=== PATIENT | male | born 1940 | race Caucasian/White ===

== ENCOUNTER 2016-06-13 07:28 | Day surgery (SDC) | payer MEDICARE, OTHER ==
[2016-06-13] VITALS (35 sets, daily range): BP systolic 121–173; BP diastolic 63–107
[~2016-06-13] VITALS: Ht 175.3 cm; Wt 94.0 kg
[~2016-06-13 07:28] MED LIST: ACET650T11 PO; ACLI400A IH; ALBU8.5H2 IH; APIX5TAB2 PO; ASP81TEC PO; ASPI-892 PO; ATOR20TA66 PO; Aspirin PO; BISO1TAB39 PO; BREO ELLIPTA INH; CEFU500T5 PO; CETI10TA17 PO; CLOP75TA PO; CLOP75TA28 PO; CLPD75T PO; ENAL10TA PO; ENLP10T PO; FAMO10VI PO; FAMO20TA13 PO; FERR142T5 PO; FLT05NA16; FLT05NA16 NS; GBPN100C PO; GLIP10TA13 PO; GLIP10TA23 PO; GLIP5TAB26 PO; HYDR28CR10 TP; IPRA3AMP11 INH; ISM30TCR PO; ISOS30TA3 PO; LEVO750T6 PO; METF500T4 PO; METO-272 PO; METO100T5 PO; MTF500T PO; MTP25TSR PO; MULT-298 PO; MULT-974 PO; NAPR220C11 PO; PANT40TA PO; PNT40TEC PO; ROSU10TA12 PO; TRIA1TAB3 PO; VITA-198 PO; VITA400T7 PO; WARF5TAB PO; WARF5TAB6 PO
[2016-06-13] MEDS ORDERED: NS IV 1000 ML 1,000 ML ONE (07:29)
[2016-06-13] MEDS ORDERED: HEParin (CATH LAB) 2,000 ML IV ONE (07:29)
[2016-06-13] MEDS ORDERED: LIDOCAINE 1% INJ 20 ML (XYLOCAINE) VIAL ONE (07:29)
--- OUTSIDE RECORDS SUMMARY | 2016-06-13 07:31 | XMS REPORT | Continuity of Care Document ---
Author Author [facility] Organization [facility] Address Unknown Phone Unavailable Care Team Providers Care Merchandising Professor Name Role Phone Hesham Esparza PCP [phone] Source Comments Some departments are not documenting in the electronic medical record. If you do not see the information that you expected, contact Release of Information in the Health Information Management department at [phone] for further assistance in locating additional records.[facility] Active Allergies and Adverse Reactions No Known Allergies Current Medications Prescription Sig. Disp. Refills Start End Date Status Date aspirin EC 81 mg tablet Take 81 mg by mouth Active daily. glipiZIDE CR (GLUCOTROL Take 10 mg by mouth Active XL) 10 mg tablet daily. clopidogrel (PLAVIX) 75 Take 75 mg by mouth Active mg daily. triamterene/hydrochloroth Take 1 Tab by mouth Active iazide (MAXZIDE) 37.5/25 daily. mg tablet famotidine (PEPCID) 20 mg Take 20 mg by mouth twice Active tablet daily. metFORMIN (GLUCOPHAGE) Take 500 mg by mouth Active 500 mg tablet twice daily with meals. ASPIRIN/MAG HYDROX/AL Take 2 Tabs by mouth Active HYDROX (ARTHRITIS PAIN twice daily. FORMULA PO) vitamin E 400 unit Take 400 Units by mouth Active capsule daily. MULTIVITAMIN PO Take 1 Tab by mouth Active daily. metoprolol XL (TOPROL XL) Take 100 mg by mouth Active 100 mg tablet daily. rosuvastatin (CRESTOR) 10 Take 10 mg by mouth Active mg tablet daily. Hydrocortisone 0.25 % Apply 0.2 mg to affected Active Crea area as Needed. HYDROcodone/acetaminophen Take 1 Tab by mouth every 30 Tab 0 16/20 Active (VICODIN) 5/500 mg tablet 4 hours as needed. 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 Liang. CAD (coronary artery disease) 11/16/2011 Overview: 2008 CABGx4 cath & PCI br Dr Latham: PTCA & stent to RCA, (Cipher 2.5). & 2x28 Cipher drug eluting to pLAD. Patent BACH & patent mLAD 2x28 MiniVision. S/t Cx not amendable to intervention. Mod disease in RCAw/ heavily calcified PDA, atheroscerolosis of aorta. 05/31/12 EF 60%. La 3.8.Mild LVH. Myxomatus degeneration of mitral valve leaflets, suggestive of diastolic dysfxn. AoV w. calcification. Mild TR & MR. Est PAP=35-40mmHg 06/06/11 Lexiscan Myoview Stress test: Diaghragmatic attenuation with fixed defect involving the inferior wall, EF 70%. HTN (hypertension) 11/16/2011 Hyperlipemia 11/16/2011 Overview: Statin therapy, Crestor. 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 REVO RDRO1 . RA & RV lead 5086. ).3V & 0.6 V capture thresholds at implant. RV threshold increase to 4.0V/1/5ms few mo later, consult EP at [facility] for RV lead revison. Due to microdislodgement. Possible upgrade to ICD?NSVT noted at cath. Ventricular tachycardia, nonsustained ([facility]) 11/16/2011 Overview: Noted on holter and cath. Social History Tobacco Use Types Packs/Day Years Used Date Former Smoker Comments: Quit in 1983 Last Filed Vital Signs Vital Sign Reading Time Taken Blood Pressure 168/82 11/24/2011 7:00 AM CDT Pulse 60 11/24/2011 7:00 AM CDT Temperature 36.8 C (98.2 F) 11/24/2011 7:00 AM CDT Respiratory Rate - - Height 1.753 m (5' 9") 11/23/2011 11:02 AM CDT Weight 107.5 kg (236 lb 15.9 oz) 11/23/2011 11:02 AM CDT Body Mass Index 34.98 11/23/2011 11:02 AM CDT Oxygen Saturation 95% 11/24/2011 7:00 AM CDT Plan of Care Health Maintenance Due Date Last Done Comments Physical (Comprehensive) 1945 Exam Pertussis Vaccine 1949 Tetanus Vaccine 08/25/1955 Dilated Eye Exam 1956 Foot Exam 1956 Hba1c 1956 Microalbumin 1956 Shingles Vaccine 1998 Prevnar/Pneumovax (#1) 08/25/2003 Influenza Vaccine 02/09/2016 Results from Last 3 Months Not on file
--- OUTSIDE RECORDS SUMMARY | 2016-06-13 07:32 | XMS REPORT | Continuity of Care Document ---
Author Author [facility] Organization [facility] Address Unknown Phone Unavailable Care Team Providers Care Furniture Assembler And Installer Name Role Phone Hesham Esparza PCP [phone] Source Comments Some departments are not documenting in the electronic medical record. If you do not see the information that you expected, contact Release of Information in the Health Information Management department at [phone] for further assistance in locating additional records.[facility] Active Allergies and Adverse Reactions No Known [...] Statin therapy, Crestor. PVD (peripheral vascular disease) ([facility]) 11/16/2011 Diabetes mellitus ([facility]) 11/16/2011 Diabetic neuropathy ([facility]) 11/16/2011 DJD (degenerative joint disease) 11/16/2011 Cardiac [...] ICD?NSVT noted at cath. Ventricular tachycardia, nonsustained ([facility]) 11/16/2011 Overview: Noted on holter and cath. [...]
[2016-06-13] MEDS ORDERED: NS IV 1000 ML 1,000 ML IV SCH (08:00)
[2016-06-13 08:06] LABS: BILIRUBIN,URINE NEGATIVE (NEGATIVE); KETONES,URINE NEGATIVE (NEGATIVE); LEUKOCYTE ESTERASE ,URINE NEGATIVE (NEGATIVE); NITRITE,URINE NEGATIVE (NEGATIVE); PH,URINE 5 (5-9); PROTEIN,URINE NEGATIVE (NEGATIVE); UROBILINOGEN,URINE NORMAL (NORMAL)
[2016-06-13 08:07] LABS: MEAN PLATELET VOLUME 11.8 FL (7.4-10.4); RED BLOOD COUNT 4.67 10^6/uL (4.35-5.85); RED CELL DISTRIBUTION WIDTH 15.1 % (10.0-14.5); WHITE BLOOD COUNT 6.5 10^3/uL (4.3-11.0)
[2016-06-13 08:13] LABS: SQUAMOUS EPITHELIAL CELL,UR 0-2 /HPF; WBC,URINE 0-2 /HPF
[2016-06-13 08:20] LABS: PROTHROMBIN TIME PATIENT 12.8 SEC (12.2-14.7)
[2016-06-13 08:31] LABS: ALBUMIN 4.2 G/DL (3.2-4.5); BILIRUBIN,TOTAL 0.6 MG/DL (0.1-1.0); CALCIUM 9.5 MG/DL (8.5-10.1); CREATININE SERUM 1.34 MG/DL (0.60-1.30); POTASSIUM 4.3 MMOL/L (3.6-5.0); TOTAL PROTEIN 8.2 G/DL (6.4-8.2)
--- NOTE | 2016-06-13 08:31 | Diagnostic Imaging Report ---
Portable upright radiograph of the chest. INDICATION: Dyspnea. Chest pain. FINDINGS: The heart size is at the upper limits of normal. There are minimal opacities in the lung bases favored to be related to atelectasis. No definite effusion. No pneumothorax. The mediastinum and [place] appear unchanged. There are poststernotomy changes and cardiac pacer with 2 leads seen. IMPRESSION: Subsegmental bibasilar opacities favored to be atelectasis or infiltrates. Correlate clinically. Dictated by: Dictated on workstation # [id number]
[2016-06-13] MEDS ORDERED: fentaNYL INJECTION 100 MCG/2 ML AMP ONE ×2 (08:46→15:48)
[2016-06-13] MEDS ORDERED: MIDAZOLAM 5 MG/5 ML (VERSED) VIAL ONE (08:47)
[2016-06-13] MEDS ORDERED: TAMS0.4C2 PO (08:59)
[2016-06-13] MEDS ORDERED: APIX5TAB PO (08:59)
[2016-06-13] MEDS ORDERED: ENAL5TAB PO (08:59)
[2016-06-13] MEDS ORDERED: TRIA1TAB3 PO (08:59)
[2016-06-13] MEDS ORDERED: FERR-74 PO (08:59)
[2016-06-13] MEDS ORDERED: FINA5TAB6 PO (08:59)
[2016-06-13] MEDS ORDERED: FLUT1AER IH (09:27)
--- NOTE | 2016-06-13 09:46 | Cardiac Procedure Note-CS/ASA ---
Pre-Procedure Note Pre-Op Procedure Note H&P Reviewed The H&P was reviewed, patient examined and no changes noted. Date H&P Reviewed: Jun 13, 2016 Time H&P Reviewed: 09:46 Conscious Sedation Pre-Proced Time Reviewed: 09:46 ASA Class: 3 Airway Mallampati Classification: (ambler appropriate class) I. II. III, IV Lungs Heart ASA score ASA 1: a normal healthy patient ASA 2: a patient with a mild systemic disease (mid diabetes, controlled hypertension, obesity x ASA 3: a patient with a severe systemic disease that limits activity (angina , COPD, prior Myocardial infarction) ASA 4: a patient with an incapacitating disease that is a constant threat to life (CHF, renal failure) ASA 5: a moribund patient not expected to survive 24 hrs. (ruptured aneurysm) ASA 6: a declared brain patient whose organs are being harvested. For emergent operations, add the letter E after the classification Grade 3 Sedation Plan: Analgesia, Amnesia, Plan communicated to team members, Discussed options with patient/fam, Discussed risks with patient/fam Note The patient is an appropriate candidate to undergo the planned procedure, sedation, and anesthesia. The patient immediately re-assessed prior to indication. ZARI PARIS MD Jun 13, 2016 09:46
[2016-06-13] MEDS ORDERED: HEParin 1000 UNIT/ML (10ML VIAL) FOR BOLUS ONE (09:57)
[2016-06-13] MEDS ORDERED: HEParin (CATH LAB) 1,000 ML IV ONE (10:53)
[2016-06-13] MEDS ORDERED: PATIENT MAY USE OWN MEDS, ALL PO SCH (11:30)
[2016-06-13] MEDS: NS IV 1000 ML 1,000 ML IV SCH ×2 (12:13→13:50)
--- NOTE | 2016-06-13 14:38 | DISCHARGE SUMMARY ---
PROCEDURE PHYSICIAN: ZARI PARIS DATE OF PROCEDURE: 06/13/2016 REFERRING PHYSICIAN: Dr. Esparza. BRIEF HISTORY: Mr. Henry is a 75-year-old gentleman with extensive cardiac history. History of CABG, history of multiple stents to the LAD. He has been having increasing chest pain and shortness of breath. The patient was scheduled for left heart catheterization, possible PTCA. PROCEDURE NOTE: After explaining the procedure to the patient, all pros and cons were explained. All questions were answered. The patient signed a consent, then he was placed on the cardiac catheterization laboratory. The right groin was prepped in a sterile fashion. Local anesthesia applied to the right groin. 6-[place] sheath was placed in the right femoral artery. I had difficulties advancing the catheters through the femoral and iliac artery, which was heavily calcified and tortuous. I used a long J-wire. Then I used a Maura right catheter to evaluate the vein graft, unable to advance the Maura right through the subclavian artery. I removed it and decided to proceed with percutaneous intervention to the LAD. The patient had totally occluded LAD that was intervened on in July 2014. I tried multiple guides without success in intubating the left main. Then I removed the guide and exchanged the sheath into a 6-[place] longer sheath, had difficulty advancing the sheath through the iliac artery. I readvanced the Maura right catheter and advanced the sheath over the Maura right catheter to the external iliac artery. I was unable to advance to the common iliac. Then I tried Voda catheter, JL catheter Q catheter and EBU without success. Final success was with EBU guide to 4.0. I was unable to advance a BMW wire through the occlusion at the mid LAD. I tried Whisper extra support and ChoICE PT, without success. I placed a 2.5 x 15 mm balloon at the proximal LAD. I tried to anchor the wire without success. Balloon inflated to its nominal position at the proximal portion within the stent. Some improvement in flow in the proximal portion unable to opening the mid LAD. At that point the catheter was removed. Then I introduced and an IM catheter, advanced it to the subclavian artery also with difficulty. Unable to intubate for selective injection of the internal mammary artery. Multiple injection of the subclavian artery was done. It showed some staining of the BACH. Pigtail catheter was advanced to the left ventricular cavity. Pressure was measured pullback LV to aorta was done. Left ventriculogram was done. At the end of the procedure, sheath was sutured in place. FINDINGS: HEMODYNAMICS: LV pressure 112/8, end-diastolic pressure of 8, aortic pressure 124/67, mean of 89. No significant gradient across the aortic valve. ANATOMY: 1. Left main coronary artery is calcified with no obstructive disease. 2. Left anterior descending artery is heavily calcified, Totally occluded distally within the old stent. Had severe disease at proximal and mid to portion. BACH to the LAD was occluded. I performed complex intervention to the proximal LAD with a balloon. Unable to cross the distal portion that appeared to be totally occluded again. Diagonal artery is occluded with patent vein graft to the diagonal artery. 3. Left circumflex artery: The circumflex artery has subtotal occlusion proximally. The vein graft to the obtuse marginal branch is patent. 4. Right coronary artery is a large dominant artery. Severe disease distally. Vein graft to the right coronary artery is patent. 5. Vein graft angiogram: The vein graft to the right coronary artery is patent with good flow distally. 6. Vein graft to the first obtuse marginal branch is patent with good flow distally. 7. Vein graft to the diagonal artery is patent with good flow distally. 8. BACH evaluation was done with nonselective angiogram, appeared to be occluded. CONCLUSION: 1. Severe stenosis at the proximal and mid LAD. Occlusion at the mid to distal LAD. Unable to cross the lesion in the distal LAD. A balloon angioplasty to the proximal lesion was done with good results. Heavily calcified artery. 2. Occluded BACH to the LAD. 3. Severe disease at the proximal circumflex artery with patent vein graft to the obtuse marginal branch. 4. Patent vein graft to the diagonal artery. 5. Ectasia in the proximal right coronary artery with severe disease distally. Patent vein graft to the right coronary artery. 6. Left ventriculogram was done in the right anterior oblique position showing the anterior wall is karely normally. Normal left ventricular size and systolic function. Estimated ejection fraction 50%. DISCUSSION AND RECOMMENDATION: Mr. Henry appears to have reocclusion of the distal LAD lesion. Heavily calcified artery, very small artery distally. It might not be fruitful to intervene on that area again. It appeared to be resistant with his complex anatomy. I attempted with multiple catheters and multiple wires without success. The anterior wall appeared to be functioning normally. I will consider evaluating viability study versus maximizing medical therapy at this point. FINAL DIAGNOSIS: 1. Coronary artery disease. 2. Chest pain, nonspecific etiology. 3. Hypertension. 4. Hyperlipidemia. 5. 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
[2016-06-13] MEDS ORDERED: ATROPINE INJECTION 1 MG/10 ML SYR (ABBOTT) ONE (15:48)
[2016-06-13] MEDS: PANTOPRAZOLE 40 MG (PROTONIX) TAB PO SCH (20:10)
[2016-06-13] MEDS ORDERED: TAMSULOSIN 0.4 MG (FLOMAX) CAP PO SCH (21:00)
[2016-06-13] MEDS ORDERED: ATORVASTATIN 20 MG (LIPITOR) TABLET PO SCH (21:00)
[2016-06-13] MEDS ORDERED: FERROUS SULF 325 MG (IRON) TAB PO SCH (21:00)
[2016-06-13] MEDS ORDERED: MULTIVIT W/MINERALS TAB (THERAGRAN M) PO SCH (21:00)
[2016-06-13] MEDS ORDERED: ACETAMINOPHEN 325 MG TABLET/CAPLET (TYLENOL) PO PRN (21:30)
[2016-06-14 00:05] VITALS: BP 157/82
[2016-06-14 04:00] VITALS: BP 165/89
[2016-06-14 06:08] LABS: MEAN PLATELET VOLUME 11.8 FL (7.4-10.4); RED BLOOD COUNT 4.16 10^6/uL (4.35-5.85); RED CELL DISTRIBUTION WIDTH 14.9 % (10.0-14.5); WHITE BLOOD COUNT 5.9 10^3/uL (4.3-11.0)
[2016-06-14 06:51] LABS: ANION GAP 8 MMOL/L (5-14); BLOOD UREA NITROGEN 27 MG/DL (7-18); BUN/CREATININE RATIO 26; CALCIUM 8.8 MG/DL (8.5-10.1); CARBON DIOXIDE 20 MMOL/L (21-32); CHLORIDE 113 MMOL/L (98-107); CREATININE SERUM 1.04 MG/DL (0.60-1.30); GFR ESTIMATED > 60; GLUCOSE 80 MG/DL (70-105); POTASSIUM 4.1 MMOL/L (3.6-5.0); SODIUM 141 MMOL/L (135-145)
[2016-06-14 07:58] VITALS: BP 127/74
[2016-06-14] MEDS ORDERED: RT-ADVAIR HFA 115/21 MCG PER PUFF IH SCH (08:00)
[2016-06-14] MEDS ORDERED: glipiZIDE XL 10 MG (GLUCOTROL XL) TAB PO SCH (09:00)
[2016-06-14] MEDS ORDERED: FINASTERIDE (PROSCAR) 5 MG TAB PO SCH (09:00)
[2016-06-14] MEDS ORDERED: ASPIRIN E.C. 81 MG (ECOTRIN) TAB PO SCH ×2 (09:00)
[2016-06-14] MEDS ORDERED: TRIAMTERENE PO SCH (09:00)
[2016-06-14] MEDS ORDERED: ISOSORBIDE MONONITRATE 30 MG (IMDUR) TAB PO SCH (09:00)
[2016-06-14] MEDS ORDERED: meTOprolol SUCCINATE 100 MG (TOPROL XL) TAB PO SCH (09:00)
[2016-06-14] MEDS ORDERED: HCTZ PO SCH (09:00)
[2016-06-14] MEDS ORDERED: ENALAPRIL 5 MG (VASOTEC) TAB PO SCH (09:00)
[2016-06-14] MEDS: PANTOPRAZOLE 40 MG (PROTONIX) TAB PO SCH (09:06)
[2016-06-14 11:55] VITALS: BP 116/74
--- NOTE | 2016-06-14 14:12 | Cardiology Progress Note ---
Subjective Subjective/Events-last exam Patient is sitting in a chair, feeling better, still having dyspnea on exertion , groin has healed well. No hematoma Review of Systems General: No Chills, No Night Sweats, No Fatigue, No Malaise, No Appetite, No Other HEENT: No Head Aches, No Visual Changes, No Eye Pain, No Ear Pain, No Dysphasia , No Sinus Congestion, No Post Nasal Drip, No Sore Throat, No Other Pulmonary: DyspneaNo Cough, No Pleuritic Chest Pain, No Other Cardiovascular: No: Chest Pain, Edema, Lt Headedness, Orthopnea, Other, Palpitations, Paroxysmal Noc. Dyspnea Objective-Cardiology Exam Last Set of Vital Signs Vital Signs 06/14/16 11:55 Temp 98.5 Pulse 60 Resp 20 B/P 116/74 Pulse Ox 96 O2 Delivery Room Air Capillary Refill : Less Than 3 Seconds I&O Intake and Output 06/14/16 00:00 Intake Total 2400 ml Output Total 300 ml Balance 2100 ml Intake Oral 400 ml IV Total 2000 ml Output Urine Total 300 ml General: Alert, Oriented X3, Cooperative HEENT: Atraumatic, PERRLA Neck: Supple, No JVD, No Thyromegaly Lungs: Clear to Auscultation, Normal Air Movement Heart: Regular Rate, Normal S1, Normal S2, No Murmurs Abdomen: Normal Bowel Sounds, Soft, No Tenderness, No Hepatosplenomegaly, No Masses Extremities: No Clubbing, No Cyanosis, No Edema, Normal Pulses, No Tenderness/ Swelling Skin: No Rashes, No Breakdown, No Significant Lesion Neuro: Normal Gait, Normal Speech, Strength at 5/5 X4 Ext, Normal Tone, Sensation Intact Psych/Mental Status: Mental Status NL, Mood NL Results Lab Laboratory Tests 06/14/16 05:07 A/P-Cardiology Admission Diagnosis Coronary artery disease Hypertension Hyperlipidemia Shortness of breath Assessment/Plan Coronary artery disease, multiple intervention in the past, total occlusion of the mid to distal LAD, balloon angioplasty to the proximal LAD. Had a long discussion with the patient, he is fairly symptomatic, attempting 4 high risk intervention to the mid and distal LAD might carry a risk of complication, preferably to be done at a tertiary care center, patient preferred to have it done or at least attempted prior to starting cardiac rehabilitation program. I discussed it with him and I will arrange for him to have the procedure done. Hypertension, controlled on current medication, continue to monitor blood pressure Hyperlipidemia. Continue current medication monitor Shortness of breath, COPD. Obesity, BMI 30, discussed weight loss. I discussed with the patient and his the management plan, all treatment options, spent 30-45 minutes with the patient and his family discussing the treatment option and his anatomy. Planning to discharge home today. ZARI PARIS MD Jun 14, 2016 14:12
--- NOTE | 2016-06-14 14:15 | Discharge Inst-Post CATH ---
Discharge Inst-CATH Post Cardiac Cath D/C Inst Follow Up/Plan Appointment with Dr Macdonald's office in 2-4 weeks Hold Metformin for 48 hours CARDIAC CATH DISCHARGE INSTRUCTIONS *Hold Metformin for 48 hours post heart cath. ACTIVITY * Go Home directly and rest. * Limit activity of the leg (or wrist if it was used) for 7 days including aerobics, swimming, jogging, bicycling, etc. * Restrict stair-climbing for 7 days if possible, if not, climb up with your non -cath leg, then bring together on the same step. * Avoid lifting, pushing, pulling or excessive movement of the affected extremity for 7 days. * Customary sexual activity may be resumed after 2 days-use caution not to use a position that strains or causes pain to the affected extremity. * No driving for 24 hours. * NO SMOKING. * Avoid straining for bowel movements for 7 days. * Gentle walking on level ground is allowed. * Returning to work will depend on the type of procedure and the results. Your doctor will discuss this with you. CALL YOUR DOCTOR FOR ANY OF THE FOLLOWING: *If bleeding from the puncture site occurs- Apply gentle pressure to site with clean cloth and call your doctor or EMS. * If a knot or lump forms under the skin, increases in size, or causes pain. * If bruising appears to be worsening or moving further down your leg instead of disappearing. * Temperature above 101 F. CARE OF YOUR GROIN INCISION; * Bruising or purple discoloration of the skin near the puncture site is common. * You may shower only, no bathtub bathing for 5 days. Be careful to avoid slipping as your leg may feel stiff. * If a closure device was used on your femoral artery, please see the attached guide regarding care of the device and your leg. * REMOVE the dressing from your groin the next day after your procedure in the shower. CARE OF YOUR WRIST INCISION; * Bruising or purple discoloration of the skin near the puncture site is common. * You may shower. * DO NOT submerge wrist. * Remove dressing in 24 hours. ZARI MACDONALD MD Jun 14, 2016 14:15
[2016-06-14 15:30] VITALS: BP 116/74
== END 2016-06-14 15:30 | disposition home or self-care (01) ==
LOC: CATH 07:28 → ICU 11:45 → CSD 20:37 → CATH 06-14 15:30
PROVIDERS: ATTEND Internal Medicine Cardiovascular Disease
DX: T82.857D Stenosis of other cardiac prosthetic devices, implants and grafts, subsequent encounter (principal); I25.10 Atherosclerotic heart disease of native coronary artery without angina pectoris; I25.84 Coronary atherosclerosis due to calcified coronary lesion; I25.82 Chronic total occlusion of coronary artery; R07.89 Other chest pain; R06.02 Shortness of breath; I48.2 Chronic atrial fibrillation; I49.5 Sick sinus syndrome; J44.9 Chronic obstructive pulmonary disease, unspecified; E11.9 Type 2 diabetes mellitus without complications; E66.9 Obesity, unspecified; Z68.30 Body mass index [BMI] 30.0-30.9, adult; Z95.1 Presence of aortocoronary bypass graft; Z95.0 Presence of cardiac pacemaker; Z79.01 Long term (current) use of anticoagulants; Z79.899 Other long term (current) drug therapy
CPT/HCPCS: 36415; 71010; 80048; 80053; 80061; 81000; 82962; 83605; 85027; 85347; 85610; 85730; 87040; 87081; 92920; 93005; 93459

== ENCOUNTER → 2016-10-18 | Outpatient (CLI) | payer MEDICARE, OTHER ==
[~2016-10-18] MED LIST changes: +APIX5TAB PO; +CATHETER FLUSH 10 ML SYR IV PRN; +ENAL5TAB PO; +FERR-74 PO; +FINA5TAB6 PO; +FLUT1AER IH; +IOHEXOL 350 MG/ML 100 ML (OMNIPAQUE 350) VIAL IV ONE; +NS 100 ML (IVPB) BAG IV ONE; +TAMS0.4C2 PO
[2016-10-18 09:58] LABS: ALBUMIN 3.9 G/DL (3.2-4.5); BILIRUBIN,TOTAL 0.7 MG/DL (0.1-1.0); CALCIUM 9.6 MG/DL (8.5-10.1); CREATININE SERUM 1.47 MG/DL (0.60-1.30); POTASSIUM 4.5 MMOL/L (3.6-5.0); TOTAL PROTEIN 7.8 G/DL (6.4-8.2)
--- NOTE | 2016-10-18 12:06 | Diagnostic Imaging Report ---
CT angiogram of the neck performed with intravenous contrast with MIP coronal and sagittal technique reconstructions performed. INDICATION: Carotid artery stenosis. 85 mL of Omnipaque 350 is administered intravenously. FINDINGS: The aortic arch is patent. The brachycephalic artery demonstrates tortuosity and atherosclerotic calcified plaque with no significant stenosis. The right subclavian artery is patent. The right common carotid artery demonstrate scattered plaque. There is also scattered atherosclerotic calcified plaque in the internal carotid artery. There is no high-grade stenosis. The right external carotid artery is patent. There is calcified plaque seen in the proximal segment of the vertebral artery at its takeoff from the right subclavian artery with artifacts from the calcification preventing accurate assessment of the degree of stenosis. The mid and distal segments of the right vertebral artery demonstrate mild disease with no obvious high-grade stenosis. The intracranial portion of the right vertebral artery demonstrate supply of the basilar artery only from the right vertebral artery. The left vertebral artery is small and terminates at a left PICA with possible hypoplastic tiny distal segment communicating with the basilar artery. The origin of the left vertebral artery is not well seen. The left common carotid artery is slightly tortuous but patent with atherosclerotic calcifications at its bifurcation level. There is ectasia at the bulb of the internal carotid artery with diameter of the vessel up to 1.1 cm. No high-grade stenosis is seen. The external carotid artery is patent. The visualized portions of the internal carotid arteries intracranially demonstrate heavy calcifications which prevent accurate assessment of the lumen. The MRA would be a better modality to assess patency in these vessels if needed and is generally not affected by calcifications. The soft tissues in the neck demonstrate symmetric parotid and submandibular glands. The thyroid gland appear unremarkable. No significantly enlarged lymph nodes are seen in the neck. There is mild mucosal thickening in the posterior ethmoidal air cells. Advanced degenerative changes of the cervical spine seen. Emphysema changes in the lung apices are noted. IMPRESSION: 1. There is ectasia of the left carotid bulb reaching up to 1.1 cm in diameter. Background atherosclerotic plaque is seen around the carotid bifurcation on both sides with no high-grade stenosis seen on either side. 2. Dominant right vertebral artery. Dictated by: Dictated on workstation # [id number]
== END ==
LOC: RAD 09:08
PROVIDERS: ATTEND Internal Medicine Cardiovascular Disease
DX: I65.23 Occlusion and stenosis of bilateral carotid arteries (principal); I10 Essential (primary) hypertension; I25.10 Atherosclerotic heart disease of native coronary artery without angina pectoris; E78.2 Mixed hyperlipidemia
CPT/HCPCS: 36415; 70498; 80053; 80061; 82565; 84520

== ENCOUNTER 2018-03-10 11:09 | Inpatient (IN) | payer MEDICARE, OTHER ==
[~2018-03-10] VITALS: Ht 175.3 cm; Wt 94.8 kg
[~2018-03-10 11:09] MED LIST changes: -CATHETER FLUSH 10 ML SYR IV PRN; -FERR-74 PO; +FERR325T18 PO; -IOHEXOL 350 MG/ML 100 ML (OMNIPAQUE 350) VIAL IV ONE; -NS 100 ML (IVPB) BAG IV ONE
[2018-03-10] MEDS ORDERED: ACETAMINOPHEN 325 MG TABLET PO PRN (11:45)
[2018-03-10 11:50] LABS: BASOPHILS % (AUTO) 0 % (0-10); EOSINOPHILS % (AUTO) 0 % (0-10); HEMATOCRIT 34 % (40-54); HEMOGLOBIN 11.2 G/DL (13.3-17.7); LYMPHOCYTES # (AUTO) 0.5 X 10^3 (1.0-4.0); LYMPHOCYTES % (AUTO) 6 % (12-44); MEAN CORPUSCULAR HEMOGLOBIN 31 PG (25-34); MEAN CORPUSCULAR HGB CONC 33 G/DL (32-36); MEAN CORPUSCULAR VOLUME 93 FL (80-99); MEAN PLATELET VOLUME 11.2 FL (7.4-10.4); MONOCYTES # (AUTO) 0.7 X 10^3 (0.0-1.0); MONOCYTES % (AUTO) 8 % (0-12); NEUTROPHILS # (AUTO) 8.1 X 10^3 (1.8-7.8); NEUTROPHILS % (AUTO) 87 % (42-75); PLATELET COUNT 148 10^3/uL (130-400); RED BLOOD COUNT 3.67 10^6/uL (4.35-5.85); RED CELL DISTRIBUTION WIDTH 17.4 % (10.0-14.5); WHITE BLOOD COUNT 9.3 10^3/uL (4.3-11.0)
[2018-03-10 12:00] VITALS: BP 148/88
[2018-03-10 12:10] LABS: ALBUMIN 3.5 GM/DL (3.2-4.5); BILIRUBIN,TOTAL 0.9 MG/DL (0.1-1.0); CALCIUM 9.5 MG/DL (8.5-10.1); CREATININE SERUM 1.68 MG/DL (0.60-1.30); POTASSIUM 4.2 MMOL/L (3.6-5.0); TOTAL PROTEIN 9.3 GM/DL (6.4-8.2)
[2018-03-10] MEDS ORDERED: FLU QUADRIvalent (5+ YOA) 2018-2019 (AFLURIA) 0.5 ML IM ONE (12:15)
[2018-03-10 12:16] LABS: LYMPHOCYTES % (MANUAL) 5 %; MONOCYTES % (MANUAL) 5 %; NEUTROPHILS % (MANUAL) 90 %; RBC MORPH NORMAL
--- OUTSIDE RECORDS SUMMARY | 2018-03-10 12:33 | XMS REPORT | Clinical Summary ---
Author Author [facility] Organization [facility] Address Unknown Phone Unavailable Care Team Providers Care Manager Technical Services Name Role Phone Hesham Esparza MD PCP Maryjane Abrams MD 100 Source Comments Some departments are not documenting in the electronic medical record. If you do not see the information that you expected, contact Release of Information in the Health Information Management department at [phone] for further assistance in locating additional records.[facility] Allergies No Known Allergies Current Medications Prescription Sig. [...] Tab by mouth every 30 Tab 0 11/24/19 Active (VICODIN) 5/500 mg 4 hours as needed. 12 tabletIndications: Pacemaker lead failure Active Problems Problem Noted Date Pacemaker lead [...] Statin therapy, Crestor. 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 REVO RDRO1 . RA & RV lead 5086. ).3V & 0.6 V capture thresholds at implant. RV threshold increase to 4.0V/1/5ms few mo later, consult EP at [facility] for RV lead revison. Due to microdislodgement. Possible upgrade to ICD?NSVT noted at cath. Ventricular tachycardia, nonsustained ([facility]) 11/16/2011 Overview: Noted on holter and cath. Family History Relation Name Status Comments Father Mother Social History Tobacco Use Types Packs/Day Years Used Date Former Smoker Comments: Quit in 1983 Sex Assigned at Date Recorded Not on file Last Filed Vital Signs Vital Sign Reading Time Taken Blood Pressure 168/82 11/24/2011 7:00 AM CDT Pulse 60 11/24/2011 7:00 AM CDT Temperature 36.8 C (98.2 F) 11/24/2011 7:00 AM CDT Respiratory Rate - - Oxygen Saturation 95% 11/24/2011 7:00 AM CDT Inhaled Oxygen - - Concentration Weight 107.5 kg (236 lb 15.9 oz) 11/23/2011 11:02 AM CDT Height 175.3 cm (5' 9") 11/23/2011 11:02 AM CDT Body Mass Index 35 11/23/2011 11:02 AM CDT Plan of Treatment Health Maintenance Due Date Last Done Comments PHYSICAL (COMPREHENSIVE) 1947 EXAM PERTUSSIS VACCINE 1949 TETANUS VACCINE 08/25/1955 DILATED EYE EXAM 1956 FOOT EXAM 1956 HBA1C 1956 MICROALBUMIN 1956 SHINGLES RECOMBINANT 1988 VACCINE (1 of 2) PNEUMONIA (PCV13/PPSV23) 08/25/2003 VACCINES (1 of 2 - PCV13) INFLUENZA VACCINE 01/08/2018 Results Not on filefrom Last 3 Months
--- OUTSIDE RECORDS SUMMARY | 2018-03-10 12:36 | XMS REPORT | Continuity of Care Document ---
Author Author [facility] Organization [facility] Address Unknown Phone Unavailable Allergies Active Description Code Type Severity Reaction Onset Reported/Identified Relationship to Patient Clinical Status Yes No Known Drug Allergies [id number] Drug Allergy Unknown N/A 06/06/2011 Medications There is no data. Problems Date Dx Coded Attending Type Code Diagnosis Diagnosed By 07/21/2009 Ot 327.23 10/10/2009 Ot V45.81 10/10/2009 Ot V57.89 07/06/2010 Ot 250.00 07/06/2010 Ot 327.23 07/06/2010 Ot 401.9 06/11/2011 Ot 250.00 DIAB JAKY WO COMPL, TYPE II OR UNSPEC TY 06/11/2011 Ot 272.4 HYPERLIPIDEMIA NEC/NOS 06/11/2011 Ot 401.9 HYPERTENSION NOS 06/11/2011 Ot 414.01 CORONARY ATHEROSCLEROSIS OF [place] CORON 06/11/2011 Ot 426.0 ATRIOVENT BLOCK COMPLETE 06/11/2011 Ot 440.0 AORTIC ATHEROSCLEROSIS 06/11/2011 Ot V45.81 AORTOCORONARY BYPASS 09/04/2011 Ot 414.00 CORON ATHEROSCLER NOS TYPE VESSEL, NATIV 09/04/2011 Ot 786.09 RESPIRATORY ABNORM NEC 10/31/2011 Ot 413.9 ANGINA PECTORIS NEC/NOS 10/31/2011 Ot V45.01 CARDIAC PACEMAKER IN SITU 10/31/2011 Ot V57.89 REHABILITATION PROC NEC 02/07/2012 Ot V43.65 KNEE JOINT REPLACEMENT STATUS 02/07/2012 Ot V54.81 AFTERCARE FOLLOWING JOINT REPLACEMENT 02/07/2012 Ot V57.1 PHYSICAL THERAPY NEC 05/27/2012 Ot 250.00 DIAB JAKY WO COMPL, TYPE II OR UNSPEC TY 05/27/2012 Ot 272.4 HYPERLIPIDEMIA NEC/NOS 05/27/2012 Ot 401.9 HYPERTENSION NOS 05/27/2012 Ot 414.01 CORONARY ATHEROSCLEROSIS OF [place] CORON 05/27/2012 Ot 414.02 CORON ATHEROSCLEROSIS AUTOLOG VEIN BYPAS 05/27/2012 Ot 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 05/27/2012 Ot 427.81 SINOATRIAL NODE DYSFUNCT 05/27/2012 Ot 443.9 PERIPH VASCULAR DIS NOS 05/27/2012 Ot 786.09 RESPIRATORY ABNORM NEC 05/27/2012 Ot V45.01 CARDIAC PACEMAKER IN SITU 05/27/2012 Ot V45.81 AORTOCORONARY BYPASS 05/27/2012 Ot V58.63 LONG-TERM( CURRENT)USE OF ANTIPLATELET/AN 05/27/2012 Ot V58.66 LONG-TERM ( CURRENT) USE OF ASPIRIN 05/27/2012 Ot V58.69 OTH MED,LT, CURRENT USE 10/09/2013 CORY BERGER DO Ot 250.00 DIAB JAKY WO COMPL, TYPE II OR UNSPEC TY 10/09/2013 CORY BERGER DO Ot 272.4 HYPERLIPIDEMIA NEC/NOS 10/09/2013 CORY BERGER DO Ot 278.00 OBESITY, NOS 10/09/2013 CORY BERGER DO Ot 285.9 ANEMIA NOS 10/09/2013 CORY BERGER DO Ot 327.23 OBSTRUCTIVE SLEEP APNEA (ADULT) (PEDIATR 10/09/2013 CORY BERGER DO Ot 401.9 HYPERTENSION NOS 10/09/2013 CORY BERGER DO Ot 414.00 CORON ATHEROSCLER NOS TYPE VESSEL, NATIV 10/09/2013 CORY BERGER DO Ot 427.31 ATRIAL FIBRILLATION 10/09/2013 CORY BERGER DO Ot 486 PNEUMONIA, ORGANISM NOS 10/09/2013 CORY BERGER DO Ot 496 CHR AIRWAY OBSTRUCT NEC 10/09/2013 CORY BERGER DO Ot 584.9 ACUTE RENAL FAILURE, UNSPECIFIED 10/09/2013 CORY BERGER DO Ot 786.02 ORTHOPNEA 10/09/2013 CORY BERGER DO Ot 786.30 HEMOPTYSIS, UNSPECIFIED 10/09/2013 CORY BERGER DO Ot V45.81 AORTOCORONARY BYPASS 10/09/2013 CORY BERGER DO Ot V46.2 SUPPLEMENTAL OXYGEN 10/09/2013 CORY BERGER DO Ot V85.34 BODY MASS INDEX 34.0-34.9, ADULT 01/07/2014 CORY BERGER DO Ot 327.23 OBSTRUCTIVE SLEEP APNEA (ADULT) (PEDIATR 01/07/2014 CORY BERGER DO Ot 799.02 HYPOXEMIA 05/05/2014 CORY BERGER DO Ot 327.23 05/05/2014 CORY BERGER DO Ot 492.8 05/05/2014 CORY BERGER DO Ot 786.09 05/05/2014 CORY BERGER DO Ot 327.23 05/05/2014 CORY BERGER DO Ot 492.8 05/05/2014 CORY BERGER DO Ot 786.09 05/05/2014 CORY BERGER DO Ot 793.19 05/21/2014 CORY BERGER DO Ot 327.23 05/21/2014 CORY BERGER DO Ot 492.8 05/21/2014 CORY BERGER DO Ot 786.09 05/21/2014 CORY BERGER DO Ot 327.23 05/21/2014 CORY BERGER DO Ot 492.8 05/21/2014 CORY BERGER DO Ot 786.09 05/21/2014 CORY BERGER DO Ot 793.19 06/21/2014 Ot 397.0 06/21/2014 Ot 414.00 06/21/2014 Ot 424.0 06/21/2014 Ot 429.3 06/21/2014 Ot 786.09 06/21/2014 Ot 414.00 06/21/2014 Ot 786.09 06/21/2014 Ot 996.72 06/21/2014 Ot 285.9 06/21/2014 RAINA MORILLO, ZARI Chairez Ot 397.0 06/21/2014 RAINA MORILLO, ZARI Chairez Ot 414.00 06/21/2014 RAINA MORILLO, ZARI Chairez Ot 424.0 06/21/2014 RAINA MORILLO, ZARI Chairez Ot 427.31 06/21/2014 NORMAN ESPINOZA Ot 786.05 06/21/2014 NORMAN ESPINOZA Ot 786.2 06/21/2014 SANDRA MORILLO, LAI Lopez Ot 473.9 06/21/2014 MELANIE MORILLO, BRUCE Zarate Ot 429.3 06/21/2014 MELANIE MORILLO, BRUCE R Ot 786.09 06/21/2014 MELANIE MORILLO, BRUCE R Ot 786.2 06/21/2014 MELANIE MORILLO, BRUCE R Ot V45.01 06/21/2014 AB DO, CORY M Ot 250.00 06/21/2014 AB DO, CORY M Ot 278.00 06/21/2014 AB DO, CORY M Ot 427.31 06/21/2014 AB DO, CORY M Ot 492.8 06/21/2014 AB DO, CORY M Ot 786.09 06/21/2014 BA DO, CORY M Ot 250.00 06/21/2014 AB DO, CORY M Ot 278.00 06/21/2014 AB DO, CORY M Ot 427.31 06/21/2014 AB DO, CORY M Ot 786.09 06/21/2014 AB DO, CORY M Ot 327.23 06/21/2014 AB DO, CORY M Ot 492.8 06/21/2014 AB DO, CORY M Ot 786.09 06/21/2014 AB DO, CORY M Ot 327.23 06/21/2014 AB DO, CORY M Ot 492.8 06/21/2014 AB DO, CORY M Ot 786.09 06/21/2014 AB DO, CORY M Ot 793.19 06/25/2014 AB DO, CORY M Ot 492.8 06/25/2014 AB DO, CORY M Ot 793.11 06/25/2014 AB DO, CORY M Ot 492.8 06/25/2014 AB DO CORY M Ot 793.11 07/15/2014 ZARI PARIS MD Ot 272.4 07/15/2014 ZARI PARIS MD Ot 401.9 07/15/2014 ZARI PARIS MD Ot 414.00 07/15/2014 ZARI PARIS MD Ot 427.31 07/19/2014 AGUSTIN BERGER DOSON M Ot 492.8 07/19/2014 AB SINGH CORY M Ot 793.11 07/23/2014 ZARI PARIS MD Ot 250.60 DIAB W NEURO MANIFEST, TYPE II OR UNSPEC 07/23/2014 ZARI PARIS MD Ot 272.4 HYPERLIPIDEMIA NEC/NOS 07/23/2014 ZARI APRIS MD Ot 278.01 MORBID OBESITY 07/23/2014 ZARI PARIS MD Ot 285.9 ANEMIA NOS 07/23/2014 ZARI PARIS MD Ot 357.2 NEUROPATHY IN DIABETES 07/23/2014 ZARI PARIS MD Ot 389.9 HEARING LOSS NOS 07/23/2014 ZARI PARIS MD Ot 403.90 HYPTNSV CHR KID DIS, UNSPEC, W CHR KD ST 07/23/2014 ZARI PARIS MD Ot 414.01 CORONARY ATHEROSCLEROSIS OF [place] CORON 07/23/2014 ZARI PARIS MD Ot 427.31 ATRIAL FIBRILLATION 07/23/2014 ZARI PARIS MD Ot 433.30 MULT BILTRAL ARTERY OCCLUSION WO CEREBRA 07/23/2014 ZARI PARIS MD Ot 440.0 AORTIC ATHEROSCLEROSIS 07/23/2014 ZARI PARIS MD Ot 440.20 ATHEROSCLEROSIS [place] ARTERIES EXTREMIT 07/23/2014 ZARI PARIS MD Ot 492.8 EMPHYSEMA NEC 07/23/2014 ZARI PARIS MD Ot 553.3 DIAPHRAGMATIC HERNIA 07/23/2014 ZARI PARIS MD Ot 585.9 CHRONIC KIDNEY DISEASE, UNSPECIFIED 07/23/2014 ZARI PARIS MD Ot 716.90 ARTHROPATHY NOS-UNSPEC 07/23/2014 ZARI PARIS MD Ot 792.1 ABN FIND-STOOL CONTENTS 07/23/2014 ZARI PARIS MD Ot 996.72 OTH COMPLICATIONS DUE TO OTH CARD DEVICE 07/23/2014 ZARI PARIS MD Ot V12.29 PERSONAL HX OF OTH ENDOCRINE, METABOLIC 07/23/2014 ZARI PARIS MD Ot V15.82 HISTORY OF TOBACCO USE 07/23/2014 ZARI PARIS MD Ot V43.65 KNEE JOINT REPLACEMENT STATUS 07/23/2014 ZARI PARIS MD Ot V45.01 CARDIAC PACEMAKER IN SITU 07/23/2014 ZARI PARIS MD Ot V45.81 AORTOCORONARY BYPASS 07/23/2014 ZARI PARIS MD Ot V45.82 PERCUTANEOUS TRANSLUM CORON ANGIOPLASTY 07/23/2014 ZARI PARIS MD Ot V58.63 LONG-TERM(CURRENT)USE OF ANTIPLATELET/AN 07/23/2014 ZARI PARIS MD Ot V58.66 LONG-TERM (CURRENT) USE OF ASPIRIN 07/23/2014 ZARI PARIS MD Ot V85.34 BODY MASS INDEX 34.0-34.9, ADULT 07/29/2014 CORY BERGER DO Ot 492.8 07/29/2014 CORY BERGER DO Ot 793.11 08/04/2014 ZARI PARIS MD Ot 272.4 08/04/2014 ZARI PARIS MD Ot 401.9 08/04/2014 ZARI PARIS MD Ot 414.00 08/04/2014 ZARI PARIS MD Ot 427.31 08/06/2014 ZARI PARIS MD Ot 272.4 08/06/2014 ZARI PARIS MD Ot 401.9 08/06/2014 ZARI PARIS MD Ot 414.00 08/06/2014 ZARI PARIS MD Ot 427.31 09/14/2014 ZARI PARIS MD Ot V45.82 09/14/2014 ZARI PARIS MD Ot V57.89 10/15/2014 KYLE MCDUFFIE MD Ot 211.3 BENIGN NEOPLASM LG BOWEL 10/15/2014 KYLE MCDUFFIE MD Ot 285.9 ANEMIA NOS 10/15/2014 KYLE MCDUFFIE MD Ot 455.0 INT HEMORRHOID W/O COMPL 10/15/2014 KYLE MCDUFFIE MD Ot 455.3 EXT HEMORRHOID W/O COMPL 10/15/2014 KYLE MCDUFFIE MD Ot 530.11 REFLUX ESOPHAGITIS 10/15/2014 KYLE MCDUFFIE MD Ot 535.50 UNSP GASTRITIS GASTRODUODENITIS W/O ME 10/15/2014 KYLE MCDUFFIE MD Ot 553.3 DIAPHRAGMATIC HERNIA 10/15/2014 KYLE MCDUFFIE MD Ot 562.10 DIVERTICULOSIS COLON (W/O MENT OF HEMORR 10/25/2014 KYLE MCDUFFIE MD Ot 250.60 DIAB W NEURO MANIFEST, TYPE II OR UNSPEC 10/25/2014 KYLE MCDUFFIE MD Ot 272.0 PURE HYPERCHOLESTEROLEM 10/25/2014 KYLE MCDUFFIE MD Ot 285.1 AC POSTHEMORRHAG ANEMIA 10/25/2014 KYLE MCDUFFIE MD Ot 285.9 10/25/2014 KYLE MCDUFFIE MD Ot 357.2 NEUROPATHY IN DIABETES 10/25/2014 KYLE MCDUFFIE MD Ot 401.9 10/25/2014 KYLE MCDUFFIE MD Ot 403.90 HYPTNSV CHR KID DIS, UNSPEC, W CHR KD ST 10/25/2014 KYLE MCDUFFIE MD Ot 414.00 CORON ATHEROSCLER NOS TYPE VESSEL, NATIV 10/25/2014 KYLE MCDUFFIE MD Ot 427.31 ATRIAL FIBRILLATION 10/25/2014 KYLE MCDUFFIE MD Ot 455.0 INT HEMORRHOID W/O COMPL 10/25/2014 KYLE MCDUFFIE MD Ot 455.3 EXT HEMORRHOID W/O COMPL 10/25/2014 KYLE MCDUFFIE MD Ot 496 CHR AIRWAY OBSTRUCT NEC 10/25/2014 KYLE MCDUFFIE MD Ot 530.11 REFLUX ESOPHAGITIS 10/25/2014 KYLE MCDUFFIE MD Ot 530.81 ESOPHAGEAL REFLUX 10/25/2014 KYLE MCDUFFIE MD Ot 535.50 UNSP GASTRITIS GASTRODUODENITIS W/O ME 10/25/2014 KYLE MCDUFFIE MD Ot 553.3 DIAPHRAGMATIC HERNIA 10/25/2014 KYLE MCDUFFIE MD Ot 562.10 DIVERTICULOSIS COLON (W/O MENT OF HEMORR 10/25/2014 KYLE MCDUFFIE MD Ot 564.00 UNSPEC CONSTIPATION 10/25/2014 KYLE MCDUFFIE MD Ot 569.3 10/25/2014 KYLE MCDUFFIE MD Ot 578.9 GASTROINTEST HEMORR NOS 10/25/2014 KYLE MCDUFFIE MD Ot 585.9 CHRONIC KIDNEY DISEASE, UNSPECIFIED 10/25/2014 KYLE MCDUFFIE MD Ot 716.90 ARTHROPATHY NOS-UNSPEC 10/25/2014 KYLE MCDUFFIE MD Ot 998.11 HEMOR COMPLIC A PROCEDURE 10/25/2014 KYLE MCDUFFIE MD Ot V12.29 PERSONAL HX OF OTH ENDOCRINE, METABOLIC 10/25/2014 KYLE MCDUFFIE MD Ot V12.72 PERSONAL HISTORY OF COLONIC POLYPS 10/25/2014 KYLE MCDUFFIE MD Ot V15.82 HISTORY OF TOBACCO USE 10/25/2014 KYLE MCDUFFIE MD Ot V45.01 CARDIAC PACEMAKER IN SITU 10/25/2014 KYLE MCDUFFIE MD Ot V45.81 AORTOCORONARY BYPASS 10/25/2014 KYLE MCDUFFIE MD Ot V45.82 PERCUTANEOUS TRANSLUM CORON ANGIOPLASTY 10/25/2014 KYLE MCDUFFIE MD Ot V45.89 POSTSURGICAL STATES NEC 10/25/2014 KYLE MCDUFFIE MD Ot V58.61 ANTICOAGULANTS,LT,CURRENT USE 10/25/2014 KYLE MCDUFFIE MD Ot V58.63 LONG-TERM(CURRENT)USE OF ANTIPLATELET/AN 10/25/2014 KYLE MCDUFFIE MD, Ot V58.66 LONG-TERM (CURRENT) USE OF ASPIRIN 11/04/2014 MELANIE MORILLO, BRUCE Zarate Ot 285.9 ANEMIA NOS 11/08/2014 RAINA MORILLO, ZARI Chairez Ot V45.82 11/08/2014 ZARI PARIS MD Ot V57.89 12/12/2014 ZARI PARIS MD Ot V45.82 PERCUTANEOUS TRANSLUM CORON ANGIOPLASTY 12/12/2014 ZARI PARIS MD Ot V57.89 REHABILITATION PROC NEC 12/22/2014 Ot 397.0 12/22/2014 Ot 414.00 12/22/2014 Ot 424.0 12/22/2014 Ot 429.3 12/22/2014 Ot 786.09 12/22/2014 Ot 414.00 12/22/2014 Ot 786.09 12/22/2014 Ot 996.72 12/22/2014 Ot 285.9 12/22/2014 RAINA MORILLO, ZARI Chairez Ot 397.0 12/22/2014 RAINA MORILLO, ZARI Chairez Ot 414.00 12/22/2014 ZARI PARIS MD Ot 424.0 12/22/2014 ZARI PARIS MD Ot 427.31 12/22/2014 NORMAN ESPINOZA Ot 786.05 12/22/2014 NORMAN ESPINOZA Ot 786.2 12/22/2014 SANDRA MORILLO, LAI P Ot 473.9 12/22/2014 MELANIE MORILLO, BRUCE Zarate Ot 429.3 12/22/2014 MELANIE MORILLO, BRUCE R Ot 786.09 12/22/2014 MELANIE MORILLO, BRUCE R Ot 786.2 12/22/2014 MELANIE MORILLO, BRUCE R Ot V45.01 12/22/2014 CORY BERGER DO Ot 250.00 12/22/2014 AB DO, CORY M Ot 278.00 12/22/2014 AB DO, CORY M Ot 427.31 12/22/2014 AB DO, CORY M Ot 492.8 12/22/2014 AB DO, CORY M Ot 786.09 12/22/2014 AB DO, CORY M Ot 250.00 12/22/2014 AB DO, CORY M Ot 278.00 12/22/2014 AB DO, CORY M Ot 427.31 12/22/2014 AB DO, CORY M Ot 786.09 12/22/2014 AB DO, CORY M Ot 327.23 12/22/2014 AB DO, CORY M Ot 492.8 12/22/2014 AB DO, CORY M Ot 786.09 12/22/2014 AB DO, CORY M Ot 327.23 12/22/2014 AB DO, CORY M Ot 492.8 12/22/2014 AB DO, CORY M Ot 786.09 12/22/2014 AB DO, CORY M Ot 793.19 12/22/2014 AB DO, CORY M Ot 492.8 12/22/2014 AB DO, CORY M Ot 793.11 12/22/2014 RAINA MORILLO, ZARI Chairez Ot 272.4 12/22/2014 RAINA MORILLO, ZARI Chairez Ot 401.9 12/22/2014 RAINA MORILLO, ZARI Chairez Ot 414.00 12/22/2014 RAINA MORILLO, ZARI Chairez Ot 427.31 12/22/2014 ROSA MORILLO, SAVANNAH Knox Ot 250.00 12/22/2014 ROSA MORILLO, SAVANNAH Knox Ot 272.4 12/22/2014 ROSA MORILLO, SAVANNAH Knox Ot 280.0 12/22/2014 ROSA MORILLO, SAVANNAH Knox Ot 401.9 12/22/2014 ROSA MORILLO, SAVANNAH Knox Ot 414.00 12/22/2014 ROSA MORILLO, SAVANNAH Lisette Ot 427.31 12/22/2014 ROSA MORILLO, SAVANNAH Knox Ot 496 12/22/2014 ROSA MORILLO, SAVANNAH Knox Ot 600.91 12/22/2014 ROSA MORILLO, SAVANNAH Knox Ot 788.64 12/22/2014 ROSA MORILLO, SAVANNAH Knox Ot V12.79 12/22/2014 FROY MORILLO, KYLE Ot V72.84 12/22/2014 RAINA MORILLO, ZARI Chairez Ot V45.82 12/22/2014 RAINA MORILLO, ZARI Contreras Ot V57.89 12/22/2014 CORY BERGER DO Ot 492.8 12/22/2014 CORY BERGER DO Ot 793.11 12/22/2014 RAINA MORILLO, ZARI J Ot 272.4 12/22/2014 RAINA MORILLO, SHANNANCORINE J Ot 401.9 12/22/2014 RAINA MORILLO, ZARI J Ot 414.00 12/22/2014 RAINA MORILLO, ZARI J Ot 427.31 12/22/2014 ROSA MORILLO, SAVANNAH K Ot 250.00 12/22/2014 ROSA MORILLO, SAVANNAH K Ot 272.4 12/22/2014 ROSA MORILLO, SAVANNAH K Ot 280.0 12/22/2014 ROSA MORILLO, SAVANNAH K Ot 401.9 12/22/2014 ROSA MORILLO, SAVANNAH K Ot 414.00 12/22/2014 ROSA MORILLO, SAVANNAH K Ot 427.31 12/22/2014 ROSA MORILLO, SAVANNAH Lisette Ot 496 12/22/2014 ROSA MORILLO, SAVANNAH Lisette Ot 600.91 12/22/2014 ROSA MORILLO, SAVANNAH K Ot 788.64 12/22/2014 ROSA MORILLO, SAVANNAH K Ot V12.79 12/22/2014 FROY MORILLO, KYLE Ot V72.84 12/22/2014 RAINA MORILLO, SHANNANCORINE Chairez Ot V45.82 12/22/2014 RAINA MORILLO, SHANNANCORINE Chairez Ot V57.89 12/30/2014 ROSA MORILLO, SAVANNAH K Ot 250.00 12/30/2014 ROSA MORILLO, SAVANNAH K Ot 272.4 12/30/2014 ROSA MORILLO, SAVANNAH K Ot 280.0 12/30/2014 ROSA MORILLO, SAVANNAH K Ot 401.9 12/30/2014 ROSA MORILLO, SAVANNAH Lisette Ot 414.00 12/30/2014 ROSA MORILLO, SAVANNAH Lisette Ot 427.31 12/30/2014 ROSA MORILLO, SAVANNAH Lisette Ot 496 12/30/2014 ROSA MORILLO, SAVANNAH Lisette Ot 600.91 12/30/2014 ROSA MORILLO, SAVANNAH Lisette Ot 788.64 12/30/2014 ROSA MORILLO, SAVANNAH K Ot V12.79 01/24/2015 CORY BERGER DO Ot 492.8 01/24/2015 CORY BERGER DO Ot 786.09 02/08/2015 Ot 397.0 02/08/2015 Ot 414.00 02/08/2015 Ot 424.0 02/08/2015 Ot 429.3 02/08/2015 Ot 786.09 02/08/2015 Ot 414.00 02/08/2015 Ot 786.09 02/08/2015 Ot 996.72 02/08/2015 Ot 285.9 02/08/2015 RAINA MORILLO, ZARI Chairez Ot 397.0 02/08/2015 RAINA MORILLO, ZARI Chairez Ot 414.00 02/08/2015 RAINA MORILLO, ZARI Chairez Ot 424.0 02/08/2015 RAINA MORILLO, ZARI Chairez Ot 427.31 02/08/2015 ISAIAH DESOUZA, NORMAN Knox Ot 786.05 02/08/2015 ISAIAH DESOUZA, NORMAN Knox Ot 786.2 02/08/2015 SANRDA MORILLO, LAI Lopez Ot 473.9 02/08/2015 MELANIE MORILLO, BRUCE R Ot 429.3 02/08/2015 MELANIE MORILLO, BRUCE R Ot 786.09 02/08/2015 MELANIE MORILLO, BRUCE R Ot 786.2 02/08/2015 MELANIE MORILLO, BRUCE R Ot V45.01 02/08/2015 AB DO, CORY M Ot 250.00 02/08/2015 AB DO, CORY M Ot 278.00 02/08/2015 AB DO, CORY M Ot 427.31 02/08/2015 AB DO, CORY M Ot 492.8 02/08/2015 AB DO, CORY M Ot 786.09 02/08/2015 AB DO, CORY M Ot 250.00 02/08/2015 AB DO, CORY M Ot 278.00 02/08/2015 AB DO, CORY M Ot 427.31 02/08/2015 AB DO, CORY M Ot 786.09 02/08/2015 AB DO, CORY M Ot 327.23 02/08/2015 AB DO, CORY M Ot 492.8 02/08/2015 AB DO, CORY M Ot 786.09 02/08/2015 AB DO, CORY M Ot 327.23 02/08/2015 AB DO, CORY M Ot 492.8 02/08/2015 AB DO, CORY M Ot 786.09 02/08/2015 CORY BERGER DO Ot 793.19 02/08/2015 AB SINGH CORY M Ot 492.8 02/08/2015 AB SINGH CORY M Ot 793.11 02/08/2015 RAINA MORILLO, ZARI Chairez Ot 272.4 02/08/2015 RAINA MORILLO, ZARI Chairez Ot 401.9 02/08/2015 RAINA MORILLO, ZARI J Ot 414.00 02/08/2015 RAINA MORILLO, ZARI J Ot 427.31 02/08/2015 ROSA MORILLO, SAVANNAH Lisette Ot 250.00 02/08/2015 ROSA MORILLO, SAVANNAH K Ot 272.4 02/08/2015 ROSA MORILLO, SAVANNAH K Ot 280.0 02/08/2015 ROSA MORILLO, SAVANNAH K Ot 401.9 02/08/2015 ROSA MORILLO, SAVANNAH Lisette Ot 414.00 02/08/2015 ROSA MORILLO, SAVANNAH K Ot 427.31 02/08/2015 ROSA MORILLO, SAVANNAH K Ot 496 02/08/2015 ROSA MORILLO, SAVANNAH K Ot 600.91 02/08/2015 ROSA MORILLO, SAVANNAH K Ot 788.64 02/08/2015 ROSA MORILLO, SAVANNAH Knox Ot V12.79 02/08/2015 FROY MORILLO, TAKAAKI Ot V72.84 02/08/2015 RAINA MORILLO, ZARI Chairez Ot V45.82 02/08/2015 RAINA MORILLO, ZARI Chairez Ot V57.89 02/08/2015 CORY BERGER DO Ot 492.8 02/08/2015 CORY BERGER DO M Ot 786.09 02/08/2015 RAINA MORILLO, ZARI Chairez Ot 272.4 02/08/2015 RAINA MORILLO, ZARI Chairez Ot 401.9 02/08/2015 RAINA MORILLO, ZARI J Ot 414.00 02/08/2015 RAINA MORILLO, ZARI J Ot 427.31 02/08/2015 CORY BERGER DO M Ot 492.8 02/08/2015 CORY BERGER DO M Ot 786.09 02/08/2015 ROSA MORILLO, SAVANNAH Knox Ot 250.00 02/08/2015 ROSA MORILLO, SAVANNAH Lisette Ot 272.4 02/08/2015 ROSA MORILLO, SAVANNAH K Ot 280.0 02/08/2015 ROSA MORILLO, SAVANNAH K Ot 401.9 02/08/2015 ROSA MORILLO, SAVANNAH Knox Ot 414.00 02/08/2015 ROSA MORILLO, SAVANNAH Knox Ot 427.31 02/08/2015 ROSA MORILLO, SAVANNAH Knox Ot 496 02/08/2015 ROSA MORILLO, SAVANNAH Knox Ot 600.91 02/08/2015 ROSA MORILLO, SAVANNAH Knox Ot 788.64 02/08/2015 ROSA MORILLO, SAVANNAH Knox Ot V12.79 02/08/2015 FROY MORILLO, KYLE Ot V72.84 02/08/2015 CORY BERGER DO Ot 492.8 02/08/2015 CORY BERGER DO Ot 793.11 02/09/2015 CORY BERGER DO Ot 492.8 02/09/2015 CORY BERGER DO Ot 786.09 02/21/2015 ROSA MORILLO, SAVANNAH Knox Ot 250.00 02/21/2015 ROSA MORILLO, SAVANNAH Knox Ot 272.4 02/21/2015 SAVANNAH LEE MD Ot 280.0 02/21/2015 ROSA MORILLO, SAVANNAH Knox Ot 401.9 02/21/2015 ROSA MORILLO, SAVANNAH Knox Ot 414.00 02/21/2015 ROSA MORILLO, SAVANNAH Knox Ot 427.31 02/21/2015 SAVANNAH LEE MD Ot 496 02/21/2015 ROSA MORILLO, SAVANNAH Knox Ot 600.91 02/21/2015 SAVANNAH LEE MD Ot 788.64 02/21/2015 SAVANNAH LEE MD Ot V12.79 02/21/2015 CORY BERGER DO Ot 492.8 02/21/2015 CORY BERGER DO Ot 786.09 02/22/2015 ROSA MORILLO, SAVANNAH Knox Ot 250.00 DIAB JAKY WO COMPL, TYPE II OR UNSPEC TY 02/22/2015 ROSA MORILLO, SAVANNAH Knox Ot 272.4 HYPERLIPIDEMIA NEC/NOS 02/22/2015 SAVANNAH LEE MD Ot 280.0 CHR BLOOD LOSS ANEMIA 02/22/2015 SAVANNAH LEE MD Ot 401.9 HYPERTENSION NOS 02/22/2015 ROSA MORILLO, SAVANNAH Knox Ot 414.00 CORON ATHEROSCLER NOS TYPE VESSEL, NATIV 02/22/2015 SAVANNAH LEE MD Ot 427.31 ATRIAL FIBRILLATION 02/22/2015 SAVANNAH LEE MD Ot 496 CHR AIRWAY OBSTRUCT NEC 02/22/2015 ROSA MORILLO, SAVANNAH Knox Ot 600.91 HYPERPLASIA OF PROSTATE, UNSPEC, W URINA 02/22/2015 SAVANNAH LEE MD Ot 788.64 URINARY HESITANCY 02/22/2015 ROSA MORILLO, SVAANNAH Knox Ot V12.79 PERSONAL HISTORY OTH SPEC DIGESTIVE SYST 04/04/2015 ROSA MORILLO, SAVANNAH Lisette Ot 250.00 04/04/2015 ROSA MORILLO, SAVANNAH Lisette Ot 272.4 04/04/2015 ROSA MORILLO, SAVANNAH K Ot 280.0 04/04/2015 ROSA MORILLO, SAVANNAH Lisette Ot 401.9 04/04/2015 ROSA MORILLO, SAVANNAH K Ot 414.00 04/04/2015 ROSA MORILLO, SAVANNAH K Ot 427.31 04/04/2015 ROSA MORILLO, SAVANNAH Lisette Ot 496 04/04/2015 ROSA MORILLO, SAVANNAH K Ot 600.91 04/04/2015 ROSA MORILLO, SAVANNAH Lisette Ot 788.64 04/04/2015 ROSA MORILLO, SAVANNAH Knox Ot V12.79 04/12/2015 ROSA MORILLO, SAVANNAH Lisette Ot 250.00 04/12/2015 ROSA MORILLO, SAVANNAH K Ot 272.4 04/12/2015 ROSA MORILLO, SAVANNAH Lisette Ot 280.0 04/12/2015 ROSA MORILLO, SAVANNAH Lisette Ot 401.9 04/12/2015 ROSA MORILLO, SAVANNAH K Ot 414.00 04/12/2015 ROSA MORILLO, SAVANNAH K Ot 427.31 04/12/2015 ROSA MORILLO, SAVANNAH Lisette Ot 496 04/12/2015 ROSA MORILLO, SAVANNAH Knox Ot 600.91 04/12/2015 ROSA MORILLO, SAVANNAH Lisette Ot 788.64 04/12/2015 ROSA MORILLO, SAVANNAH Lisette Ot V12.79 05/09/2015 ROSA MORILLO, SAVANNAH Lisette Ot 250.00 05/09/2015 ROSA MORILLO, SAAVNNAH K Ot 272.4 05/09/2015 ROSA MORILLO, SAVANNAH K Ot 280.0 05/09/2015 ROSA MORILLO, SAVANNAH K Ot 401.9 05/09/2015 ROSA MORILLO, SAVANNAH K Ot 414.00 05/09/2015 ROSA MORILLO, SAVANNAH K Ot 427.31 05/09/2015 ROSA MORILLO, SAVANNAH K Ot 496 05/09/2015 ROSA MORILLO, SAVANNAH Knox Ot 600.91 05/09/2015 ROSA MORILLO, SAVANNAH K Ot 788.64 05/09/2015 ROSA MORILLO, SAVANNAH K Ot V12.79 06/16/2015 MELANIE MORILLO, BRUCE R Ot S20.90XA 06/16/2015 MELANIE MORILLO, BRUCE R Ot W19.XXXA 06/16/2015 MELANIE MORILLO, BRUCE R Ot Y99.8 07/25/2015 ROSA MORILLO, SAVANNAH Knox Ot D50.9 07/25/2015 ROSA MORILLO, SAVANNAH Knox Ot E11.9 07/25/2015 ROSA MORILLO, SAVANNAH Knox Ot E78.5 07/25/2015 ROSA MORILLO, SAVANNAH Knox Ot I10 07/25/2015 ROSA MORILLO, SAVANNAH Knox Ot I25.10 07/25/2015 ROSA MORILLO, SAVANNAH Knox Ot I48.91 07/25/2015 ROSA MORILLO, SAVANNAH Knox Ot N40.1 07/25/2015 ROSA MORILLO, SAVANNAH Knox Ot R30.0 07/25/2015 ROSA MORILLO, SAVANNAH Knox Ot R39.11 07/25/2015 ROSA MORILLO, SAVANNAH Knox Ot Z79.01 07/25/2015 ROSA MORILLO, SAVANNAH Knox Ot Z79.899 08/09/2015 ROSA MORILLO, SAVANNAH Knox Ot D50.9 IRON DEFICIENCY ANEMIA, UNSPECIFIED 08/09/2015 ROSA MORILLO, SAVANNAH Knox Ot E11.9 TYPE 2 DIABETES MELLITUS WITHOUT COMPLIC 08/09/2015 ROSA MORILLO, SAVANNAH Knox Ot E78.5 HYPERLIPIDEMIA, UNSPECIFIED 08/09/2015 ROSA MORILLO, SAVANNAH Knox Ot I10 ESSENTIAL (PRIMARY) HYPERTENSION 08/09/2015 ROSA MORILLO, SAVANNAH Knox Ot I25.10 ATHSCL HEART DISEASE OF [place] CORONARY 08/09/2015 ROSA MORILLO, SAVANNAH Knox Ot I48.91 UNSPECIFIED ATRIAL FIBRILLATION 08/09/2015 ROSA MORILLO, SAVANNAH Knox Ot N40.1 ENLARGED PROSTATE WITH LOWER URINARY TRA 08/09/2015 ROSA MORILLO, SAVANNAH Knox Ot R30.0 DYSURIA 08/09/2015 ROSA MORILLO, SAVANNAH Knox Ot R39.11 HESITANCY OF MICTURITION 08/09/2015 ROSA MORILLO, SAVANNAH Knox Ot 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 08/09/2015 ROSA MORILLO, SAVANNAH Knox Ot Z79.899 OTHER RETIREMENT (CURRENT) DRUG THERAPY 08/10/2015 ROSA MORILLO, SAVANNAH Knox Ot D50.9 08/10/2015 ROSA MORILLO, SAVANNAH Knox Ot E11.9 08/10/2015 ROSA MORILLO, SAVANNAH Knox Ot E78.5 08/10/2015 ROSA MORILLO, SAVANNAH Knox Ot I10 08/10/2015 ROSA MORILLO, SAVANNAH Knox Ot I25.10 08/10/2015 ROSA MORILLO, SAVANNAH Knox Ot I48.91 08/10/2015 ROSA MORILLO, SAVANNAH Knox Ot N40.1 08/10/2015 ROSA MORILLO, SAVANNAH Knox Ot R30.0 08/10/2015 ROSA MORILLO, SAVANNAH Knox Ot R39.11 08/10/2015 ROSA MORILLO, SAVANNAH Knox Ot Z79.01 08/10/2015 ROSA MORILLO, SAVANNAH Knox Ot Z79.899 08/19/2015 ROSA MORILLO, SAVANNAH Konx Ot D50.9 08/19/2015 ROSA MORILLO, SAVANNAH Knox Ot E11.9 08/19/2015 ROSA MORILLO, SAVANNAH Knox Ot E78.5 08/19/2015 ROSA MORILLO, SAVANNAH Knox Ot I10 08/19/2015 ROSA MORILLO, SAVANNAH Knox Ot I25.10 08/19/2015 ROSA MORILLO, SAVANNAH Knox Ot I48.91 08/19/2015 ROSA MORILLO, SAVANNAH Knox Ot N40.1 08/19/2015 ROSA MORILLO, SAVANNAH Knox Ot R30.0 08/19/2015 ROSA MORILLO, SAVANNAH Knox Ot R39.11 08/19/2015 ROSA MORILLO, SAVANNAH Knox Ot Z79.01 08/19/2015 ROSA MORILLO, SAVANNAH Knox Ot Z79.899 09/30/2015 ROSA MORILLO, SAVANNAH Knox Ot D50.9 IRON DEFICIENCY ANEMIA, UNSPECIFIED 09/30/2015 ROSA MORILLO, SAVANNAH Knox Ot E11.9 TYPE 2 DIABETES MELLITUS WITHOUT COMPLIC 09/30/2015 ROSA MORILLO, SAVANNAH Knox Ot E78.5 HYPERLIPIDEMIA, UNSPECIFIED 09/30/2015 ROSA MORILLO, SAVANNAH Knox Ot I10 ESSENTIAL (PRIMARY) HYPERTENSION 09/30/2015 ROSA MORILLO, SAVANNAH Knox Ot I25.10 ATHSCL HEART DISEASE OF [place] CORONARY 09/30/2015 ROSA MORILLO, SAVANNAH Knox Ot I48.91 UNSPECIFIED ATRIAL FIBRILLATION 09/30/2015 ROSA MORILLO, SAVANNAH Knox Ot N40.1 ENLARGED PROSTATE WITH LOWER URINARY TRA 09/30/2015 ROSA MORILLO, SAVANNAH Knox Ot R30.0 DYSURIA 09/30/2015 ROSA MORILLO, SAVANNAH Knox Ot R39.11 HESITANCY OF MICTURITION 09/30/2015 ROSA MORILLO, SAVANNAH Knox Ot 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 09/30/2015 ROSA MORILLO, SAVANNAH Knox Ot Z79.899 OTHER [employer]LE[employer]TAINER (CURRENT) DRUG THERAPY 10/26/2015 Ot 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 AND IDIOPATHIC NEUROPATHY, UN 10/26/2015 Ot I25.10 ATHSCL HEART DISEASE OF [place] CORONARY 10/26/2015 Ot I48.91 UNSPECIFIED ATRIAL FIBRILLATION 10/26/2015 Ot I73.9 PERIPHERAL VASCULAR DISEASE, UNSPECIFIED 10/26/2015 Ot R06.00 DYSPNEA, UNSPECIFIED 11/15/2015 ROSA MORILLO, SAVANNAH Knox Ot D50.9 IRON DEFICIENCY ANEMIA, UNSPECIFIED 11/15/2015 ROSA MORILLO, SAVANNAH Lisette Ot E11.9 TYPE 2 DIABETES MELLITUS WITHOUT COMPLIC 11/15/2015 ROSA MORILLO, SAVANNAH Lisette Ot E78.5 HYPERLIPIDEMIA, UNSPECIFIED 11/15/2015 ROSA MORILLO, SAVANNAH Knox Ot I10 ESSENTIAL (PRIMARY) HYPERTENSION 11/15/2015 ROSA MORILLO SAVANNAH Lisette Ot I25.10 ATHSCL HEART DISEASE OF [place] CORONARY 11/15/2015 ROSA MORILLO SAVANNAH Lisette Ot I48.91 UNSPECIFIED ATRIAL FIBRILLATION 11/15/2015 SAVANNAH LEE MD Ot N40.1 ENLARGED PROSTATE WITH LOWER URINARY TRA 11/15/2015 SAVANNAH LEE MD Ot R30.0 DYSURIA 11/15/2015 SAVANNAH LEE MD Ot R39.11 HESITANCY OF MICTURITION 11/15/2015 ROSA MORILLO, SAVANNAH Lisette Ot Z79.01 RETIREMENT (CURRENT) USE OF ANTICOAGULANT 11/15/2015 ROSA MORILLO, SAVANNAH Lisette Ot Z79.899 OTHER RETIREMENT (CURRENT) DRUG THERAPY 11/25/2015 Ot 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 AND IDIOPATHIC NEUROPATHY, UN 11/25/2015 Ot I25.10 ATHSCL HEART DISEASE OF [place] CORONARY 11/25/2015 Ot I48.91 UNSPECIFIED ATRIAL FIBRILLATION 11/25/2015 Ot I73.9 PERIPHERAL VASCULAR DISEASE, UNSPECIFIED 11/25/2015 Ot R06.00 DYSPNEA, UNSPECIFIED 06/10/2016 Ot 414.00 CORON ATHEROSCLER NOS TYPE VESSEL, NATIV 06/10/2016 Ot 786.09 RESPIRATORY ABNORM NEC 06/13/2016 Ot 397.0 TRICUSPID VALVE DISEASE 06/13/2016 Ot 414.00 CORON ATHEROSCLER NOS TYPE VESSEL, NATIV 06/13/2016 Ot 424.0 MITRAL VALVE DISORDER 06/13/2016 Ot 429.3 CARDIOMEGALY 06/13/2016 Ot 786.09 RESPIRATORY ABNORM NEC 06/13/2016 Ot 414.00 CORON ATHEROSCLER NOS TYPE VESSEL, NATIV 06/13/2016 Ot 786.09 RESPIRATORY ABNORM NEC 06/13/2016 Ot 996.72 OTH COMPLICATIONS DUE TO OTH CARD DEVICE 06/13/2016 Ot 285.9 ANEMIA NOS 06/13/2016 RAINA MORILLO, ZARI Chairez Ot 397.0 TRICUSPID VALVE DISEASE 06/13/2016 RAINA MORILLO, ZARI Chairez Ot 414.00 CORON ATHEROSCLER NOS TYPE VESSEL, NATIV 06/13/2016 RAINA MORILLO, ZARI Chairez Ot 424.0 MITRAL VALVE DISORDER 06/13/2016 RAINA MORILLO, ZARI Chairez Ot 427.31 ATRIAL FIBRILLATION 06/13/2016 NORMAN ESPINOZA Ot 786.05 SHORTNESS OF BREATH 06/13/2016 NORMAN ESPINOZA Ot 786.2 COUGH 06/13/2016 SANDRA MORILLO, LAI Lopez Ot 473.9 CHRONIC SINUSITIS NOS 06/13/2016 MELANIE MORILLO, BRUCE Zarate Ot 429.3 CARDIOMEGALY 06/13/2016 MELANIE MORILLO, BRUCE Zarate Ot 786.09 RESPIRATORY ABNORM NEC 06/13/2016 MELANIE MORILLO, BRUCE Zarate Ot 786.2 COUGH 06/13/2016 MELANIE MORILLO, BRUCE Zarate Ot V45.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 PACEMAKER IN SITU 06/13/2016 CORY BERGER DO Ot 250.00 DIAB JAKY WO COMPL, TYPE II OR UNSPEC TY 06/13/2016 CORY BERGER DO Ot 278.00 OBESITY, NOS 06/13/2016 CORY BERGER DO Ot 427.31 ATRIAL FIBRILLATION 06/13/2016 CORY BERGER DO Ot 492.8 EMPHYSEMA NEC 06/13/2016 CORY BERGER DO Ot 786.09 RESPIRATORY ABNORM NEC 06/13/2016 CORY BERGER DO Ot 250.00 DIAB JAKY WO COMPL, TYPE II OR UNSPEC TY 06/13/2016 CORY BERGER DO Ot 278.00 OBESITY, NOS 06/13/2016 CORY BERGER DO Ot 427.31 ATRIAL FIBRILLATION 06/13/2016 CORY BERGER DO Ot 786.09 RESPIRATORY ABNORM NEC 06/13/2016 CORY BERGER DO Ot 327.23 OBSTRUCTIVE SLEEP APNEA (ADULT) (PEDIATR 06/13/2016 CORY BERGER DO Ot 492.8 EMPHYSEMA NEC 06/13/2016 CORY BERGER DO Ot 786.09 RESPIRATORY ABNORM NEC 06/13/2016 CORY BERGER DO Ot 327.23 OBSTRUCTIVE SLEEP APNEA (ADULT) (PEDIATR 06/13/2016 CORY BERGER DO Ot 492.8 EMPHYSEMA NEC 06/13/2016 CORY BERGER DO Ot 786.09 RESPIRATORY ABNORM NEC 06/13/2016 CORY BERGER DO Ot 793.19 OTHER NONSPECIFIC ABNORMAL FINDING OF [place] 06/13/2016 CORY BERGER DO Ot 492.8 EMPHYSEMA NEC 06/13/2016 CORY BERGER DO Ot 793.11 SOLITARY PULMONARY NODULE 06/13/2016 ZARI PARIS MD Ot 272.4 HYPERLIPIDEMIA NEC/NOS 06/13/2016 ZARI PARIS MD Ot 401.9 HYPERTENSION NOS 06/13/2016 ZARI PARIS MD Ot 414.00 CORON ATHEROSCLER NOS TYPE VESSEL, NATIV 06/13/2016 ZARI PARIS MD Ot 427.31 ATRIAL FIBRILLATION 06/13/2016 FROY MORILLO, KYLE Ot V72.84 EXAM PRE-OPERATIVE NOS 06/13/2016 ZARI PARIS MD Ot V45.82 PERCUTANEOUS TRANSLUM CORON ANGIOPLASTY 06/13/2016 ZARI PARIS MD Ot V57.89 REHABILITATION PROC NEC 06/13/2016 CORY BERGER DO Ot 492.8 EMPHYSEMA NEC 06/13/2016 CORY BERGER DO Ot 786.09 RESPIRATORY ABNORM NEC 06/13/2016 MELANIE MORILLO, BRUCE Zarate Ot S20.90XA UNSP SUPERFICIAL INJURY OF UNSP PARTS OF 06/13/2016 MELANIE MORILLO, BRUCE Zarate Ot W19.XXXA UNSPECIFIED FALL, INITIAL ENCOUNTER 06/13/2016 MELANIE MORILLO, BRUCE Zarate Ot Y99.8 OTHER EXTERNAL CAUSE STATUS 06/13/2016 Ot 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 AND IDIOPATHIC NEUROPATHY, UN 06/13/2016 Ot I25.10 ATHSCL HEART DISEASE OF [place] CORONARY 06/13/2016 Ot I48.91 UNSPECIFIED ATRIAL FIBRILLATION 06/13/2016 Ot I73.9 PERIPHERAL VASCULAR DISEASE, UNSPECIFIED 06/13/2016 Ot R06.00 DYSPNEA, UNSPECIFIED 06/13/2016 ROSA MORILLO, SAVANNAH Knox Ot D50.9 IRON DEFICIENCY ANEMIA, UNSPECIFIED 06/13/2016 ROSA MORILLO, SAVANNAH Knox Ot E11.9 TYPE 2 DIABETES MELLITUS WITHOUT COMPLIC 06/13/2016 ROSA MORILLO, SAVANNAH Knox Ot E78.5 HYPERLIPIDEMIA, UNSPECIFIED 06/13/2016 ROSA MORILLO, SAVANNAH Knox Ot I10 ESSENTIAL (PRIMARY) HYPERTENSION 06/13/2016 ROSA MD, SAVANNAH K Ot I25.10 ATHSCL HEART DISEASE OF [place] CORONARY 06/13/2016 SAVANNAH LEE MD, Ot I48.91 UNSPECIFIED ATRIAL FIBRILLATION 06/13/2016 SAVANNAH LEE MD, Ot N40.1 ENLARGED PROSTATE WITH LOWER URINARY TRA 06/13/2016 SAVANNAH LEE MD Ot R30.0 DYSURIA 06/13/2016 SAVANNAH LEE MD, Ot R39.11 HESITANCY OF MICTURITION 06/13/2016 SAVANNAH LEE MD, Ot Z79.01 RETIREMENT (CURRENT) USE OF ANTICOAGULANT 06/13/2016 SAVANNAH LEE MD, Ot Z79.899 OTHER RETIREMENT (CURRENT) DRUG THERAPY 06/14/2016 ZARI PARIS MD Ot E11.9 TYPE 2 DIABETES MELLITUS WITHOUT COMPLIC 06/14/2016 ZARI PARIS MD, Ot E66.9 OBESITY, UNSPECIFIED 06/14/2016 ZARI PARIS MD, Ot I25.10 ATHSCL HEART DISEASE OF [place] CORONARY 06/14/2016 ZARI PARIS MD, Ot 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 06/14/2016 ZARI PARIS MD, Ot I25.84 CORONARY ATHEROSCLEROSIS DUE TO CALCIFIE 06/14/2016 ZARI PARIS MD, Ot I48.2 CHRONIC ATRIAL FIBRILLATION 06/14/2016 ZARI PARIS MD, Ot I49.5 SICK SINUS SYNDROME 06/14/2016 ZARI PARIS MD, Ot J44.9 CHRONIC OBSTRUCTIVE PULMONARY DISEASE, U 06/14/2016 ZARI PARIS MD Ot R06.02 SHORTNESS OF BREATH 06/14/2016 ZARI PARIS MD Ot R07.89 OTHER CHEST PAIN 06/14/2016 ZARI PARIS MD Ot T82.857D STENOSIS OF OTHER CARDIAC PROSTH DEV/GRF 06/14/2016 ZARI PARIS MD Ot Z68.30 BODY MASS INDEX (BMI) 30.0-30.9, ADULT 06/14/2016 ZARI PARIS MD, Ot 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 06/14/2016 ZARI PARIS MD, Ot Z79.899 OTHER RETIREMENT (CURRENT) DRUG THERAPY 06/14/2016 ZARI PARIS MD Ot Z95.0 PRESENCE OF CARDIAC PACEMAKER 06/14/2016 ZARI PARIS MD Ot Z95.1 PRESENCE OF AORTOCORONARY BYPASS GRAFT 10/19/2016 ZARI PARIS MD Ot E78.2 MIXED HYPERLIPIDEMIA 10/19/2016 ZARI PARIS MD Ot I10 ESSENTIAL (PRIMARY) HYPERTENSION 10/19/2016 ZARI PARIS MD Ot I25.10 ATHSCL HEART DISEASE OF [place] CORONARY 10/19/2016 ZARI PARIS MD Ot I65.23 OCCLUSION AND STENOSIS OF BILATERAL [place] 10/24/2016 ZARI PARIS MD Ot E78.2 MIXED HYPERLIPIDEMIA 10/24/2016 ZARI PARIS MD Ot I10 ESSENTIAL (PRIMARY) HYPERTENSION 10/24/2016 ZARI PARIS MD Ot I25.10 ATHSCL HEART DISEASE OF [place] CORONARY 10/24/2016 ZARI PARIS MD Ot I65.23 OCCLUSION AND STENOSIS OF BILATERAL [place] 12/07/2016 ZARI PARIS MD Ot E78.2 MIXED HYPERLIPIDEMIA 12/07/2016 ZARI PARIS MD Ot I10 ESSENTIAL (PRIMARY) HYPERTENSION 12/07/2016 ZARI PARIS MD Ot I25.10 ATHSCL HEART DISEASE OF [place] CORONARY 12/07/2016 ZARI PARIS MD Ot I65.23 OCCLUSION AND STENOSIS OF BILATERAL [place] Procedures Code Description Performed By Performed On 37.22 LEFT HEART CARDIAC CATH 06/09/2011 88.42 CONTRAST AORTOGRAM 06/09/2011 88.49 CONTRAST ARTERIOGRAM NEC 06/09/2011 88.53 LT HEART ANGIOCARDIOGRAM 06/09/2011 88.56 CORONAR ARTERIOGR-2 CATH 06/09/2011 37.72 INITIAL INSERT TRANS LEADS INTO ATRIUM 06/10/2011 37.83 INITIAL INSERTION OF DUAL- CHAMBER DEVICE 06/10/2011 00.40 PROCEDURE ON SINGLE VESSEL 07/21/2014 00.46 INSERTION OF TWO VASCULAR STENTS 07/21/2014 00.66 PERCUTANEOUS TRANSLUMINAL CORONARY ANGIO 07/21/2014 36.07 INSRT OF DRUG-ELUTING CORON ARTERY STENT 07/21/2014 37.22 LEFT HEART CARDIAC CATH 07/21/2014 88.42 CONTRAST AORTOGRAM 07/21/2014 88.49 CONTRAST ARTERIOGRAM NEC 07/21/2014 88.53 LT HEART ANGIOCARDIOGRAM 07/21/2014 88.56 CORONAR ARTERIOGR-2 CATH 07/21/2014 99.20 INJECT/INFUSE PLATELET INHIBITOR 07/21/2014 Results Test Result Range Complete urinalysis with reflex to culture - 06/13/16 07:50 Urine color determination YELLOW NRG Urine clarity determination CLEAR NRG Urine pH measurement by test strip 5 5-9 Specific gravity of urine by test strip 1.020 1.016- 1.022 Urine protein assay by test strip, semi-quantitative NEGATIVE NEGATIVE Urine glucose detection by automated test strip NEGATIVE NEGATIVE Erythrocytes detection in urine sediment by light microscopy NEGATIVE NEGATIVE Urine ketones detection by automated test strip NEGATIVE NEGATIVE Urine nitrite detection by test strip NEGATIVE NEGATIVE Urine total bilirubin detection by test strip NEGATIVE NEGATIVE Urine urobilinogen measurement by automated test strip (mass/volume) NORMAL NORMAL Urine leukocyte esterase detection by dipstick NEGATIVE NEGATIVE Automated urine sediment erythrocyte count by microscopy (number/high power field) NONE NRG Automated urine sediment leukocyte count by microscopy (number/high power field ) [HPF] NRG Bacteria detection in urine sediment by light microscopy TRACE NRG Squamous epithelial cells detection in urine sediment by light microscopy 0-2 NRG Crystals detection in urine sediment by light microscopy NONE NRG Casts detection in urine sediment by light microscopy NONE NRG Mucus detection in urine sediment by light microscopy NEGATIVE NRG Complete urinalysis with reflex to culture NO NRG Automated blood complete blood count (hemogram) panel - 06/13/16 07:57 Blood leukocytes automated count (number/volume) 6.5 10*3/uL 4.3-11.0 Blood erythrocytes automated count (number/volume) 4.67 10*6/uL 4.35-5.85 Venous blood hemoglobin measurement (mass/volume) 14.7 g/dL 13.3-17.7 Blood hematocrit (volume fraction) 44 % 40-54 Automated erythrocyte mean corpuscular volume 94 [foz_us] 80-99 Automated erythrocyte mean corpuscular hemoglobin (mass per erythrocyte) 32 pg 25-34 Automated erythrocyte mean corpuscular hemoglobin concentration measurement ( mass/volume) 34 g/dL 32-36 Automated erythrocyte distribution width ratio 15.1 % 10.0-14.5 Automated blood platelet count (count/volume) 175 10*3/uL 130-400 Automated blood platelet mean volume measurement 11.8 [foz_us] 7.4-10.4 PT panel in platelet poor plasma by coagulation assay - 06/13/16 07:57 Prothrombin time (PT) in platelet poor plasma by coagulation assay 12.8 s 12.2-14.7 INR in platelet poor plasma or blood by coagulation assay 1.0 0.8-1.4 Activated partial thromboplastin time (aPTT) in platelet poor plasma bycoagulation assay - 06/13/16 07:57 Activated partial thromboplastin time (aPTT) in platelet poor plasma bycoagulation assay 27 s 24-35 Comprehensive metabolic panel - 06/13/16 07:57 Serum or plasma sodium measurement (moles/volume) 141 mmol/L 135-145 Serum or plasma potassium measurement (moles/volume) 4.3 mmol/L 3.6-5.0 Serum or plasma chloride measurement (moles/volume) 112 mmol/L 98-107 Carbon dioxide 18 mmol/L 21-32 Serum or plasma anion gap determination (moles/volume) 11 mmol/L 5-14 Serum or plasma urea nitrogen measurement (mass/volume) 30 mg/dL 7-18 Serum or plasma creatinine measurement (mass/volume) 1.34 mg/dL 0.60-1.30 Serum or plasma urea nitrogen/creatinine mass ratio 22 NRG Serum or plasma creatinine measurement with calculation of estimated glomerular filtration rate 52 NRG Serum or plasma glucose measurement (mass/volume) 92 mg/dL 70-105 Serum or plasma calcium measurement (mass/volume) 9.5 mg/dL 8.5-10.1 Serum or plasma total bilirubin measurement (mass/volume) 0.6 mg/dL 0.1-1.0 Serum or plasma alkaline phosphatase measurement (enzymatic activity/volume) 62 U/L 40-136 Serum or plasma aspartate aminotransferase measurement (enzymatic activity/ volume) 25 U/L 5-34 Serum or plasma alanine aminotransferase measurement (enzymatic activity/volume ) 23 U/L 0-55 Serum or plasma protein measurement (mass/volume) 8.2 g/dL 6.4-8.2 Serum or plasma albumin measurement (mass/volume) 4.2 g/dL 3.2-4.5 Lipid 1996 panel - 06/13/16 07:57 Serum or plasma triglyceride measurement (mass/volume) 112 mg/dL <150 Serum or plasma cholesterol measurement (mass/volume) 138 mg/dL < 200 Serum or plasma cholesterol in HDL measurement (mass/volume) 31 mg/ dL 40-60 Cholesterol in LDL [mass/volume] in serum or plasma by direct assay 86 mg/dL 1-129 Serum or plasma cholesterol in VLDL measurement (mass/volume) 22 mg/ dL 5-40 Methicillin resistant Staphylococcus aureus (MRSA) screening culture - 07:57 Methicillin resistant Staphylococcus aureus (MRSA) screening culture NEG NRG Activated partial thromboplastin time (aPTT) in platelet poor plasma bycoagulation assay - 06/13/16 13:36 Activated partial thromboplastin time (aPTT) in platelet poor plasma bycoagulation assay 98 s 24-35 Activated partial thromboplastin time (aPTT) in platelet poor plasma bycoagulation assay - 06/13/16 14:54 Activated partial thromboplastin time (aPTT) in platelet poor plasma bycoagulation assay 53 s 24-35 Blood lactic acid measurement (moles/volume) - 06/13/16 22:00 Blood lactic acid measurement (moles/volume) 1.4 mmol/L 0.5-2.0 Bacterial blood culture - 06/13/16 22:00 Bacterial blood culture NG NRG Bacterial blood culture - 06/13/16 22:00 Bacterial blood culture NG NRG Automated blood complete blood count (hemogram) panel - 06/14/16 05:07 Blood leukocytes automated count (number/volume) 5.9 10*3/uL 4.3-11.0 Blood erythrocytes automated count (number/volume) 4.16 10*6/uL 4.35-5.85 Venous blood hemoglobin measurement (mass/volume) 13.1 g/dL 13.3-17.7 Blood hematocrit (volume fraction) 39 % 40-54 Automated erythrocyte mean corpuscular volume 93 [foz_us] 80-99 Automated erythrocyte mean corpuscular hemoglobin (mass per erythrocyte) 32 pg 25-34 Automated erythrocyte mean corpuscular hemoglobin concentration measurement ( mass/volume) 34 g/dL 32-36 Automated erythrocyte distribution width ratio 14.9 % 10.0-14.5 Automated blood platelet count (count/volume) 168 10*3/uL 130-400 Automated blood platelet mean volume measurement 11.8 [foz_us] 7.4-10.4 Whole blood basic metabolic panel - 06/14/16 05:07 Serum or plasma sodium measurement (moles/volume) 141 mmol/L 135-145 Serum or plasma potassium measurement (moles/volume) 4.1 mmol/L 3.6-5.0 Serum or plasma chloride measurement (moles/volume) 113 mmol/L 98-107 Carbon dioxide 20 mmol/L 21-32 Serum or plasma anion gap determination (moles/volume) 8 mmol/L 5-14 Serum or plasma urea nitrogen measurement (mass/volume) 27 mg/dL 7-18 Serum or plasma creatinine measurement (mass/volume) 1.04 mg/dL 0.60-1.30 Serum or plasma urea nitrogen/creatinine mass ratio 26 NRG Serum or plasma creatinine measurement with calculation of estimated glomerular filtration rate > NRG Serum or plasma glucose measurement (mass/volume) 80 mg/dL 70-105 Serum or plasma calcium measurement (mass/volume) 8.8 mg/dL 8.5-10.1 Capillary blood glucose measurement by glucometer (mass/volume) - 06/14/16 12: 15 Capillary blood glucose measurement by glucometer (mass/volume) 109 mg/dL 70-110 Encounters ACCT No. Visit Date/Time Discharge Status Pt. Type Provider Facility Loc./Unit Complaint [id number] 10/18/2016 09:08:00 10/18/2016 23:59:59 CLS Outpatient ZARI PARIS MD Via [facility] RAD I65.23 OCCLUSION AND STENOSIS OF BILATERAL CAROTID [id number] 06/13/2016 07:28:00 06/14/2016 15:30:00 DIS Outpatient ZARI PARIS MD [facility] CATH CP,DYSPNEA [id number] 11/16/2015 00:08:00 11/16/2015 23:59:59 CLS Preadmit SAVANNAH LEE MD Via [facility] ONC [id number] 08/17/2015 13:41:00 11/15/2015 00:01:00 DIS Outpatient SAVANNAH LEE MD Via [facility] ONC [id number] 05/18/2015 15:26:00 08/09/2015 00:01:00 DIS Outpatient SAVANNAH LEE MD [facility] ONC [id number] 05/25/2015 12:24:00 05/25/2015 23:59:59 CLS Outpatient BRUCE NAVARRO MD Via [facility] RAD FALL ON GROUND WITH PAIN R CHEST [id number] 01/10/2015 12:45:00 02/22/2015 00:01:00 DIS Outpatient SAVANNAH LEE MD [facility] ONC [id number] 01/19/2015 17:48:00 01/19/2015 23:59:59 CLS Outpatient CORY BERGER DO Via [facility] RT COPD [id number] 12/13/2014 09:00:00 12/13/2014 23:59:59 CLS Preadmit ZARI PARIS MD Via [facility] CR STENT [id number];PTCA X2 [id number] 10/13/2014 11:26:00 12/12/2014 00:01:00 DIS Outpatient ZARI PARIS MD [facility] CR STENT [id number];PTCA X2 [id number] 11/04/2014 09:29:00 11/04/2014 16:00:00 DIS Outpatient BRUCE NAVARRO MD R Via [facility] ANEMIA [id number] 10/21/2014 19:26:00 10/25/2014 14:30:00 DIS Inpatient KYLE MCDUFFIE MD Via [facility] SURGICAL RECTAL BLEED [id number] 10/15/2014 09:48:00 10/15/2014 13:20:00 DIS Outpatient KYLE MCDUFFIE MD [facility] ANEMIA [id number] 10/14/2014 07:06:00 10/14/2014 23:59:59 CLS Outpatient KYLE MCDUFFIE MD [facility] PREOP ANEMIA [id number] 07/22/2014 09:38:00 07/23/2014 18:00:00 DIS Inpatient ZARI PARIS MD [facility] CSD SOB,CAD,AFIB,ABNORMAL STRESS, HTN,HLP [id number] 07/14/2014 07:39:00 07/14/2014 23:59:59 CLS Outpatient ZARI PARIS MD [facility] CARD AFIB,CAD,HLP,HTN [id number] 06/24/2014 12:15:00 06/24/2014 23:59:59 CLS Outpatient CORY BERGER DO Via [facility] RAD SOB,COPD [id number] 04/08/2014 08:38:00 04/08/2014 23:59:59 CLS Outpatient CORY BERGER DO Via [facility] RAD DSYPNEA,COPD,PARVIZ [id number] 04/07/2014 10:34:00 04/07/2014 23:59:59 CLS Outpatient AB CORY SINGH [facility] RAD COPD,PARVIZ,DYSPENA [id number] 01/06/2014 21:00:00 01/07/2014 05:55:00 DIS Outpatient AB CORY SINGH [facility] SLEEP PARVIZ,CPAP FAILURE [id number] 10/06/2013 14:15:00 10/09/2013 15:28:00 DIS Outpatient ABCORY NETTLES DO Via [facility] SDC SOB [id number] 07/22/2013 15:03:00 07/22/2013 23:59:59 CLS Outpatient AB SINGHCORY Via [facility] RT DYSPNEA,OBESITY,DM,AFIB [id number] 07/15/2013 14:59:00 07/15/2013 23:59:59 CLS Outpatient AB SINGH CORY Yamile Via [facility] RAD DYSPNEA,OBESITY,DM,AFIB [id number] 06/05/2013 10:40:00 06/05/2013 23:59:59 CLS Outpatient MELANIE MORILLO, BRUCE Zarate [facility] CARD COUGH [id number] 01/20/2013 08:27:00 01/20/2013 23:59:59 CLS Outpatient LAI FLORES MD [facility] RAD CHRONIC SINUSITIS [id number] 01/13/2013 14:41:00 01/13/2013 23:59:59 CLS Outpatient NORMAN ESPINOZA Via [facility] RAD SOB,COUGH [id number] 12/26/2012 08:48:00 12/26/2012 23:59:59 CLS Outpatient ZARI PARIS MD Via [facility] CARD AFIB,CAD [id number] 10/25/2015 09:27:00 Document Registration [id number] 05/27/2012 10:11:00 Document Registration [id number] 02/07/2012 11:31:00 Document Registration [id number] 01/03/2012 12:05:00 Document Registration [id number] 10/18/2011 14:21:00 Document Registration [id number] 10/08/2011 12:02:00 Document Registration [id number] 09/05/2011 07:15:00 Document Registration [id number] 06/08/2011 19:55:00 Document Registration [id number] 06/06/2011 06:55:00 Document Registration [id number] 05/31/2011 08:53:00 Document Registration [id number] 07/05/2010 19:40:00 Document Registration [id number] 08/08/2009 11:00:00 Document Registration [id number] 07/20/2009 19:35:00 Document Registration [id number] 01/19/2015 17:48:23 ACT Document Registration
[2018-03-10] MEDS ORDERED: AZITHROMYCIN INJECTION 500 MG in NS (IVPB) 250 ML IV NR (12:45)
[2018-03-10] MEDS ORDERED: CATHETER FLUSH 10 ML SYR IV PRN (12:45)
[2018-03-10] MEDS ORDERED: ACETAMINOPHEN 325 MG TABLET ONE (12:51)
[2018-03-10] MEDS ORDERED: methylPREDNISolone 125 MG (Solu-MEDROL) VIAL IV NR (13:00)
[2018-03-10] MEDS ORDERED: methylPREDNISolone 125 MG (Solu-MEDROL) VIAL IM NR (13:00)
[2018-03-10] MEDS: FUROSEMIDE 40 MG/4 ML INJ (LASIX) IVP SCH (13:00)
[2018-03-10] MEDS: cefTRIAXone FOR IV USE 1,000 MG in NS (IVPB) 50 ML IV SCH (13:00)
[2018-03-10] MEDS: ACETAMINOPHEN 325 MG TABLET PO PRN ×3 (13:01→20:58)
--- NOTE | 2018-03-10 13:07 | Diagnostic Imaging Report ---
INDICATION: Shortness of air and cough. TIME OF EXAM: 12:51 PM Comparison is made with prior CT chest from 06/13/2016. FINDINGS: The heart size is stable. There are changes of median sternotomy and CABG. Cardiac pacemaker remains in place. The lungs appear to be fairly clear. No infiltrate or failure is seen. No effusion or pneumothorax is detected. IMPRESSION: No acute cardiopulmonary process is detected. Dictated by: Dictated on workstation # [id number]
--- NOTE | 2018-03-10 13:12 | Diagnostic Imaging Report ---
INDICATION: Pain and swelling to the right knee. TIME OF EXAM: 12:55 PM FINDINGS: Three views of right knee demonstrate postoperative changes of total knee arthroplasty. Prosthetic elements are in good position without fracture or loosening. No fracture or dislocation is seen. There is some chronic-appearing calcification noted in the suprapatellar location, perhaps within quadriceps tendon from chronic tendinitis. There is extensive vascular calcification in femoropopliteal and tibial system. Note is made of a lucency in the region of the distal femur anteriorly located involving the cortex measuring approximately 17 mm cephalocaudal x 12 mm transverse. IMPRESSION: 1. Chronic changes to the right knee. No acute bony abnormality is detected. 2. Lytic lesion involving the anterior cortex of the distal femur diaphysis. This could conceivably be secondary to metastatic lesion or myeloma. Whole body bone scan would be useful for further evaluation. Dictated by: Dictated on workstation # [id number]
[2018-03-10] MEDS ORDERED: ISOS30TA3 PO (13:18)
[2018-03-10] MEDS ORDERED: METF-397 PO (13:18)
[2018-03-10] MEDS ORDERED: GLIP-197 PO (13:18)
[2018-03-10] MEDS ORDERED: ACET-1783 PO (13:18)
[2018-03-10] MEDS ORDERED: PANT40TA3 PO (13:18)
[2018-03-10] MEDS ORDERED: ASPI-983 PO (13:18)
[2018-03-10] MEDS ORDERED: ATOR20TA66 PO (13:18)
[2018-03-10] MEDS ORDERED: METO-395 PO (13:18)
--- NOTE | 2018-03-10 13:18 | History & Physical ---
History of Present Illness History of Present Illness Reason for visit/HPI 77 yo M direct admitted from clinic- I evaluated him in his car as he and grandson reports that he can not get out his care due to weakness/debility. His right knee has been hurting lately so he has been taking colchicine without much relief. It is warm, painful. Pt also notes right upper quadrant pain that goes around to his back. He also has abdominal distension/discomfort. He is having increasing shortness of breath over last couple days. He feels chilly but denies an objective temperature but thinks maybe he has had fevers. The other new issue is he did have a couple bouts of incontinence as well per grandson. He also almost keeps falling, weakness is progressing-Grandson has had to bathe him. He is unable to take care of himself right now. fell recently she is not helpful. Abdominal swelling/distension likely contributing to his shortness of breath. Admitted for further evaluation. -He did spike a 101F on admission- pain worsened with not much help from apap- hydrocodone helped with his pain- calculated eGFR 38 ultrasound of legs- revealed no DVT(s). Date of Admission Mar 10, 2018 at 11:15 Date Seen by a Provider: Mar 10, 2018 Time Seen by a Provider: 11:00 I consulted on this patient on 03/10/18 13:15 Attending Physician Yuriy Larkin MD Admitting Physician Yuriy Larkin MD Consult Allergies and Home Medications Allergies Coded Allergies: No Known Drug Allergies (Unverified , 06/06/11) Home Medications Acetaminophen 650 Mg Tablet.er, 1,300 MG PO BID, (Reported) TAKES 2 (650MG) TABLETS Apixaban 5 Mg Tablet, 5 MG PO BID, (Reported) Atorvastatin Calcium 20 Mg Tablet, 20 MG PO HS, (Reported) Colchicine 0.6 Mg Tablet, 0.6 MG PO Q4H PRN for GOUT PAIN, (Reported) Enalapril Maleate 5 Mg Tablet, 5 MG PO DAILY, (Reported) Ferrous Sulfate 325 Mg Tablet, 325 MG PO HS, (Reported) Finasteride 5 Mg Tablet, 5 MG PO DAILY, (Reported) Glipizide 10 Mg Tab.er.24, 10 MG PO DAILY, (Reported) Glycopyrrolate/Formoterol Fum 10.7 Gm Hfa.aer.ad, 2 PUFF IH BID, (Reported) Isosorbide Mononitrate 30 Mg Tab.er.24h, 30 MG PO DAILY, (Reported) Metformin HCl 500 Mg Tablet, 500 MG PO BID, (Reported) Metoprolol Succinate 100 Mg Tab.er.24h, 100 MG PO DAILY, (Reported) Multivitamin 1 Each Tablet, 1 TAB PO HS, (Reported) Pantoprazole Sodium 40 Mg Tablet.dr, 40 MG PO BID, (Reported) Tamsulosin HCl 0.4 Mg Cap.er.24h, 0.4 MG PO HS, (Reported) Triamterene/Hydrochlorothiazid 1 Each Tablet, 1 TAB PO DAILY, (Reported) Patient Home Medication List Home Medication List Reviewed: Yes Past Worbnaq-Eqaspw-Dkfnbw Hx Patient Social History Alcohol Use: Denies Use Recreational Drug Use: No Smoking Status: Former Smoker Former Smoker, Quit: Jun 13, 1984 Type Used: Cigarettes Physical Abuse Screen: No Sexual Abuse: No Recent Foreign Travel: No Contact w/other who traveled: No Recent Hopitalizations: No Immunizations Up To Date Tetanus Booster (TDap): More than 5yrs Pediatric: Yes Date of Pneumonia Vaccine: Mar 17, 2014 Date of Influenza Vaccine: Mar 10, 2017 Seasonal Allergies Seasonal Allergies: No Surgeries Yes (KNEES REPLACEMENT NORA, HERNIA REPAIR, GB REMOVED, CABBAGE X 4, ) CABG, Coronary Stent, Gallbladder, Orthopedic, Pacemaker, Tonsillectomy Respiratory Yes COPD, Sleep Apnea Currently Using CPAP: Yes Currently Using BIPAP: No Cardiovascular Yes Neurological No Reproductive System Hx Reproductive Disorders: No Sexually Transmitted Disease: No HIV/AIDS: No Genitourinary Yes (INCONT. AT TIMES) Benign Prostatic Hyperpl, Kidney Stones Gastrointestinal Yes (GI BLEED) Gall Bladder Disease Musculoskeletal Yes Arthritis, Gout Endocrine History of Endocrine Disorders: Yes Endocrine Disorders: Diabetes, Non-Insulin dep HEENT History of HEENT Disorders: Yes HEENT Disorders: Cataract, Tonsilitis Loss of Vision: Bilateral Hearing Impairment: Hard of Hearing, Bilateral Hearing Aide Cancer No Psychosocial History of Psychiatric Problem: No Integumentary History of Skin or Integumenta: No Blood Transfusions History of Blood Disorders: Yes (TAKES IRON) Adverse Reaction to a Blood Tr: No Family Medical History Family Hx: Cancer 19 MOTHER, Onset:38 ([place] ) Family history: Arthritis 19 FATHER Stroke 19 FATHER, Onset:73 Review of Systems Review of Systems General: Chills, Fatigue HEENT: No Head Aches, No Visual Changes Pulmonary: Dyspnea, Cough Cardiovascular: No: Chest Pain, Palpitations Gastrointestinal: Abdominal Pain (RUQ); No: Nausea, Vomiting Genitourinary: No Dysuria, No Frequency Musculoskeletal: leg pain; No: neck pain, shoulder pain Neurological: Weakness Physical Exam Vital Signs Vital Signs - First Documented 03/10/18 03/10/18 11:45 12:00 Temp 101.0 Pulse 60 Resp 20 B/P (MAP) 148/88 (108) Pulse Ox 94 O2 Delivery Nasal Cannula O2 Flow Rate 2.00 Capillary Refill : Height, Weight, BMI Height: 5'9.00" Weight: 209lbs. 0.0oz. 94.755085mj; 30.9 BMI Method: General Appearance: No Apparent Distress HEENT: PERRL/EOMI Neck: Non Tender, Supple Respiratory: Chest Non Tender, Lungs Clear, Normal Breath Sounds, No Accessory Muscle Use, No Respiratory Distress Cardiovascular: Regular Rate, Rhythm (systolic 2/6 murmur), Systolic Murmur Gastrointestinal: Normal Bowel Sounds, Distended (firm) Rectal: Deferred Back: Normal Inspection, No CVA Tenderness, No Vertebral Tenderness Extremity: Normal Capillary Refill, Pedal Edema (left worse than right edema), Swelling, Other (left edema- right knee swelling redness) Neurologic/Psychiatric: Alert, Oriented x3 Skin: Warm/Dry Assessment/Plan Assessment/Plan Admission Dx acute hypoxic respiratory failure acute on chronic kidney failure Admission Status: Inpatient Order (span 2 midnights) Reason for Inpatient Admission: acute on chronic respiratory failure- is progressively worsening with shortness of breath, weakness, inability to take of himself. Also noted to have acute on chronic kidney disease with elevated Cr. Pt was sating 88% on 4L oxygen. Assessment and Plan R09.02 acute hypoxic respiratory distress- oxygen supplement, MAT, 125mg methylprednisolone IV prn x1- dexamethasone 8mg x3 days (J44.9) acute exacerbation of Chronic obstructive pulmonary disease - MAT protocol N17.9 (N18.3) Acute on Chronic kidney disease, stage 3 (moderate) - holding nephrotoxic agents, consider IVF - further evaluating etiology. (I10) Essential (primary) hypertension - continue beta laura, holding ARB, triam/hctz (E11.40) Type 2 diabetes mellitus with diabetic neuropathy- achs blood sugar, SSI A, holding metformin, SUH (I25.10) Atherosclerotic heart disease of [place] coronary artery without angina pectoris- follows with Dr. Macdonald (G47.39) Other sleep apnea- home bipap R10.11 Right upper quadrant pain- monitor, LFTs normal obtain bloodwork CBC, CMP, BNP and chest xray. will give him 40mg IV lasix x1, repeat bmp this evening- cr up to 1.8- will hold on lasix- may need IVF. starting ceftriaxone 1g and azithromycin course to cover for pneumonia/copd exacerbation. -also ordering peripheral smear and SPEP to further evaluate for multiple myeloma as he has elevated protein, anemia, acute kidney failure, lytic lesion right femur, calcium is normal- Dispo: will continue evaluating his condition- pt changed from observation to inpatient as he is have acute hypoxic respiratory distress, acute renal failure , debility. Clinical Quality Measures DVT/VTE Risk/Contraindication: Contraindications-Pharm: Other *list below* YURIY LARKIN MD Mar 10, 2018 13:18
[2018-03-10] MEDS ORDERED: GLYC10.7 IH (13:26)
[2018-03-10] MEDS ORDERED: MULT-35 PO (13:26)
[2018-03-10] MEDS ORDERED: COLC0.6T56 PO (13:26)
--- NOTE | 2018-03-10 14:00 | Physical Therapy Progress Note ---
Therapy Progress Note No treatment on this date per RN. Will evaluate patient in RADHA Lopez PT Mar 10, 2018 14:00
[2018-03-10] MEDS ORDERED: fentaNYL INJECTION 100 MCG/2 ML AMP IVP PRN (14:45)
[2018-03-10 14:51] LABS: BILIRUBIN,URINE NEGATIVE (NEGATIVE); CLARITY,URINE CLEAR; COLOR,URINE YELLOW; GLUCOSE, URINE (UA) NEGATIVE (NEGATIVE); KETONES,URINE NEGATIVE (NEGATIVE); LEUKOCYTE ESTERASE ,URINE NEGATIVE (NEGATIVE); NITRITE,URINE NEGATIVE (NEGATIVE); PH,URINE 5 (5-9); PROTEIN,URINE 1+ (NEGATIVE); UROBILINOGEN,URINE NORMAL (NORMAL)
[2018-03-10 15:05] LABS: AMORPHOUS SEDIMENT,UR MOD AMOR URATES /LPF; BACTERIA,URINE TRACE /HPF; SQUAMOUS EPITHELIAL CELL,UR RARE /HPF; WBC,URINE RARE /HPF
[2018-03-10] MEDS: HYDROcodone/APAP 5 MG/325 MG (LORTAB) TAB PO PRN (15:28)
[2018-03-10 15:30] VITALS: BP_SYST 112; BP_DIAS 57; BP_DIAS 58
[2018-03-10 16:18] VITALS: BP 112/58
[2018-03-10] MEDS ORDERED: RT-ALBUTEROL/IPRATROPIUM 3 ML (DUONEB) VIAL INH PRN (16:30)
--- NOTE | 2018-03-10 17:43 | Diagnostic Imaging Report ---
PROCEDURE: US Venous Lower Ext Max. TECHNIQUE: Multiple real-time grayscale images were obtained over the lower extremities in various projections, bilaterally. Additional duplex Doppler and color Doppler images were also obtained. INDICATION: Leg pain and swelling. FINDINGS: There is normal compression flow and augmentation demonstrated within the common femoral vein through the popliteal vein bilaterally. The greater saphenous junctions are patent. The visualized calf veins are patent. IMPRESSION: 1. No sonographic evidence of lower extremity deep venous thrombosis. Dictated by: Dictated on workstation # [id number]
[2018-03-10] MEDS ORDERED: PATIENT MAY USE OWN MEDS, ALL MC SCH (18:45)
[2018-03-10 19:25] VITALS: BP 135/66
[2018-03-10] MEDS: RT-ALBUTEROL/IPRATROPIUM 3 ML (DUONEB) VIAL INH SCH (20:04)
[2018-03-10 20:17] LABS: ABSOLUTE RETIC # 26 10e9/L (24-90); BASOPHILS % (AUTO) 0 % (0-10); EOSINOPHILS % (AUTO) 0 % (0-10); HEMATOCRIT 35 % (40-54); HEMOGLOBIN 11.1 G/DL (13.3-17.7); LYMPHOCYTES # (AUTO) 0.5 X 10^3 (1.0-4.0); LYMPHOCYTES % (AUTO) 5 % (12-44); MEAN CORPUSCULAR HEMOGLOBIN 30 PG (25-34); MEAN CORPUSCULAR HGB CONC 32 G/DL (32-36); MEAN CORPUSCULAR VOLUME 93 FL (80-99); MEAN PLATELET VOLUME 11.8 FL (7.4-10.4); MONOCYTES # (AUTO) 0.5 X 10^3 (0.0-1.0); MONOCYTES % (AUTO) 5 % (0-12); NEUTROPHILS # (AUTO) 8.7 X 10^3 (1.8-7.8); NEUTROPHILS % (AUTO) 90 % (42-75); PLATELET COUNT 142 10^3/uL (130-400); RED BLOOD COUNT 3.71 10^6/uL (4.35-5.85); RED CELL DISTRIBUTION WIDTH 17.3 % (10.0-14.5); RETICULOCYTE % 0.71 % (0.50-2.40); WHITE BLOOD COUNT 9.6 10^3/uL (4.3-11.0)
[2018-03-10 20:32] LABS: CALCIUM 9.5 MG/DL (8.5-10.1); CREATININE SERUM 1.83 MG/DL (0.60-1.30); POTASSIUM 4.4 MMOL/L (3.6-5.0)
[2018-03-10 20:46] LABS: BAND NEUTROPHILS 4 %; CRENATED RBC SLIGHT; ELLIPT/OVALOCYTES MODERATE; LYMPHOCYTES % (MANUAL) 6 %; MONOCYTES % (MANUAL) 3 %; NEUTROPHILS % (MANUAL) 87 %; POLYCHROMASIA SLIGHT; TEAR DROP CELLS SLIGHT
[2018-03-10] MEDS: PANTOPRAZOLE 40 MG (PROTONIX) TAB PO SCH (20:52)
[2018-03-10] MEDS: TAMSULOSIN 0.4 MG (FLOMAX) CAP PO SCH (20:53)
[2018-03-10] MEDS: ATORVASTATIN 20 MG (LIPITOR) TABLET PO SCH (20:53)
[2018-03-10] MEDS: APIXABAN 5 MG (ELIQUIS) TABLET PO SCH (20:53)
[2018-03-10] MEDS ORDERED: NON-FORMULARY MEDICATION 1 EA EA (Glycopyrrolate/Formoterol Fum (Bevespi Aerosphere Inhale IH SCH (21:00)
[2018-03-11] VITALS: BP 138/70
[2018-03-11] MEDS: RT-ALBUTEROL/IPRATROPIUM 3 ML (DUONEB) VIAL INH SCH ×4 (02:08→20:58)
[2018-03-11 04:00] VITALS: BP 169/69
[2018-03-11] MEDS: ACETAMINOPHEN 325 MG TABLET PO PRN (05:43)
[2018-03-11 05:59] LABS: BASOPHILS % (AUTO) 0 % (0-10); EOSINOPHILS % (AUTO) 0 % (0-10); HEMATOCRIT 34 % (40-54); HEMOGLOBIN 11.4 G/DL (13.3-17.7); LYMPHOCYTES # (AUTO) 0.3 X 10^3 (1.0-4.0); LYMPHOCYTES % (AUTO) 4 % (12-44); MEAN CORPUSCULAR HEMOGLOBIN 31 PG (25-34); MEAN CORPUSCULAR HGB CONC 34 G/DL (32-36); MEAN CORPUSCULAR VOLUME 93 FL (80-99); MEAN PLATELET VOLUME 11.7 FL (7.4-10.4); MONOCYTES # (AUTO) 0.5 X 10^3 (0.0-1.0); MONOCYTES % (AUTO) 5 % (0-12); NEUTROPHILS # (AUTO) 7.8 X 10^3 (1.8-7.8); NEUTROPHILS % (AUTO) 91 % (42-75); PLATELET COUNT 147 10^3/uL (130-400); RED BLOOD COUNT 3.63 10^6/uL (4.35-5.85); RED CELL DISTRIBUTION WIDTH 16.9 % (10.0-14.5); WHITE BLOOD COUNT 8.6 10^3/uL (4.3-11.0)
[2018-03-11 06:21] LABS: CALCIUM 9.6 MG/DL (8.5-10.1); CREATININE SERUM 1.69 MG/DL (0.60-1.30); POTASSIUM 4.1 MMOL/L (3.6-5.0)
[2018-03-11 06:29] LABS: LYMPHOCYTES % (MANUAL) 2 %; MONOCYTES % (MANUAL) 5 %; NEUTROPHILS % (MANUAL) 93 %
[2018-03-11] MEDS: inSUlin (REGULAR) HUMAN 1 UNIT/0.01 ML (CHARGE PER UNIT) SC SCH ×4 (06:30→21:27)
[2018-03-11] MEDS: PANTOPRAZOLE 40 MG (PROTONIX) TAB PO SCH ×2 (06:35→21:26)
[2018-03-11] MEDS ORDERED: LACTATED RINGERS 1,000 ML IV SCH (06:45)
[2018-03-11] MEDS ORDERED: POLYETHYLENE GLYCOL 17 GM (MIRALAX) PACK PO NR (07:30)
[2018-03-11] MEDS: DEXAMETHASONE 4 MG TAB (DECADRON) PO SCH (07:39)
[2018-03-11 08:00] VITALS: BP 177/81
--- NOTE | 2018-03-11 08:51 | Progress Note (SOAP) ---
Subjective Subjective Date Seen by Provider: Mar 11, 2018 Time Seen by Provider: 06:45 77 yo M patient reports he is feeling a little better; still has pain in RUQ with movement and deep breath. Right knee still warm and stiff, pain is a little better with apap/hydrocodone. He is unable to bend it. No bowel movements in 2 days will start colace. Abdomen is a little less tight- not as distended. Fever of 100.6F this AM. Review of Systems General: Chills, Fatigue HEENT: No Head Aches, No Visual Changes Pulmonary: Dyspnea, Cough Cardiovascular: No: Chest Pain, Palpitations Gastrointestinal: Abdominal Pain (RUQ); No: Nausea, Vomiting Genitourinary: No Dysuria, No Frequency Musculoskeletal: leg pain; No: neck pain, shoulder pain Neurological: Weakness Objective Exam Vital Signs Vital Signs - First Documented 03/10/18 03/10/18 11:45 12:00 Temp 101.0 Pulse 60 Resp 20 B/P (MAP) 148/88 (108) Pulse Ox 94 O2 Delivery Nasal Cannula O2 Flow Rate 2.00 Capillary Refill : General Appearance: No Apparent Distress HEENT: PERRL/EOMI Neck: Non Tender, Supple Respiratory: Chest Non Tender, Lungs Clear, Normal Breath Sounds, No Accessory Muscle Use, No Respiratory Distress Cardiovascular: Regular Rate, Rhythm (systolic 2/6 murmur), Systolic Murmur Gastrointestinal: Normal Bowel Sounds, Distended (softer today) Rectal: Deferred Back: Normal Inspection, No CVA Tenderness, No Vertebral Tenderness Extremity: Normal Capillary Refill, Pedal Edema (left worse than right edema), Swelling, Other ( right knee swelling, redness, warm) Neurologic/Psychiatric: Alert, Oriented x3 Skin: Warm/Dry Results Lab Laboratory Tests 03/10/18 11:45: White Blood Count 9.3, Red Blood Count 3.67L, Hemoglobin 11.2L, Hematocrit 34L, Mean Corpuscular Volume 93, Mean Corpuscular Hemoglobin 31, Mean Corpuscular Hemoglobin Concent 33, Red Cell Distribution Width 17.4H, Platelet Count 148, Mean Platelet Volume 11.2H, Neutrophils (%) (Auto) 87H, Lymphocytes (%) (Auto) 6L, Monocytes (%) (Auto) 8, Eosinophils (%) (Auto) 0, Basophils (%) (Auto) 0, Neutrophils # (Auto) 8.1H, Lymphocytes # (Auto) 0.5L, Monocytes # (Auto) 0.7, Eosinophils # (Auto) 0.0, Basophils # (Auto) 0.0, Neutrophils % (Manual) 90, Lymphocytes % (Manual) 5, Monocytes % (Manual) 5, Blood Morphology Comment NORMAL, Sodium Level 135, Potassium Level 4.2, Chloride Level 105, Carbon Dioxide Level 19L, Anion Gap 11, Blood Urea Nitrogen 61H, Creatinine 1.68H, Estimat Glomerular Filtration Rate 40, BUN/Creatinine Ratio 36, Glucose Level 156H, Calcium Level 9.5, Corrected Calcium 9.9, Total Bilirubin 0.9, Aspartate Amino Transf (AST/SGOT) 34, Alanine Aminotransferase (ALT/SGPT) 34, Alkaline Phosphatase 54, B-Type Natriuretic Peptide 196.3H, Total Protein 9.3H, Albumin 3.5 03/10/18 14:45: Urine Color YELLOW, Urine Clarity CLEAR, Urine pH 5, Urine Specific [place] 1.020, Urine Protein 1+H, Urine Glucose (UA) NEGATIVE, Urine Ketones NEGATIVE, Urine Nitrite NEGATIVE, Urine Bilirubin NEGATIVE, Urine Urobilinogen NORMAL, Urine Leukocyte Esterase NEGATIVE, Urine RBC (Auto) 1+H, Urine RBC NONE, Urine WBC RARE, Urine Squamous Epithelial Cells RARE, Urine Crystals NONE, Urine Amorphous Sediment MOD SISSY URATESH, Urine Bacteria TRACE, Urine Casts PRESENT, Urine Hyaline Casts 2-5H, Urine Mucus NEGATIVE, Urine Culture Indicated NO 03/10/18 15:28: Glucometer 92 03/10/18 19:50: White Blood Count 9.6, Red Blood Count 3.71L, Hemoglobin 11.1L, Hematocrit 35L, Mean Corpuscular Volume 93, Mean Corpuscular Hemoglobin 30, Mean Corpuscular Hemoglobin Concent 32, Red Cell Distribution Width 17.3H, Platelet Count 142, Mean Platelet Volume 11.8H, Neutrophils (%) (Auto) 90H, Lymphocytes (%) (Auto) 5L, Monocytes (%) (Auto) 5, Eosinophils (%) (Auto) 0, Basophils (%) (Auto) 0, Neutrophils # (Auto) 8.7H, Lymphocytes # (Auto) 0.5L, Monocytes # (Auto) 0.5, Eosinophils # (Auto) 0.0, Basophils # (Auto) 0.0, Neutrophils % (Manual) 87, Lymphocytes % (Manual) 6, Monocytes % (Manual) 3, Sodium Level 136, Potassium Level 4.4, Chloride Level 105, Carbon Dioxide Level 19L, Anion Gap 12, Blood Urea Nitrogen 64H, Creatinine 1.83H, Estimat Glomerular Filtration Rate 36, BUN/ Creatinine Ratio 35, Glucose Level 185H, Calcium Level 9.5, Band Neutrophils 4, Polychromasia SLIGHT, Tear Drop Cells SLIGHT, Crenated Cell SLIGHT, Elliptocytes MODERATE, Absolute Reticulocyte Count 26, Percent Reticulocyte Count 0.71 03/10/18 20:23: Glucometer 192H 03/11/18 05:41: Glucometer 242H 03/11/18 05:50: White Blood Count 8.6, Red Blood Count 3.63L, Hemoglobin 11.4L, Hematocrit 34L, Mean Corpuscular Volume 93, Mean Corpuscular Hemoglobin 31, Mean Corpuscular Hemoglobin Concent 34, Red Cell Distribution Width 16.9H, Platelet Count 147, Mean Platelet Volume 11.7H, Neutrophils (%) (Auto) 91H, Lymphocytes (%) (Auto) 4L, Monocytes (%) (Auto) 5, Eosinophils (%) (Auto) 0, Basophils (%) (Auto) 0, Neutrophils # (Auto) 7.8, Lymphocytes # (Auto) 0.3L, Monocytes # (Auto) 0.5, Eosinophils # (Auto) 0.0, Basophils # (Auto) 0.0, Neutrophils % (Manual) 93, Lymphocytes % (Manual) 2, Monocytes % (Manual) 5, Sodium Level 138, Potassium Level 4.1, Chloride Level 105, Carbon Dioxide Level 21, Anion Gap 12, Blood Urea Nitrogen 65H, Creatinine 1.69H, Estimat Glomerular Filtration Rate 39, BUN/ Creatinine Ratio 38, Glucose Level 236H, Calcium Level 9.6 Assessment/Plan Assessment/Plan Admission Dx acute hypoxic respiratory failure acute on chronic kidney failure Admission Status: Inpatient Order (span 2 midnights) Assessment and Plan M00.9 right knee septic arthritis- will need to have the joint washed out - and patient determining if they want to be transferred to Dr. Mckay office vs staying at [facility] for treatment. R09.02 acute hypoxic respiratory distress- oxygen supplement, MAT, 125mg methylprednisolone IV prn x1- dexamethasone 8mg x3 days (J44.9) acute exacerbation of Chronic obstructive pulmonary disease - MAT protocol, covering with rocephin, azithromycin N17.9 (N18.3) Acute on Chronic kidney disease, stage 3 (moderate) - holding nephrotoxic agents, - further evaluating etiology. (I10) Essential (primary) hypertension - continue beta laura, holding ARB, triam/hctz (E11.40) Type 2 diabetes mellitus with diabetic neuropathy- achs blood sugar, SSI A, holding metformin, SUH steroids have raise his blood sugar- will start levemir 10units at bedtime. (I25.10) Atherosclerotic heart disease of [place] coronary artery without angina pectoris- follows with Dr. Macdonald (G47.39) Other sleep apnea- home bipap R10.11 Right upper quadrant pain- monitor, LFTs normal weakness- PT - ordered peripheral smear and SPEP to further evaluate for multiple myeloma as he has elevated protein, anemia, acute kidney failure, lytic lesion right femur , calcium is normal- Dispo: will continue evaluating his condition- DVT ppx: on eliquis, SCDs Possible transfer to [facility] for further treatment with Dr. Mckay to wash out his right knee injection- s/p history of bilateral knee replacement Admission Dx acute hypoxic respiratory failure acute on chronic kidney failure Clinical Quality Measures Admission Status Admission Dx acute hypoxic respiratory failure acute on chronic kidney failure DVT/VTE Risk/Contraindication: Risk Factor Score Per Nursin RFS Level Per Nursing on Admit: 4+=Very High Contraindications-Pharm: Other *list below* YURIY BRITTON MD Mar 11, 2018 08:51
[2018-03-11] MEDS: DOCUSATE SODIUM 100 MG (COLACE) CAP PO SCH ×2 (09:05→21:26)
[2018-03-11] MEDS: ISOSORBIDE MONONITRATE 30 MG (IMDUR) TAB PO SCH (09:05)
[2018-03-11] MEDS: APIXABAN 5 MG (ELIQUIS) TABLET PO SCH ×2 (09:05→21:26)
[2018-03-11] MEDS: cefTRIAXone FOR IV USE 1,000 MG in NS (IVPB) 50 ML IV SCH (09:05)
[2018-03-11] MEDS: FUROSEMIDE 40 MG/4 ML INJ (LASIX) IVP SCH (09:05)
[2018-03-11] MEDS: FINASTERIDE (PROSCAR) 5 MG TAB PO SCH (09:06)
[2018-03-11] MEDS: AZITHROMYCIN 250 MG TAB (ZITHROMAX) PO SCH (09:06)
[2018-03-11] MEDS: meTOprolol SUCCINATE 100 MG (TOPROL XL) TAB PO SCH (09:06)
[2018-03-11] MEDS: HYDROcodone/APAP 5 MG/325 MG (LORTAB) TAB PO PRN ×2 (09:08→14:44)
--- NOTE | 2018-03-11 11:01 | Physical Therapy Evaluation ---
PT Evaluation-General Medical Diagnosis Admission Date Mar 10, 2018 at 11:15 Medical Diagnosis: acute hypoxic respiratory distress Onset Date: Mar 10, 2018 Therapy Diagnosis Therapy Diagnosis: generalized weakness/debility Height/Weight Height (Feet): 5 Height (Inches): 9.00 Weight (Pounds): 209 Weight (Ounces): 0.0 Precautions Precautions/Isolations: Fall Prevention, Standard Precautions Weight Bear Status Right Lower Extremity: Right Weight Bearing/Tolerated Left Lower Extremity: Left Weight Bearing/Tolerated Referral Physician: Trae Reason for Referral: Evaluation/Treatment Medical History Pertinent Medical History: CABG, CAD, COPD Additional Medical History bilateral knee TKR Current History right knee pain and right flank pain Reviewed History: Yes Social History Home: Single Level Current Living Status: Spouse Prior/Core FIM Prior Level of Function Functional [place] Measure 0=Not Assessed/NA 4=Minimal Assistance 1=Total Assistance 5=Supervision or Setup 2=Maximal Assistance 6=Modified [place] 3=Moderate Assistance 7=Complete [place] Bed Mobility: 7 Transfers (B,C,W/C) (FIM): 7 Gait: 7 Locomotion: 7 PT Evaluation-Current Subjective Patient rates right flank pain 9/10 with meds issued. Pain Numeric Pain Scale: 9 Location: Right Location Body Site: Side Pain Description: Pressure, Acute, Sharp Objective Patient Orientation: Normal For Age Problem Solving: Fair Attachments: Oxygen, IV ROM/Strength ROM Lower Extremities right knee flexion decreased due to pain/left LE WFL Strength Lower Extremities 4-/5 grossly bilaterally Integumentary/Posture Integumentary refer to nursing notes Bowel Incontinence: No Bladder Incontinence: No Posture slight trunk flexed posture due to right flank pain Neuromuscular (Tone, Coordination, Reflexes) grossly intact Sensory Vision: Wears Glasses Hearing: Impaired Sensation Right Lower Extremit: Intact Sensation Left Lower Extremity: Intact Transfers Functional [place] Measure 0=Not Assessed/NA 4=Minimal Assistance 1=Total Assistance 5=Supervision or Setup 2=Maximal Assistance 6=Modified [place] 3=Moderate Assistance 7=Complete [place] Transfers (B, C, W/C) (FIM): 5 Scootin Rollin Supine to/from Sit: 5 Sit to/from Stand: 5 Gait Mode of Locomotion: Walk Anticipated Mode of Locomotion: Walk Gait (FIM): 1 Distance (FIM): 1=up to 49 ft Distance: 10' Gait Level of Assist: 5 Gait Assistive Device: FWW Comments/Gait Description when up, patient is very functional with ambulation Balance Sitting Static: Normal Sitting Dynamic: Normal Standing Static: Normal Standing Dynamic: Normal Assessment/Needs 77 y.o. male, is currently limited due to right knee and flank pain. PT to address functional strength and mobility to improve current LOF and to return to home safely at maximum LOF. Rehab Potential: Fair PT Mcc Goals Mcc Goals PT Mcc Goals Time Frame: Mar 22, 2018 Transfers (B,C,W/C) (FIM): 6 Gait (FIM): 6 Gait distance (FIM): 3=150 ft Distance: 200' Gait Level of Assist: 6 Gait Assistive Device: FWW PT Plan Problem List Problem List: Activity Tolerance, ROM, Other (pain) Treatment/Plan Treatment Plan: Continue Plan of Care Treatment Plan: Bed Mobility, Education, Functional Activity [place], Functional Strength, Gait, Safety, Therapeutic Exercise, Transfers Treatment Duration: Mar 22, 2018 Frequency: 6 times per week Estimated Hrs Per Day: .25 hour per day Patient and/or Family Agrees t: Yes Safety Risks/Education Patient Education: Disease Process, Safety Issues Teaching Recipient: Patient Teaching Methods: Discussion Response to Teaching: Verbalize Understanding Discharge Recommendations Therapy D/C Recommendations: Home w/ Family Support Time/GCodes Time In: 945 Time Out: 1009 Total Billed Treatment Time: 24 Total Billed Treatment 1 visit EVHigh 24 min G Codes Necessary: RADHA Lopez PT Mar 11, 2018 11:01
[2018-03-11 12:00] VITALS: BP 194/90
[2018-03-11] MEDS ORDERED: LIDOCAINE 1% INJ 20 ML 20 ML VIAL INJ ONE (14:00)
--- NOTE | 2018-03-11 15:08 | Consultation-Cardiology ---
HPI-Cardiology Cardiology Consultation Date of Consultation 03/11/18 Date of Admission Time Seen by Provider: 15:02 Indication: coronary artery disease HPI 77 years old gentleman with extensive history of coronary artery disease, started to have right knee pain and stiffness in addition to fever. Has history of knee replacement. Noted to have fever. Denied any chest pain, was unable to lift himself and use significant effort trying to lift himself without success, had some right upper quadrant pain appeared to be musculoskeletal. Still having low-grade fever. Denied any chest pain. No palpitation. No syncope. Had generalized weakness and loss of energy. Right knee still feeling warm to touch compared to the left Home Medications & Allergies Allergies: Coded Allergies: No Known Drug Allergies (Unverified , 06/06/11) Home Medication List Reviewed: Yes ICZ-Utwwzy-Xyxotz Hx Patient Social History Marital Status: Employed/Student: retired Alcohol Use: Denies Use Recreational Drug Use: No Smoking Status: Former Smoker Former smoker/When Quit: Jun 10, 1982 Type Used: Cigarettes Recent Foreign Travel: No Recent Hopitalizations: No Physical Abuse Screen: No Sexual Abuse: No Immunizations Up To Date Tetanus Booster (TDap): More than 5yrs Date of Pneumonia Vaccine: Mar 17, 2014 Date of Influenza Vaccine: Mar 10, 2017 Past Medical History Past medical history as described below Family Medical History Family History: Cancer 19 MOTHER, Onset:38 ([place] ) Family history: Arthritis 19 FATHER Stroke 19 FATHER, Onset:73 Review of Systems Constitutional: see HPI, fever, malaise, weakness EENTM: see HPI, no symptoms reported Respiratory: see HPI; No cough; dyspnea on exertion; No hemoptysis, No orthopnea, No phlegm, No short of breath, No stridor, No wheezing, No other Cardiovascular: see HPI, chest pain (right-sided), edema; No Hx of Intervention , No palpitations, No syncope, No vascular heart diseas, No other Gastrointestinal: RUQ, see HPI Genitourinary: no symptoms reported, see HPI Musculoskeletal: see HPI, back pain, joint pain, muscle weakness Skin: no symptoms reported, see HPI Psychiatric/Neurological: No Symptoms Reported, See HPI Reviewed Test Results Reviewed Test Results Lab Laboratory Tests Test 03/10/18 15:28 03/10/18 19:50 03/10/18 20:23 03/11/18 05:41 Range/Units Glucometer 92 192 H 242 H 70-110 MG/DL White Blood Count 9.6 4.3-11.0 10^3/uL Red Blood Count 3.71 L 4.35-5.85 10^6/uL Hemoglobin 11.1 L 13.3-17.7 G/DL Hematocrit 35 L 40-54 % Mean Corpuscular Volume 93 80-99 FL Mean Corpuscular Hemoglobin 30 25-34 PG Mean Corpuscular Hemoglobin Concent 32 32-36 G/DL Red Cell Distribution Width 17.3 H 10.0-14.5 % Platelet Count 142 130-400 10^3/uL Mean Platelet Volume 11.8 H 7.4-10.4 FL Neutrophils (%) (Auto) 90 H 42-75 % Lymphocytes (%) (Auto) 5 L 12-44 % Monocytes (%) (Auto) 5 0-12 % Eosinophils (%) (Auto) 0 0-10 % Basophils (%) (Auto) 0 0-10 % Neutrophils # (Auto) 8.7 H 1.8-7.8 X 10^3 Lymphocytes # (Auto) 0.5 L 1.0-4.0 X 10^3 Monocytes # (Auto) 0.5 0.0-1.0 X 10^3 Eosinophils # (Auto) 0.0 0.0-0.3 10^3/uL Basophils # (Auto) 0.0 0.0-0.1 10^3/uL Neutrophils % (Manual) 87 % Lymphocytes % (Manual) 6 % Monocytes % (Manual) 3 % Band Neutrophils 4 % Polychromasia SLIGHT Tear Drop Cells SLIGHT Crenated Cell SLIGHT Elliptocytes MODERATE Absolute Reticulocyte Count 26 24-90 10e9/L Percent Reticulocyte Count 0.71 0.50-2.40 % Sodium Level 136 135-145 MMOL/L Potassium Level 4.4 3.6-5.0 MMOL/L Chloride Level 105 98-107 MMOL/L Carbon Dioxide Level 19 L 21-32 MMOL/L Anion Gap 12 5-14 MMOL/L Blood Urea Nitrogen 64 H 7-18 MG/DL Creatinine 1.83 H 0.60-1.30 MG/DL Estimat Glomerular Filtration Rate 36 BUN/Creatinine Ratio 35 Glucose Level 185 H 70-105 MG/DL Calcium Level 9.5 8.5-10.1 MG/DL Test 03/11/18 05:50 03/11/18 11:53 Range/Units White Blood Count 8.6 4.3-11.0 10^3/uL Red Blood Count 3.63 L 4.35-5.85 10^6/uL Hemoglobin 11.4 L 13.3-17.7 G/DL Hematocrit 34 L 40-54 % Mean Corpuscular Volume 93 80-99 FL Mean Corpuscular Hemoglobin 31 25-34 PG Mean Corpuscular Hemoglobin Concent 34 32-36 G/DL Red Cell Distribution Width 16.9 H 10.0-14.5 % Platelet Count 147 130-400 10^3/uL Mean Platelet Volume 11.7 H 7.4-10.4 FL Neutrophils (%) (Auto) 91 H 42-75 % Lymphocytes (%) (Auto) 4 L 12-44 % Monocytes (%) (Auto) 5 0-12 % Eosinophils (%) (Auto) 0 0-10 % Basophils (%) (Auto) 0 0-10 % Neutrophils # (Auto) 7.8 1.8-7.8 X 10^3 Lymphocytes # (Auto) 0.3 L 1.0-4.0 X 10^3 Monocytes # (Auto) 0.5 0.0-1.0 X 10^3 Eosinophils # (Auto) 0.0 0.0-0.3 10^3/uL Basophils # (Auto) 0.0 0.0-0.1 10^3/uL Neutrophils % (Manual) 93 % Lymphocytes % (Manual) 2 % Monocytes % (Manual) 5 % Erythrocyte Sedimentation Rate 82 H 0-30 MM/HR Sodium Level 138 135-145 MMOL/L Potassium Level 4.1 3.6-5.0 MMOL/L Chloride Level 105 98-107 MMOL/L Carbon Dioxide Level 21 21-32 MMOL/L Anion Gap 12 5-14 MMOL/L Blood Urea Nitrogen 65 H 7-18 MG/DL Creatinine 1.69 H 0.60-1.30 MG/DL Estimat Glomerular Filtration Rate 39 BUN/Creatinine Ratio 38 Glucose Level 236 H 70-105 MG/DL Calcium Level 9.6 8.5-10.1 MG/DL C-Reactive Protein High Sensitivity 30.95 H 0.00-0.50 MG/DL Glucometer 181 H 70-110 MG/DL Physical Exam Vital Signs Vital Signs - First Documented 03/10/18 03/10/18 11:45 12:00 Temp 101.0 Pulse 60 Resp 20 B/P (MAP) 148/88 (108) Pulse Ox 94 O2 Delivery Nasal Cannula O2 Flow Rate 2.00 Capillary Refill : Height, Weight, BMI Height: 5'9.00" Weight: 209lbs. 0.0oz. 94.013151qz; 30.9 BMI Method: General Appearance: No Apparent Distress, WD/WN Eyes: Bilateral Eye Normal Inspection, Bilateral Eye PERRL, Bilateral Eye EOMI HEENT: PERRL/EOMI, TMs Normal, Normal ENT Inspection, Pharynx Normal Neck: Full Range of Motion, Normal Inspection, Non Tender, Supple, Carotid Bruit Respiratory: Chest Non Tender, Lungs Clear, Normal Breath Sounds, No Accessory Muscle Use, No Respiratory Distress Cardiovascular: Regular Rate, Rhythm, No Edema, No Gallop, No JVD, No Murmur, Normal Peripheral Pulses Gastrointestinal: Normal Bowel Sounds, No Organomegaly, No Pulsatile Mass, Non Tender, Soft Back: Normal Inspection, No CVA Tenderness, No Vertebral Tenderness Extremity: Normal Capillary Refill, Other (right knee is swollen and warm to touch, unable to move) Neurologic/Psychiatric: Alert, Oriented x3, No Motor/Sensory Deficits, Normal Mood/Affect Skin: Normal Color, Warm/Dry Lymphatic: No Adenopathy A/P-Cardiology Admission Diagnosis Septic joint Coronary artery disease Paroxysmal atrial fibrillation Hypertension Assessment/Plan Septic joint, managed by primary care team, Dr. Taylor was consulted. Fever and generalized weakness secondary to infection, receiving antibiotic, managed by Dr. Larkin Coronary artery disease, history of CABG 4 done in 2008 in [facility]. Using BACH to LAD, vein graft to diagonal, vein graft to RI, vein graft to the right coronary artery. Cardiac catheterization was done in May 2012 showing severe disease of the vein graft to the right posterior descending artery around the anastomosis point, very small artery with slow flow not amendable to intervention. The vein graft to the diagonal artery and vein graft to the ramus intermedius were patent with small vessel disease distally in the douglas coronaries. The BACH to the LAD is patent.patient had TMLR during bypass surgery. Cardiac catheterization was done on July 21, 2014 showing severe stenosis at the proximal and mid LAD within the stents, underwent complex intervention with using 3 stent 2.520 mm and 2.2524 mm and 2.2520 mm overlapping with excellent results in the LAD, the circumflex artery has severe stenosis proximally supplying the proper circumflex which is a smaller artery, the first obtuse marginal branch is totally occluded proximally receiving good supply from a vein graft, the right coronary artery has severe disease with patent vein graft to the right, the diagonal artery receiving supply from the vein graft, the BACH is small with sluggish flow in the distal LAD, atherosclerotic disease in the abdominal aorta. Catheterization done June 13, 2016 revealed reocclusion of the distal LAD. Heavily calcified artery, very small artery distally. Successful balloon angioplasty to the proximal lesion of the LAD with good results. He was referred to Dr. Poole for further evaluation, underwent cardiac catheterization at [place] on June 22, 2016 with small perforation to the LAD. Unsuccessful LAD intervention. We will continue to treat with medical management. Patient requested referral to [facility], I contacted [facility] cardiology and arrange for appointment for him, the case was reviewed and they decided that they will not be able to offer any further intervention, conservative management was recommended. Continue to monitor at this time, no changes are recommended Persistent atrial fibrillation since October 2011. [id number] score 5, yearly risk of stroke without oral anticoagulation is 6.7 percent. History of intolerance to oral anticoagulationin the past due to recurrent GI bleed, requiring multiple transfusion. Reporting easy bruising/bleeding over the past several months. Intend on Eliquis Sick sinus syndrome, status post permanent pacemaker. Most recent pacemaker interrogation showing persistent atrial fibrillation with good sensing and capture activity. History of Anemia, requiring multiple transfusion in the past, continue to monitor COPD/emphysema, managed and followed by Dr. Buchanan. I encourage the patient to continue with the exercise program. Patient is unable to tolerate his Bi Pap machine. Continue to monitor Hypertension, poor control, restart home medication monitor blood pressure Hyperlipidemia, continue to monitor lipids Diabetes mellitus, followed and managed by primary care physician. History of peripheral vascular disease with multiple stents. Last RY was done in in October 2016 and it was normal. Continue to monitor Carotid stenosis, CT angiogram of the neck with contrast wasn't done in October 2016 showed ectasia in the left carotid bulb measuring 1.1 cm, both side have no significant obstructive disease. I will reevaluate carotid duplex. Morbid obesity, BMI is 30 Preoperative cardiac evaluation, patient had extensive cardiovascular history, he is considered at intermediate to high risk for perioperative cardiovascular complications, decision regarding any surgery, risks versus benefit is deferred to the surgeon Clinical Quality Measures DVT/VTE Risk/Contraindication: Risk Factor Score Per Nursin RFS Level Per Nursing on Admit: 4+=Very High Contraindications-Pharm: Other *list below* ZARI PARIS MD Mar 11, 2018 15:08
[2018-03-11 16:00] VITALS: BP 161/76
[2018-03-11] MEDS ORDERED: FERROUS SULF 325 MG (IRON) TAB PO SCH (17:00)
[2018-03-11 17:37] LABS: BODY FLUID SOURCE SYNOVIAL
[2018-03-11 17:38] LABS: BODY FLUID APPEARENCE MKD CLDY; BODY FLUID COLOR AMBER
[2018-03-11 18:03] LABS: BODY FLUID RBC COUNT 29500 /uL; BODY FLUID WBC TOTAL COUNT 124750 /uL
[2018-03-11 18:55] LABS: BF OTHER CELLS 0 %; LYMPHOCYTES,BODY FLUID 3 %
[2018-03-11 20:28] VITALS: BP 157/74
[2018-03-11] MEDS ORDERED: inSUlin DETERMIR 1 UNIT/0.01 ML (LEVEMIR) CHARGE PER UNIT SQ SCH (21:00)
[2018-03-11] MEDS: methylPREDNISolone 40 MG/ML (Solu-MEDROL) VIAL IV SCH (21:26)
[2018-03-11] MEDS: ATORVASTATIN 20 MG (LIPITOR) TABLET PO SCH (21:26)
[2018-03-11] MEDS: TAMSULOSIN 0.4 MG (FLOMAX) CAP PO SCH (21:55)
--- NOTE | 2018-03-11 23:36 | CONSULTATION REPORT ---
DATE OF SERVICE: Room 424, bed 1. CHIEF COMPLAINT: Right knee pain, swelling and stiffness. HISTORY OF PRESENT ILLNESS: This 77-year-old male reports that he began experiencing increased weakness, shortness of breath and abdominal distention throughout the week and he reported that both knees which had been previously replaced felt stiff and weak. He states that he was able to work out the left knee, but he has had continued problems with the right. He took some extra doses of his colchicine medication thinking that the symptoms were partly due to a gout flare up, little benefit with this modality. He reported that with increasing difficulty with ambulation throughout Saturday, he continued to experience progressive weakness and shortness of breath and did have a bout of chills Saturday. He denies obvious fever, but thinks that he probably did have a slight temperature. Due to increasing symptoms, he was evaluated and admitted to [facility] for treatment. He is currently being treated with supplemental oxygen, breathing treatments and steroids and continues to complain of right knee stiffness and swelling. He reported mild warmth about the right knee as well, but reports this has improved with avid ice treatments. PAST MEDICAL HISTORY: The patient has a past medical history of renal failure, COPD, sleep apnea, BPH, kidney stones, osteoarthritis, gout, hearing loss and type 2 diabetes. CURRENT MEDICATIONS: Tylenol, apixaban, atorvastatin, colchicine, enalapril, iron sulfate, finasteride, glipizide, glycopyrrolate and formoterol inhaler, isosorbide, metformin, metoprolol, multivitamin, pantoprazole, tamsulosin and triamterene with hydrochlorothiazide. SOCIAL HISTORY: He was a former smoker, but denies alcohol or illicit drug use. PAST SURGICAL HISTORY: herniorrhaphy, cholecystectomy, coronary artery bypass surgeries, tonsillectomy and pacemaker insertion. LABORATORY DATA: Recent laboratory workup showed a white count of 8.6. Sed rate was elevated at 82 and platelets were within normal range at 147. He did undergo a lower extremity ultrasound, which was negative for DVT. Due to increasing knee pain and stiffness, Orthopedics was consulted and Dr. Taylor recommended knee aspiration. His total joint surgeon is Dr. John Mckya and we have been in touch with Dr. Mckay and he agreed with the recommendation to obtain a fluid sample from the right knee today. PHYSICAL EXAMINATION: EXTREMITIES: Right knee examination today shows a 1+ effusion. No obvious warmth is noted at this time. The knee is rather cool to the touch from recent erythema is noted anteriorly and extends medially along the anterior half of the knee. No obvious palpable lymphadenopathy was noted. Range of motion was 0/5/90. Poor patellar mobility was noted. The midline incision was noted to be well healed. Some palpable scar tissue was noted along the quad tendon patellar interface. IMPRESSION: Right knee septic arthritis status post total joint arthroplasty. PLAN: After informed consent was placed on the chart, the lateral aspect of the right knee suprapatellar region was prepped with alcohol and Betadine. The soft tissues overlying this region were then anesthetized with 5 mL of 1% lidocaine. After given adequate time for the anesthetic to take effect, the skin was once again prepped with Betadine and using an 18 gauge needle, 20 mL of fluid was extracted and the patient tolerated the procedure very well. The fluid was not translucent and did appear vague in color. The fluid was then sent to lab for a stat Gram stain. We have also requested a cell count and crystal analysis as well as aerobic and anaerobic cultures. Again, Dr. Taylor is notified of the procedure and the findings and we will keep Dr. John Mckay abreast of the situation as well. Job ID: [id number] DocumentID: [id number] Dictated Date: 03/11/2018 18:20:55 Pattern Worker Date: 03/11/2018 23:34:57 Dictated By: BILLY LEYVA
[2018-03-12 00:13] VITALS: BP 137/69
[2018-03-12] MEDS: RT-ALBUTEROL/IPRATROPIUM 3 ML (DUONEB) VIAL INH SCH ×2 (02:30→10:44)
[2018-03-12 04:39] VITALS: BP 139/70
[2018-03-12] MEDS: PANTOPRAZOLE 40 MG (PROTONIX) TAB PO SCH ×2 (06:29→09:03)
[2018-03-12] MEDS: inSUlin (REGULAR) HUMAN 1 UNIT/0.01 ML (CHARGE PER UNIT) SC SCH ×2 (06:29→11:09)
[2018-03-12] MEDS: DEXAMETHASONE 4 MG TAB (DECADRON) PO SCH ×2 (06:29→08:59)
[2018-03-12 08:00] VITALS: BP 169/84
[2018-03-12 08:25] LABS: BASOPHILS % (AUTO) 0 % (0-10); EOSINOPHILS % (AUTO) 0 % (0-10); HEMATOCRIT 37 % (40-54); LYMPHOCYTES # (AUTO) 0.7 X 10^3 (1.0-4.0); LYMPHOCYTES % (AUTO) 8 % (12-44); MEAN CORPUSCULAR HEMOGLOBIN 30 PG (25-34); MEAN CORPUSCULAR HGB CONC 32 G/DL (32-36); MEAN CORPUSCULAR VOLUME 93 FL (80-99); MEAN PLATELET VOLUME 11.5 FL (7.4-10.4); MONOCYTES # (AUTO) 0.6 X 10^3 (0.0-1.0); MONOCYTES % (AUTO) 7 % (0-12); NEUTROPHILS # (AUTO) 7.4 X 10^3 (1.8-7.8); NEUTROPHILS % (AUTO) 86 % (42-75); PLATELET COUNT 188 10^3/uL (130-400); RED CELL DISTRIBUTION WIDTH 17.1 % (10.0-14.5); WHITE BLOOD COUNT 8.7 10^3/uL (4.3-11.0)
--- NOTE | 2018-03-12 08:44 | Discharge Summary ---
Diagnosis/Chief Complaint Date of Admission Mar 10, 2018 at 12:24 Date of Discharge March 12, 2018 Admission Diagnosis Admission Diagnosis R09.02 acute hypoxic respiratory distress- (J44.9) acute exacerbation of Chronic obstructive pulmonary disease - N17.9 (N18.3) Acute on Chronic kidney disease, stage 3 (moderate) - (I10) Essential (primary) hypertension - (E11.40) Type 2 diabetes mellitus with diabetic neuropathy- (I25.10) Atherosclerotic heart disease of [place] coronary artery without angina pectoris- history of atrial fibrillation- (G47.39) Other sleep apnea- home bipap R10.11 Right upper quadrant pain- weakness- Discharge Diagnosis M00.9 right knee septic arthritis complicated with history of knee replacement - cultures pending. R09.02 acute hypoxic respiratory distress- improved (J44.9) acute exacerbation of Chronic obstructive pulmonary disease N17.9 (N18.3) Acute on Chronic kidney disease, stage 3 (moderate) - (I10) Essential (primary) hypertension - (E11.40) Type 2 diabetes mellitus with diabetic neuropathy- (I25.10) Atherosclerotic heart disease of [place] coronary artery without angina pectoris- history of atrial fibrillation- (G47.39) Other sleep apnea- R10.11 Right upper quadrant pain- weakness- Reason Hospital Visit 77 yo M direct admitted from clinic- I evaluated him in his car as he and grandson reports that he can not get out his care due to weakness/debility. His right knee has been hurting lately so he has been taking colchicine without much relief. It is warm, painful. Pt also notes right upper quadrant pain that goes around to his back. He also has abdominal distension/discomfort. He is having increasing shortness of breath over last couple days. He feels chilly but denies an objective temperature but thinks maybe he has had fevers. The other new issue is he did have a couple bouts of incontinence as well per grandson. He also almost keeps falling, weakness is progressing-Grandson has had to bathe him. He is unable to take care of himself right now. fell recently she is not helpful. Abdominal swelling/distension likely contributing to his shortness of breath. Admitted for further evaluation. -He did spike a 101F on admission- pain worsened with not much help from apap- hydrocodone helped with his pain- calculated eGFR 38 ultrasound of legs- revealed no DVT(s). Discharge Summary Hospital Course Hospital Course 77 yo M patient admitted for increasing weakness/inability to walk with: acute hypoxic respiratory failure, acute on chronic kidney failure and right knee pain - After it was found he had a septic joint of his right knee he and his requested to be discharged to home - Patient will be going to [place] by private vehicle and direct admit under Dr. Mckay for further evaluation and treatment for his septic arthritis of his right knee. Patient has improved since admission he is now able to walk with a walker. Diagnosis: M00.9 right knee septic arthritis complicated with history of knee replacement - cultures pending. R09.02 acute hypoxic respiratory distress- oxygen supplement, MAT, 125mg methylprednisolone IV prn x1- dexamethasone 8mg x2 days (J44.9) acute exacerbation of Chronic obstructive pulmonary disease - MAT protocol, covering with rocephin, azithromycin start date 03/10/18 status : improving- currently requiring 2L oxygen- qualifies for baseline 2L oxygen but does not usually wear it at home. N17.9 (N18.3) Acute on Chronic kidney disease, stage 3 (moderate) - holding nephrotoxic agents, - further evaluating etiology. (I10) Essential (primary) hypertension - continue beta laura, holding ARB, triam/hctz may resume as Cr improves (E11.40) Type 2 diabetes mellitus with diabetic neuropathy- achs blood sugar, SSI A, holding metformin, SUH steroids have raise his blood sugar- will start levemir 10units at bedtime. (I25.10) Atherosclerotic heart disease of [place] coronary artery without angina pectoris- follows with Dr. Macdonald history of atrial fibrillation- on eliquis 5mg (G47.39) Other sleep apnea- home bipap R10.11 Right upper quadrant pain- monitor, LFTs normal weakness- continue PT - Of note: ordered peripheral smear and SPEP (pending) to further evaluate for multiple myeloma as he has elevated protein, anemia, acute kidney failure, lytic lesion right femur send on xray, but calcium is normal- DVT ppx: on eliquis, SCDs last dose of eliquis was on 03/11/18 Plan for admission to [place]- wash out his right knee with Dr. Mckay continue 7 day course of rocephin on day 3 of 7 continue azithromycin on day 3 of 5 hold nephrotoxic agents- Cr has improved. Should be on IVF while NPO. Labs Procedures Right knee aspiration Discharge Physical Examination Allergies: Coded Allergies: No Known Drug Allergies (Unverified , 06/06/11) Vitals & I&Os Vital Signs Date Time Temp Pulse Resp B/P (MAP) Pulse Ox O2 Delivery O2 Flow Rate FiO2 03/12/18 09:00 Nasal Cannula 4.00 03/12/18 08:00 98.5 60 20 169/84 (112) 97 General Appearance: Alert, Oriented X3, Cooperative Respiratory: Clear to Auscultation Cardiovascular: Regular Rate Abdominal: Soft Neuro: Other Psych/Mental Status: Mental Status NL, Mood NL Discharge Home Medications Reviewed and agree with Discharge Medication list on patient's Discharge Instruction sheet Condition at Discharge improved Instructions to Patient/Family Please see electronic discharge instructions given to patient. Clinical Quality Measures DVT/VTE Risk/Contraindication: Risk Factor Score Per Nursin RFS Level Per Nursing on Admit: 4+=Very High Contraindications-Pharm: Other *list below* YURIY BRITTON MD Mar 12, 2018 08:44
[2018-03-12 08:47] LABS: CALCIUM 10.1 MG/DL (8.5-10.1); CREATININE SERUM 1.49 MG/DL (0.60-1.30); POTASSIUM 4.5 MMOL/L (3.6-5.0)
--- NOTE | 2018-03-12 08:51 | Discharge Inst-Simple/Standard ---
Discharge Inst-Standard Patient Instructions/Follow Up Plan of Care/Instructions/FU: Admission to [facility] for further evaluation ---give your discharge summary to Dr. Mckay and the Hospitalist to help them know what was done at [address] Activity as Tolerated: No Discharge Diet: ADA Diet (currently NPO) Return to The Hospital For: new concerns. YURIY BRITTON MD Mar 12, 2018 08:51
[2018-03-12] MEDS ORDERED: ENALAPRIL 5 MG (VASOTEC) TAB PO SCH (09:00)
--- NOTE | 2018-03-12 10:07 | CONSULTATION REPORT ---
DATE OF SERVICE: 03/11/2018 REASON FOR CONSULTATION: Right knee pain. HISTORY OF PRESENT ILLNESS: The patient is a 77-year-old gentleman, who previously underwent a right total knee arthroplasty by Dr. Mckay. He has been doing well until the last few days when he began to experience stiffness and pain in his knee. The patient had a history of gout, but reported the pain was not alleviated. He underwent an aspiration, which revealed crystals, but also a white blood cell count of 124,000 with 92% PMNs. It was felt that this was likely a septic knee joint. The patient was counseled and he elected to be transferred to [place] so that Dr. Mckay could perform definitive care. This was done in consultation with Dr. Mckay. He is in agreement for acceptance of the patient. Job ID: [id number] DocumentID: [id number] Dictated Date: 03/12/2018 09:56:02 Diamond Mounter Date: 03/12/2018 10:06:37 Dictated By: LAI VYAS MD
[2018-03-12] MEDS: cefTRIAXone FOR IV USE 1,000 MG in NS (IVPB) 50 ML IV SCH (10:44)
[2018-03-12] MEDS: methylPREDNISolone 40 MG/ML (Solu-MEDROL) VIAL IV SCH (10:44)
[2018-03-12] MEDS: FUROSEMIDE 40 MG/4 ML INJ (LASIX) IVP SCH (10:45)
[2018-03-12] MEDS: APIXABAN 5 MG (ELIQUIS) TABLET PO SCH (10:45)
[2018-03-12] MEDS: FINASTERIDE (PROSCAR) 5 MG TAB PO SCH (10:45)
[2018-03-12] MEDS: DOCUSATE SODIUM 100 MG (COLACE) CAP PO SCH (10:45)
[2018-03-12] MEDS: meTOprolol SUCCINATE 100 MG (TOPROL XL) TAB PO SCH (10:45)
[2018-03-12] MEDS: ISOSORBIDE MONONITRATE 30 MG (IMDUR) TAB PO SCH (10:45)
[2018-03-12] MEDS: AZITHROMYCIN 250 MG TAB (ZITHROMAX) PO SCH (10:46)
--- NOTE | 2018-03-12 11:01 | Physical Therapy Daily Note ---
PT Daily Note-Current Transfers Functional [place] Measure 0=Not Assessed/NA 4=Minimal Assistance 1=Total Assistance 5=Supervision or Setup 2=Maximal Assistance 6=Modified [place] 3=Moderate Assistance 7=Complete IndependenceIRFPAI Quality Coding Scale 6 Independent with activity with or without an assistive device 5 Patient requires set up or clean up by helper. Patient completes activity by themselves 4 Supervision or touching assist (CGA). [place] provide cues , steadying assist 3 The helper provides less than half the effort to complete the activity 2 The helper provides more than half the effort to complete the activity 1 Dependent. The helper does all the effort to complete an activity 7 Patient refused to complete or attempt activity 9 The patient did not perform the activity before the current illness or injury 88 Not attempted due to Medical conditions or safety concerns Weight Bearing Right Lower Extremity: Right Weight Bearing/Tolerated Left Lower Extremity: Left Weight Bearing/Tolerated Assessment Current Status: No Treatment/Other Tests Nurse advises pt. is TRFing to [facility], no Rx PT [address] Service Goals [address] Service Goals PT [address] Service Goals Time Frame: Mar 22, 2018 Transfers (B,C,W/C) (FIM): 6 Gait (FIM): 6 Gait distance (FIM): 3=150 ft Distance: 200' Gait Level of Assist: 6 Gait Assistive Device: FWW PT Plan Treatment/Plan Treatment Plan: Discontinue PT Treatment Plan: Bed Mobility, Education, Functional Activity [place], Functional Strength, Gait, Safety, Therapeutic Exercise, Transfers Treatment Duration: Mar 22, 2018 Frequency: 6 times per week Estimated Hrs Per Day: .25 hour per day Patient and/or Family Agrees t: Yes Time/GCodes Time In: 820 Time Out: 825 Total Billed Treatment Time: 5 Total Billed Treatment no Rx, no Chg G Codes Necessary: No LOLA ROE REWRITER Mar 12, 2018 11:01
[2018-03-18 11:47] LABS: IMMUNOFIX PATH REPORT NUMBER Complete (Complete)
== END 2018-03-12 11:15 | disposition home or self-care (01) | DRG 189 ==
LOC: UNDOADMOB 11:15 → 4TH 11:15 → OBSVTOIN 12:24
PROVIDERS: ADMIT Family Medicine; ATTEND Family Medicine
PROC: 0S9C3ZZ Drainage of Right Knee Joint, Percutaneous Approach (ICD-10-PCS; principal; 2018-03-11)
DX: J96.21 Acute and chronic respiratory failure with hypoxia (principal); J43.9 Emphysema, unspecified; M00.9 Pyogenic arthritis, unspecified; N17.9 Acute kidney failure, unspecified; R10.11 Right upper quadrant pain; I12.9 Hypertensive chronic kidney disease with stage 1 through stage 4 chronic kidney disease, or unspecified chronic kidney disease; N18.3 Chronic kidney disease, stage 3 (moderate); E11.40 Type 2 diabetes mellitus with diabetic neuropathy, unspecified; E11.51 Type 2 diabetes mellitus with diabetic peripheral angiopathy without gangrene; I48.0 Paroxysmal atrial fibrillation; I25.10 Atherosclerotic heart disease of native coronary artery without angina pectoris; G47.39 Other sleep apnea; N40.1 Benign prostatic hyperplasia with lower urinary tract symptoms; R32 Unspecified urinary incontinence; R53.1 Weakness; R53.81 Other malaise; M19.91 Primary osteoarthritis, unspecified site; M10.9 Gout, unspecified; H91.93 Unspecified hearing loss, bilateral; E66.01 Morbid (severe) obesity due to excess calories; Z68.30 Body mass index [BMI] 30.0-30.9, adult; Z96.653 Presence of artificial knee joint, bilateral; Z79.84 Long term (current) use of oral hypoglycemic drugs; Z87.891 Personal history of nicotine dependence; Z95.0 Presence of cardiac pacemaker; Z95.1 Presence of aortocoronary bypass graft; Z95.5 Presence of coronary angioplasty implant and graft; Z97.4 Presence of external hearing-aid; Z87.442 Personal history of urinary calculi; Z95.828 Presence of other vascular implants and grafts
CPT/HCPCS: 36415; 71046; 73562; 80048; 80053; 81000; 82962; 83880; 83883; 84155; 84165; 85007; 85025; 85027; 85045; 85652; 86141; 86334; 87070; 87075; 87077; 87205; 89051; 89060; 93970; 94640; 94760

== ENCOUNTER 2018-04-07 22:30 | Inpatient (IN) | payer MEDICARE, OTHER ==
[~2018-04-07] VITALS: Ht 175.3 cm; Wt 104.8 kg
[~2018-04-07 22:30] MED LIST changes: +ACET-1783 PO; +ASPI-983 PO; +COLC0.6T56 PO; +GLIP10TA24 PO; +GLYC10.7 IH; +METF-397 PO; +METO-395 PO; +MULT-35 PO; +PANT40TA3 PO
--- OUTSIDE RECORDS SUMMARY | 2018-04-07 22:35 | XMS REPORT | Clinical Summary ---
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 If you do not see the information that you expected, contact Release of Information in the Health Information Management department at [phone] for further assistance in locating additional records.[facility] Allergies No Known Allergies Current Medications [...] Statin therapy, Crestor. PVD (peripheral vascular disease) ([facility]) 11/16/2011 Diabetes mellitus (HCC) 11/16/2011 Diabetic neuropathy ([facility]) 11/16/2011 DJD (degenerative joint disease) 11/16/2011 [...] ICD?NSVT noted at cath. Ventricular tachycardia, nonsustained ([facility]) 11/16/2011 Overview: Noted on holter and [...]
--- OUTSIDE RECORDS SUMMARY | 2018-04-07 22:38 | XMS REPORT | Continuity of Care Document ---
Author Author [facility] Organization [facility] Address Unknown Phone Unavailable Allergies Active Description Code Type Severity Reaction Onset Reported/Identified Relationship to Patient Clinical Status Yes No Known Drug Allergies [id number] Drug Allergy Unknown N/A 06/06/2011 Medications There [...] NOS 06/11/2011 Ot 414.01 CORONARY ATHEROSCLEROSIS OF [place] CORON 06/11/2011 Ot 426.0 ATRIOVENT BLOCK COMPLETE [...] NOS 05/27/2012 Ot 414.01 CORONARY ATHEROSCLEROSIS OF [place] CORON 05/27/2012 Ot 414.02 CORON ATHEROSCLEROSIS AUTOLOG [...] 786.09 06/21/2014 AB DO, CORY M Ot 250.00 [...] MD Ot 272.4 HYPERLIPIDEMIA NEC/NOS 07/23/2014 ZARI PARIS MD Ot 278.01 MORBID OBESITY 07/23/2014 ZARI PARIS MD Ot 285.9 ANEMIA NOS 07/23/2014 ZARI PARIS MD Ot 357.2 NEUROPATHY IN DIABETES 07/23/2014 ZARI PARIS MD Ot 389.9 HEARING LOSS NOS 07/23/2014 ZARI PARIS MD Ot 403.90 HYPTNSV CHR KID DIS, UNSPEC, W CHR KD ST 07/23/2014 ZARI PARIS MD Ot 414.01 CORONARY ATHEROSCLEROSIS OF [place] CORON 07/23/2014 ZAIR PARIS MD Ot 427.31 ATRIAL FIBRILLATION 07/23/2014 ZARI PARIS MD Ot 433.30 MULT BILTRAL ARTERY OCCLUSION WO CEREBRA 07/23/2014 ZARI PARIS MD Ot 440.0 AORTIC ATHEROSCLEROSIS 07/23/2014 ZARI PARIS MD Ot 440.20 ATHEROSCLEROSIS [place] ARTERIES EXTREMIT 07/23/2014 ZARI PARIS MD Ot [...] ZARI PARIS MD Ot 414.00 08/06/2014 ZARI PRAIS MD Ot 427.31 09/14/2014 ZARI PARIS MD [...] MORILLO, SAVANNAH K Ot 272.4 12/22/2014 ROSA MORLILO, SAVANNAH K Ot 280.0 12/22/2014 ROSA MORILLO, [...] ISAIAH DESOUZA, NORMAN Knox Ot 786.2 02/08/2015 SANDRA MORILLO, LAI Lopez Ot 473.9 02/08/2015 MELANIE [...] SAVANNAH Knox Ot 788.64 02/08/2015 ROSA MORILLO, SVAANNAH Knox Ot V12.79 02/08/2015 FROY MORILLO, KYLE [...] Ot 788.64 URINARY HESITANCY 02/22/2015 ROSA MORILLO, SAVANNAH Knox Ot V12.79 PERSONAL HISTORY OTH SPEC DIGESTIVE SYST 04/04/2015 ROSA MORILLO, SAVANNAH Lisette Ot 250.00 04/04/2015 ROSA MORILLO, SAVANNAH Lisetet Ot 272.4 04/04/2015 ROSA MORILLO, SAVANNAH K [...] SAVANNAH Lisette Ot 250.00 05/09/2015 ROSA MORILLO, SAVANNAH K Ot 272.4 05/09/2015 ROSA MORILLO, SAVANNAH [...] MORILLO, BRUCE R Ot Y99.8 07/25/2015 ROSA MORLILO, SAVANNAH Knox Ot D50.9 07/25/2015 ROSA MORILLO, [...] Knox Ot I25.10 ATHSCL HEART DISEASE OF [place] CORONARY 08/09/2015 ROSA MORILLO, SAVANNAH Knox Ot I48.91 UNSPECIFIED ATRIAL FIBRILLATION 08/09/2015 ROSA MORILLO, SAVANNAH Knox Ot N40.1 ENLARGED PROSTATE WITH LOWER URINARY TRA 08/09/2015 ROSA MORILLO, SAVANNAH Knox Ot R30.0 DYSURIA 08/09/2015 ROSA MORILLO, SAVANNAH Knox Ot R39.11 HESITANCY OF MICTURITION 08/09/2015 ROSA MORILLO, SAVANNAH Knox Ot Z79.01 CLEANING SUPERVISOR (CURRENT) USE OF ANTICOAGULANT 08/09/2015 ROSA MORILLO, SAVANNAH Knox Ot Z79.899 OTHER DETENTION (CURRENT) DRUG THERAPY 08/10/2015 ROSA MORILLO, SAVANNAH [...] Knox Ot Z79.899 08/19/2015 ROSA MORILLO, SAVANNAH Knox Ot D50.9 08/19/2015 ROSA MORILLO, SAVANNAH Knox Ot E11.9 08/19/2015 ROSA MORILLO, SAVANNAH Knox Ot E78.5 08/19/2015 ROSA MORILLO, SAVANNAH Knox Ot I10 08/19/2015 ROSA MORILLO, SAVANNAH Knox Ot I25.10 08/19/2015 ROSA MORILLO, SAVANNAH Knox Ot I48.91 08/19/2015 ROSA MORILLO, SAVANNAH Knox Ot N40.1 08/19/2015 ROAS MORILLO, SAVANNAH Knox Ot R30.0 08/19/2015 ROSA [...] Knox Ot I25.10 ATHSCL HEART DISEASE OF [place] CORONARY 09/30/2015 ROSA MORILLO, SAVANNAH Knox Ot I48.91 UNSPECIFIED ATRIAL FIBRILLATION 09/30/2015 ROSA MORILLO, SAVANNAH Knox Ot N40.1 ENLARGED PROSTATE WITH LOWER URINARY TRA 09/30/2015 ROSA MORILLO, SAVANNAH Knox Ot R30.0 DYSURIA 09/30/2015 ROSA MORILLO, SAVANNAH Knox Ot R39.11 HESITANCY OF MICTURITION 09/30/2015 ROSA MORILLO, SAVANNAH Knox Ot Z79.01 CLEANING SUPERVISOR (CURRENT) USE OF ANTICOAGULANT 09/30/2015 ROSA MORILLO, SAVANNAH Knox Ot Z79.899 OTHER CLEANING SUPERVISOR (CURRENT) DRUG THERAPY 10/26/2015 Ot 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 AND IDIOPATHIC NEUROPATHY, UN 10/26/2015 Ot I25.10 ATHSCL HEART DISEASE OF [place] CORONARY 10/26/2015 Ot I48.91 UNSPECIFIED ATRIAL FIBRILLATION 10/26/2015 Ot I73.9 PERIPHERAL VASCULAR DISEASE, UNSPECIFIED 10/26/2015 Ot R06.00 DYSPNEA, UNSPECIFIED 11/15/2015 ROSA MORILLO, SAVANNAH Knox Ot D50.9 IRON DEFICIENCY ANEMIA, UNSPECIFIED 11/15/2015 ROSA MORILLO, SAVANNAH Lisette Ot E11.9 TYPE 2 DIABETES MELLITUS WITHOUT COMPLIC 11/15/2015 ROSA MORILLO, SAVANNAH Lisette Ot E78.5 HYPERLIPIDEMIA, UNSPECIFIED 11/15/2015 ROSA MORILLO, SAVANNAH Knox Ot I10 ESSENTIAL (PRIMARY) HYPERTENSION 11/15/2015 ORSA MORILLO SAVANNAH Lisette Ot I25.10 ATHSCL HEART DISEASE OF [place] CORONARY 11/15/2015 ROSA MORILLO SAVANNAH Lisette Ot I48.91 UNSPECIFIED ATRIAL FIBRILLATION 11/15/2015 SAVANNAH LEE MD Ot N40.1 ENLARGED PROSTATE WITH LOWER URINARY TRA 11/15/2015 SAVANNAH LEE MD Ot R30.0 DYSURIA 11/15/2015 SAVANNAH LEE MD Ot R39.11 HESITANCY OF MICTURITION 11/15/2015 ROSA MORILLO, SAVANNAH Lisette Ot Z79.01 DETENTION (CURRENT) USE OF ANTICOAGULANT 11/15/2015 ROSA MORILLO, SAVANNAH Lisette Ot Z79.899 OTHER DETENTION (CURRENT) DRUG THERAPY 11/25/2015 Ot 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 AND IDIOPATHIC NEUROPATHY, UN 11/25/2015 Ot I25.10 ATHSCL HEART DISEASE OF [place] CORONARY 11/25/2015 Ot I48.91 UNSPECIFIED ATRIAL FIBRILLATION [...] 06/13/2016 Ot I25.10 ATHSCL HEART DISEASE OF [place] CORONARY 06/13/2016 Ot I48.91 UNSPECIFIED ATRIAL FIBRILLATION [...] K Ot I25.10 ATHSCL HEART DISEASE OF [place] CORONARY 06/13/2016 SAVANNAH LEE MD, Ot I48.91 UNSPECIFIED ATRIAL FIBRILLATION 06/13/2016 SAVANNAH LEE MD, Ot N40.1 ENLARGED PROSTATE WITH LOWER URINARY TRA 06/13/2016 SAVANNAH LEE MD Ot R30.0 DYSURIA 06/13/2016 SAVANNAH LEE MD, Ot R39.11 HESITANCY OF MICTURITION 06/13/2016 SAVANNAH LEE MD, Ot Z79.01 DETENTION (CURRENT) USE OF ANTICOAGULANT 06/13/2016 SAVANNAH LEE MD, Ot Z79.899 OTHER DETENTION (CURRENT) DRUG THERAPY 06/14/2016 ZARI PARIS MD Ot E11.9 TYPE 2 DIABETES MELLITUS WITHOUT COMPLIC 06/14/2016 ZARI PARIS MD, Ot E66.9 OBESITY, UNSPECIFIED 06/14/2016 ZARI PARIS MD, Ot I25.10 ATHSCL HEART DISEASE OF [place] CORONARY 06/14/2016 ZARI PARIS MD, Ot I25.82 [...] ADULT 06/14/2016 ZARI PARIS MD, Ot Z79.01 CLEANING SUPERVISOR (CURRENT) USE OF ANTICOAGULANT 06/14/2016 ZARI PARIS MD, Ot Z79.899 OTHER DETENTION (CURRENT) DRUG THERAPY 06/14/2016 ZARI PARIS MD Ot Z95.0 PRESENCE OF CARDIAC PACEMAKER 06/14/2016 ZARI PARIS MD Ot Z95.1 PRESENCE OF AORTOCORONARY BYPASS GRAFT 10/19/2016 ZARI PARIS MD Ot E78.2 MIXED HYPERLIPIDEMIA 10/19/2016 ZARI PARIS MD Ot I10 ESSENTIAL (PRIMARY) HYPERTENSION 10/19/2016 ZARI PARIS MD Ot I25.10 ATHSCL HEART DISEASE OF [place] CORONARY 10/19/2016 ZARI PARIS MD Ot I65.23 OCCLUSION AND STENOSIS OF [place]AL [place] 10/24/2016 ZARI PARIS MD Ot E78.2 MIXED HYPERLIPIDEMIA 10/24/2016 ZARI PARIS MD Ot I10 ESSENTIAL (PRIMARY) HYPERTENSION 10/24/2016 ZARI PARIS MD Ot I25.10 ATHSCL HEART DISEASE OF [place] CORONARY 10/24/2016 ZARI PARIS MD Ot I65.23 OCCLUSION AND STENOSIS OF [place] 12/07/2016 ZARI PARIS MD Ot E78.2 MIXED HYPERLIPIDEMIA 12/07/2016 ZARI PARIS MD Ot I10 ESSENTIAL (PRIMARY) HYPERTENSION 12/07/2016 ZARI PARIS MD Ot I25.10 ATHSCL HEART DISEASE OF [place] CORONARY 12/07/2016 ZARI PARIS MD Ot I65.23 OCCLUSION AND STENOSIS OF [place] 03/12/2018 YURIY BRITTON MD Ot E11.40 TYPE 2 DIABETES MELLITUS WITH DIABETIC N 03/12/2018 YURIY BRITTON MD Ot E11.51 TYPE 2 DIABETES W DIABETIC PERIPHERAL AN 03/12/2018 YURIY BRITTON MD Ot E66.01 MORBID (SEVERE) OBESITY DUE TO EXCESS CA 03/12/2018 YURIY BRITTON MD Ot G47.39 OTHER SLEEP APNEA 03/12/2018 YURIY BRITTON MD Ot H91.93 UNSPECIFIED HEARING LOSS, BILATERAL 03/12/2018 YURIY BRITTON MD Ot I12.9 HYPERTENSIVE CHRONIC KIDNEY DISEASE W ST 03/12/2018 YURIY BRITTON MD, Ot I25.10 ATHSCL HEART DISEASE OF [place] CORONARY 03/12/2018 YURIY BRITTON MD Ot I48.0 PAROXYSMAL ATRIAL FIBRILLATION 03/12/2018 YURIY BRITTON MD, Ot J43.9 EMPHYSEMA, UNSPECIFIED 03/12/2018 YURIY BRITTON MD Ot J96.21 ACUTE AND CHRONIC RESPIRATORY FAILURE [place] 03/12/2018 YURIY BRITTON MD, Ot M00.9 PYOGENIC ARTHRITIS, UNSPECIFIED 03/12/2018 YURIY BRITTON MD, Ot M10.9 GOUT, UNSPECIFIED 03/12/2018 YURIY BRITTON MD, Ot M19.91 PRIMARY OSTEOARTHRITIS, UNSPECIFIED SITE 03/12/2018 YURIY BRITTON MD, Ot N17.9 ACUTE KIDNEY FAILURE, UNSPECIFIED 03/12/2018 YURIY BRITTON MD, Ot N18.3 CHRONIC KIDNEY DISEASE, STAGE 3 (MODERAT 03/12/2018 YURIY BRITTON MD, Ot N40.1 BENIGN PROSTATIC HYPERPLASIA WITH LOWER 03/12/2018 YURIY BRITTON MD, Ot R10.11 RIGHT UPPER QUADRANT PAIN 03/12/2018 YURIY BRITTON MD, Ot R32 UNSPECIFIED URINARY INCONTINENCE 03/12/2018 YURIY BRITTON MD, Ot R53.1 WEAKNESS 03/12/2018 YURIY BRITTON MD, Ot R53.81 OTHER MALAISE 03/12/2018 YURIY BRITTON MD, Ot Z68.30 BODY MASS INDEX (BMI) 30.0-30.9, ADULT 03/12/2018 YURIY BRITTON MD, Ot Z79.84 DETENTION (CURRENT) USE OF ORAL HYPOGLYC 03/12/2018 YURIY BRITTON MD, Ot Z87.442 PERSONAL HISTORY OF URINARY CALCULI 03/12/2018 YURIY BRITTON MD, Ot Z87.891 PERSONAL HISTORY OF NICOTINE DEPENDENCE 03/12/2018 YURIY BRITTON MD, Ot Z95.0 PRESENCE OF CARDIAC PACEMAKER 03/12/2018 YURIY BRITTON MD, Ot Z95.1 PRESENCE OF AORTOCORONARY BYPASS GRAFT 03/12/2018 YURIY BRITTON MD, Ot Z95.5 PRESENCE OF CORONARY ANGIOPLASTY IMPLANT 03/12/2018 YURIY BRITTON MD, Ot Z95.828 PRESENCE OF OTHER VASCULAR IMPLANTS AND 03/12/2018 YURIY BRITTON MD, Ot Z96.653 PRESENCE OF ARTIFICIAL KNEE JOINT, BILAT 03/12/2018 YURIY BRITTON MD, Ot Z97.4 PRESENCE OF EXTERNAL HEARING-AID Procedures Code Description Performed By Performed On [...] CATH 07/21/2014 99.20 INJECT/INFUSE PLATELET INHIBITOR 07/21/2014 [id number] DRAINAGE OF RIGHT KNEE JOINT, PERCUTANEO 03/11/2018 Results Test Result Range Complete urinalysis with [...] measurement by glucometer (mass/volume) 109 mg/dL 70-110 Blood CBC with ordered manual differential panel - 03/10/18 11:45 Blood leukocytes automated count (number/volume) 9.3 10*3/uL 4.3-11.0 Blood erythrocytes automated count (number/volume) 3.67 10*6/uL 4.35-5.85 Venous blood hemoglobin measurement (mass/volume) 11.2 g/dL 13.3-17.7 Blood hematocrit (volume fraction) 34 % 40-54 Automated erythrocyte mean corpuscular volume 93 [foz_us] 80-99 Automated erythrocyte mean corpuscular hemoglobin (mass per erythrocyte) 31 pg 25-34 Automated erythrocyte mean corpuscular hemoglobin concentration measurement ( mass/volume) 33 g/dL 32-36 Automated erythrocyte distribution width ratio 17.4 % 10.0-14.5 Automated blood platelet count (count/volume) 148 10*3/uL 130-400 Automated blood platelet mean volume measurement 11.2 [foz_us] 7.4-10.4 Automated blood neutrophils/100 leukocytes 87 % 42-75 Automated blood lymphocytes/100 leukocytes 6 % 12-44 Blood monocytes/100 leukocytes 5 % NRG Automated blood eosinophils/100 leukocytes 0 % 0-10 Automated blood basophils/100 leukocytes 0 % 0-10 Blood neutrophils automated count (number/volume) 8.1 10*3 1.8-7.8 Blood lymphocytes automated count (number/volume) 0.5 10*3 1.0-4.0 Blood monocytes automated count (number/volume) 0.7 10*3 0.0-1.0 Automated eosinophil count 0.0 10*3/uL 0.0-0.3 Automated blood basophil count (count/volume) 0.0 10*3/uL 0.0-0.1 Manual blood segmented neutrophils/100 leukocytes 90 % NRG Manual blood lymphocytes/100 leukocytes 5 % NRG Blood erythrocyte morphology finding identification NORMAL [facility] Comprehensive metabolic panel - 03/10/18 11:45 Serum or plasma sodium measurement (moles/volume) 135 mmol/L 135-145 Serum or plasma potassium measurement (moles/volume) 4.2 mmol/L 3.6-5.0 Serum or plasma chloride measurement (moles/volume) 105 mmol/L 98-107 Carbon dioxide 19 mmol/L 21-32 Serum or plasma anion gap determination (moles/volume) 11 mmol/L 5-14 Serum or plasma urea nitrogen measurement (mass/volume) 61 mg/dL 7-18 Serum or plasma creatinine measurement (mass/volume) 1.68 mg/dL 0.60-1.30 Serum or plasma urea nitrogen/creatinine mass ratio 36 NRG Serum or plasma creatinine measurement with calculation of estimated glomerular filtration rate 40 NRG Serum or plasma glucose measurement (mass/volume) 156 mg/dL 70-105 Serum or plasma calcium measurement (mass/volume) 9.5 mg/dL 8.5-10.1 Serum or plasma total bilirubin measurement (mass/volume) 0.9 mg/dL 0.1-1.0 Serum or plasma alkaline phosphatase measurement (enzymatic activity/volume) 54 U/L 40-136 Serum or plasma aspartate aminotransferase measurement (enzymatic activity/ volume) 34 U/L 5-34 Serum or plasma alanine aminotransferase measurement (enzymatic activity/volume ) 34 U/L 0-55 Serum or plasma protein measurement (mass/volume) 9.3 g/dL 6.4-8.2 Serum or plasma albumin measurement (mass/volume) 3.5 g/dL 3.2-4.5 CALCIUM CORRECTED 9.9 mg/dL 8.5-10.1 Serum or plasma lithium measurement (moles/volume) - 03/10/18 11:45 BNP level 196.3 pg/mL <100.0 Complete urinalysis with reflex to culture - 03/10/18 14:45 Urine color determination YELLOW NRG Urine clarity determination CLEAR NRG Urine pH measurement by test strip 5 5-9 Specific gravity of urine by test strip 1.020 1.016- 1.022 Urine protein assay by test strip, semi-quantitative 1+ NEGATIVE Urine glucose detection by automated test strip NEGATIVE NEGATIVE Erythrocytes detection in urine sediment by light microscopy 1+ NEGATIVE Urine ketones detection by automated test [...] count by microscopy (number/high power field ) RARE NRG Bacteria detection in urine sediment by light microscopy TRACE NRG Squamous epithelial cells detection in urine sediment by light microscopy RARE NRG Crystals detection in urine sediment by light microscopy NONE NRG Casts detection in urine sediment by light microscopy PRESENT NRG Mucus detection in urine sediment by light microscopy NEGATIVE NRG Complete urinalysis with reflex to culture NO NRG Amorphous sediment detection in urine sediment by light microscopy MOD SISSY URATES NRG Hyaline casts detection in urine sediment by light microscopy 2-5 NRG Capillary blood glucose measurement by glucometer (mass/volume) - 03/10/18 15: 28 Capillary blood glucose measurement by glucometer (mass/volume) 92 mg/dL 70-110 Pathologist review of blood test by comment - 03/10/18 19:50 Blood leukocytes automated count (number/volume) 9.6 10*3/uL 4.3-11.0 Blood erythrocytes automated count (number/volume) 3.71 10*6/uL 4.35-5.85 Venous blood hemoglobin measurement (mass/volume) 11.1 g/dL 13.3-17.7 Blood hematocrit (volume fraction) 35 % 40-54 Automated erythrocyte mean corpuscular volume 93 [foz_us] 80-99 Automated erythrocyte mean corpuscular hemoglobin (mass per erythrocyte) 30 pg 25-34 Automated erythrocyte mean corpuscular hemoglobin concentration measurement ( mass/volume) 32 g/dL 32-36 Automated erythrocyte distribution width ratio 17.3 % 10.0-14.5 Automated blood platelet count (count/volume) 142 10*3/uL 130-400 Automated blood platelet mean volume measurement 11.8 [foz_us] 7.4-10.4 Automated blood neutrophils/100 leukocytes 90 % 42-75 Automated blood lymphocytes/100 leukocytes 5 % 12-44 Blood monocytes/100 leukocytes 3 % NRG Automated blood eosinophils/100 leukocytes 0 % 0-10 Automated blood basophils/100 leukocytes 0 % 0-10 Blood neutrophils automated count (number/volume) 8.7 10*3 1.8-7.8 Blood lymphocytes automated count (number/volume) 0.5 10*3 1.0-4.0 Blood monocytes automated count (number/volume) 0.5 10*3 0.0-1.0 Automated eosinophil count 0.0 10*3/uL 0.0-0.3 Automated blood basophil count (count/volume) 0.0 10*3/uL 0.0-0.1 Manual blood segmented neutrophils/100 leukocytes 87 % NRG Blood band neutrophils/100 leukocytes 4 % NRG Manual blood lymphocytes/100 leukocytes 6 % NRG Blood polychromasia detection by light microscopy SLIGHT NRG Blood ovalocytes detection by light microscopy MODERATE NRG Blood reticulocytes count (number/volume) 26 10*9/L 24- 90 Blood reticulocytes/100 erythrocytes 0.71 % 0.50-2.40 Blood lidia cells detection by light microscopy SLIGHT NRG Blood dacrocytes detection by light microscopy SLIGHT NRG Whole blood basic metabolic panel - 03/10/18 19:50 Serum or plasma sodium measurement (moles/volume) 136 mmol/L 135-145 Serum or plasma potassium measurement (moles/volume) 4.4 mmol/L 3.6-5.0 Serum or plasma chloride measurement (moles/volume) 105 mmol/L 98-107 Carbon dioxide 19 mmol/L 21-32 Serum or plasma anion gap determination (moles/volume) 12 mmol/L 5-14 Serum or plasma urea nitrogen measurement (mass/volume) 64 mg/dL 7-18 Serum or plasma creatinine measurement (mass/volume) 1.83 mg/dL 0.60-1.30 Serum or plasma urea nitrogen/creatinine mass ratio 35 NRG Serum or plasma creatinine measurement with calculation of estimated glomerular filtration rate 36 NRG Serum or plasma glucose measurement (mass/volume) 185 mg/dL 70-105 Serum or plasma calcium measurement (mass/volume) 9.5 mg/dL 8.5-10.1 IMMUNOFIXATION W/INTERP, SERUM - 03/10/18 19:50 Serum or plasma nordiazepam detection Complete Complete Serum protein electrophoresis - 03/10/18 19:50 Serum or plasma protein measurement (mass/volume) 8.3 % 6.3-8.1 Pathology consultation and report SEE PATH REPORT NR Quantitative urine kappa and lambda free light chains measurement - 03/10/18 19 :50 Quantitative serum kappa light chain measurement 174.45 % 3.30-19.40 Quantitative serum lambda light chain measurement 11.34 % 5.71-26.30 Serum immunoglobulin free kappa light chains/immunoglobulin lambda light chains mass ratio 15.38 % 0.26-1.65 Capillary blood glucose measurement by glucometer (mass/volume) - 03/10/18 20: 23 Capillary blood glucose measurement by glucometer (mass/volume) 192 mg/dL 70-110 Capillary blood glucose measurement by glucometer (mass/volume) - 03/11/18 05: 41 Capillary blood glucose measurement by glucometer (mass/volume) 242 mg/dL 70-110 Complete blood count (CBC) with automated white blood cell (WBC) differential - 03/11/18 05:50 Blood leukocytes automated count (number/volume) 8.6 10*3/uL 4.3-11.0 Blood erythrocytes automated count (number/volume) 3.63 10*6/uL 4.35-5.85 Venous blood hemoglobin measurement (mass/volume) 11.4 g/dL 13.3-17.7 Blood hematocrit (volume fraction) 34 % 40-54 Automated erythrocyte mean corpuscular volume 93 [foz_us] 80-99 Automated erythrocyte mean corpuscular hemoglobin (mass per erythrocyte) 31 pg 25-34 Automated erythrocyte mean corpuscular hemoglobin concentration measurement ( mass/volume) 34 g/dL 32-36 Automated erythrocyte distribution width ratio 16.9 % 10.0-14.5 Automated blood platelet count (count/volume) 147 10*3/uL 130-400 Automated blood platelet mean volume measurement 11.7 [foz_us] 7.4-10.4 Automated blood neutrophils/100 leukocytes 91 % 42-75 Automated blood lymphocytes/100 leukocytes 4 % 12-44 Blood monocytes/100 leukocytes 5 % 0-12 Automated blood eosinophils/100 leukocytes 0 % 0-10 Automated blood basophils/100 leukocytes 0 % 0-10 Blood neutrophils automated count (number/volume) 7.8 10*3 1.8-7.8 Blood lymphocytes automated count (number/volume) 0.3 10*3 1.0-4.0 Blood monocytes automated count (number/volume) 0.5 10*3 0.0-1.0 Automated eosinophil count 0.0 10*3/uL 0.0-0.3 Automated blood basophil count (count/volume) 0.0 10*3/uL 0.0-0.1 Whole blood basic metabolic panel - 03/11/18 05:50 Serum or plasma sodium measurement (moles/volume) 138 mmol/L 135-145 Serum or plasma potassium measurement (moles/volume) 4.1 mmol/L 3.6-5.0 Serum or plasma chloride measurement (moles/volume) 105 mmol/L 98-107 Carbon dioxide 21 mmol/L 21-32 Serum or plasma anion gap determination (moles/volume) 12 mmol/L 5-14 Serum or plasma urea nitrogen measurement (mass/volume) 65 mg/dL 7-18 Serum or plasma creatinine measurement (mass/volume) 1.69 mg/dL 0.60-1.30 Serum or plasma urea nitrogen/creatinine mass ratio 38 NRG Serum or plasma creatinine measurement with calculation of estimated glomerular filtration rate 39 NRG Serum or plasma glucose measurement (mass/volume) 236 mg/dL 70-105 Serum or plasma calcium measurement (mass/volume) 9.6 mg/dL 8.5-10.1 Blood manual differential performed detection - 03/11/18 05:50 Blood monocytes/100 leukocytes 5 % NRG Manual blood segmented neutrophils/100 leukocytes 93 % NRG Manual blood lymphocytes/100 leukocytes 2 % NRG Erythrocyte sedimentation rate by westergren method - 03/11/18 05:50 Erythrocyte sedimentation rate by westergren method 82 mm 0-30 Serum or plasma C reactive protein measurement (mass/volume) - 03/11/18 05:50 Serum or plasma C reactive protein measurement (mass/volume) 30.95 mg/dL 0.00-0.50 Capillary blood glucose measurement by glucometer (mass/volume) - 03/11/18 11: 53 Capillary blood glucose measurement by glucometer (mass/volume) 181 mg/dL 70-110 Capillary blood glucose measurement by glucometer (mass/volume) - 03/11/18 15: 45 Capillary blood glucose measurement by glucometer (mass/volume) 224 mg/dL 70-110 Body fluid cell count - 03/11/18 17:02 Specimen source identification of body fluid SYNOVIAL NRG Evaluation of color of body fluid LINDA NRG Determination of appearance of body fluid MKD CLDY NR Body fluid leukocytes count (number/volume) 310646 /uL NRG Body fluid erythrocytes count (number/volume) 01652 /uL NR Manual body fluid polymorphonuclear cells/100 leukocytes 92 % NRG Manual body fluid mononuclear cells/100 leukocytes 5 % NRG Manual body fluid lymphocytes/100 leukocytes 3 % NRG Other cells/100 leukocytes in body fluid by manual count 0 % NRG * Body fluid crystals type by light microscopy - 03/11/18 17:02 * Body fluid crystals type by light microscopy URIC ACID [facility] Gram stain microscopy - 03/11/18 17:02 Gram stain microscopy REPORTED 03-12-2018, 1805. [facility] Bacterial body fluid culture - 03/11/18 17:02 QUANTITY OF GROWTH . [facility] Bacterial body fluid culture SEE COMMEN NR Bacteria identification in isolate by anaerobe culture - 03/11/18 17:02 Bacteria identification in isolate by anaerobe culture NOANA [facility] Capillary blood glucose measurement by glucometer (mass/volume) - 03/11/18 21: 02 Capillary blood glucose measurement by glucometer (mass/volume) 249 mg/dL 70-110 Capillary blood glucose measurement by glucometer (mass/volume) - 03/12/18 05: 34 Capillary blood glucose measurement by glucometer (mass/volume) 225 mg/dL 70-110 Complete blood count (CBC) with automated white blood cell (WBC) differential - 03/12/18 08:20 Blood leukocytes automated count (number/volume) 8.7 10*3/uL 4.3-11.0 Blood erythrocytes automated count (number/volume) 4.00 10*6/uL 4.35-5.85 Venous blood hemoglobin measurement (mass/volume) 12.0 g/dL 13.3-17.7 Blood hematocrit (volume fraction) 37 % 40-54 Automated erythrocyte mean corpuscular volume 93 [foz_us] 80-99 Automated erythrocyte mean corpuscular hemoglobin (mass per erythrocyte) 30 pg 25-34 Automated erythrocyte mean corpuscular hemoglobin concentration measurement ( mass/volume) 32 g/dL 32-36 Automated erythrocyte distribution width ratio 17.1 % 10.0-14.5 Automated blood platelet count (count/volume) 188 10*3/uL 130-400 Automated blood platelet mean volume measurement 11.5 [foz_us] 7.4-10.4 Automated blood neutrophils/100 leukocytes 86 % 42-75 Automated blood lymphocytes/100 leukocytes 8 % 12-44 Blood monocytes/100 leukocytes 7 % 0-12 Automated blood eosinophils/100 leukocytes 0 % 0-10 Automated blood basophils/100 leukocytes 0 % 0-10 Blood neutrophils automated count (number/volume) 7.4 10*3 1.8-7.8 Blood lymphocytes automated count (number/volume) 0.7 10*3 1.0-4.0 Blood monocytes automated count (number/volume) 0.6 10*3 0.0-1.0 Automated eosinophil count 0.0 10*3/uL 0.0-0.3 Automated blood basophil count (count/volume) 0.0 10*3/uL 0.0-0.1 Whole blood basic metabolic panel - 03/12/18 08:20 Serum or plasma sodium measurement (moles/volume) 138 mmol/L 135-145 Serum or plasma potassium measurement (moles/volume) 4.5 mmol/L 3.6-5.0 Serum or plasma chloride measurement (moles/volume) 104 mmol/L 98-107 Carbon dioxide 21 mmol/L 21-32 Serum or plasma anion gap determination (moles/volume) 13 mmol/L 5-14 Serum or plasma urea nitrogen measurement (mass/volume) 68 mg/dL 7-18 Serum or plasma creatinine measurement (mass/volume) 1.49 mg/dL 0.60-1.30 Serum or plasma urea nitrogen/creatinine mass ratio 46 NRG Serum or plasma creatinine measurement with calculation of estimated glomerular filtration rate 45 NRG Serum or plasma glucose measurement (mass/volume) 164 mg/dL 70-105 Serum or plasma calcium measurement (mass/volume) 10.1 mg/dL 8.5-10.1 Encounters ACCT No. Visit Date/Time Discharge Status Pt. Type Provider Facility Loc./Unit Complaint [id number] 03/10/2018 12:24:00 03/12/2018 11:15:00 DIS Outpatient REBA MORILLO, YURIY Costello [facility] 4TH ACUTE HYPOXIC RESP DISTRESS [id number] 10/18/2016 09:08:00 10/18/2016 23:59:59 CLS Outpatient ZARI PARIS MD [facility] RAD I65.23 OCCLUSION AND STENOSIS OF BILATERAL CAROTID [id number] 06/13/2016 07:28:00 06/14/2016 15:30:00 DIS Outpatient ZARI PARIS MD [facility] CATH CP,DYSPNEA [id number] 11/16/2015 00:08:00 11/16/2015 23:59:59 CLS Preadmit SAVANNAH LEE MD [facility] ONC [id number] 08/17/2015 13:41:00 11/15/2015 00:01:00 DIS Outpatient SAVANANH LEE MD [facility] ONC [id number] 05/18/2015 15:26:00 08/09/2015 00:01:00 DIS Outpatient SAVANNAH LEE MD [facility] ONC [id number] 05/25/2015 12:24:00 05/25/2015 23:59:59 CLS Outpatient MELANIE MORILLO, BRUCE R [facility] RAD FALL ON GROUND WITH PAIN R CHEST [id number] 01/10/2015 12:45:00 02/22/2015 00:01:00 DIS Outpatient SAVANNAH LEE MD [facility] ONC [id number] 01/19/2015 17:48:00 01/19/2015 23:59:59 CLS Outpatient CORY BERGER DO [facility] RT COPD [id number] 12/13/2014 09:00:00 12/13/2014 23:59:59 CLS Preadmit ZARI PARIS MD [facility] CR STENT [id number];PTCA X2 [id number] 10/13/2014 11:26:00 12/12/2014 00:01:00 DIS Outpatient ZARI PARIS MD [facility] CR STENT [id number];PTCA X2 [id number] 11/04/2014 09:29:00 11/04/2014 16:00:00 DIS Out[facility] [id number] 10/21/2014 19:26:00 10/25/2014 14:30:00 DIS Inpatient KYLE MCDUFFIE MD [facility] SURGICAL RECTAL BLEED [id number] 10/15/2014 09:48:00 10/15/2014 13:20:00 DIS Outpatient KYLE MCDUFFIE MD [facility] SDC ANEMIA [id number] 10/14/2014 07:06:00 10/14/2014 23:59:59 CLS Outpatient KYLE MCDUFFIE MD [facility] PREOP ANEMIA [id number] 07/22/2014 09:38:00 07/23/2014 18:00:00 DIS Inpatient ZARI PARIS MD [facility] CSD SOB,CAD,AFIB,ABNORMAL STRESS, HTN,HLP [id number] 07/14/2014 07:39:00 07/14/2014 23:59:59 CLS Outpatient ZARI PARIS MD [facility] CARD AFIB,CAD,HLP,HTN [id number] 06/24/2014 12:15:00 06/24/2014 23:59:59 CLS Outpatient CORY BERGER DO [facility] RAD SOB,COPD [id number] 04/08/2014 08:38:00 04/08/2014 23:59:59 CLS Outpatient CORY BERGER DO [facility] RAD DSYPNEA,COPD,PARVIZ [id number] 04/07/2014 10:34:00 04/07/2014 23:59:59 CLS Outpatient CORY BERGER DO [facility] RAD COPD,PARVIZ,DYSPENA [id number] 01/06/2014 21:00:00 01/07/2014 05:55:00 DIS Outpatient CORY BERGER DO [facility] SLEEP PARVIZ,CPAP FAILURE [id number] 10/06/2013 14:15:00 10/09/2013 15:28:00 DIS Outpatient AGUSTIN BERGER DOSON Yamile [facility] SDC SOB [id number] 07/22/2013 15:03:00 07/22/2013 23:59:59 CLS Outpatient CORY BERGER DO [facility] RT DYSPNEA,OBESITY,DM,AFIB [id number] 07/15/2013 14:59:00 07/15/2013 23:59:59 CLS Outpatient CORY BERGER DO [facility] RAD DYSPNEA,OBESITY,DM,AFIB [id number] 06/05/2013 10:40:00 06/05/2013 23:59:59 CLS Outpatient MELANIE MORILLO, BRUCE Zarate [facility] CARD COUGH [id number] 01/20/2013 08:27:00 01/20/2013 23:59:59 CLS Outpatient LAI FLORES MD [facility] RAD CHRONIC SINUSITIS [id number] 01/13/2013 14:41:00 01/13/2013 23:59:59 CLS Outpatient NORMAN ESPINOZA [facility] RAD SOB,COUGH [id number] 12/26/2012 08:48:00 12/26/2012 23:59:59 CLS Outpatient ZARI PARIS MD [facility] CARD AFIB,CAD [id number] 10/25/2015 09:27:00 Document Registration [id number] 05/27/2012 10:11:00 Document Registration [id number] 02/07/2012 11:31:00 Document Registration [id number] 01/03/2012 12:05:00 Document Registration [id number] 10/18/2011 14:21:00 Document Registration [id number] 10/08/2011 12:02:00 Document Registration [id number] 09/05/2011 07:15:00 Document Registration [id number] 06/08/2011 19:55:00 Document Registration [id number] 06/06/2011 06:55:00 Document Registration [id number] 05/31/2011 08:53:00 Document Registration [id number] 07/05/2010 19:40:00 Document Registration [id number] 08/08/2009 11:00:00 Document Registration [id number] 07/20/2009 19:35:00 Document Registration [id number] 01/19/2015 17:48:23 ACT Document Registration
[2018-04-07] MEDS ORDERED: NS IV 1000 ML 1,000 ML IV SCH (22:40)
[2018-04-07] MEDS ORDERED: CEFEPIME INJECTION 1,000 MG in NS (IVPB) 50 ML IV ONE (22:45)
[2018-04-07] MEDS ORDERED: ACETAMINOPHEN 500 MG TAB (TYLENOL) PO PRN (22:45)
[2018-04-07 22:59] LABS: BASOPHILS % (AUTO) 0 % (0-10); EOSINOPHILS # (AUTO) 0.1 10^3/uL (0.0-0.3); EOSINOPHILS % (AUTO) 1 % (0-10); HEMATOCRIT 33 % (40-54); HEMOGLOBIN 10.3 G/DL (13.3-17.7); LYMPHOCYTES # (AUTO) 1.5 X 10^3 (1.0-4.0); LYMPHOCYTES % (AUTO) 21 % (12-44); MEAN CORPUSCULAR HEMOGLOBIN 29 PG (25-34); MEAN CORPUSCULAR HGB CONC 31 G/DL (32-36); MEAN CORPUSCULAR VOLUME 95 FL (80-99); MEAN PLATELET VOLUME 10.9 FL (7.4-10.4); MONOCYTES # (AUTO) 0.6 X 10^3 (0.0-1.0); MONOCYTES % (AUTO) 9 % (0-12); NEUTROPHILS % (AUTO) 70 % (42-75); PLATELET COUNT 233 10^3/uL (130-400); RED BLOOD COUNT 3.52 10^6/uL (4.35-5.85); RED CELL DISTRIBUTION WIDTH 17.9 % (10.0-14.5); WHITE BLOOD COUNT 7.2 10^3/uL (4.3-11.0)
[2018-04-07 23:12] LABS: INR 1.6 (0.8-1.4); PROTHROMBIN TIME PATIENT 18.8 SEC (12.2-14.7)
[2018-04-07] MEDS ORDERED: RT-ALBUTEROL/IPRATROPIUM 3 ML (DUONEB) VIAL INH ONE (23:15)
--- NOTE | 2018-04-07 23:21 | ED General ---
General Chief Complaint: Fever-Adult/Adol Stated Complaint: FEVER Source of Information: Patient, Family, Spouse Exam Limitations: No Limitations History of Present Illness Date Seen by Provider: Apr 07, 2018 Time Seen by Provider: 22:50 Initial Comments The patient presents to the ER by private conveyance with chief complaint for the past month he's had problems with infection in his knee and had to be admitted to the hospital 4 times now. He originally had some fluid on his right knee after a total knee replacement by Dr. Mckay, orthopedic surgery in [place], [place]. The fluid was aspirated and grew out some Streptococcus so he was put on antibiotics sent home on the and started Rocephin on the and has been doing it through a PICC line every day since administered by his . He' s been having difficulty with weakness in a lot of pain in his low back and having a hard time getting out of bed. He was in the hospital last week for this and had some small wounds open up at the top of his gluteal cleft. In the hospital the wound care nurses came and saw him and put some cream on it and left of that. The has been treating it at home ever since. Today's having quite a bit of pain from it and sprayed difficult for him to get comfortable. He was also having some abdominal pain in his right upper quadrant and midepigastric region. He's had ultrasounds CTs x-rays an echocardiogram done this month trying to figure out where his pain is coming from. He's been having a white productive sputum cough for the past couple weeks that the last couple days has turned more dark brown and has a fever of 102 today. He is on daily breathing treatments for COPD. Followed by Dr. Yuriy Britton. 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 He was started on Lasix 20 mg twice a day last week and feels that he is putting out more water weight. He is on Eliquis. Allergies and Home Medications Allergies Coded Allergies: No Known Drug Allergies (Unverified , 06/06/11) Home Medications Acetaminophen 650 Mg Tablet.er, 1,300 MG PO BID, (Reported) TAKES 2 (650MG) TABLETS Apixaban 5 Mg Tablet, 5 MG PO BID, (Reported) Atorvastatin Calcium 20 Mg Tablet, 20 MG PO HS, (Reported) Colchicine 0.6 Mg Tablet, 0.6 MG PO Q4H PRN for GOUT PAIN, (Reported) Enalapril Maleate 5 Mg Tablet, 5 MG PO DAILY, (Reported) Ferrous Sulfate 325 Mg Tablet, 325 MG PO HS, (Reported) Finasteride 5 Mg Tablet, 5 MG PO DAILY, (Reported) Glipizide 10 Mg Tab.er.24, 10 MG PO DAILY, (Reported) Glycopyrrolate/Formoterol Fum 10.7 Gm Hfa.aer.ad, 2 PUFF IH BID, (Reported) Isosorbide Mononitrate 30 Mg Tab.er.24h, 30 MG PO DAILY, (Reported) Metformin HCl 500 Mg Tablet, 500 MG PO BID, (Reported) Metoprolol Succinate 100 Mg Tab.er.24h, 100 MG PO DAILY, (Reported) Multivitamin 1 Each Tablet, 1 TAB PO HS, (Reported) Pantoprazole Sodium 40 Mg Tablet.dr, 40 MG PO BID, (Reported) Tamsulosin HCl 0.4 Mg Cap.er.24h, 0.4 MG PO HS, (Reported) Triamterene/Hydrochlorothiazid 1 Each Tablet, 1 TAB PO DAILY, (Reported) Patient Home Medication List Home Medication List Reviewed: Yes Review of Systems Review of Systems Constitutional: chills; No diaphoresis; fever, malaise, weakness EENTM: No ear discharge, No ear pain, No blurred vision, No double vision Respiratory: cough, phlegm, short of breath, wheezing Cardiovascular: No chest pain; edema; No palpitations Gastrointestinal: abdominal pain (right upper quadrant and midepigastric); No constipation, No diarrhea, No nausea, No vomiting Genitourinary: No discharge, No dysuria Musculoskeletal: No back pain, No joint pain Skin: No pruritus, No rash Psychiatric/Neurological: Denies Headache, Denies Numbness Past Wlytblg-Vokxif-Hrqvgz Hx Patient Social History Alcohol Use: Denies Use Recreational Drug Use: No Smoking Status: Former Smoker (37-lkjy-wirn) Type Used: Cigarettes (30-mwnd-ndlc) Former Smoker, Quit: Jun 13, 1984 Recent Hopitalizations: No Immunizations Up To Date Tetanus Booster (TDap): More than 5yrs PED Vaccines UTD: Yes Date of Pneumonia Vaccine: Mar 17, 2014 Date of Influenza Vaccine: Mar 10, 2017 Seasonal Allergies Seasonal Allergies: No Past Medical History Surgeries: Yes (KNEES REPLACEMENT NORA, HERNIA REPAIR, GB REMOVED, CABBAGE X 4, ) CABG, Coronary Stent, Gallbladder, Orthopedic, Pacemaker, Tonsillectomy Respiratory: Yes COPD Currently Using CPAP: Yes Currently Using BIPAP: No Cardiac: Yes Neurological: No Reproductive Disorders: No Sexually Transmitted Disease: No HIV/AIDS: No Genitourinary: Yes (INCONT. AT TIMES) Benign Prostatic Hyperpl, Kidney Stones Gastrointestinal: Yes (GI BLEED) Gall Bladder Disease Musculoskeletal: Yes Arthritis, Gout Endocrine: Yes Diabetes, Non-Insulin dep HEENT: Yes Cataract, Tonsilitis Loss of Vision: Bilateral Hearing Impairment: Hard of Hearing, Bilateral Hearing Aide Cancer: No Psychosocial: No Integumentary: No Blood Disorders: Yes (TAKES IRON) Adverse Reaction/Blood Tranf: No Family Medical History Cancer 19 MOTHER, Onset:36 (MONYEKLANDY ) Family history: Arthritis 19 FATHER Stroke 19 FATHER, Onset:73 Physical Exam-Suspected Sepsis Physical Exam Vital Signs Vital Signs - First Documented 04/07/18 04/07/18 04/08/18 04/08/18 23:20 23:52 02:15 04:04 Temp 101.4 Pulse 63 Resp 16 B/P (MAP) 143/66 (91) Pulse Ox 91 O2 Delivery Nasal Cannula O2 Flow Rate 5.00 FiO2 36 Capillary Refill : Height, Weight, BMI Height: 5'9.00" Weight: 209lbs. 0.0oz. 94.472896hu; 30.9 BMI Method: General Appearance: Mild Distress, Obese Eyes: Bilateral Eye Normal Inspection, Bilateral Eye PERRL, Bilateral Eye EOMI HEENT: PERRL/EOMI, TMs Normal, Normal ENT Inspection, Pharynx Normal; No Moist Mucous Membranes Neck: Full Range of Motion, Normal Inspection, Non Tender, Supple Respiratory: Lungs Clear, Normal Breath Sounds, No Accessory Muscle Use, No Respiratory Distress Cardiovascular: Regular Rate, Rhythm, No Murmur, Normal Peripheral Pulses, Other (1+ pitting edema bilaterally) Gastrointestinal: Normal Bowel Sounds, No Organomegaly, Non Tender, Soft Extremity: Normal Capillary Refill, Non Tender, Other (right knee incision and mild edema but nonerythematous and no discharge from the surgical wound. There is 1+ pitting edema bilateral lower extremities below the knee with compression stockings in place.) Neurologic/Psychiatric: Alert, Oriented x3, Normal Mood/Affect, Other (hard of hearing) Skin: normal color, warm/dry Focused Exam Lactate Level 04/07/18 22:50: Lactic Acid Level 1.99 Lactic Acid Level Progress/Results/Core Measures Suspected Sepsis SIRS Temperature: Pulse: Respiratory Rate: Laboratory Tests 04/07/18 22:50: White Blood Count 7.2 Blood Pressure / Mean: 04/07/18 22:50: Lactic Acid Level 1.99 Laboratory Tests 04/07/18 22:50: Creatinine 1.33H, INR Comment 1.6H, Platelet Count 233, Total Bilirubin 0.4 Results/Orders Lab Results Laboratory Tests Test 04/07/18 01:52 04/07/18 22:50 Range/Units Urine Color YELLOW Urine Clarity CLEAR Urine pH 5 5-9 Urine Specific Shock 1.015 L 1.016-1.022 Urine Protein NEGATIVE NEGATIVE Urine Glucose (UA) NEGATIVE NEGATIVE Urine Ketones NEGATIVE NEGATIVE Urine Nitrite NEGATIVE NEGATIVE Urine Bilirubin NEGATIVE NEGATIVE Urine Urobilinogen NORMAL NORMAL MG/DL Urine Leukocyte Esterase NEGATIVE NEGATIVE Urine RBC (Auto) NEGATIVE NEGATIVE Urine RBC NONE /HPF Urine WBC NONE /HPF Urine Squamous Epithelial Cells NONE /HPF Urine Crystals PRESENT H /LPF Urine Amorphous Sediment FEW SISSY URATES H /LPF Urine Bacteria TRACE /HPF Urine Casts PRESENT /LPF Urine Hyaline Casts 0-2 H /LPF Urine Mucus NEGATIVE /LPF Urine Culture Indicated NO White Blood Count 7.2 4.3-11.0 10^3/uL Red Blood Count 3.52 L 4.35-5.85 10^6/uL Hemoglobin 10.3 L 13.3-17.7 G/DL Hematocrit 33 L 40-54 % Mean Corpuscular Volume 95 80-99 FL Mean Corpuscular Hemoglobin 29 25-34 PG Mean Corpuscular Hemoglobin Concent 31 L 32-36 G/DL Red Cell Distribution Width 17.9 H 10.0-14.5 % Platelet Count 233 130-400 10^3/uL Mean Platelet Volume 10.9 H 7.4-10.4 FL Neutrophils (%) (Auto) 70 42-75 % Lymphocytes (%) (Auto) 21 12-44 % Monocytes (%) (Auto) 9 0-12 % Eosinophils (%) (Auto) 1 0-10 % Basophils (%) (Auto) 0 0-10 % Neutrophils # (Auto) 5.0 1.8-7.8 X 10^3 Lymphocytes # (Auto) 1.5 1.0-4.0 X 10^3 Monocytes # (Auto) 0.6 0.0-1.0 X 10^3 Eosinophils # (Auto) 0.1 0.0-0.3 10^3/uL Basophils # (Auto) 0.0 0.0-0.1 10^3/uL Prothrombin Time 18.8 H 12.2-14.7 SEC INR Comment 1.6 H 0.8-1.4 Activated Partial Thromboplast Time 35 24-35 SEC Sodium Level 136 135-145 MMOL/L Potassium Level 4.7 3.6-5.0 MMOL/L Chloride Level 104 98-107 MMOL/L Carbon Dioxide Level 21 21-32 MMOL/L Anion Gap 11 5-14 MMOL/L Blood Urea Nitrogen 26 H 7-18 MG/DL Creatinine 1.33 H 0.60-1.30 MG/DL Estimat Glomerular Filtration Rate 52 BUN/Creatinine Ratio 20 Glucose Level 175 H 70-105 MG/DL Lactic Acid Level 1.99 0.50-2.00 MMOL/L Calcium Level 8.9 8.5-10.1 MG/DL Corrected Calcium 9.7 8.5-10.1 MG/DL Total Bilirubin 0.4 0.1-1.0 MG/DL Aspartate Amino Transf (AST/SGOT) 24 5-34 U/L Alanine Aminotransferase (ALT/SGPT) 18 0-55 U/L Alkaline Phosphatase 91 40-136 U/L Troponin I < 0.30 <0.30 NG/ML B-Type Natriuretic Peptide 308.1 H <100.0 PG/ML Total Protein 8.5 H 6.4-8.2 GM/DL Albumin 3.0 L 3.2-4.5 GM/DL Micro Results Microbiology 04/07/18 Influenza Types A,B Antigen (ABHINAV) - Final, Complete My Orders Orders - TATE CAVANAUGH Cbc With Automated Diff (04/07/18 22:40) Comprehensive Metabolic Panel (04/07/18 22:40) Blood Culture (04/07/18 22:40) Sputum Culture (04/07/18 22:40) Urinalysis (04/07/18 22:40) Urine Culture (04/07/18 22:40) Protime With Inr (04/07/18 22:40) Partial Thromboplastin Time (04/07/18 22:40) Chest 1 View, Ap/Pa Only (04/07/18 22:40) Acetaminophen Tablet (Tylenol Tablet) (04/07/18 22:45) Saline Lock/Iv-Start (04/07/18 22:40) Saline Lock/Iv-Start (04/07/18 22:40) Ekg Tracing (04/07/18 22:40) Troponin I (04/07/18 22:40) Vital Signs Adult Sepsis Patie Q15M (04/07/18 22:40) O2 (04/07/18 22:40) Remove Rings In Anticipation O (04/07/18 22:40) Lactic Acid Analyzer (04/07/18 22:40) Influenza A And B Antigens (04/07/18 22:40) Ns Iv 1000 Ml (Sodium Chloride 0.9%) (04/07/18 22:40) Cefepime Injection (Maxipime Injection) (04/07/18 22:45) BNP (04/07/18 22:40) Albuterol/Ipra Inhalation Soln (Duoneb I (04/07/18 23:15) Svn Small Volume Nebulizer (04/07/18 23:10) Medications Given in ED Current Medications Medications Dose Ordered Sig/Adam Route Start Time Stop Time Status Last Admin Dose Admin Acetaminophen 1,000 mg ONCE PRN PO 04/07/18 22:45 04/07/18 23:52 DC 04/07/18 23:52 1,000 MG Albuterol/ Ipratropium 3 ml ONCE ONCE INH 04/07/18 23:15 04/07/18 23:16 DC 04/07/18 23:20 3 ML Cefepime HCl 1000 mg/Sodium Chloride 50 ml @ 100 mls/hr ONCE ONCE IV 04/07/18 22:45 04/07/18 23:14 DC 04/07/18 23:49 100 MLS/HR Vital Signs/I&O 04/07/18 04/07/18 04/08/18 04/08/18 23:20 23:52 02:15 03:44 Temp 101.4 100.6 Pulse 63 60 Resp 16 B/P (MAP) 143/66 (91) Pulse Ox 91 93 O2 Delivery Nasal Cannula NIV CPAP O2 Flow Rate 5.00 3.00 04/08/18 04/08/18 03:54 04:04 Pulse 66 Pulse Ox 95 95 O2 Delivery NIV CPAP O2 Flow Rate 4.00 FiO2 36 Capillary Refill : Progress Note : Time: 00:34 Progress Note Start with a septic workup. He's having some pain in his right chest which I suspect could be from a pneumonia since he has a productive cough of brown sputum. Clinically he appears dry despite his edema. No JVD distention and he has dry oral mucosa. We'll hold off any fluids or Lasix until we see labs. 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 Cardiac catheterization at [facility] June 22, 2016 with small perforation to the LAD and unsuccessful intervention. The patient's on Eliquis for atrial fibrillation. Sick sinus syndrome with permanent pacemaker. History of COPD, diabetes, carotid stenosis from October 2016 showing ectasia of the left carotid bulb 1.1 cm without significant obstruction. Is not in fluid overload by labs or clinical examination but he does have quite a bit of edema. Rather than hitting the big boluses of fluid with his history of chronic kidney disease that is stable plan to just give him one half maintenance overnight and let primary care take it from there. Use 72 kg as his ideal body weight to figure 175 cc an hour overnight. ECG Initial ECG Impression Date: Apr 07, 2018 Initial ECG Impression Time: 23:31 Initial ECG Rate: 59 Initial ECG Intervals: MS (122) Initial ECG Impression: Nonspecific Changes Initial ECG Comparisson: Unchanged Comment Right bundle-branch block with ventricular paced complexes. Diagnostic Imaging Diagonstic Imaging: Xray Plain Films/CT/US/NM/MRI: chest (1v) Comments Mild right pleural effusion no obvious infiltrates or pulmonary edema. Reviewed: Reviewed by Me Departure Communication (Admissions) Time/Spoke to Admitting Phy: 00:44 Discussed case lab imaging with Dr. Yuriy Britton and he agrees to admit the patient for pneumonia and would like to hold Lasix and continue one half times maintenance fluids overnight. He would like pulmonology consult. Time/Spoke to Consulting Phy: 00:49 Wrote orders to consult Dr. Buchanan in the morning or pulmonology consult for potential pneumonia. Impression Primary Impression: Pneumonia Qualified Codes: J18.9 - Pneumonia, unspecified organism Additional Impressions: Debility, unspecified Complication of internal right knee prosthesis Qualified Codes: T84.53XD - Infection and inflammatory reaction due to internal right knee prosthesis, subsequent encounter Pressure ulcer of sacral region, stage 2 Disposition: ADMITTED INPATIENT Condition: Stable Admissions Decision to Admit Reason: Admit from ER (General) Decision to Admit/Date: Apr 08, 2018 Time/Decision to Admit Time: 00:39 Departure-Patient Inst. Referrals: YURIY BRITTON MD (PCP) Primary Care Physician BRUCE NAVARRO MD (Family) Primary Care Physician Copy Copies To 1: YURIY BRITTON MD, TITUS J Apr 07, 2018 23:20
[2018-04-07 23:22] LABS: ALANINE AMINOTRANSFERASE 18 U/L (0-55); ALKALINE PHOSPHATASE 91 U/L (40-136); BILIRUBIN,TOTAL 0.4 MG/DL (0.1-1.0); BUN/CREATININE RATIO 20; CALCIUM 8.9 MG/DL (8.5-10.1); CARBON DIOXIDE 21 MMOL/L (21-32); CHLORIDE 104 MMOL/L (98-107); CREATININE SERUM 1.33 MG/DL (0.60-1.30); GFR ESTIMATED 52; GLUCOSE 175 MG/DL (70-105); POTASSIUM 4.7 MMOL/L (3.6-5.0); SODIUM 136 MMOL/L (135-145); TOTAL PROTEIN 8.5 GM/DL (6.4-8.2)
[2018-04-08] VITALS (7 sets, daily range): BP systolic 108–149; BP diastolic 54–74
--- OUTSIDE RECORDS SUMMARY | 2018-04-08 01:21 | XMS REPORT | Clinical Summary ---
Author Author [facility] Organization [facility] Address Unknown Phone Unavailable Care Team Providers [place] Magistrate Name Role Phone Hesham Esparza MD PCP Maryjane Abrams MD 100 Source Comments Some departments are not documenting in the electronic medical record. If you do not see the information that you expected, contact Release of Information in the Health Information Management department at [phone] for further assistance in locating additional records.[facility] Allergies No Known Allergies Current Medications Prescription [...] Statin therapy, Crestor. PVD (peripheral vascular disease) ([facility]) 11/16/2011 Diabetes mellitus (HCC) 11/16/2011 Diabetic neuropathy ([facility]) 11/16/2011 DJD (degenerative joint disease) 11/16/2011 [...] ICD?NSVT noted at cath. Ventricular tachycardia, nonsustained ([facility]) 11/16/2011 Overview: Noted on holter and [...]
--- OUTSIDE RECORDS SUMMARY | 2018-04-08 01:24 | XMS REPORT | Continuity of Care Document ---
Author Author [facility] Organization [facility] Address Unknown Phone Unavailable Allergies Active Description Code Type Severity Reaction Onset Reported/Identified Relationship to Patient Clinical Status Yes No Known Drug Allergies [id number] Drug Allergy Unknown N/A 06/06/2011 Medications There [...] NOS 06/11/2011 Ot 414.01 CORONARY ATHEROSCLEROSIS OF [place] CORON 06/11/2011 Ot 426.0 ATRIOVENT BLOCK COMPLETE [...] NOS 05/27/2012 Ot 414.01 CORONARY ATHEROSCLEROSIS OF [place] CORON 05/27/2012 Ot 414.02 CORON ATHEROSCLEROSIS AUTOLOG [...] CORY BERGER DO Ot 327.23 05/05/2014 CORY BERGRE DO Ot 492.8 05/05/2014 CORY BERGER DO [...] PARIS MD Ot 414.01 CORONARY ATHEROSCLEROSIS OF [place] CORON 07/23/2014 ZARI PARIS MD Ot 427.31 ATRIAL FIBRILLATION 07/23/2014 ZARI PARIS MD Ot 433.30 MULT BILTRAL ARTERY OCCLUSION WO CEREBRA 07/23/2014 ZARI PARIS MD Ot 440.0 AORTIC ATHEROSCLEROSIS 07/23/2014 ZARI PARIS MD Ot 440.20 ATHEROSCLEROSIS [place] ARTERIES EXTREMIT 07/23/2014 ZARI PARIS MD Ot [...] SHANNANCORINE Chairez Ot V57.89 12/30/2014 ROSA MORILLO, SAVANNHA K Ot 250.00 12/30/2014 ROSA MORILLO, SAVANNAH [...] MORILLO, SAVANNAH K Ot 280.0 02/08/2015 ROSA MROILLO, SAVANNAH K Ot 401.9 02/08/2015 ROSA MORILLO, [...] Knox Ot I25.10 ATHSCL HEART DISEASE OF [place] CORONARY 08/09/2015 ROSA MORILLO, SAVANNAH Knox Ot I48.91 UNSPECIFIED ATRIAL FIBRILLATION 08/09/2015 ROSA MORILLO, SAVANNAH Knox Ot N40.1 ENLARGED PROSTATE WITH LOWER URINARY TRA 08/09/2015 ROSA MORILLO, SAVANNAH Knox Ot R30.0 DYSURIA 08/09/2015 ROSA MORILLO, SAVANNAH Knox Ot R39.11 HESITANCY OF MICTURITION 08/09/2015 ROSA MORILLO, SAVANNAH Knox Ot Z79.01 CLUB MANAGER (CURRENT) USE OF ANTICOAGULANT 08/09/2015 ROSA MORILLO, SAVANNAH Knox Ot Z79.899 OTHER SENIOR LIVING (CURRENT) DRUG THERAPY 08/10/2015 ROSA MORILLO, SAVANNAH [...] Knox Ot I25.10 ATHSCL HEART DISEASE OF [place] CORONARY 09/30/2015 ROSA MORILLO, SAVANNAH Knox Ot I48.91 UNSPECIFIED ATRIAL FIBRILLATION 09/30/2015 ROSA MORILLO, SAVANNAH Knox Ot N40.1 ENLARGED PROSTATE WITH LOWER URINARY TRA 09/30/2015 ROSA MORILLO, SAVANNAH Knox Ot R30.0 DYSURIA 09/30/2015 ROSA MORILLO, SAVANNAH Knox Ot R39.11 HESITANCY OF MICTURITION 09/30/2015 ROSA MORILLO, SAVANNAH Knox Ot Z79.01 CLUB MANAGER (CURRENT) USE OF ANTICOAGULANT 09/30/2015 ROSA MORILLO, SAVANNAH Knox Ot Z79.899 OTHER CLUB MANAGER (CURRENT) DRUG THERAPY 10/26/2015 Ot 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 AND IDIOPATHIC NEUROPATHY, UN 10/26/2015 Ot I25.10 ATHSCL HEART DISEASE OF [place] CORONARY 10/26/2015 Ot I48.91 UNSPECIFIED ATRIAL FIBRILLATION [...] Lisette Ot I25.10 ATHSCL HEART DISEASE OF [place] CORONARY 11/15/2015 ROSA MORILLO SAVANNAH Lisette Ot I48.91 UNSPECIFIED ATRIAL FIBRILLATION 11/15/2015 SAVANNAH LEE MD Ot N40.1 ENLARGED PROSTATE WITH LOWER URINARY TRA 11/15/2015 SAVANNAH LEE MD Ot R30.0 DYSURIA 11/15/2015 SAVANNAH LEE MD Ot R39.11 HESITANCY OF MICTURITION 11/15/2015 ROSA MORILLO, SAVANNAH Lisette Ot Z79.01 SENIOR LIVING (CURRENT) USE OF ANTICOAGULANT 11/15/2015 ROSA MORILLO, SAVANNAH Lisette Ot Z79.899 OTHER SENIOR LIVING (CURRENT) DRUG THERAPY 11/25/2015 Ot 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 AND IDIOPATHIC NEUROPATHY, UN 11/25/2015 Ot I25.10 ATHSCL HEART DISEASE OF [place] CORONARY 11/25/2015 Ot I48.91 UNSPECIFIED ATRIAL FIBRILLATION [...] 06/13/2016 Ot I25.10 ATHSCL HEART DISEASE OF [place] CORONARY 06/13/2016 Ot I48.91 UNSPECIFIED ATRIAL FIBRILLATION [...] K Ot I25.10 ATHSCL HEART DISEASE OF [place] CORONARY 06/13/2016 SAVANNAH LEE MD, Ot I48.91 UNSPECIFIED ATRIAL FIBRILLATION 06/13/2016 SAVANNAH LEE MD, Ot N40.1 ENLARGED PROSTATE WITH LOWER URINARY TRA 06/13/2016 SAVANNAH LEE MD Ot R30.0 DYSURIA 06/13/2016 SAVANNAH LEE MD, Ot R39.11 HESITANCY OF MICTURITION 06/13/2016 SAVANNAH LEE MD, Ot Z79.01 SENIOR LIVING (CURRENT) USE OF ANTICOAGULANT 06/13/2016 SAVANNAH LEE MD, Ot Z79.899 OTHER SENIOR LIVING (CURRENT) DRUG THERAPY 06/14/2016 ZARI PARIS MD Ot E11.9 TYPE 2 DIABETES MELLITUS WITHOUT COMPLIC 06/14/2016 ZARI PARIS MD, Ot E66.9 OBESITY, UNSPECIFIED 06/14/2016 ZARI PARIS MD, Ot I25.10 ATHSCL HEART DISEASE OF [place] CORONARY 06/14/2016 ZARI PARIS MD, Ot I25.82 [...] ADULT 06/14/2016 ZARI PARIS MD, Ot Z79.01 CLUB MANAGER (CURRENT) USE OF ANTICOAGULANT 06/14/2016 ZARI PARIS MD, Ot Z79.899 OTHER SENIOR LIVING (CURRENT) DRUG THERAPY 06/14/2016 ZARI PARIS MD Ot Z95.0 PRESENCE OF CARDIAC PACEMAKER 06/14/2016 ZARI PARIS MD Ot Z95.1 PRESENCE OF AORTOCORONARY BYPASS GRAFT 10/19/2016 ZARI PARIS MD Ot E78.2 MIXED HYPERLIPIDEMIA 10/19/2016 ZARI PARIS MD Ot I10 ESSENTIAL (PRIMARY) HYPERTENSION 10/19/2016 ZARI PARIS MD Ot I25.10 ATHSCL HEART DISEASE OF [place] CORONARY 10/19/2016 ZARI PARIS MD Ot I65.23 OCCLUSION AND STENOSIS OF BILATERAL [place] 10/24/2016 ZARI PARIS MD Ot E78.2 MIXED HYPERLIPIDEMIA 10/24/2016 ZARI PARIS MD Ot I10 ESSENTIAL (PRIMARY) HYPERTENSION 10/24/2016 ZARI PARIS MD Ot I25.10 ATHSCL HEART DISEASE OF [place] CORONARY 10/24/2016 ZARI PARIS MD Ot I65.23 OCCLUSION AND STENOSIS OF BILATERAL [place] 12/07/2016 ZARI PARIS MD Ot E78.2 MIXED HYPERLIPIDEMIA 12/07/2016 ZARI PARIS MD Ot I10 ESSENTIAL (PRIMARY) HYPERTENSION 12/07/2016 ZARI PARIS MD Ot I25.10 ATHSCL HEART DISEASE OF [place] CORONARY 12/07/2016 ZARI PARIS MD Ot I65.23 [...] MD, Ot I25.10 ATHSCL HEART DISEASE OF [place] CORONARY 03/12/2018 YURIY BRITTON MD Ot I48.0 [...] ADULT 03/12/2018 YURIY BRITTON MD, Ot Z79.84 SENIOR LIVING (CURRENT) USE OF ORAL HYPOGLYC 03/12/2018 YURIY [...] CATH 07/21/2014 99.20 INJECT/INFUSE PLATELET INHIBITOR 07/21/2014 [id number] DRAINAGE OF RIGHT KNEE JOINT, PERCUTANEO 03/11/2018 [...] NRG Blood erythrocyte morphology finding identification NORMAL [facility] Comprehensive metabolic panel - 03/10/18 11:45 Serum [...] in urine sediment by light microscopy MOD ISSSY URATES NRG Hyaline casts detection in urine [...] CLDY NR Body fluid leukocytes count (number/volume) 281323 /uL NRG Body fluid erythrocytes count (number/volume) 43085 /uL NR Manual body fluid polymorphonuclear cells/100 leukocytes 92 % NRG Manual body fluid mononuclear cells/100 leukocytes 5 % NRG Manual body fluid lymphocytes/100 leukocytes 3 % NRG Other cells/100 leukocytes in body fluid by manual count 0 % NRG * Body fluid crystals type by light microscopy - 03/11/18 17:02 * Body fluid crystals type by light microscopy URIC ACID [facility] Gram stain microscopy - 03/11/18 17:02 Gram stain microscopy REPORTED 03-12-2018, 1805. [facility] Bacterial body fluid culture - 03/11/18 17:02 QUANTITY OF GROWTH . [facility] Bacterial body fluid culture SEE COMMEN NR Bacteria identification in isolate by anaerobe culture - 03/11/18 17:02 Bacteria identification in isolate by anaerobe culture NOANA [facility] Capillary blood glucose measurement by glucometer (mass/volume) [...] plasma calcium measurement (mass/volume) 10.1 mg/dL 8.5-10.1 Complete blood count (CBC) with automated white blood cell (WBC) differential - 04/07/18 22:50 Blood leukocytes automated count (number/volume) 7.2 10*3/uL 4.3-11.0 Blood erythrocytes automated count (number/volume) 3.52 10*6/uL 4.35-5.85 Venous blood hemoglobin measurement (mass/volume) 10.3 g/dL 13.3-17.7 Blood hematocrit (volume fraction) 33 % 40-54 Automated erythrocyte mean corpuscular volume 95 [foz_us] 80-99 Automated erythrocyte mean corpuscular hemoglobin (mass per erythrocyte) 29 pg 25-34 Automated erythrocyte mean corpuscular hemoglobin concentration measurement ( mass/volume) 31 g/dL 32-36 Automated erythrocyte distribution width ratio 17.9 % 10.0-14.5 Automated blood platelet count (count/volume) 233 10*3/uL 130-400 Automated blood platelet mean volume measurement 10.9 [foz_us] 7.4-10.4 Automated blood neutrophils/100 leukocytes 70 % 42-75 Automated blood lymphocytes/100 leukocytes 21 % 12-44 Blood monocytes/100 leukocytes 9 % 0-12 Automated blood eosinophils/100 leukocytes 1 % 0-10 Automated blood basophils/100 leukocytes 0 % 0-10 Blood neutrophils automated count (number/volume) 5.0 10*3 1.8-7.8 Blood lymphocytes automated count (number/volume) 1.5 10*3 1.0-4.0 Blood monocytes automated count (number/volume) 0.6 10*3 0.0-1.0 Automated eosinophil count 0.1 10*3/uL 0.0-0.3 Automated blood basophil count (count/volume) 0.0 10*3/uL 0.0-0.1 PT panel in platelet poor plasma by coagulation assay - 04/07/18 22:50 Prothrombin time (PT) in platelet poor plasma by coagulation assay 18.8 s 12.2-14.7 INR in platelet poor plasma or blood by coagulation assay 1.6 0.8-1.4 Activated partial thromboplastin time (aPTT) in platelet poor plasma bycoagulation assay - 04/07/18 22:50 Activated partial thromboplastin time (aPTT) in platelet poor plasma bycoagulation assay 35 s 24-35 Blood lactic acid measurement (moles/volume) - 04/07/18 22:50 Blood lactic acid measurement (moles/volume) 1.99 mmol/L 0.50-2.00 Comprehensive metabolic panel - 04/07/18 22:50 Serum or plasma sodium measurement (moles/volume) 136 mmol/L 135-145 Serum or plasma potassium measurement (moles/volume) 4.7 mmol/L 3.6-5.0 Serum or plasma chloride measurement (moles/volume) 104 mmol/L 98-107 Carbon dioxide 21 mmol/L 21-32 Serum or plasma anion gap determination (moles/volume) 11 mmol/L 5-14 Serum or plasma urea nitrogen measurement (mass/volume) 26 mg/dL 7-18 Serum or plasma creatinine measurement (mass/volume) 1.33 mg/dL 0.60-1.30 Serum or plasma urea nitrogen/creatinine mass ratio 20 NRG Serum or plasma creatinine measurement with calculation of estimated glomerular filtration rate 52 NRG Serum or plasma glucose measurement (mass/volume) 175 mg/dL 70-105 Serum or plasma calcium measurement (mass/volume) 8.9 mg/dL 8.5-10.1 Serum or plasma total bilirubin measurement (mass/volume) 0.4 mg/dL 0.1-1.0 Serum or plasma alkaline phosphatase measurement (enzymatic activity/volume) 91 U/L 40-136 Serum or plasma aspartate aminotransferase measurement (enzymatic activity/ volume) 24 U/L 5-34 Serum or plasma alanine aminotransferase measurement (enzymatic activity/volume ) 18 U/L 0-55 Serum or plasma protein measurement (mass/volume) 8.5 g/dL 6.4-8.2 Serum or plasma albumin measurement (mass/volume) 3.0 g/dL 3.2-4.5 CALCIUM CORRECTED 9.7 mg/dL 8.5-10.1 Serum or plasma troponin i.cardiac measurement (mass/volume) - 04/07/18 22:50 Serum or plasma troponin i.cardiac measurement (mass/volume) < ng/ mL <0.30 Serum or plasma lithium measurement (moles/volume) - 04/07/18 22:50 BNP level 308.1 pg/mL <100.0 Influenza virus A and B antigen detection - 04/07/18 23:57 FLU RESULT NEGATIVE FOR INFLUENZA A AND B ANTIGENS BY IA NRG Encounters ACCT No. Visit Date/Time Discharge Status Pt. Type Provider Facility Loc./Unit Complaint [id number] 03/10/2018 12:24:00 03/12/2018 11:15:00 DIS Outpatient YURIY BRITTON MD [facility] 4TH ACUTE HYPOXIC RESP DISTRESS [id number] 10/18/2016 09:08:00 10/18/2016 23:59:59 CLS Outpatient ZARI PARIS MD [facility] RAD I65.23 OCCLUSION AND STENOSIS OF BILATERAL CAROTID [id number] 06/13/2016 07:28:00 06/14/2016 15:30:00 DIS Outpatient ZARI PARIS MD [facility] CATH CP,DYSPNEA [id number] 11/16/2015 00:08:00 11/16/2015 23:59:59 CLS Preadmit SAVANNAH LEE MD [facility] ONC [id number] 08/17/2015 13:41:00 11/15/2015 00:01:00 DIS Outpatient SAVANNAH LEE MD [facility] ONC [id number] 05/18/2015 15:26:00 08/09/2015 00:01:00 DIS Outpatient SAVANNAH LEE MD [facility] ONC [id number] 05/25/2015 12:24:00 05/25/2015 23:59:59 CLS Outpatient MELANIE MORILLO, BRUCE R [facility] RAD FALL ON GROUND WITH PAIN R CHEST [id number] 01/10/2015 12:45:00 02/22/2015 00:01:00 DIS Outpatient SAVANNAH LEE MD [facility] ONC [id number] 01/19/2015 17:48:00 01/19/2015 23:59:59 CLS Outpatient CORY BERGER DO [facility] RT COPD [id number] 12/13/2014 09:00:00 12/13/2014 23:59:59 CLS Preadmit ZARI PARIS MD [facility] CR STENT [id number];PTCA X2 [id number] 10/13/2014 11:26:00 12/12/2014 00:01:00 DIS Outpatient ZARI PARIS MD [facility] CR STENT [id number];PTCA X2 [id number] 11/04/2014 09:29:00 11/04/2014 16:00:00 DIS Outpatient [facility] [id number] 10/21/2014 19:26:00 10/25/2014 14:30:00 DIS Inpatient KYLE MCDUFFIE MD [facility] SURGICAL RECTAL BLEED [id number] 10/15/2014 09:48:00 10/15/2014 13:20:00 DIS Outpatient KYLE MCDUFFIE MD [facility] SDC ANEMIA [id number] 10/14/2014 07:06:00 10/14/2014 23:59:59 CLS Outpatient KYLE MCDUFFIE MD [facility] PREOP ANEMIA [id number] 07/22/2014 09:38:00 07/23/2014 18:00:00 DIS Inpatient ZARI PARIS MD [facility] CSD SOB,CAD,AFIB,ABNORMAL STRESS, HTN,HLP [id number] 07/14/2014 07:39:00 07/14/2014 23:59:59 CLS Outpatient ZARI PARIS MD [facility] CARD AFIB,CAD,HLP,HTN [id number] 06/24/2014 12:15:00 06/24/2014 23:59:59 CLS Outpatient CORY BERGER DO [facility] RAD SOB,COPD [id number] 04/08/2014 08:38:00 04/08/2014 23:59:59 CLS Outpatient CORY BERGER DO [facility] RAD DSYPNEA,COPD,PARVIZ [id number] 04/07/2014 10:34:00 04/07/2014 23:59:59 CLS Outpatient AB CORY SINGH [facility] RAD COPD,PARVIZ,DYSPENA [id number] 01/06/2014 21:00:00 01/07/2014 05:55:00 DIS Outpatient AB SINGHCORY [facility] SLEEP PARVIZ,CPAP FAILURE [id number] 10/06/2013 14:15:00 10/09/2013 15:28:00 DIS Outpatient AB SINGHCORY [facility] SDC SOB [id number] 07/22/2013 15:03:00 07/22/2013 23:59:59 CLS Outpatient AB SINGH CORY Ovalle [facility] RT DYSPNEA,OBESITY,DM,AFIB [id number] 07/15/2013 14:59:00 07/15/2013 23:59:59 CLS Outpatient AB SINGH CORY Yamile [facility] RAD DYSPNEA,OBESITY,DM,AFIB [id number] 06/05/2013 10:40:00 06/05/2013 23:59:59 CLS Outpatient MELANIE MORILLO, BRUCE Zarate [facility] CARD COUGH [id number] 01/20/2013 08:27:00 01/20/2013 23:59:59 CLS Outpatient SANDRA MORILLO, LAI Lopez [facility] RAD CHRONIC SINUSITIS [id number] 01/13/2013 14:41:00 01/13/2013 23:59:59 CLS Outpatient NORMAN ESPINOZA [facility] RAD SOB,COUGH [id number] 12/26/2012 08:48:00 12/26/2012 23:59:59 CLS Outpatient RAINA MORILLO, AZRI Chairez [facility] CARD AFIB,CAD [id number] 04/07/2018 23:00:00 Document Registration [id number] 10/25/2015 09:27:00 Document Registration [id number] 05/27/2012 10:11:00 Document Registration [id number] 02/07/2012 11:31:00 Document Registration [id number] 01/03/2012 12:05:00 Document Registration [id number] 10/18/2011 14:21:00 Document Registration [id number] 10/08/2011 12:02:00 Document Registration [id number] 09/05/2011 07:15:00 Document Registration [id number] 06/08/2011 19:55:00 Document Registration [id number] 06/06/2011 06:55:00 Document Registration [id number] 05/31/2011 08:53:00 Document Registration [id number] 07/05/2010 19:40:00 Document Registration [id number] 08/08/2009 11:00:00 Document Registration [id number] 07/20/2009 19:35:00 Document Registration [id number] 01/19/2015 17:48:23 ACT Document Registration
[2018-04-08 02:01] LABS: BILIRUBIN,URINE NEGATIVE (NEGATIVE); CLARITY,URINE CLEAR; COLOR,URINE YELLOW; GLUCOSE, URINE (UA) NEGATIVE (NEGATIVE); KETONES,URINE NEGATIVE (NEGATIVE); LEUKOCYTE ESTERASE ,URINE NEGATIVE (NEGATIVE); NITRITE,URINE NEGATIVE (NEGATIVE); PH,URINE 5 (5-9); PROTEIN,URINE NEGATIVE (NEGATIVE); UROBILINOGEN,URINE NORMAL (NORMAL)
[2018-04-08 02:08] LABS: AMORPHOUS SEDIMENT,UR FEW AMOR URATES /LPF; BACTERIA,URINE TRACE /HPF; HYALINE CASTS, URINE 0-2 /LPF
[2018-04-08] MEDS ORDERED: oxyCODONE/APAP 5/325MG (PERCOCET 5) TABLET PO PRN (02:45)
[2018-04-08] MEDS ORDERED: CATHETER FLUSH 10 ML SYR IV PRN (03:00)
[2018-04-08] MEDS: NS W/KCL 20 MEQ/L 1,000 ML IV SCH ×2 (03:29→10:47)
[2018-04-08] MEDS: inSUlin ASPART (NovoLOG) 1 UNIT/0.01 ML (CHARGE PER UNIT) SC SCH ×4 (05:44→21:20)
[2018-04-08] MEDS: CATHETER FLUSH 10 ML SYR IV SCH ×3 (05:57→23:05)
[2018-04-08] MEDS: RT-ALBUTEROL/IPRATROPIUM 3 ML (DUONEB) VIAL INH SCH ×5 (06:21→22:20)
[2018-04-08 06:28] LABS: BASOPHILS % (AUTO) 0 % (0-10); EOSINOPHILS % (AUTO) 0 % (0-10); HEMATOCRIT 28 % (40-54); HEMOGLOBIN 8.8 G/DL (13.3-17.7); LYMPHOCYTES # (AUTO) 1.2 X 10^3 (1.0-4.0); LYMPHOCYTES % (AUTO) 17 % (12-44); MEAN CORPUSCULAR HEMOGLOBIN 30 PG (25-34); MEAN CORPUSCULAR HGB CONC 32 G/DL (32-36); MEAN CORPUSCULAR VOLUME 95 FL (80-99); MEAN PLATELET VOLUME 10.8 FL (7.4-10.4); MONOCYTES # (AUTO) 0.7 X 10^3 (0.0-1.0); MONOCYTES % (AUTO) 10 % (0-12); NEUTROPHILS # (AUTO) 5.3 X 10^3 (1.8-7.8); NEUTROPHILS % (AUTO) 74 % (42-75); PLATELET COUNT 201 10^3/uL (130-400); RED BLOOD COUNT 2.92 10^6/uL (4.35-5.85); RED CELL DISTRIBUTION WIDTH 17.8 % (10.0-14.5); WHITE BLOOD COUNT 7.2 10^3/uL (4.3-11.0)
[2018-04-08 06:53] LABS: BUN/CREATININE RATIO 22; CALCIUM 8.3 MG/DL (8.5-10.1); CARBON DIOXIDE 24 MMOL/L (21-32); CHLORIDE 108 MMOL/L (98-107); CREATININE SERUM 1.13 MG/DL (0.60-1.30); GFR ESTIMATED > 60; GLUCOSE 122 MG/DL (70-105); POTASSIUM 4.1 MMOL/L (3.6-5.0); SODIUM 139 MMOL/L (135-145)
--- NOTE | 2018-04-08 07:15 | Diagnostic Imaging Report ---
INDICATION: Fever and cough. COMPARISON: 03/10/2018. FINDINGS: Visualized lungs are clear. Posterior lower lobes are poorly evaluated by portable radiography. No pleural effusion or pneumothorax. Stable cardiomegaly with left pectoral transvenous pacemaker. IMPRESSION: No acute cardiopulmonary process by portable radiography. Dictated by: Dictated on workstation # [id number]
--- NOTE | 2018-04-08 07:16 | History & Physical ---
History of Present Illness History of Present Illness Reason for visit/HPI 77-year-old male admitted for acute on chronic hypoxic respiratory failure. 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 He is being followed by Dr. Mckay and is currently on Rocephin for his right knee. Over the past week his respiratory status has worsened he is at increased sputum production. Over the night 04/03/18 his oxygen saturation dropped down to the 70s and he had difficulty breathing, more of an apneic spell in which he finally coughed up a large amount of sputum. Over the weekend he was started on nebulized Mucomyst. Patient continues to have right upper quadrant pain less far has been worked up with ultrasound and lab work and rib x-rays all of which have been unfruitful. Of note on previous admission patient had acute on chronic renal failure anemia elevated protein and was worked up for further etiology and was found to have monoclonal gammopathy suspicious for multiple myeloma. Patient and wanting to hold off on hematology workup at this time as he has enough medical issues at this time. Patient presenting to the ER with worsening respiratory status and fever ( reports Tmax 102F). He was started on IV fluids and cefepime and admitted to fourth floor for further workup. Date of Admission Apr 08, 2018 at 01:10 Date Seen by a Provider: Apr 08, 2018 Time Seen by a Provider: 07:17 I consulted on this patient on 04/08/18 07:09 Attending Physician Yuriy Britton MD Admitting Physician Yuriy Britton MD Consult Allergies and Home Medications Allergies Coded Allergies: No Known Drug Allergies (Unverified , 06/06/11) Home Medications Acetaminophen 650 Mg Tablet.er, 1,300 MG PO BID, (Reported) TAKES 2 (650MG) TABLETS Allopurinol 100 Mg Tablet, 100 MG PO DAILY, (Reported) Apixaban 5 Mg Tablet, 5 MG PO BID, (Reported) Atorvastatin Calcium 20 Mg Tablet, 20 MG PO HS, (Reported) Baclofen 5 Mg Tablet, 2.5-5 MG PO TID PRN for MUSCLE SPASMS, (Reported) Ceftriaxone Sodium 2 Gm Vial, 2 GM IV 1130, (Reported) 6 WEEK THERAPY Enalapril Maleate 5 Mg Tablet, 5 MG PO DAILY, (Reported) Ferrous Sulfate 325 Mg Tablet, 325 MG PO HS, (Reported) Finasteride 5 Mg Tablet, 5 MG PO DAILY, (Reported) Furosemide 20 Mg Tablet, 20 MG PO 0700,1500, (Reported) Gabapentin 300 Mg Capsule, 300 MG PO HS, (Reported) Glipizide 10 Mg Tab.er.24, 10 MG PO DAILY, (Reported) Glycopyrrolate/Formoterol Fum 10.7 Gm Hfa.aer.ad, 2 PUFF IH BID, (Reported) Guaifenesin 600 Mg Tab.er.12h, 600 MG PO Q12H, (Reported) Isosorbide Mononitrate 30 Mg Tab.er.24h, 60 MG PO DAILY, (Reported) TAKES 2 (30MG) TABLETS Metoprolol Succinate 100 Mg Tab.er.24h, 100 MG PO DAILY, (Reported) Multivitamin 1 Each Tablet, 1 TAB PO HS, (Reported) Oxycodone HCl 5 Mg Tablet, 5-10 MG PO Q2H PRN for PAIN-SEVERE, (Reported) Pantoprazole Sodium 40 Mg Tablet.dr, 40 MG PO BID, (Reported) Potassium Chloride 20 Meq Tab.er.prt, 20 MEQ PO 0700,1500, (Reported) Tamsulosin HCl 0.4 Mg Cap.er.24h, 0.4 MG PO HS, (Reported) Patient Home Medication List Home Medication List Reviewed: Yes Past Iisoiho-Zhrzlg-Ppkrgd Hx Patient Social History Alcohol Use: Denies Use Recreational Drug Use: No Smoking Status: Former Smoker Former Smoker, Quit: Jul 09, 1982 Type Used: Cigarettes 2nd Hand Smoke Exposure: Yes Physical Abuse Screen: No Sexual Abuse: No Recent Foreign Travel: No Contact w/other who traveled: No Recent Hopitalizations: Yes (INFECTION OF SURGICAL HARDWARE) Recent Infectious Disease Expo: No Immunizations Up To Date Tetanus Booster (TDap): More than 5yrs Pediatric: Yes Date of Pneumonia Vaccine: Mar 17, 2014 Date of Influenza Vaccine: Mar 13, 2018 Seasonal Allergies Seasonal Allergies: No Surgeries Yes (KNEES REPLACEMENT NORA, HERNIA REPAIR, GB REMOVED, CABBAGE X 4, ) CABG, Coronary Stent, Gallbladder, Orthopedic, Pacemaker, Tonsillectomy Respiratory Yes COPD, Sleep Apnea Currently Using CPAP: Yes Currently Using BIPAP: No Cardiovascular Yes Neurological No Reproductive System Hx Reproductive Disorders: No Sexually Transmitted Disease: No HIV/AIDS: No Genitourinary Yes (INCONT. AT TIMES) Benign Prostatic Hyperpl, Kidney Stones Gastrointestinal Yes (GI BLEED) Gastroesophageal Reflux, Gall Bladder Disease Musculoskeletal Yes Arthritis, Gout Endocrine History of Endocrine Disorders: Yes Endocrine Disorders: Diabetes, Non-Insulin dep HEENT History of HEENT Disorders: Yes HEENT Disorders: Cataract, Tonsilitis Loss of Vision: Bilateral Hearing Impairment: Hard of Hearing, Bilateral Hearing Aide Cancer No Psychosocial History of Psychiatric Problem: No Integumentary History of Skin or Integumenta: No Blood Transfusions History of Blood Disorders: Yes (TAKES IRON) Adverse Reaction to a Blood Tr: No Family Medical History Family Hx: Cancer 19 MOTHER, Onset:38 (MONTSERRAT ) Family history: Arthritis 19 FATHER Stroke 19 FATHER, Onset:73 Review of Systems Review of Systems General: Chills; No Night Sweats HEENT: No Head Aches, No Visual Changes Pulmonary: Dyspnea, Cough Cardiovascular: No: Chest Pain, Palpitations Gastrointestinal: Abdominal Pain (RUQ); No: Nausea, Vomiting Genitourinary: No Dysuria, No Frequency Neurological: Weakness, Confusion Physical Exam Vital Signs Vital Signs - First Documented 04/07/18 04/08/18 22:30 04:04 Temp 101.4 Pulse 100 Resp 18 B/P (MAP) 168/98 (121) Pulse Ox 95 O2 Delivery Nasal Cannula O2 Flow Rate 3.00 FiO2 36 Capillary Refill : Less Than 3 Seconds Height, Weight, BMI Height: 5'9.00" Weight: 228lbs. 5.0oz. 103.999069lh; 33.7 BMI Method: General Appearance: Chronically ill, Moderate Distress (respiratory) Neck: Full Range of Motion, Non Tender, Supple Respiratory: Chest Non Tender, Crackles, Decreased Breath Sounds (bases), Respiratory Distress, Rhonci, Wheezing Cardiovascular: Regular Rate, Rhythm Gastrointestinal: No Pulsatile Mass, Non Tender, Soft Back: No CVA Tenderness, No Vertebral Tenderness Extremity: Non Tender, No Calf Tenderness Neurologic/Psychiatric: Alert, Oriented x3, Normal Mood/Affect Skin: Warm/Dry Assessment/Plan Assessment/Plan Admission Dx acute on chronic respiratory failure Admission Status: Inpatient Order (span 2 midnights) Reason for Inpatient Admission: Given patient's continued decline in respiratory status and other medical comorbidities patient expected to spend more than 2 midnights in the hospital. Assessment and Plan Acute on chronic hypoxic respiratory failure- Dr. Buchanan consulted- consider a bronch for mucus plugging? currently on cefepime. (J44.9) Chronic obstructive pulmonary disease - MAT protocol (N18.3) Chronic kidney disease, stage 3 (moderate) - holding nephrotoxic agents, Creatinine has improved (I10) Essential (primary) hypertension - he is on beta laura, ARB (E11.40) Type 2 diabetes mellitus with diabetic neuropathy- achs blood sugar, SSI A, stop metformin (I25.10) Atherosclerotic heart disease of zuni coronary artery without angina pectoris- follows with Dr. Macdonald (G47.39) Other sleep apnea- home bipap with oxygen bleed R10.11 Right upper quadrant pain- monitor, LFTs normal, workup negative in [place] with ultrasound, xrays. monoclonal gammopathy- suspect multiple myeloma - plan to refer to hematology when patient gets his other health issues (respiratory and right knee under control)- and patient don't want another health issue to deal with right now as he may not be able to handle it. I have told pt and my concerns though. Right knee internal hardware infection- on home rocephin through PICC - under care of Dr. Mckay cefepime will cover for now Dispo: consulting Dr. Buchanan for further assistance. Given his increase sputum production consider bronch? -DVT ppx- on eliquis -prognosis: guarded Clinical Quality Measures DVT/VTE Risk/Contraindication: Risk Factor Score Per Nursin RFS Level Per Nursing on Admit: 4+=Very High YURIY BRITTON MD Apr 08, 2018 07:16
--- NOTE | 2018-04-08 08:04 | Pulmonary Consultation ---
History of Present Illness History of Present Illness Date of Consultation 04/08/18 07:57 Time Seen by Provider: 08:00 Date of Admission History of Present Illness 77yo with hx of severe oxygen dependent COPD, right knee replacement presented secondary to worsening SOB, and mucous production. Pt has had a recent hospitalization secondary to right septic knee. He is currently on Rocephin for his right knee. He was started on Mucomyst secondary to copious amounts of sputum . Pt has been hospitalized in the past for COPDAE. I am consulted for pulmonary management. Allergies and Home Medications Allergies Coded Allergies: No Known Drug Allergies (Unverified , 06/06/11) Home Medications Acetaminophen 650 Mg Tablet.er, 1,300 MG PO BID, (Reported) TAKES 2 (650MG) TABLETS Allopurinol 100 Mg Tablet, 100 MG PO DAILY, (Reported) Apixaban 5 Mg Tablet, 5 MG PO BID, (Reported) Atorvastatin Calcium 20 Mg Tablet, 20 MG PO HS, (Reported) Baclofen 5 Mg Tablet, 2.5-5 MG PO TID PRN for MUSCLE SPASMS, (Reported) Ceftriaxone Sodium 2 Gm Vial, 2 GM IV 1130, (Reported) 6 WEEK THERAPY Enalapril Maleate 5 Mg Tablet, 5 MG PO DAILY, (Reported) Ferrous Sulfate 325 Mg Tablet, 325 MG PO HS, (Reported) Finasteride 5 Mg Tablet, 5 MG PO DAILY, (Reported) Furosemide 20 Mg Tablet, 20 MG PO 0700,1500, (Reported) Gabapentin 300 Mg Capsule, 300 MG PO HS, (Reported) Glipizide 10 Mg Tab.er.24, 10 MG PO DAILY, (Reported) Glycopyrrolate/Formoterol Fum 10.7 Gm Hfa.aer.ad, 2 PUFF IH BID, (Reported) Guaifenesin 600 Mg Tab.er.12h, 600 MG PO Q12H, (Reported) Isosorbide Mononitrate 30 Mg Tab.er.24h, 60 MG PO DAILY, (Reported) TAKES 2 (30MG) TABLETS Metoprolol Succinate 100 Mg Tab.er.24h, 100 MG PO DAILY, (Reported) Multivitamin 1 Each Tablet, 1 TAB PO HS, (Reported) Oxycodone HCl 5 Mg Tablet, 5-10 MG PO Q2H PRN for PAIN-SEVERE, (Reported) Pantoprazole Sodium 40 Mg Tablet.dr, 40 MG PO BID, (Reported) Potassium Chloride 20 Meq Tab.er.prt, 20 MEQ PO 0700,1500, (Reported) Tamsulosin HCl 0.4 Mg Cap.er.24h, 0.4 MG PO HS, (Reported) Past Auzqrka-Lqmdkx-Ssfzzc Hx Patient Social History Alcohol Use: Denies Use Recreational Drug Use: No Smoking Status: Former Smoker Type Used: Cigarettes Former Smoker, Quit: Jul 09, 1982 2nd Hand Smoke Exposure: Yes Recent Foreign Travel: No Contact w/Someone Who Travel: No Recent Infectious Disease Expo: No Recent Hopitalizations: Yes (INFECTION OF SURGICAL HARDWARE) Physical Abuse: No Sexual Abuse: No Mistreated: No Fear: No Immunizations Up To Date Tetanus Booster (TDap): More than 5yrs PED Vaccines UTD: Yes Date of Pneumonia Vaccine: Mar 17, 2014 Date of Influenza Vaccine: Mar 13, 2018 Seasonal Allergies Seasonal Allergies: No Past Medical History Surgeries: Yes (KNEES REPLACEMENT NORA, HERNIA REPAIR, GB REMOVED, CABBAGE X 4, ) CABG, Coronary Stent, Gallbladder, Orthopedic, Pacemaker, Tonsillectomy Respiratory: Yes Sleep Apnea, COPD Currently Using CPAP: Yes Currently Using BIPAP: No Cardiac: Yes Neurological: No Reproductive Disorders: No Sexually Transmitted Disease: No HIV/AIDS: No Genitourinary: Yes (INCONT. AT TIMES) Benign Prostatic Hyperpl, Kidney Stones Gastrointestinal: Yes (GI BLEED) Gastroesophageal Reflux, Gall Bladder Disease Musculoskeletal: Yes Arthritis, Gout Endocrine: Yes Diabetes, Non-Insulin dep HEENT: Yes Cataract, Tonsilitis Loss of Vision: Bilateral Hearing Impairment: Hard of Hearing, Bilateral Hearing Aide Cancer: No Psychosocial: No Integumentary: No Blood Disorders: Yes (TAKES IRON) Adverse Reaction/Blood Tranf: No Family Medical History Cancer 19 MOTHER, Onset:36 ([place] ) Family history: Arthritis 19 FATHER Stroke 19 FATHER, Onset:73 Review of Systems Time Seen by Provider: 13:10 Constitutional: Sweats, Weakness, Malaise; No: Fever, Chills Eyes: No: Pain, Vision change, Conjunctivae inflammation, Eyelid inflammation, Other, Redness ENT: Nose congestion; No: Ear pain, Ear discharge, Nose pain, Nose discharge, Mouth pain, Mouth swelling, Throat pain, Throat swelling, Other Respiratory: Cough, Shortness of breath, SOB with excertion, Wheezing, Sputum; No: Hemoptysis, Pleuritic Pain Cardiovascular: Paroxysmal Noc. Dyspnea, Lt Headedness Gastrointestinal: No: Nausea, Vomiting, Abdominal Pain Neurological: Weakness, Incoordination; No: Change in speech, Confusion Sepsis Event Evaluation Height, Weight, BMI Height: 5'9.00" Weight: 228lbs. 5.0oz. 103.823957ql; 33.7 BMI Method:Estimated Exam Exam Vital Signs Date Time Temp Pulse Resp B/P (MAP) Pulse Ox O2 Delivery O2 Flow Rate FiO2 04/08/18 06:26 89 NIV CPAP 4.00 04/08/18 04:04 66 95 36 04/08/18 04:00 98.9 61 20 108/54 (72) 91 NIV CPAP 3.00 04/08/18 03:54 95 NIV CPAP 4.00 04/08/18 03:44 60 04/08/18 02:15 Nasal Cannula 3.00 04/08/18 02:15 100.6 63 16 143/66 (91) 93 NIV CPAP 3.00 04/08/18 02:00 98.2 88 18 148/88 (108) 96 3.00 04/07/18 23:52 101.4 04/07/18 23:20 91 Nasal Cannula 5.00 04/07/18 22:30 101.4 100 18 168/98 (121) 95 Nasal Cannula 3.00 I & O 04/08/18 06:59 Intake Total 2150 ml Output Total 200 ml Balance 1950 ml Height & Weight Height: 5'9.00" Weight: 228lbs. 5.0oz. 103.886178pc; 33.7 BMI Method:Estimated General Appearance: Mild Distress, Obese HEENT: PERRL/EOMI, TMs Normal, Normal ENT Inspection, Pharynx Normal; No Moist Mucous Membranes Neck: Full Range of Motion, Normal Inspection, Non Tender, Supple Respiratory: Lungs Clear, Normal Breath Sounds, No Accessory Muscle Use, No Respiratory Distress Cardiovascular: Regular Rate, Rhythm, No Murmur, Normal Peripheral Pulses, Other (1+ pitting edema bilaterally) Capillary Refill: Less Than 3 Seconds Extremity: Normal Capillary Refill, Non Tender, Other (right knee incision and mild edema but nonerythematous and no discharge from the surgical wound. There is 1+ pitting edema bilateral lower extremities below the knee with compression stockings in place.) Neurologic/Psychiatric: Alert, Oriented x3, Normal Mood/Affect, Other (hard of hearing) Results Lab Laboratory Tests 04/07/18 22:50 04/08/18 05:55 Assessment/Plan Assessment/Plan Acute on chronic respiratory failure with hypoxia and mucous plugging -CXR reviewed -will check CT of chest without contrast Severe COPD with AE -SVNS -Steroids Atelectasis with mucous plugging -Will add vapotherm for humidity -Add mucomyst to SVNs -Add mucinex -Increase activity and monitor CKD PARVIZ -Home BIPAP CORY BERGER DO Apr 08, 2018 08:04
[2018-04-08] MEDS: APIXABAN 5 MG (ELIQUIS) TABLET PO SCH ×2 (08:25→21:19)
[2018-04-08] MEDS ORDERED: IOHEXOL 350 MG/ML 150 ML (OMNIPAQUE 350) VIAL IV ONE (08:45)
[2018-04-08] MEDS ORDERED: RECEIVED CONTRAST (Hold Metformin) IV SCH (08:45)
[2018-04-08] MEDS ORDERED: NS 250 ML (IVPB) BAG IV ONE (08:45)
[2018-04-08] MEDS ORDERED: BACL5TAB PO (08:59)
[2018-04-08] MEDS ORDERED: GABA-488 PO (08:59)
[2018-04-08] MEDS ORDERED: ALLO100T PO (08:59)
[2018-04-08] MEDS ORDERED: GUAI600T43 PO (08:59)
[2018-04-08] MEDS ORDERED: FURO20TA4 PO (08:59)
[2018-04-08] MEDS ORDERED: POTA20TA15 PO (08:59)
[2018-04-08] MEDS ORDERED: OXYC-529 PO (08:59)
[2018-04-08] MEDS ORDERED: CEFT2VIA11 IV (09:00)
--- NOTE | 2018-04-08 09:55 | Diagnostic Imaging Report ---
PROCEDURE: CT angiography of the chest with contrast. TECHNIQUE: Multiple contiguous axial images were obtained through the chest after uneventful bolus administration of intravenous contrast. 2D reconstructed CTA MIP acquisitions were also performed. INDICATION: Shortness of air, weakness, cough, right-sided pain. Exam compared 06/24/2014. There are no intraluminal pulmonary arterial filling defects. There is no PE. The aorta is patent and nonaneurysmal. There is chronic coronary arterial atherosclerotic calcifications and previous sternotomy with no dehiscence or acute appearing chest wall pathology. Extensive thoracic spondylosis and bulky anterior osteophytosis a chronic finding. This patient has a possible small right and minute left pleural effusions. There is dependent basilar atelectasis as well as cardiomegaly and some vascular congestion with generalized septal thickening. While the apices showed features of centrilobular emphysema, the degree of septal thickening suggest an element of interstitial edema. Upper abdomen showed no fluid collection or free air. IMPRESSION: Negative for PE or acute aortic pathology. Small effusions, cardiomegaly, vascular congestion and suspicion for interstitial edema with basilar atelectasis noted. Dictated by: Dictated on workstation # [id number]
[2018-04-08] MEDS: CEFEPIME 2 GM/NS 50 ML IVPB IV SCH ×4 (11:09→23:05)
--- NOTE | 2018-04-08 11:09 | Physical Therapy Evaluation ---
PT Evaluation-General Medical Diagnosis Admission Date Apr 08, 2018 at 01:10 Medical Diagnosis: Pneumonia Onset Date: Apr 08, 2018 Therapy Diagnosis Therapy Diagnosis: General Weakness Height/Weight Height (Feet): 5 Height (Inches): 9.00 Weight (Pounds): 228 Weight (Ounces): 5.0 Precautions Precautions/Isolations: Fall Prevention, Standard Precautions Weight Bear Status Right Lower Extremity: Right Full Weight Bearing Left Lower Extremity: Left Full Weight Bearing Referral Reason for Referral: Evaluation/Treatment Medical History Pertinent Medical History: CABG, CAD, COPD, DM Additional Medical History TKR with infection Current History Patient admitted to hospital for pneumonia and will be the 4th admittance in the past month. Pt recently had R total knee replacement that required revision to clean out surgical site. Social History Home: Single Level Current Living Status: Spouse Entry Into Home: Stairs Without Railing PT Steps Into Home: 2 PT Steps Inside Home: 0 Prior/Core FIM Prior Level of Function Functional [place] Measure 0=Not Assessed/NA 4=Minimal Assistance 1=Total Assistance 5=Supervision or Setup 2=Maximal Assistance 6=Modified [place] 3=Moderate Assistance 7=Complete IndependenceIRFPAI Quality Coding Scale 6 Independent with activity with or without an assistive device 5 Patient requires set up or clean up by helper. Patient completes activity by themselves 4 Supervision or touching assist (CGA). [place] provide cues , steadying assist 3 The helper provides less than half the effort to complete the activity 2 The helper provides more than half the effort to complete the activity 1 Dependent. The helper does all the effort to complete an activity 7 Patient refused to complete or attempt activity 9 The patient did not perform the activity before the current illness or injury 88 Not attempted due to Medical conditions or safety concerns Bed Mobility: 6 Transfers (B,C,W/C) (FIM): 6 Gait: 6 Stairs: 6 Prior Equipment Used: FWW PT Evaluation-Current Subjective Pt was awake in room visiting with his . Patient agreed to an evaluation with PT. Pain Numeric Pain Scale: 0-No Pain Location: No Pain Reported Objective Patient Orientation: Normal For Age Problem Solving: Fair Attachments: Oxygen, IV ROM/Strength ROM Upper Extremities WNL ROM Lower Extremities WNL Strength Upper Extremities WNL Strength Lower Extremities 4/5 Bilaterally for LEs Integumentary/Posture Bowel Incontinence: No Bladder Incontinence: No Neuromuscular (Tone, Coordination, Reflexes) Tone, coordination and reflexes WNL Sensory Vision: Functional Hearing: Hearing Aid/Aides Sensation Right Upper Extremit: Intact Sensation Left Upper Extremity: Intact Sensation Right Lower Extremit: Intact Sensation Left Lower Extremity: Intact Transfers Functional [place] Measure 0=Not Assessed/NA 4=Minimal Assistance 1=Total Assistance 5=Supervision or Setup 2=Maximal Assistance 6=Modified [place] 3=Moderate Assistance 7=Complete [place] Transfers (B, C, W/C) (FIM): 4 Supine to/from Sit: 4 Gait Mode of Locomotion: Walk Anticipated Mode of Locomotion: Walk Gait (FIM): 2 Distance (FIM): 7=730-46 ft Distance: 100' x 2 Gait Level of Assist: 4 Gait Persons Needed: 1 Gait Assistive Device: FWW Balance Sitting Static: Normal Sitting Dynamic: Normal Standing Static: Good Standing Dynamic: Good Assessment/Needs Patient was able to ambulate for 100' x2 and required a break. Patient required oxygen throughout ambulation on 4L and had to catch his breath when he returned to sitting as well. Patients Sat 02 level 94% upon completion of treatment and deep breathing on 4L oxygen. Rehab Potential: Fair PT Prison Goals Cigar Inspector Goals PT Prison Goals Time Frame: Apr 15, 2018 Transfers (B,C,W/C) (FIM): 6 Gait (FIM): 6 Gait distance (FIM): 3=150 ft Distance: 150ft Gait Level of Assist: 6 Gait Assistive Device: FWW PT Plan Problem List Problem List: Activity Tolerance, Functional Strength, Safety, Balance, Gait Treatment/Plan Treatment Plan: Continue Plan of Care Treatment Plan: Bed Mobility, Education, Functional Activity [place], Functional Strength, Gait, Safety, Therapeutic Exercise, Transfers Treatment Duration: Apr 15, 2018 Frequency: 6 times per week Estimated Hrs Per Day: .25 hour per day Patient and/or Family Agrees t: Yes Time/GCodes Time In: 1020 Time Out: 1041 Total Billed Treatment Time: 21 Total Billed Treatment 1 visit EVLowC - 21 mins RADHA TITUS PT Apr 08, 2018 11:08
[2018-04-08] MEDS: oxyCODONE/APAP 5/325MG (PERCOCET 5) TABLET PO PRN ×2 (11:10→19:47)
--- NOTE | 2018-04-08 12:31 | Diagnostic Imaging Report ---
INDICATION: Shortness of breath. COMPARISON: 04/07/2018. FINDINGS: There is cardiomegaly. The mediastinum is unremarkable. A pacemaker overlies the left hemithorax. There is some right basilar atelectasis and/or pneumonitis and a small right pleural effusion. There is no pneumothorax. The mediastinum is unremarkable. The PICC line is in satisfactory position. IMPRESSION: Right basilar atelectasis and/or pneumonitis and a small right pleural effusion. Cardiomegaly. Dictated by: Dictated on workstation # [id number]
[2018-04-08] MEDS: aCETylcysteine 20% (MUCOMYST) 30ML SOLN VIAL INH SCH ×2 (14:01→22:20)
--- NOTE | 2018-04-08 16:48 | Wound Care Assessment ---
Wound Care Assessment Date Seen by Provider: Apr 08, 2018 Time Seen by Provider: 16:42 Chief Complaint Sacral pressure ulcer. HPI The patient is a 77 year old male admitted for respiratory failure, with sacral pressure ulcer. The patient states that this developed when he was in the hospital recently for treatment of complications of R knee operation. He also complains of R sided chest and abdominal pain after difficulty arising from the commode at home. The has been treating it with barrier cream and bordered foam. Past Medical History: Admits Diabetes Type II, Admits Heart Disease Pneumonia, chronic kidney disease, CAD, COPD, septic arthritis R knee, s/p TKR. Smoking Status: Former Smoker Recreational Drug Use: No Alcohol Use: Denies Use Review of Systems General: Chills Pulmonary: Dyspnea Musculoskeletal: leg pain Exam Vital Signs Date Time Temp Pulse Resp B/P (MAP) Pulse Ox O2 Delivery O2 Flow Rate FiO2 04/08/18 16:20 99.9 60 18 137/65 (89) 92 Vapotherm 40.00 8.00 04/08/18 04:04 36 Capillary Refill : Less Than 3 SecondsLess Than 3 Seconds General Appearance: mild distress Respiratory: respiratory distress (Mild) Skin: other (Small area of compromised tissue in the central sacral area.) Results Laboratory Tests 04/07/18 22:50: White Blood Count 7.2, Red Blood Count 3.52L, Hemoglobin 10.3L, Hematocrit 33L, Mean Corpuscular Volume 95, Mean Corpuscular Hemoglobin 29, Mean Corpuscular Hemoglobin Concent 31L, Red Cell Distribution Width 17.9H, Platelet Count 233, Mean Platelet Volume 10.9H, Neutrophils (%) (Auto) 70, Lymphocytes (%) (Auto) 21 , Monocytes (%) (Auto) 9, Eosinophils (%) (Auto) 1, Basophils (%) (Auto) 0, Neutrophils # (Auto) 5.0, Lymphocytes # (Auto) 1.5, Monocytes # (Auto) 0.6, Eosinophils # (Auto) 0.1, Basophils # (Auto) 0.0, Prothrombin Time 18.8H, INR Comment 1.6H, Activated Partial Thromboplast Time 35, Sodium Level 136, Potassium Level 4.7, Chloride Level 104, Carbon Dioxide Level 21, Anion Gap 11, Blood Urea Nitrogen 26H, Creatinine 1.33H, Estimat Glomerular Filtration Rate 52 , BUN/Creatinine Ratio 20, Glucose Level 175H, Lactic Acid Level 1.99, Calcium Level 8.9, Corrected Calcium 9.7, Total Bilirubin 0.4, Aspartate Amino Transf ( AST/SGOT) 24, Alanine Aminotransferase (ALT/SGPT) 18, Alkaline Phosphatase 91, Troponin I < 0.30, B-Type Natriuretic Peptide 308.1H, Total Protein 8.5H, Albumin 3.0L 04/08/18 05:40: Glucometer 120H 04/08/18 05:55: White Blood Count 7.2, Red Blood Count 2.92L, Hemoglobin 8.8L, Hematocrit 28L, Mean Corpuscular Volume 95, Mean Corpuscular Hemoglobin 30, Mean Corpuscular Hemoglobin Concent 32, Red Cell Distribution Width 17.8H, Platelet Count 201, Mean Platelet Volume 10.8H, Neutrophils (%) (Auto) 74, Lymphocytes (%) (Auto) 17 , Monocytes (%) (Auto) 10, Eosinophils (%) (Auto) 0, Basophils (%) (Auto) 0, Neutrophils # (Auto) 5.3, Lymphocytes # (Auto) 1.2, Monocytes # (Auto) 0.7, Eosinophils # (Auto) 0.0, Basophils # (Auto) 0.0, Sodium Level 139, Potassium Level 4.1, Chloride Level 108H, Carbon Dioxide Level 24, Anion Gap 7, Blood Urea Nitrogen 25H, Creatinine 1.13, Estimat Glomerular Filtration Rate > 60, BUN /Creatinine Ratio 22, Glucose Level 122H, Calcium Level 8.3L, Troponin I < 0.30 04/08/18 11:06: Glucometer 177H 04/08/18 16:28: Glucometer 211H Microbiology 04/07/18 Blood Culture - Preliminary, Resulted No growth 04/07/18 Influenza Types A,B Antigen (ABHINAV) - Final, Complete Microbiology 04/07/18 Blood Culture - Preliminary, Resulted No growth 04/07/18 Blood Culture - Preliminary, Resulted No growth 04/07/18 Influenza Types A,B Antigen (ABHINAV) - Final, Complete 04/07/18 Gram Stain, Resulted Pending 04/07/18 Sputum Culture - Preliminary, Resulted Culture In Progress Assessment/Plan/Dx 1. sacral pressure ulcer, Stage 2. 2. COPD, CAD limited mobility. Plan: Barrier cream and bordered foam dressings, frequent repositioning. His medical conditions compromise his ability to adhere to off-loading recommendations. LAI DOSS MD Apr 08, 2018 16:48
--- NOTE | 2018-04-08 16:58 | Occupational Therapy Eval ---
OT Evaluation-General/PLF Medical Diagnosis Admission Date Apr 08, 2018 at 01:10 Medical Diagnosis: Pneumonia/resp failure Onset Date: Apr 08, 2018 Therapy Diagnosis Therapy Diagnosis: Decreased ADL skills Height/Weight Height (Feet): 5 Height (Inches): 9.00 Weight (Pounds): 228 Weight (Ounces): 5.0 Precautions Precautions/Isolations: Fall Prevention, Standard Precautions Weight Bear Status Weight Bearing Restriction: Weight Bearing/Tolerated Referral Physician: Dr. Larkin Referral Reason: Activity Tolerance, Self Care, Evaluation/Treatment, Strengthening/ROM (-+) Medical History Pertinent Medical History: CABG, CAD, COPD, DM Additional Medical History Bilateral knee replacement, hernia repair Current History Pt. came to ER with worsening respiratory status. Reviewed History: Yes Social History Home: Single Level Current Living Status: Spouse Entry Into Home: Stairs Without Railing Steps Into Home: 2 Steps Inside Home: 0 ADL-Prior Level of Function Functional [place] Measure 0=Not Assessed/NA 4=Minimal Assistance 1=Total Assistance 5=Supervision or Setup 2=Maximal Assistance 6=Modified [place] 3=Moderate Assistance 7=Complete [place] ADL PLOF Comments Pt. states that his spouse was assisting him with bathing and dressing. States that because he becomes "winded," he has difficulty donning socks or taking a shower. Self Care Self Care: (Code the patient's need for assistance with bathing, dressing, using the toilet, or eating prior to the current illness, exacerbation, or injury.) Functional Cognition Functional Cognition: (Code the patient's need for assistance with planning regular tasks, such as shopping or remembering to take medicaiton prior to the current illness, exacerbation, or injury.) DME/Equipment: Bath Bench, Shower Hose Library Technician, Tub/Shower DME/Equipment Comments Pt. states he has a bed cane but that it does not work. States that he is in the process of getting a hospital bed. Also has a recliner up on 7 inch blocks. Pt. uses a walker at home, and is on oxygen. OT Current Status Subjective Pt. reports pain in right side and coccyx area. OT looks at coccyx area but this is dressed. States that his right side hurts from having difficulty at home getting off his BSC. Does not rate this pain. States that the nurse is going to give him a pain pill. Appearance Pt. is up in chair. Agrees to work with OT. Mental Status/Objective Patient Orientation: Person, Place, Time, Situation Attachments: IV, Oxygen Current Glasses/Contacts: Yes Hand Dominance: Right Upper Extremity ROM Pt. demonstrates 90 degrees bilateral shoulders. ADL-Treatment Functional [place] Measure 0=Not Assessed/NA 4=Minimal Assistance 1=Total Assistance 5=Supervision or Setup 2=Maximal Assistance 6=Modified [place] 3=Moderate Assistance 7=Complete IndependenceIRFPAI Quality Coding Scale 6 Independent with activity with or without an assistive device 5 Patient requires set up or clean up by helper. Patient completes activity by themselves 4 Supervision or touching assist (CGA). [place] provide cues , steadying assist 3 The helper provides less than half the effort to complete the activity 2 The helper provides more than half the effort to complete the activity 1 Dependent. The helper does all the effort to complete an activity 7 Patient refused to complete or attempt activity 9 The patient did not perform the activity before the current illness or injury 88 Not attempted due to Medical conditions or safety concerns Eating (FIM): 5 Lower Body Dressing (FIM): 2 (Pt. unable to reach his feet.) Transfers (B, C, W/C) (FIM): 3 (Pt. is able to stand with mod assist x 2 out of chair using walker.) OT provides wheelchair cushion for pt. in recliner to assist with pressure relief of coccyx. Pt. states that it feels better. Pt. states that he would like to go home soon. Spouse in room and conveys this. All needs are met. Education OT Patient Education: Correct positioning, Energy conservation, Modified ADL techniques, Progress toward Goal/Update tx plan, Purpose of tx/functional activities, Reviewed precautions, Rehab process, Transfer techniques Teaching Recipient: Patient, Significant Other Teaching Methods: Demonstration, Discussion Response to Teaching: Verbalize Understanding, Return Demonstration OT Short Term Goals Short Term Goals Time Frame: Apr 15, 2018 Eating(FIM): 6 Grooming(FIM): 5 Bathing(FIM): 4 Upper Body Dressing(FIM): 5 Lower Body Dressing(FIM): 4 Toileting(FIM): 5 Transfers (B,C,W/C) (FIM): 4 Toilet/Commode Transfer(FIM): 4 Additional Short Term Goals: 1-Demonstrate ADL Tasks, 2-Verbalize Understanding , 3-ImproveStrength/[place] 1=Demonstrate adherence to instructed precautions during ADL tasks. 2=Patient will verbalize/demonstrate understanding of assistive devices/ modifications for ADL. 3=Patient will improve strength/tolerance for activity to enable patient to perform ADL's. OT Offshoring Manager Goals Offshoring Manager Goals Time Frame: Apr 22, 2018 Eating (FIM): 6 Grooming(FIM): 5 Bathing(FIM): 5 Upper Body Dressing(FIM): 5 Lower Body Dressing(FIM): 5 Toileting(FIM): 6 Transfers (B,C,W/C) (FIM): 6 Toilet/Commode Transfer(FIM): 6 Shower Transfer(FIM): 4 Additional Goals: 1-Demonstrate ADL Tasks, 2-Verbalize Understanding, 3- ImproveStrength/Anderson 1=Demonstrate adherence to instructed precautions during ADL tasks. 2=Patient will verbalize/demonstrate understanding of assistive devices/ modifications for ADL. 3=Patient will improve strength/tolerance for activity to enable patient to perform ADL's. OT Education/Plan Problem List/Assessment Assessment: Decreased Activ Tolerance, Dependent Transfers, Impaired Funct Balance, Impaired I ADL's, Impaired Self-Care Skills, Restricted Funct UE ROM Discharge Recommendations Plan/Recommendations: Continue POC Therapy D/C Recommendations: Home w/ Family Support, Occupational Therapy Home Care, Scheduled Assistance Equpiment Recommendations-D/C: Hip Kit Treatment Plan/Plan of Care Treatment,Training & Education: Yes Patient would benefit from OT for education, treatment and training to promote independence in ADL's, mobility, safety and/or upper extremity function for ADL' s. Plan of Care: ADL Retraining, Functional Mobility, UE Funct Exercise/Act Treatment Duration: Apr 22, 2018 Frequency: 5 times per week Estimated Hrs Per Day: .5 hour per day Agreement: Yes Rehab Potential: Fair Time/GCodes Start Time: 11:20 Stop Time: 11:50 Total Time Billed (hr/min): 30 Billed Treatment Time 1, EVH x 15minutes, ADL x 15minutes ROYER RECIO OT Apr 08, 2018 16:58
[2018-04-08] MEDS: RT-ADVAIR HFA 115/21 MCG PER PUFF IH SCH (19:53)
[2018-04-08] MEDS: guaiFENesin (MUCINEX) 600 MG TAB PO SCH (21:20)
[2018-04-09 00:09] VITALS: BP 137/65
[2018-04-09] MEDS: NS W/KCL 20 MEQ/L 1,000 ML IV SCH (00:52)
[2018-04-09] MEDS: RT-ALBUTEROL/IPRATROPIUM 3 ML (DUONEB) VIAL INH SCH ×6 (03:06→21:58)
[2018-04-09 04:00] VITALS: BP 169/78
[2018-04-09] MEDS: CATHETER FLUSH 10 ML SYR IV SCH ×3 (05:55→23:12)
[2018-04-09] MEDS: inSUlin ASPART (NovoLOG) 1 UNIT/0.01 ML (CHARGE PER UNIT) SC SCH ×4 (05:55→21:16)
--- NOTE | 2018-04-09 06:47 | Pulmonary Progress Note ---
Subjective Time Seen by a Provider: 07:30 Subjective/Events-last exam c/o LE edema. SOB is stable. Sepsis Event Evaluation Height, Weight, BMI Height: 5'9.00" Weight: 228lbs. 5.0oz. 103.324585cm; 33.7 BMI Method:Estimated Focused Exam Lactate Level 04/07/18 22:50: Lactic Acid Level 1.99 Exam Exam Vital Signs Date Time Temp Pulse Resp B/P (MAP) Pulse Ox O2 Delivery O2 Flow Rate FiO2 04/09/18 04:00 99.1 61 16 169/78 (108) 95 NIV CPAP 3.00 04/09/18 03:06 NIV CPAP 10.00 04/09/18 01:00 60 04/09/18 00:09 98.2 60 20 137/65 (89) 92 NIV CPAP 3.00 04/08/18 22:20 NIV CPAP 10.00 04/08/18 20:14 99.3 60 20 142/74 (96) 92 Vapotherm 40.00 8.00 04/08/18 20:01 Vapotherm 15.00 50 04/08/18 20:00 High Flow N/C 4.00 04/08/18 19:53 87 Vapotherm 8.00 40 04/08/18 19:00 59 04/08/18 16:20 99.9 60 18 137/65 (89) 92 Vapotherm 40.00 8.00 04/08/18 13:44 95 Nasal Cannula 4.00 04/08/18 13:00 60 04/08/18 12:00 99.1 63 16 149/65 (93) 95 Nasal Cannula 3.00 04/08/18 10:03 94 Nasal Cannula 4.00 04/08/18 08:00 99.3 63 16 131/63 (85) 94 Nasal Cannula 3.00 04/08/18 08:00 94 4.00 04/08/18 07:00 59 I & O 04/09/18 07:00 Intake Total 1595 ml Output Total 1050 ml Balance 545 ml Height & Weight Height: 5'9.00" Weight: 228lbs. 5.0oz. 103.777349mi; 33.7 BMI Method:Estimated General Appearance: No Apparent Distress, WD/WN, Obese HEENT: PERRL/EOMI, TMs Normal, Normal ENT Inspection, Pharynx Normal; No Moist Mucous Membranes Neck: Full Range of Motion, Normal Inspection, Non Tender, Supple Respiratory: Lungs Clear, Normal Breath Sounds, No Accessory Muscle Use, No Respiratory Distress Cardiovascular: Regular Rate, Rhythm, No Murmur, Normal Peripheral Pulses, Other (1+ pitting edema bilaterally) Capillary Refill: Less Than 3 Seconds Extremity: Normal Capillary Refill, Non Tender, Other (right knee incision and mild edema but nonerythematous and no discharge from the surgical wound. There is 1+ pitting edema bilateral lower extremities below the knee with compression stockings in place.) Neurologic/Psychiatric: Alert, Oriented x3, Normal Mood/Affect, Other (hard of hearing) Skin: Normal Color, Warm/Dry Results Lab Laboratory Tests 04/07/18 22:50 04/08/18 05:55 Assessment/Plan Assessment/Plan Acute on chronic respiratory failure with hypoxia and mucous plugging -CXR Pulmonary edema -Hep lock IVF -repeat labs and BNP Severe COPD with AE -SVNS -Steroids Atelectasis with mucous plugging -vapotherm for humidity - mucomyst to SVNs - mucinex -Increase activity and monitor CKD PARVIZ -Home BIPAP CORY BERGER DO Apr 09, 2018 06:46
[2018-04-09 07:11] LABS: BASOPHILS % (AUTO) 0 % (0-10); EOSINOPHILS % (AUTO) 0 % (0-10); HEMATOCRIT 32 % (40-54); LYMPHOCYTES # (AUTO) 1.3 X 10^3 (1.0-4.0); LYMPHOCYTES % (AUTO) 22 % (12-44); MEAN CORPUSCULAR HEMOGLOBIN 30 PG (25-34); MEAN CORPUSCULAR HGB CONC 31 G/DL (32-36); MEAN CORPUSCULAR VOLUME 95 FL (80-99); MEAN PLATELET VOLUME 10.9 FL (7.4-10.4); MONOCYTES # (AUTO) 0.6 X 10^3 (0.0-1.0); MONOCYTES % (AUTO) 10 % (0-12); NEUTROPHILS % (AUTO) 68 % (42-75); PLATELET COUNT 205 10^3/uL (130-400); RED BLOOD COUNT 3.39 10^6/uL (4.35-5.85); RED CELL DISTRIBUTION WIDTH 17.8 % (10.0-14.5); WHITE BLOOD COUNT 5.9 10^3/uL (4.3-11.0)
[2018-04-09] MEDS: aCETylcysteine 20% (MUCOMYST) 30ML SOLN VIAL INH SCH ×3 (07:22→18:12)
[2018-04-09 07:29] LABS: BUN/CREATININE RATIO 23; CALCIUM 8.8 MG/DL (8.5-10.1); CARBON DIOXIDE 22 MMOL/L (21-32); CHLORIDE 110 MMOL/L (98-107); CREATININE SERUM 1.11 MG/DL (0.60-1.30); GFR ESTIMATED > 60; GLUCOSE 116 MG/DL (70-105); MAGNESIUM 1.3 MG/DL (1.8-2.4); PHOSPHORUS 3.6 MG/DL (2.3-4.7); POTASSIUM 4.6 MMOL/L (3.6-5.0); SODIUM 141 MMOL/L (135-145)
[2018-04-09] MEDS ORDERED: FUROSEMIDE 40 MG/4 ML INJ (LASIX) IVP NR (07:30)
[2018-04-09] MEDS ORDERED: KCL 20 MEQ TAB (K-DUR) PO NR (07:30)
[2018-04-09] MEDS: RT-ADVAIR HFA 115/21 MCG PER PUFF IH SCH ×2 (07:40→18:12)
[2018-04-09] MEDS: guaiFENesin (MUCINEX) 600 MG TAB PO SCH ×2 (07:51→21:00)
[2018-04-09] MEDS: APIXABAN 5 MG (ELIQUIS) TABLET PO SCH ×2 (07:51→21:00)
--- NOTE | 2018-04-09 08:37 | Progress Note (SOAP) ---
Subjective Subjective Date Seen by Provider: Apr 09, 2018 Time Seen by Provider: 08:32 77 yo M sitting on BSC- he is upset as he had to use the BSC as the vapotherm would not reach the bathroom- assisting him. Breathing is a little better. Pt reports he is coughing up brown mice- (large amount of sputum production). Denies vomiting continues with RUQ/rib pain. Review of Systems General: No Chills HEENT: No Head Aches, No Visual Changes Pulmonary: Dyspnea, Cough Cardiovascular: Paroxysmal Noc. Dyspnea, Lt Headedness Gastrointestinal: No: Nausea, Vomiting, Abdominal Pain Neurological: Weakness, Incoordination; No: Change in speech, Confusion Objective Exam Vital Signs Vital Signs Date Time Temp Pulse Resp B/P (MAP) Pulse Ox O2 Delivery O2 Flow Rate FiO2 04/09/18 08:00 Vapotherm 15.00 50 04/09/18 07:40 95 Vapotherm 15.00 50 04/09/18 07:23 94 Vapotherm 15.00 50 04/09/18 07:00 79 04/09/18 04:00 99.1 61 16 169/78 (108) 95 NIV CPAP 3.00 04/09/18 03:06 NIV CPAP 10.00 04/09/18 01:00 60 04/09/18 00:09 98.2 60 20 137/65 (89) 92 NIV CPAP 3.00 04/08/18 22:20 NIV CPAP 10.00 04/08/18 20:14 99.3 60 20 142/74 (96) 92 Vapotherm 40.00 8.00 04/08/18 20:01 Vapotherm 15.00 50 04/08/18 20:00 High Flow N/C 4.00 04/08/18 19:53 87 Vapotherm 8.00 40 04/08/18 19:00 59 04/08/18 16:20 99.9 60 18 137/65 (89) 92 Vapotherm 40.00 8.00 04/08/18 13:44 95 Nasal Cannula 4.00 04/08/18 13:00 60 04/08/18 12:00 99.1 63 16 149/65 (93) 95 Nasal Cannula 3.00 04/08/18 10:03 94 Nasal Cannula 4.00 I & O 04/09/18 07:00 Intake Total 1995 ml Output Total 1050 ml Balance 945 ml General Appearance: WD/WN, Moderate Distress, Obese Eyes: Bilateral Eye Normal Inspection, Bilateral Eye PERRL, Bilateral Eye EOMI HEENT: PERRL/EOMI, TMs Normal, Normal ENT Inspection, Pharynx Normal; No Moist Mucous Membranes Neck: Full Range of Motion, Normal Inspection, Non Tender, Supple Respiratory: Decreased Breath Sounds (bases), Respiratory Distress, Rhonci Cardiovascular: Regular Rate, Rhythm, No Murmur, Other (1+ pitting edema bilaterally) Gastrointestinal: Normal Bowel Sounds, No Organomegaly, Non Tender, Soft Extremity: Normal Capillary Refill, Non Tender, Other (right knee incision and mild edema but nonerythematous and no discharge from the surgical wound. There is 1+ pitting edema bilateral lower extremities below the knee with compression stockings in place.) Neurologic/Psychiatric: Alert, Oriented x3, Normal Mood/Affect (tearful but starts talking about farm life and gets in a better mood.), Other (hard of hearing) Skin: Normal Color, Warm/Dry Results Lab Laboratory Tests 04/08/18 11:06: Glucometer 177H 04/08/18 16:28: Glucometer 211H 04/08/18 20:29: Glucometer 142H 04/09/18 05:54: Glucometer 167H 04/09/18 06:00: White Blood Count 5.9, Red Blood Count 3.39L, Hemoglobin 10.0L, Hematocrit 32L, Mean Corpuscular Volume 95, Mean Corpuscular Hemoglobin 30, Mean Corpuscular Hemoglobin Concent 31L, Red Cell Distribution Width 17.8H, Platelet Count 205, Mean Platelet Volume 10.9H, Neutrophils (%) (Auto) 68, Lymphocytes (%) (Auto) 22 , Monocytes (%) (Auto) 10, Eosinophils (%) (Auto) 0, Basophils (%) (Auto) 0, Neutrophils # (Auto) 4.0, Lymphocytes # (Auto) 1.3, Monocytes # (Auto) 0.6, Eosinophils # (Auto) 0.0, Basophils # (Auto) 0.0, Sodium Level 141, Potassium Level 4.6, Chloride Level 110H, Carbon Dioxide Level 22, Anion Gap 9, Blood Urea Nitrogen 25H, Creatinine 1.11, Estimat Glomerular Filtration Rate > 60, BUN /Creatinine Ratio 23, Glucose Level 116H, Calcium Level 8.8, Phosphorus Level 3.6, Magnesium Level 1.3L, B-Type Natriuretic Peptide 639.2H Microbiology 04/07/18 Blood Culture - Preliminary, Resulted No growth 04/07/18 Influenza Types A,B Antigen (ABHINAV) - Final, Complete Assessment/Plan Assessment/Plan Admission Dx acute on chronic respiratory failure Assessment and Plan Acute on chronic hypoxic respiratory failure- Dr. Buchanan consulted- consider a bronch for mucus plugging, currently on mucomyst, mucinex currently on cefepime for pneumonia. (J44.9) Acute exacerbation Chronic obstructive pulmonary disease - MAT protocol- steroids, Dr. Buchanan consulted J81.1 pulmonary edema- lasix (N18.3) Chronic kidney disease, stage 3 (moderate) - holding nephrotoxic agents, Creatinine at baseline (I10) Essential (primary) hypertension - he is on beta laura, ARB (E11.40) Type 2 diabetes mellitus with diabetic neuropathy- achs blood sugar, SSI A, stop metformin (I25.10) Atherosclerotic heart disease of [place] coronary artery without angina pectoris- follows with Dr. Macdonald (G47.39) Other sleep apnea- home bipap with oxygen bleed R10.11 Right upper quadrant pain- monitor, LFTs normal, workup negative in [place] with ultrasound, xrays. 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 I have told pt and my concerns though. Right knee internal hardware infection- will complete 6 weeks of rocephin through PICC - under care of Dr. Mckay sacral decubitus ulcer stage ii- wound care consult- present on admission- prior to this admission we were working on a hospital bed at home for the ulcer and his worsening dyspnea. Dispo: doing better today, temperature better. Mentation is better. Pt talking about dying more though. he feels better overall- but still having respiratory complaints and RUQ/rib pain. consider rehab vs d/c to home- pt would like to go home though. Admission Dx acute on chronic respiratory failure Clinical Quality Measures Admission Status Admission Dx acute on chronic respiratory failure DVT/VTE Risk/Contraindication: Risk Factor Score Per Nursin RFS Level Per Nursing on Admit: 4+=Very High YURIY BRITTON MD Apr 09, 2018 08:36
[2018-04-09 08:59] VITALS: BP 149/67
--- NOTE | 2018-04-09 09:54 | Diagnostic Imaging Report ---
Indication: Shortness of breath. Time of exam: 8:19 AM Correlation is made with prior study from one day earlier. The heart is enlarged. There are changes of median sternotomy. Cardiac pacemaker and right upper extremity PICC line remain in place. There is mild central congestion but no overt failure. No effusion is seen. No pneumothorax. Impression: Mild central congestion. Dictated by: Dictated on workstation # [id number]
--- NOTE | 2018-04-09 10:30 | Occupational Ther Daily Note ---
OT Current Status-Daily Note Subjective Pt alert, sitting on BSC. Pt and were upset that he couldn't move well with Vapotherm. Pt agrees to therapy. No c/o pain at this time. Mental Status/Objective Patient Orientation: Person, Place, Time, Situation Functional [place] Measure 0=Not Assessed/NA 4=Minimal Assistance 1=Total Assistance 5=Supervision or Setup 2=Maximal Assistance 6=Modified [place] 3=Moderate Assistance 7=Complete [place] Attachments: IV, Other-See Comments (Vapotherm) ADL-Treatment Pt had transferred onto/off of BSC with CGA using FWW. Mod A with LE's to go from EOB to supine. present in room and assisted pt with shalonda area, BUTLER assisted with cleansing buttocks after BM. Pt unable to reach to feet to don/ doff socks or bath. Nrsg notified of pt's needs. After therapy, pt lying in bed with call light/phone in reach. All needs met in room. Lower Body Dressing (FIM): 2 Toileting (FIM): 2 Transfers (B, C, W/C) (FIM): 4 Toilet/Commode Transfer (FIM): 4 OT Short Term Goals Short Term Goals Time Frame: Apr 15, 2018 Eating(FIM): 6 Grooming(FIM): 5 Bathing(FIM): 4 Upper Body Dressing(FIM): 5 Lower Body Dressing(FIM): 4 Toileting(FIM): 5 Transfers (B,C,W/C) (FIM): 4 Toilet/Commode Transfer(FIM): 4 Additional Short Term Goals: 1-Demonstrate ADL Tasks, 2-Verbalize Understanding , 3-ImproveStrength/[place] 1=Demonstrate adherence to instructed precautions during ADL tasks. 2=Patient will verbalize/demonstrate understanding of assistive devices/ modifications for ADL. 3=Patient will improve strength/tolerance for activity to enable patient to perform ADL's. OT Fci Goals Fci Goals Time Frame: Apr 22, 2018 Eating (FIM): 6 Grooming(FIM): 5 Bathing(FIM): 5 Upper Body Dressing(FIM): 5 Lower Body Dressing(FIM): 5 Toileting(FIM): 6 Transfers (B,C,W/C) (FIM): 6 Toilet/Commode Transfer(FIM): 6 Shower Transfer(FIM): 4 Additional Goals: 1-Demonstrate ADL Tasks, 2-Verbalize Understanding, 3- ImproveStrength/Anderson 1=Demonstrate adherence to instructed precautions during ADL tasks. 2=Patient will verbalize/demonstrate understanding of assistive devices/ modifications for ADL. 3=Patient will improve strength/tolerance for activity to enable patient to perform ADL's. OT Education/Plan Discharge Recommendations Plan/Recommendations: Continue POC Treatment Plan/Plan of Care Patient would benefit from OT for education, treatment and training to promote independence in ADL's, mobility, safety and/or upper extremity function for ADL' s. Plan of Care: ADL Retraining, Functional Mobility, UE Funct Exercise/Act Treatment Duration: Apr 22, 2018 Frequency: 5 times per week Estimated Hrs Per Day: .5 hour per day Agreement: Yes Rehab Potential: Fair Time/GCodes Start Time: 09:10 Stop Time: 10:05 Total Time Billed (hr/min): 55 Billed Treatment Time 1 visit-ADL 4 (55 min) ANDER CORMIER Apr 09, 2018 10:30
[2018-04-09] MEDS: CEFEPIME 2 GM/NS 50 ML IVPB IV SCH ×4 (11:17→23:11)
[2018-04-09 12:00] VITALS: BP 171/81
--- NOTE | 2018-04-09 14:32 | Physical Therapy Daily Note ---
PT Daily Note-Current Subjective Pt. agreeable to Rx 2nd trial. States she has had something every minute and is worn out. "Sorry if I was rude before"." I have been so busy" .Primarily c/o SOB Pain Numeric Pain Scale: 4 Location: Medial Location Body Site: Sacrum (open wound sacrum) Pain Description: Pressure Mental Status Patient Orientation: Normal For Age Attachments: Other-See Comments (vapotherm), IV Transfers Functional [place] Measure 0=Not Assessed/NA 4=Minimal Assistance 1=Total Assistance 5=Supervision or Setup 2=Maximal Assistance 6=Modified [place] 3=Moderate Assistance 7=Complete IndependenceIRFPAI Quality Coding Scale 6 Independent with activity with or without an assistive device 5 Patient requires set up or clean up by helper. Patient completes activity by themselves 4 Supervision or touching assist (CGA). [place] provide cues , steadying assist 3 The helper provides less than half the effort to complete the activity 2 The helper provides more than half the effort to complete the activity 1 Dependent. The helper does all the effort to complete an activity 7 Patient refused to complete or attempt activity 9 The patient did not perform the activity before the current illness or injury 88 Not attempted due to Medical conditions or safety concerns Transfers (B, C, W/C) (FIM): 3 scooting and sup to sit and sit to sup all min to mod assist, sit to stand with bed elevated in height Weight Bearing Right Lower Extremity: Right Full Weight Bearing Left Lower Extremity: Left Full Weight Bearing Gait Training Gait Assistive Device: FWW valente stepping at EOB 4-5 steps to left to get to head of bed before sitting back down Exercises Supine Ex: Ankle pumps, Quad Set, Rolling, Glut sets, Heel Slides, Scooting, Hip abd/add Supine Reps: 12 Treatments sat EOB right at edge with bed level raised to near perching sit, to allow abdomen to be free distally and less pressure to diaphragm and better room for ovalle breaths Assessment Current Status: Fair Progress vapotherm dependent, SOB, activity level poor PT Short Term Goals Short Term Goals Transfers (B,C,W/C) (FIM): 4 PT Custodial Goals Solar Sales Advisor Goals PT Custodial Goals Time Frame: Apr 15, 2018 Transfers (B,C,W/C) (FIM): 6 Gait (FIM): 6 Gait distance (FIM): 3=150 ft Distance: 150ft Gait Level of Assist: 6 Gait Assistive Device: FWW PT Plan Treatment/Plan Treatment Plan: Continue Plan of Care Treatment Plan: Bed Mobility, Education, Functional Activity [place], Functional Strength, Gait, Safety, Therapeutic Exercise, Transfers Treatment Duration: Apr 15, 2018 Frequency: 6 times per week Estimated Hrs Per Day: .25 hour per day Patient and/or Family Agrees t: Yes Safety Risks/Education Patient Education: Transfer Techniques, Correct Positioning, Disease Process, Safety Issues Teaching Recipient: Patient Teaching Methods: Demonstration, Discussion Response to Teaching: Verbalize Understanding, Return Demonstration, Reinforcement Needed Time/GCodes Time In: 1335 Time Out: 1415 Total Billed Treatment Time: 40 Total Billed Treatment 1,EX15m,FA25m G Codes Necessary: LOLA Cabrera DIRECTOR OF PRIMARY CARE Apr 09, 2018 14:32
[2018-04-09 15:40] VITALS: BP 142/57
[2018-04-09 20:00] VITALS: BP 176/75
[2018-04-10] VITALS: BP 177/78
[2018-04-10] MEDS: RT-ALBUTEROL/IPRATROPIUM 3 ML (DUONEB) VIAL INH SCH ×6 (02:11→22:45)
[2018-04-10 04:15] VITALS: BP 140/68
[2018-04-10] MEDS: inSUlin ASPART (NovoLOG) 1 UNIT/0.01 ML (CHARGE PER UNIT) SC SCH ×4 (05:50→21:37)
[2018-04-10] MEDS: CATHETER FLUSH 10 ML SYR IV SCH ×3 (06:24→21:38)
--- NOTE | 2018-04-10 06:53 | Pulmonary Progress Note ---
Subjective Time Seen by a Provider: 06:53 Sepsis Event Evaluation Height, Weight, BMI Height: 5'9.00" Weight: 228lbs. 5.0oz. 103.562594ul; 33.7 BMI Method:Estimated Focused Exam Lactate Level 04/07/18 22:50: Lactic Acid Level 1.99 Exam Exam Vital Signs Date Time Temp Pulse Resp B/P (MAP) Pulse Ox O2 Delivery O2 Flow Rate FiO2 04/10/18 04:15 98.9 64 20 140/68 (92) 94 NIV CPAP 5.00 04/10/18 02:14 90 NIV CPAP 7.00 04/10/18 01:00 60 04/10/18 00:00 97.8 60 22 177/78 (111) 92 NIV CPAP 5.00 04/09/18 22:02 94 High Flow N/C 8.00 04/09/18 20:30 Nasal Cannula 5.00 04/09/18 20:00 98.9 69 20 176/75 (108) 94 High Flow N/C 8.00 04/09/18 19:00 70 04/09/18 18:25 98 Vapotherm 5.00 04/09/18 18:14 98 High Flow N/C 8.00 04/09/18 16:07 98 High Flow N/C 8.00 04/09/18 15:40 98.2 62 22 142/57 (85) 99 Vapotherm 50.00 15.00 04/09/18 14:55 90 Vapotherm 15.00 50 04/09/18 13:00 61 04/09/18 12:00 98.4 61 20 171/81 (111) 96 Vapotherm 50.00 15.00 04/09/18 10:42 91 Vapotherm 15.00 50 04/09/18 08:59 99.0 60 20 149/67 (94) 96 Vapotherm 50.00 15.00 04/09/18 08:00 Vapotherm 15.00 50 04/09/18 07:40 95 Vapotherm 15.00 50 04/09/18 07:23 94 Vapotherm 15.00 50 04/09/18 07:00 79 I & O 04/10/18 07:00 Intake Total 1445 ml Output Total 1975 ml Balance -530 ml Height & Weight Height: 5'9.00" Weight: 228lbs. 5.0oz. 103.419171zs; 33.7 BMI Method:Estimated General Appearance: No Apparent Distress, WD/WN, Obese HEENT: PERRL/EOMI, TMs Normal, Normal ENT Inspection, Pharynx Normal; No Moist Mucous Membranes Neck: Full Range of Motion, Normal Inspection, Non Tender, Supple Respiratory: Lungs Clear, Normal Breath Sounds, No Accessory Muscle Use, No Respiratory Distress Cardiovascular: Regular Rate, Rhythm, No Murmur, Normal Peripheral Pulses, Other (1+ pitting edema bilaterally) Capillary Refill: Less Than 3 Seconds Extremity: Normal Capillary Refill, Non Tender, Other (right knee incision and mild edema but nonerythematous and no discharge from the surgical wound. There is 1+ pitting edema bilateral lower extremities below the knee with compression stockings in place.) Neurologic/Psychiatric: Alert, Oriented x3, Normal Mood/Affect, Other (hard of hearing) Skin: Normal Color, Warm/Dry Results Lab Laboratory Tests 04/09/18 06:00 Assessment/Plan Assessment/Plan Acute on chronic respiratory failure with hypoxia and mucous plugging -CXR Pulmonary edema -Hep lock IVF -repeat labs and BNP -start lasix 40mg PO daily Severe COPD with AE -SVNS -Steroids Atelectasis with mucous plugging -vapotherm for humidity - mucomyst to SVNs - mucinex -Increase activity and monitor CKD PARVIZ -Home LAKHWINDERAP CORY BERGER DO Apr 10, 2018 06:53
[2018-04-10] MEDS ORDERED: MAGNESIUM 1 GM/100 ML IVPB 100 ML IV SCH (07:00)
[2018-04-10] MEDS: aCETylcysteine 20% (MUCOMYST) 30ML SOLN VIAL INH SCH ×3 (07:17→22:45)
[2018-04-10] MEDS: RT-ADVAIR HFA 115/21 MCG PER PUFF IH SCH ×2 (07:17→18:44)
[2018-04-10 08:00] VITALS: BP 180/83
[2018-04-10] MEDS: KCL 10 MEQ TAB (MICRO K) PO SCH (08:07)
[2018-04-10] MEDS: MAGNESIUM 1 GM/100 ML IVPB 100 ML IV SCH ×4 (08:07→10:33)
--- NOTE | 2018-04-10 08:19 | Progress Note (SOAP) ---
Subjective Subjective Date Seen by Provider: Apr 10, 2018 Time Seen by Provider: 08:14 77 yo M continues to improve slowly overall. No fevers for 24hours sputum culture growing pseudomonas Pt is more willing to discuss rehab. He is working with PT/OT still spitting up phlegm. Review of Systems General: No Chills, No Night Sweats HEENT: No Head Aches Pulmonary: Dyspnea, Cough Cardiovascular: Paroxysmal Noc. Dyspnea, Lt Headedness; No: Chest Pain Gastrointestinal: No: Nausea, Vomiting, Abdominal Pain Genitourinary: No Dysuria, No Frequency Neurological: Weakness, Incoordination; No: Change in speech, Confusion Objective Exam Vital Signs Vital Signs Date Time Temp Pulse Resp B/P (MAP) Pulse Ox O2 Delivery O2 Flow Rate FiO2 04/10/18 07:18 92 Vapotherm 15.00 50 04/10/18 07:00 61 04/10/18 04:15 98.9 64 20 140/68 (92) 94 NIV CPAP 5.00 04/10/18 02:14 90 NIV CPAP 7.00 04/10/18 01:00 60 04/10/18 00:00 97.8 60 22 177/78 (111) 92 NIV CPAP 5.00 04/09/18 22:02 94 High Flow N/C 8.00 04/09/18 20:30 Nasal Cannula 5.00 04/09/18 20:00 98.9 69 20 176/75 (108) 94 High Flow N/C 8.00 04/09/18 19:00 70 04/09/18 18:25 98 Vapotherm 5.00 04/09/18 18:14 98 High Flow N/C 8.00 04/09/18 16:07 98 High Flow N/C 8.00 04/09/18 15:40 98.2 62 22 142/57 (85) 99 Vapotherm 50.00 15.00 04/09/18 14:55 90 Vapotherm 15.00 50 04/09/18 13:00 61 04/09/18 12:00 98.4 61 20 171/81 (111) 96 Vapotherm 50.00 15.00 04/09/18 10:42 91 Vapotherm 15.00 50 04/09/18 08:59 99.0 60 20 149/67 (94) 96 Vapotherm 50.00 15.00 I & O 04/10/18 07:00 Intake Total 1595 ml Output Total 2325 ml Balance -730 ml General Appearance: WD/WN, Mild Distress, Obese Eyes: Bilateral Eye Normal Inspection, Bilateral Eye PERRL, Bilateral Eye EOMI HEENT: PERRL/EOMI, TMs Normal, Normal ENT Inspection, Pharynx Normal; No Moist Mucous Membranes Neck: Full Range of Motion, Normal Inspection, Non Tender, Supple Respiratory: Lungs Clear, Decreased Breath Sounds (right base > left), Respiratory Distress Cardiovascular: Regular Rate, Rhythm, No Murmur, Normal Peripheral Pulses, Other (1+ pitting edema bilaterally) Gastrointestinal: Normal Bowel Sounds, No Organomegaly, Non Tender, Soft Extremity: Normal Capillary Refill, Non Tender, Other (right knee incision and mild edema but nonerythematous and no discharge from the surgical wound. There is 1+ pitting edema bilateral lower extremities below the knee with compression stockings in place.) Neurologic/Psychiatric: Alert, Oriented x3, Normal Mood/Affect, Other (hard of hearing) Skin: Normal Color, Warm/Dry Results Lab Laboratory Tests 04/09/18 10:54: Glucometer 174H 04/09/18 15:44: Glucometer 333H 04/09/18 21:13: Glucometer 169H 04/10/18 05:43: Glucometer 141H Microbiology 04/07/18 Blood Culture - Preliminary, Resulted No growth 04/07/18 Influenza Types A,B Antigen (ABHINAV) - Final, Complete 04/07/18 Urine Culture - Final, Complete NO GROWTH Assessment/Plan Assessment/Plan Admission Dx acute on chronic respiratory failure Assessment and Plan Acute on chronic hypoxic respiratory failure- with mucus plugging Dr. Buchanan consulted- continue on mucomyst, mucinex currently on cefepime for pneumonia. sputum culture growing out pseudomonas- R to cefepime- switched to levofloxacin 04/10/18 (J44.9) Acute exacerbation Chronic obstructive pulmonary disease - MAT protocol- steroids, Dr. Buchanan consulted J81.1 pulmonary edema- lasix (N18.3) Chronic kidney disease, stage 3 (moderate) - holding nephrotoxic agents, Creatinine at baseline (I10) Essential (primary) hypertension - he is on beta laura, ARB (E11.40) Type 2 diabetes mellitus with diabetic neuropathy- achs blood sugar, SSI A, stop metformin (I25.10) Atherosclerotic heart disease of [place] coronary artery without angina pectoris- follows with Dr. Macdonald (G47.39) Other sleep apnea- home bipap with oxygen bleed R10.11 Right upper quadrant pain- monitor, LFTs normal, workup negative in [place] with ultrasound, xrays. 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 I have told pt and my concerns though. E83.42 hypomagnesemia- replacing. Right knee internal hardware infection- on home rocephin through PICC - under care of Dr. Mckay sacral decubitus ulcer stage ii- wound care- improving Dispo: will order rehab evaluation- pt currently on vapotherm mainly for humidified air and decrease his work of breathing should be able to switch to close to his new baseline oxygen of 4L via [place] should be able to go to Rehab- plan for admission Saturday? Pt would benefit from rehab and have a more successful return home. DVT ppx- on eliquis Prognosis : guarded. Admission Dx acute on chronic respiratory failure Clinical Quality Measures Admission Status Admission Dx acute on chronic respiratory failure DVT/VTE Risk/Contraindication: Risk Factor Score Per Nursin RFS Level Per Nursing on Admit: 4+=Very High YURIY BRITTON MD Apr 10, 2018 08:19
--- NOTE | 2018-04-10 08:33 | Occupational Ther Daily Note ---
OT Current Status-Daily Note Subjective Pt alert, sitting in recliner. Pt agrees to therapy. Pt c/o spasms when sitting. was asked about a block for his back spasms, directed pt and to discuss with the physicians. Mental Status/Objective Patient Orientation: Person, Place, Time, Situation Functional [place] Measure 0=Not Assessed/NA 4=Minimal Assistance 1=Total Assistance 5=Supervision or Setup 2=Maximal Assistance 6=Modified [place] 3=Moderate Assistance 7=Complete [place] Attachments: IV, Other-See Comments (vapotherm) ADL-Treatment Nrsg got pt up in recliner and was eating breakfast. Pt is able to open containers and packages though typically does this for the pt. Pt able to use regular utensils to feed self though after each bite is SOA and has to rest in between. Discussed with pt breathing exercises for calming and relaxation. Pt tends to breath through the mouth and is not using O2 effectively, educated on breathing through nose and out mouth. directs pt to do this. Physician came into room for rounds. After therapy, pt sitting in recliner with call light/phone in reach. All needs met in room. Education OT Patient Education: Other (Breathing techniques) Teaching Recipient: Patient, Family Teaching Methods: Demonstration, Discussion Response to Teaching: Verbalize Understanding, Reinforcement Needed OT Short Term Goals Short Term Goals Time Frame: Apr 15, 2018 Eating(FIM): 6 Grooming(FIM): 5 Bathing(FIM): 4 Upper Body Dressing(FIM): 5 Lower Body Dressing(FIM): 4 Toileting(FIM): 5 Transfers (B,C,W/C) (FIM): 4 Toilet/Commode Transfer(FIM): 4 Additional Short Term Goals: 1-Demonstrate ADL Tasks, 2-Verbalize Understanding , 3-ImproveStrength/[place] 1=Demonstrate adherence to instructed precautions during ADL tasks. 2=Patient will verbalize/demonstrate understanding of assistive devices/ modifications for ADL. 3=Patient will improve strength/tolerance for activity to enable patient to perform ADL's. OT [facility] Goals Hospital Recruiter Goals Time Frame: Apr 22, 2018 Eating (FIM): 6 Grooming(FIM): 5 Bathing(FIM): 5 Upper Body Dressing(FIM): 5 Lower Body Dressing(FIM): 5 Toileting(FIM): 6 Transfers (B,C,W/C) (FIM): 6 Toilet/Commode Transfer(FIM): 6 Shower Transfer(FIM): 4 Additional Goals: 1-Demonstrate ADL Tasks, 2-Verbalize Understanding, 3- ImproveStrength/Anderson 1=Demonstrate adherence to instructed precautions during ADL tasks. 2=Patient will verbalize/demonstrate understanding of assistive devices/ modifications for ADL. 3=Patient will improve strength/tolerance for activity to enable patient to perform ADL's. OT Education/Plan Discharge Recommendations Plan/Recommendations: Continue POC Treatment Plan/Plan of Care Patient would benefit from OT for education, treatment and training to promote independence in ADL's, mobility, safety and/or upper extremity function for ADL' s. Plan of Care: ADL Retraining, Functional Mobility, UE Funct Exercise/Act Treatment Duration: Apr 22, 2018 Frequency: 5 times per week Estimated Hrs Per Day: .5 hour per day Agreement: Yes Rehab Potential: Fair Time/GCodes Start Time: 08:20 Stop Time: 08:30 Total Time Billed (hr/min): 10 Billed Treatment Time 1 visit-FA 1 (10 min) ANDER CORMIER Apr 10, 2018 08:33
[2018-04-10] MEDS: APIXABAN 5 MG (ELIQUIS) TABLET PO SCH ×2 (09:16→21:37)
[2018-04-10] MEDS: FUROSEMIDE 40 MG (LASIX) TAB PO SCH (09:16)
[2018-04-10] MEDS: guaiFENesin (MUCINEX) 600 MG TAB PO SCH ×2 (09:16→21:37)
[2018-04-10] MEDS: meTOprolol SUCCINATE 100 MG (TOPROL XL) TAB PO SCH (09:26)
[2018-04-10] MEDS: ENALAPRIL 5 MG (VASOTEC) TAB PO SCH (09:26)
[2018-04-10] MEDS: oxyCODONE/APAP 5/325MG (PERCOCET 5) TABLET PO PRN (09:27)
[2018-04-10] MEDS: ALLOPURINOL 100 MG (ZYLOPRIM) TAB PO SCH (09:27)
--- NOTE | 2018-04-10 11:43 | Physical Therapy Daily Note ---
PT Daily Note-Current Subjective Patient in bed pre tx, agrees to PT, no complaints of pain. Patient has a breathing treatment on and it has been done for about 15 min, took it off and placed it to the side. Appearance Patient in bed post tx with nurse call, phone, tray, family in the room. Mental Status Patient Orientation: Normal For Age Attachments: Oxygen, IV on vapotherm Transfers Functional [place] Measure 0=Not Assessed/NA 4=Minimal Assistance 1=Total Assistance 5=Supervision or Setup 2=Maximal Assistance 6=Modified [place] 3=Moderate Assistance 7=Complete IndependenceIRFPAI Quality Coding Scale 6 Independent with activity with or without an assistive device 5 Patient requires set up or clean up by helper. Patient completes activity by themselves 4 Supervision or touching assist (CGA). [place] provide cues , steadying assist 3 The helper provides less than half the effort to complete the activity 2 The helper provides more than half the effort to complete the activity 1 Dependent. The helper does all the effort to complete an activity 7 Patient refused to complete or attempt activity 9 The patient did not perform the activity before the current illness or injury 88 Not attempted due to Medical conditions or safety concerns Transfers (B, C, W/C) (FIM): 3 Scootin Rollin Supine to/from Sit: 3 Sit to/from Stand: 5 Patient needs mod assist just to go from sit to supine because he needs assist with both legs, needs min assist for supine to sit. Weight Bearing Right Lower Extremity: Right Full Weight Bearing Left Lower Extremity: Left Full Weight Bearing Gait Training Gait (FIM): 1 Distance: 20' Gait Level of Assist: 5 Gait Persons Needed: 1 Gait Assistive Device: FWW Patient can only ambulate forward and back, limited by the line on the vapotherm , he fatigued after about 20 feet. Patient steady but gets SOB with activity. Exercises Supine Ex: Ankle pumps, Quad Set, Heel Slides, Short Arc Quads, Straight leg raise Supine Reps: 15 Treatments bed mobility and transfers, ambulation, functional strengthening Assessment Current Status: Fair Progress Improving ambulation but patient does get SOB very quickly. His O2 gets down to 89% with activity or talking but comes back up quickly with rest. PT Short Term Goals Short Term Goals Transfers (B,C,W/C) (FIM): 4 PT Assisted Goals Assisted Goals PT [employer] Developer Goals Time Frame: Apr 15, 2018 Transfers (B,C,W/C) (FIM): 6 Gait (FIM): 6 Gait distance (FIM): 3=150 ft Distance: 150ft Gait Level of Assist: 6 Gait Assistive Device: FWW PT Plan Problem List Problem List: Activity Tolerance, Functional Strength, Safety, Balance, Gait, Transfer, Bed Mobility, ROM Treatment/Plan Treatment Plan: Continue Plan of Care Treatment Plan: Bed Mobility, Education, Functional Activity [place], Functional Strength, Gait, Safety, Therapeutic Exercise, Transfers Treatment Duration: Apr 15, 2018 Frequency: 6 times per week Estimated Hrs Per Day: .25 hour per day Patient and/or Family Agrees t: Yes Safety Risks/Education Patient Education: Gait Training, Transfer Techniques, Correct Positioning, Safety Issues Teaching Recipient: Patient Teaching Methods: Demonstration, Discussion Response to Teaching: Reinforcement Needed Time/GCodes Time In: 1120 Time Out: 1135 Total Billed Treatment Time: 15 Total Billed Treatment 1 visit GT 15' TONI OSEGUERA PT Apr 10, 2018 11:43
[2018-04-10 12:00] VITALS: BP 159/79
[2018-04-10] MEDS: CEFEPIME 2 GM/NS 50 ML IVPB IV SCH ×2 (12:26)
[2018-04-10] MEDS: LEVOFLOXACIN 750 MG/150 ML IV 150 ML IV SCH (15:13)
[2018-04-10] MEDS: cefTRIAXone FOR IV USE 2,000 MG in NS (IVPB) 50 ML IV SCH (15:24)
[2018-04-10 15:42] VITALS: BP 175/84
[2018-04-10 19:48] VITALS: BP 165/75
[2018-04-10] MEDS: TAMSULOSIN 0.4 MG (FLOMAX) CAP PO SCH (21:37)
[2018-04-11] VITALS (7 sets, daily range): BP systolic 153–178; BP diastolic 66–86
[2018-04-11] MEDS: RT-ALBUTEROL/IPRATROPIUM 3 ML (DUONEB) VIAL INH SCH ×6 (02:29→22:15)
[2018-04-11] MEDS: KCL 10 MEQ TAB (MICRO K) PO SCH (05:53)
[2018-04-11] MEDS: inSUlin ASPART (NovoLOG) 1 UNIT/0.01 ML (CHARGE PER UNIT) SC SCH ×4 (05:54→20:31)
[2018-04-11] MEDS: CATHETER FLUSH 10 ML SYR IV SCH ×3 (06:00→20:35)
[2018-04-11 06:07] LABS: BASOPHILS % (AUTO) 0 % (0-10); EOSINOPHILS % (AUTO) 0 % (0-10); HEMATOCRIT 29 % (40-54); HEMOGLOBIN 9.1 G/DL (13.3-17.7); LYMPHOCYTES # (AUTO) 1.3 X 10^3 (1.0-4.0); LYMPHOCYTES % (AUTO) 27 % (12-44); MEAN CORPUSCULAR HEMOGLOBIN 30 PG (25-34); MEAN CORPUSCULAR HGB CONC 31 G/DL (32-36); MEAN CORPUSCULAR VOLUME 95 FL (80-99); MEAN PLATELET VOLUME 10.8 FL (7.4-10.4); MONOCYTES # (AUTO) 0.6 X 10^3 (0.0-1.0); MONOCYTES % (AUTO) 11 % (0-12); NEUTROPHILS % (AUTO) 61 % (42-75); PLATELET COUNT 193 10^3/uL (130-400); RED BLOOD COUNT 3.07 10^6/uL (4.35-5.85); RED CELL DISTRIBUTION WIDTH 17.4 % (10.0-14.5)
[2018-04-11 06:19] LABS: ALBUMIN 2.4 GM/DL (3.2-4.5); BUN/CREATININE RATIO 28; CALCIUM 8.6 MG/DL (8.5-10.1); CARBON DIOXIDE 22 MMOL/L (21-32); CHLORIDE 109 MMOL/L (98-107); CREATININE SERUM 0.96 MG/DL (0.60-1.30); GFR ESTIMATED > 60; GLUCOSE 121 MG/DL (70-105); MAGNESIUM 1.8 MG/DL (1.8-2.4); POTASSIUM 3.6 MMOL/L (3.6-5.0); SODIUM 141 MMOL/L (135-145)
[2018-04-11] MEDS: aCETylcysteine 20% (MUCOMYST) 30ML SOLN VIAL INH SCH ×3 (07:16→18:54)
[2018-04-11] MEDS: RT-ADVAIR HFA 115/21 MCG PER PUFF IH SCH ×2 (07:18→18:54)
[2018-04-11] MEDS ORDERED: RT-ALBUTEROL/IPRATROPIUM 3 ML (DUONEB) VIAL INH PRN (07:30)
[2018-04-11] MEDS: MAGNESIUM OXIDE (MAG-OX)400 MG TAB PO SCH ×2 (08:50→17:28)
[2018-04-11] MEDS: APIXABAN 5 MG (ELIQUIS) TABLET PO SCH ×2 (08:50→20:30)
[2018-04-11] MEDS: meTOprolol SUCCINATE 100 MG (TOPROL XL) TAB PO SCH (08:50)
[2018-04-11] MEDS: ALLOPURINOL 100 MG (ZYLOPRIM) TAB PO SCH (08:50)
[2018-04-11] MEDS: FUROSEMIDE 40 MG (LASIX) TAB PO SCH (08:50)
[2018-04-11] MEDS: guaiFENesin (MUCINEX) 600 MG TAB PO SCH ×2 (08:50→20:30)
[2018-04-11] MEDS: ENALAPRIL 5 MG (VASOTEC) TAB PO SCH (08:50)
[2018-04-11] MEDS: cefTRIAXone FOR IV USE 2,000 MG in NS (IVPB) 50 ML IV SCH (08:51)
--- NOTE | 2018-04-11 09:11 | Progress Note (SOAP) ---
Subjective Subjective Date Seen by Provider: Apr 11, 2018 Time Seen by Provider: 09:06 77 yo M continues to improve slowly overall. No fevers for 24hours He is lying in the hospital bed on 4L oxygen [place]. Vapotherm is off. He did have a panic episode again last night -appears that he gets anxious with sensation of trouble breathing and it makes him worse. Usually occurs after using the restroom. -Pt is agreeable to go to rehab (if accepted) Review of Systems General: No Chills, No Night Sweats HEENT: No Head Aches Pulmonary: Dyspnea (improved), Cough Cardiovascular: Paroxysmal Noc. Dyspnea, Lt Headedness; No: Chest Pain Gastrointestinal: No: Nausea, Vomiting, Abdominal Pain Genitourinary: No Dysuria, No Frequency Neurological: Weakness, Incoordination; No: Change in speech, Confusion Objective Exam Vital Signs Vital Signs Date Time Temp Pulse Resp B/P (MAP) Pulse Ox O2 Delivery O2 Flow Rate FiO2 04/11/18 08:38 99.1 60 20 178/80 (112) 100 High Flow N/C 10.00 04/11/18 07:16 98 Nasal Cannula 10.00 04/11/18 07:16 60 98 04/11/18 07:00 61 04/11/18 04:00 98.9 62 20 170/66 (100) 95 NIV CPAP 04/11/18 02:29 96 NIV CPAP 2.00 04/11/18 00:00 98.9 60 20 153/70 (97) 97 NIV CPAP 04/10/18 22:46 93 Vapotherm 15.00 50 04/10/18 20:30 Vapotherm 04/10/18 19:48 98.3 60 22 165/75 (105) 94 Vapotherm 50.00 15.00 04/10/18 19:00 60 04/10/18 18:44 91 Vapotherm 15.00 50 04/10/18 15:42 98.5 60 24 175/84 (114) 95 Vapotherm 50.00 15.00 04/10/18 15:07 94 Vapotherm 15.00 50 04/10/18 12:51 63 04/10/18 12:00 98.3 59 24 159/79 (105) 94 Vapotherm 50.00 15.00 04/10/18 10:43 92 Vapotherm 15.00 50 04/10/18 10:00 98.6 I & O 04/11/18 07:00 Intake Total 2880 ml Output Total 1200 ml Balance 1680 ml General Appearance: WD/WN, Mild Distress, Obese Eyes: Bilateral Eye Normal Inspection, Bilateral Eye PERRL, Bilateral Eye EOMI HEENT: PERRL/EOMI, Normal ENT Inspection, Pharynx Normal; No Moist Mucous Membranes Neck: Full Range of Motion, Normal Inspection, Non Tender, Supple Respiratory: Lungs Clear, Decreased Breath Sounds (right base > left); No Respiratory Distress Cardiovascular: Regular Rate, Rhythm, No Murmur, Normal Peripheral Pulses, Other (1+ pitting edema bilaterally) Gastrointestinal: Normal Bowel Sounds, No Organomegaly, Non Tender, Soft Back: No CVA Tenderness, No Vertebral Tenderness Extremity: Normal Capillary Refill, Non Tender, Other (right knee incision and mild edema but nonerythematous and no discharge from the surgical wound. There is 1+ pitting edema bilateral lower extremities below the knee with compression stockings in place.) Neurologic/Psychiatric: Alert, Oriented x3, Normal Mood/Affect, Other (hard of hearing) Skin: Normal Color, Warm/Dry Results Lab Laboratory Tests 04/10/18 11:02: Glucometer 197H 04/10/18 15:45: Glucometer 221H 04/10/18 21:29: Glucometer 225H 04/11/18 05:50: White Blood Count 5.0, Red Blood Count 3.07L, Hemoglobin 9.1L, Hematocrit 29L, Mean Corpuscular Volume 95, Mean Corpuscular Hemoglobin 30, Mean Corpuscular Hemoglobin Concent 31L, Red Cell Distribution Width 17.4H, Platelet Count 193, Mean Platelet Volume 10.8H, Neutrophils (%) (Auto) 61, Lymphocytes (%) (Auto) 27 , Monocytes (%) (Auto) 11, Eosinophils (%) (Auto) 0, Basophils (%) (Auto) 0, Neutrophils # (Auto) 3.0, Lymphocytes # (Auto) 1.3, Monocytes # (Auto) 0.6, Eosinophils # (Auto) 0.0, Basophils # (Auto) 0.0, Sodium Level 141, Potassium Level 3.6, Chloride Level 109H, Carbon Dioxide Level 22, Anion Gap 10, Blood Urea Nitrogen 27H, Creatinine 0.96, Estimat Glomerular Filtration Rate > 60, BUN /Creatinine Ratio 28, Glucose Level 121H, Calcium Level 8.6, Phosphorus Level 3.0, Magnesium Level 1.8, Albumin 2.4L 04/11/18 05:53: Glucometer 125H Microbiology 04/07/18 Blood Culture - Preliminary, Resulted No growth 04/07/18 Influenza Types A,B Antigen (ABHINAV) - Final, Complete 04/07/18 Urine Culture - Final, Complete NO GROWTH Assessment/Plan Assessment/Plan Admission Dx acute on chronic respiratory failure Assessment and Plan Acute on chronic hypoxic respiratory failure- with mucus plugging Dr. Buchanan consulted- continue mucinex sputum culture growing out pseudomonas- R to cefepime- switched to levofloxacin 04/10/18 (J44.9) Acute exacerbation Chronic obstructive pulmonary disease - MAT protocol- steroids, Dr. Buchanan consulted - improved CT chest pulmonary edema J81.1 pulmonary edema- lasix (N18.3) Chronic kidney disease, stage 3 (moderate) - holding nephrotoxic agents, Creatinine at baseline (I10) Essential (primary) hypertension - beta laura, ARB (E11.40) Type 2 diabetes mellitus with diabetic neuropathy- achs blood sugar, SSI A, stop metformin (I25.10) Atherosclerotic heart disease of [place] coronary artery without angina pectoris- follows with Dr. Macdonald (G47.39) Other sleep apnea- home bipap with oxygen R10.11 Right upper quadrant pain- monitor, LFTs normal, workup negative in [place] with ultrasound, xrays. 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 I have told pt and my concerns though. E83.42 hypomagnesemia- replacing. Right knee internal hardware infection- on home rocephin through PICC - follows with Dr. Mckay sacral decubitus ulcer stage ii- wound care- improving Dispo: will order rehab evaluation-Pt would benefit from rehab and have a more successful return home. If he is not accepted to rehab will change his hospital status to Swing Bed to continue PT, OT and monitor respiratory status. Pt is not in a state of being able to return home as his respiratory status may decompensate quickly. He is still on IV antibiotics. DVT ppx- on eliquis Prognosis : improved, overall fair Admission Dx acute on chronic respiratory failure Clinical Quality Measures Admission Status Admission Dx acute on chronic respiratory failure DVT/VTE Risk/Contraindication: Risk Factor Score Per Nursin RFS Level Per Nursing on Admit: 4+=Very High YURIY BRITTON MD Apr 11, 2018 09:11
[2018-04-11] MEDS ORDERED: ALPRAZolam 0.5 MG (XANAX) TAB PO PRN (09:15)
--- NOTE | 2018-04-11 09:38 | Occupational Ther Daily Note ---
OT Current Status-Daily Note Subjective Pt alert, lying in bed. Agrees to therapy. No c/o pain at this time. Mental Status/Objective Patient Orientation: Person, Place, Time, Situation Functional [place] Measure 0=Not Assessed/NA 4=Minimal Assistance 1=Total Assistance 5=Supervision or Setup 2=Maximal Assistance 6=Modified [place] 3=Moderate Assistance 7=Complete [place] Other Treatment Light resistance theraband UE exercises completed to increase activity tolerance and UE strengthening. Pt appeared SOA after each exercise and require recovery breaks between each exercise, 3 sets 10 reps. Pt requires verbal and physical cues for UE positioning throughout each exercise. Theraband left in room with instructions to complete exercises throughout the day. After therapy, pt lying in bed with call light/phone in reach. All needs met in room. Education OT Patient Education: Exercise program Teaching Recipient: Patient, Family Teaching Methods: Demonstration, Discussion Response to Teaching: Verbalize Understanding, Return Demonstration, Reinforcement Needed OT Short Term Goals Short Term Goals Time Frame: Apr 15, 2018 Eating(FIM): 6 Grooming(FIM): 5 Bathing(FIM): 4 Upper Body Dressing(FIM): 5 Lower Body Dressing(FIM): 4 Toileting(FIM): 5 Transfers (B,C,W/C) (FIM): 4 Toilet/Commode Transfer(FIM): 4 Additional Short Term Goals: 1-Demonstrate ADL Tasks, 2-Verbalize Understanding , 3-ImproveStrength/[place] 1=Demonstrate adherence to instructed precautions during ADL tasks. 2=Patient will verbalize/demonstrate understanding of assistive devices/ modifications for ADL. 3=Patient will improve strength/tolerance for activity to enable patient to perform ADL's. OT Aircraft Engine Technician Goals Custodial Goals Time Frame: Apr 22, 2018 Eating (FIM): 6 Grooming(FIM): 5 Bathing(FIM): 5 Upper Body Dressing(FIM): 5 Lower Body Dressing(FIM): 5 Toileting(FIM): 6 Transfers (B,C,W/C) (FIM): 6 Toilet/Commode Transfer(FIM): 6 Shower Transfer(FIM): 4 Additional Goals: 1-Demonstrate ADL Tasks, 2-Verbalize Understanding, 3- ImproveStrength/Anderson 1=Demonstrate adherence to instructed precautions during ADL tasks. 2=Patient will verbalize/demonstrate understanding of assistive devices/ modifications for ADL. 3=Patient will improve strength/tolerance for activity to enable patient to perform ADL's. OT Education/Plan Discharge Recommendations Plan/Recommendations: Continue POC Treatment Plan/Plan of Care Patient would benefit from OT for education, treatment and training to promote independence in ADL's, mobility, safety and/or upper extremity function for ADL' s. Plan of Care: ADL Retraining, Functional Mobility, UE Funct Exercise/Act Treatment Duration: Apr 22, 2018 Frequency: 5 times per week Estimated Hrs Per Day: .5 hour per day Agreement: Yes Rehab Potential: Fair Time/GCodes Start Time: 08:50 Stop Time: 09:10 Total Time Billed (hr/min): 20 Billed Treatment Time 1 visit-EX 1 (20 min) ANDER CORMIER Apr 11, 2018 09:38
--- NOTE | 2018-04-11 10:43 | Physical Therapy Daily Note ---
PT Daily Note-Current Subjective Pt reports no new complaints today, just the same SOB with activities and occasional increased pain in right side with activities. States his knee hasn't really been giving him a problem today Pain Numeric Pain Scale: 7 Location: Right Comment: left side rib area lateral to back Transfers Functional [place] Measure 0=Not Assessed/NA 4=Minimal Assistance 1=Total Assistance 5=Supervision or Setup 2=Maximal Assistance 6=Modified [place] 3=Moderate Assistance 7=Complete IndependenceIRFPAI Quality Coding Scale 6 Independent with activity with or without an assistive device 5 Patient requires set up or clean up by helper. Patient completes activity by themselves 4 Supervision or touching assist (CGA). [place] provide cues , steadying assist 3 The helper provides less than half the effort to complete the activity 2 The helper provides more than half the effort to complete the activity 1 Dependent. The helper does all the effort to complete an activity 7 Patient refused to complete or attempt activity 9 The patient did not perform the activity before the current illness or injury 88 Not attempted due to Medical conditions or safety concerns Transfers (B, C, W/C) (FIM): 4 Supine to/from Sit: 4 Sit to/from Stand: 4 Pt performed x6 sit to/from stand transfers from EOB, min verb inst required for hand placement and safety techniques Weight Bearing Right Lower Extremity: Right Full Weight Bearing Left Lower Extremity: Left Full Weight Bearing Gait Training Gait (FIM): 1 Distance (FIM): 1=up to 49 ft Distance: 10' x2 Gait Level of Assist: 5 Gait Persons Needed: 2 (assist with O2 tubing and pulse ox cords) Gait Assistive Device: FWW Pt on 10L high flow O2 per NC. O2 sats 99-88% during tx session. Decreased lowest during short gait distances but able to improve within 30 seconds with verb inst and performance of breathing techniques. Decreased gait distance today due to remaining in pt's room Exercises Seated Therapy Exercises: Ankle pumps, Sit to stand, Long arc quads, Hip flexion, Hip abd/add Seated Reps: 10 (10-15) Assessment decreasing O2 sats to 88% during short distance gait but able to increase with breathing techniques. Gait limited today due to SOA. From a PT standpoint, patient may require extended care facility due to patient inability to tolerate intensive therapies. PT Short Term Goals Short Term Goals Transfers (B,C,W/C) (FIM): 4 PT Penit[facility] Goals Partner Alliance Manager Goals PT [facility] Goals Time Frame: Apr 15, 2018 Transfers (B,C,W/C) (FIM): 6 Gait (FIM): 6 Gait distance (FIM): 3=150 ft Distance: 150ft Gait Level of Assist: 6 Gait Assistive Device: FWW PT Plan Problem List Problem List: Activity Tolerance, Gait, Transfer, Bed Mobility, ROM Treatment/Plan Treatment Plan: Continue Plan of Care Treatment Plan: Bed Mobility, Education, Functional Activity [place], Functional Strength, Gait, Safety, Therapeutic Exercise, Transfers Treatment Duration: Apr 15, 2018 Frequency: 6 times per week Estimated Hrs Per Day: .25 hour per day Patient and/or Family Agrees t: Yes Safety Risks/Education Patient Education: Transfer Techniques, Safety Issues Teaching Recipient: Patient, Family Teaching Methods: Demonstration, Discussion Response to Teaching: Verbalize Understanding, Return Demonstration, Reinforcement Needed Verb inst and demo with return demo by pt for breathing techniques to help control SOA and decreasing O2 sats Discharge Recommendations Plan Cont per POC to assist pt in achieving goals Time/GCodes Time In: 915 Time Out: 953 Total Billed Treatment Time: 38 Total Billed Treatment 1 visit, FA x 2 28 min, Gait 10 min RADHA TITUS PT Apr 11, 2018 10:43
[2018-04-11] MEDS ORDERED: DEXAMETHASONE 4 MG TAB (DECADRON) PO NR (11:00)
[2018-04-11] MEDS: LEVOFLOXACIN 750 MG/150 ML IV 150 ML IV SCH (14:15)
[2018-04-11] MEDS: TAMSULOSIN 0.4 MG (FLOMAX) CAP PO SCH (20:30)
[2018-04-12] VITALS: BP 136/65
[2018-04-12] MEDS: RT-ALBUTEROL/IPRATROPIUM 3 ML (DUONEB) VIAL INH SCH ×6 (02:44→22:58)
[2018-04-12 04:00] VITALS: BP 175/78
[2018-04-12] MEDS: CATHETER FLUSH 10 ML SYR IV SCH ×3 (06:00→22:00)
[2018-04-12] MEDS: KCL 10 MEQ TAB (MICRO K) PO SCH (06:21)
[2018-04-12] MEDS: inSUlin ASPART (NovoLOG) 1 UNIT/0.01 ML (CHARGE PER UNIT) SC SCH ×4 (06:21→21:25)
[2018-04-12] MEDS: aCETylcysteine 20% (MUCOMYST) 30ML SOLN VIAL INH SCH ×3 (06:56→22:58)
[2018-04-12] MEDS: RT-ADVAIR HFA 115/21 MCG PER PUFF IH SCH ×2 (06:58→18:36)
[2018-04-12 08:45] VITALS: BP 164/72
[2018-04-12] MEDS: FUROSEMIDE 40 MG (LASIX) TAB PO SCH (09:41)
[2018-04-12] MEDS: cefTRIAXone FOR IV USE 2,000 MG in NS (IVPB) 50 ML IV SCH (09:41)
[2018-04-12] MEDS: MAGNESIUM OXIDE (MAG-OX)400 MG TAB PO SCH ×2 (09:41→17:48)
[2018-04-12] MEDS: guaiFENesin (MUCINEX) 600 MG TAB PO SCH ×2 (09:41→21:24)
[2018-04-12] MEDS: ALLOPURINOL 100 MG (ZYLOPRIM) TAB PO SCH (09:41)
[2018-04-12] MEDS: meTOprolol SUCCINATE 100 MG (TOPROL XL) TAB PO SCH (09:41)
[2018-04-12] MEDS: ENALAPRIL 5 MG (VASOTEC) TAB PO SCH (09:41)
[2018-04-12] MEDS: APIXABAN 5 MG (ELIQUIS) TABLET PO SCH ×2 (09:41→21:24)
--- NOTE | 2018-04-12 11:42 | Progress Note-Hospitalist ---
Subjective HPI/CC On Admission Date Seen by Provider: Apr 12, 2018 Time Seen by Provider: 09:00 Subjective/Events-last exam Patient reports less shortness of breath. Biggest problem is been intermittent unpredictable lancinating right mid and upper quadrant pain that radiates around to the center of his back and only occurs when he is upright. It's not quite as bad in the last 24 hours hasn't previously had been. It's only during these times of pain that he feels lightheaded and short of breath. Otherwise he denies shortness of breath with diminishing sputum production and denies chills or fever. Objective Exam Vital Signs Vital Signs Date Time Temp Pulse Resp B/P (MAP) Pulse Ox O2 Delivery O2 Flow Rate FiO2 04/12/18 10:40 96 High Flow N/C 6.00 04/12/18 08:45 98.4 60 20 164/72 (102) 04/11/18 08:00 50 Capillary Refill : Less Than 3 SecondsLess Than 3 Seconds General Appearance: No Apparent Distress, Obese Respiratory: Chest Non Tender, No Accessory Muscle Use, No Respiratory Distress , Other (Few fine rales in the bases with some diminished breath sounds posteriorly otherwise the chest is clear) Cardiovascular: Regular Rate, Rhythm, No Edema, No Gallop, No JVD, No Murmur, Normal Peripheral Pulses Gastrointestinal: Normal Bowel Sounds, No Organomegaly, No Pulsatile Mass, Non Tender, Soft Extremity: Other (2+ bilateral edema to the upper tibia no erythema is noted there is no pain on range of motion extremities are warm) Results/Procedures Lab Patient resulted labs reviewed. Assessment/Plan Assessment and Plan Assess & Plan/Chief Complaint Admission Dx acute on chronic respiratory failure Assessment and Plan Acute on chronic hypoxic respiratory failure- with mucus plugging Dr. Buchanan consulted- continue mucinex sputum culture growing out pseudomonas- R to cefepime- switched to levofloxacin 04/10/18. Respiratory status significantly improved with minimal sputum production and diminishing shortness of breath. (J44.9) Acute exacerbation Chronic obstructive pulmonary disease - MAT protocol- steroids, Dr. Buchanan consulted - improved CT chest pulmonary edema J81.1 pulmonary edema- lasix (N18.3) Chronic kidney disease, stage 3 (moderate) - holding nephrotoxic agents, Creatinine at baseline (I10) Essential (primary) hypertension - beta laura, ARB (E11.40) Type 2 diabetes mellitus with diabetic neuropathy- achs blood sugar, SSI A, stop metformin (I25.10) Atherosclerotic heart disease of [place] coronary artery without angina pectoris- follows with Dr. Macdonald (G47.39) Other sleep apnea- home bipap with oxygen R10.11 Right upper quadrant pain- monitor, LFTs normal, workup negative in [place] with ultrasound, xrays. 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 I have told pt and my concerns though. The patient is reporting intermittent right mid and upper quadrant abdominal pain that radiates around to his back compatible with radiculopathy. It occurs only with standing. Considering likely diagnosis of multiple myeloma metastatic disease is a concern. The patient has an older pacemaker likely not a candidate for an MRI considering renal insufficiency will proceed with noncontrast CT scan of the thoracic and lumbar spine. E83.42 hypomagnesemia- replacing. Right knee internal hardware infection- on home rocephin through PICC - follows with Dr. Mckay sacral decubitus ulcer stage ii- wound care- improving Clinical Quality Measures DVT/VTE Risk/Contraindication: Risk Factor Score Per Nursin RFS Level Per Nursing on Admit: 4+=Very High CELI JIMENEZ MD Apr 12, 2018 11:42
[2018-04-12 12:12] VITALS: BP 158/76
--- NOTE | 2018-04-12 13:01 | Physical Therapy Daily Note ---
PT Daily Note-Current Subjective Pt returning from imaging. Agreeable to ambulate; "If you get me an oxygen tank I think I can walk in the hallway". Mental Status Patient Orientation: Person, Place, Time, Situation Attachments: Oxygen Transfers Functional [place] Measure 0=Not Assessed/NA 4=Minimal Assistance 1=Total Assistance 5=Supervision or Setup 2=Maximal Assistance 6=Modified [place] 3=Moderate Assistance 7=Complete IndependenceIRFPAI Quality Coding Scale 6 Independent with activity with or without an assistive device 5 Patient requires set up or clean up by helper. Patient completes activity by themselves 4 Supervision or touching assist (CGA). [place] provide cues , steadying assist 3 The helper provides less than half the effort to complete the activity 2 The helper provides more than half the effort to complete the activity 1 Dependent. The helper does all the effort to complete an activity 7 Patient refused to complete or attempt activity 9 The patient did not perform the activity before the current illness or injury 88 Not attempted due to Medical conditions or safety concerns Sit to/from Stand: 5 Weight Bearing Right Lower Extremity: Right Full Weight Bearing Left Lower Extremity: Left Full Weight Bearing Gait Training Gait (FIM): 5 Distance (FIM): 3=150 ft Distance: 250 Gait Level of Assist: 5 Gait Persons Needed: 1 Gait Assistive Device: FWW Pt ambulated 250' x 1 with SBA x 1. Slow, steady gait. Occasional brief standing breaks for pursed lip breathing. O2 sats 92% on 7L post gait session. Treatments Ambulation with FWW, returned to EOB with all needs met, O2 in situ. Assessment Current Status: Good Progress Pt tolerated very well. Good improvement in functional activity tolerance. PT Short Term Goals Short Term Goals Transfers (B,C,W/C) (FIM): 4 PT Cryptographer Goals Cryptographer Goals PT Cryptographer Goals Time Frame: Apr 15, 2018 Transfers (B,C,W/C) (FIM): 6 Gait (FIM): 6 Gait distance (FIM): 3=150 ft Distance: 150ft Gait Level of Assist: 6 Gait Assistive Device: FWW PT Plan Problem List Problem List: Activity Tolerance, Functional Strength, Balance, Gait, Transfer Treatment/Plan Treatment Plan: Continue Plan of Care Treatment Plan: Bed Mobility, Education, Functional Activity [place], Functional Strength, Gait, Safety, Therapeutic Exercise, Transfers Treatment Duration: Apr 15, 2018 Frequency: 6 times per week Estimated Hrs Per Day: .25 hour per day Patient and/or Family Agrees t: Yes Time/GCodes Time In: 1233 Time Out: 1253 Total Billed Treatment Time: 20 Total Billed Treatment 1, FA x 20' G Codes Necessary: KEANU Roque DPTram Apr 12, 2018 13:01
--- NOTE | 2018-04-12 13:31 | Diagnostic Imaging Report ---
INDICATION: History of thoracic radiculopathy with probable multiple myeloma. Lower extremity weakness. EXAMINATION: CT thoracic and lumbar spine 04/12/2018 CORRELATION made to a previous CT angiographic of the chest from 04/08/2018. FINDINGS: Axial imaging of the thoracic and lumbar spine with coronal and sagittal reconstructed imaging performed. There are no significant subluxations within the thoracic spine however multilevel compression deformities are noted and are age indeterminate. This includes almost all of the midthoracic vertebral bodies from T6-T11. Multiple vertebral bodies contain more rounded lytic appearing lesions anteriorly. Along the infra-endplate at T8 there appears to be a focal defect along the inferior endplate suspicious for a lytic lesion possibly due to the history of multiple myeloma. A similar process is noted at T10 which also involves the anterior aspect of the vertebral body. There is questioned mild soft tissue prominence about the vertebral body anteriorly at the T8 level. There is a lytic area along the left paracentral aspect of the anterior vertebral body at T10 which appears to break through the anterior cortex again age-indeterminate. There are multiple large spurs seen throughout the anterior vertebral bodies throughout the thoracic spine with flowing osteophytes and changes suggestive of DISH. Within the lumbar spine, there are multilevel lytic appearing lesions within the vertebral bodies, as well. In the lumbar spine, multilevel diffuse bilateral facet hypertrophy noted especially in the L2-L3 through the L4-5 levels. There is likely multilevel central stenosis which is felt to be severe at L2-L3 and L3-L4 and nearly severe at L1-L2. These findings could be better characterized with MRI if clinically warranted. Diffuse lytic areas noted bilaterally within the visualized pelvis, right worse than left. Some of these break into the SI joint on the right. There is osteopenia which does limit evaluation for nondisplaced fractures. Diffuse anterior large flowing osteophytes and findings likely DISH noted throughout the lumbar spine. A few sclerotic lesions noted within the vertebral bodies of the lumbar region nonspecific, possibly bone islands, but given the other findings, a metastatic process is not excluded at this time. Within the visualized soft tissues in the chest, abdomen and pelvis, there are bilateral pleural effusions. There is diffuse atherosclerotic disease along the aorta. Within the visualized mediastinum, shotty lymph nodes are seen throughout the mediastinum. The lungs demonstrate bibasilar atelectasis versus infiltrates. Findings are likely edema throughout the remaining visualized lungs with emphysematous changes also noted. The upper abdomen demonstrates several enlarged lymph nodes within the retroperitoneum periaortic in location. There is atherosclerotic disease along the visualized abdominal aorta and its branches. There are cystic changes within the visualized aspects of the kidney, incompletely evaluated on this examination. Fairly prominent cystic area on the left is most likely a large cyst, less likely a parapelvic cyst or even prominent calyx or renal pelvis. Both kidneys are atrophied. A nodule in the right adrenal gland noted. IMPRESSION: 1. Multilevel lytic areas throughout the osseous structures as described which are nonspecific but could be due to the history of possible multiple myeloma or due to a metastatic process. Correlate clinically. Destructive change seen at several levels with loss of height at multiple thoracic vertebral bodies. These are age indeterminate. 2. Bilateral pleural effusions with bibasal infiltrates and findings of pulmonary edema throughout both lungs. 3. Nonspecific shotty lymph nodes in the mediastinum with retroperitoneal adenopathy. Clinical correlation for metastatic process recommended. Other findings including findings in the left kidney, as discussed above. Dictated by: Dictated on workstation # [id number]
[2018-04-12] MEDS: LEVOFLOXACIN 750 MG/150 ML IV 150 ML IV SCH (15:07)
[2018-04-12 16:25] VITALS: BP 180/85
[2018-04-12 20:00] VITALS: BP 163/77
[2018-04-12] MEDS: TAMSULOSIN 0.4 MG (FLOMAX) CAP PO SCH (21:24)
[2018-04-13] VITALS: BP 170/79
[2018-04-13] MEDS: RT-ALBUTEROL/IPRATROPIUM 3 ML (DUONEB) VIAL INH SCH ×6 (01:19→23:30)
[2018-04-13 04:00] VITALS: BP 166/84
[2018-04-13] MEDS: RT-ADVAIR HFA 115/21 MCG PER PUFF IH SCH ×2 (06:34→19:30)
[2018-04-13] MEDS: aCETylcysteine 20% (MUCOMYST) 30ML SOLN VIAL INH SCH ×4 (06:35→23:46)
[2018-04-13] MEDS: KCL 10 MEQ TAB (MICRO K) PO SCH (06:44)
[2018-04-13] MEDS: inSUlin ASPART (NovoLOG) 1 UNIT/0.01 ML (CHARGE PER UNIT) SC SCH ×4 (06:45→21:35)
[2018-04-13] MEDS: CATHETER FLUSH 10 ML SYR IV SCH ×3 (06:45→22:00)
[2018-04-13 08:07] VITALS: BP 193/91
[2018-04-13] MEDS: ENALAPRIL 5 MG (VASOTEC) TAB PO SCH ×2 (08:16→21:35)
[2018-04-13] MEDS: guaiFENesin (MUCINEX) 600 MG TAB PO SCH ×2 (08:16→21:35)
[2018-04-13] MEDS: ALLOPURINOL 100 MG (ZYLOPRIM) TAB PO SCH (08:17)
[2018-04-13] MEDS: meTOprolol SUCCINATE 100 MG (TOPROL XL) TAB PO SCH (08:17)
[2018-04-13] MEDS: MAGNESIUM OXIDE (MAG-OX)400 MG TAB PO SCH ×2 (08:17→18:08)
[2018-04-13] MEDS: APIXABAN 5 MG (ELIQUIS) TABLET PO SCH ×2 (08:17→21:36)
[2018-04-13] MEDS: cefTRIAXone FOR IV USE 2,000 MG in NS (IVPB) 50 ML IV SCH (08:17)
[2018-04-13] MEDS: FUROSEMIDE 40 MG (LASIX) TAB PO SCH (08:17)
[2018-04-13] MEDS: oxyCODONE/APAP 5/325MG (PERCOCET 5) TABLET PO PRN (09:05)
[2018-04-13] MEDS ORDERED: ENALAPRIL 5 MG (VASOTEC) TAB PO ONE (09:45)
[2018-04-13] MEDS ORDERED: FUROSEMIDE 40 MG/4 ML INJ (LASIX) IVP SCH (11:00)
--- NOTE | 2018-04-13 11:33 | Progress Note-Hospitalist ---
Subjective HPI/CC On Admission Date Seen by Provider: Apr 13, 2018 Time Seen by Provider: 09:00 Patient reports back pain is about the same it is intermittent but worse in the upright position. He still occasionally having lancinating pain in the midthoracic distribution on the right side radiating around to the right upper quadrant area of the abdomen but as I recall is only happened twice when getting up to go to the bathroom since yesterday. Had a long discussion with the patient and family members present about his CT scan of the thoracic spine compatible with diffuse lytic disease of the thoracic and lumbar spine with several likely small pathologic T spine fractures. There did not appear to be at any CT evidence for cord compression and the patient is having no bowel or bladder control problems able to ambulate with no progression of weakness of the lower upper extremities. He does note a little more dyspnea on exertion can only go about [address] scan of the thoracic spine also suggested some degree of pulmonary vascular congestion there were also some periaortic lymph nodes present suspicious for possible metastatic disease. Subjective/Events-last exam See above Objective Exam Vital Signs Vital Signs Date Time Temp Pulse Resp B/P (MAP) Pulse Ox O2 Delivery O2 Flow Rate FiO2 04/13/18 09:42 94 Nasal Cannula 5.00 04/13/18 08:07 98.9 60 20 193/91 (125) 04/11/18 08:00 50 Capillary Refill : Less Than 3 SecondsLess Than 3 Seconds General Appearance: No Apparent Distress, Mild Distress Respiratory: No Accessory Muscle Use, No Respiratory Distress, Other (Coarse breath sounds throughout a few basilar rales that clear with deep inspiration.) Cardiovascular: Regular Rate, Rhythm, No Edema, No Gallop, No JVD, No Murmur, Normal Peripheral Pulses Extremity: Other (2+ pedal edema to the mid tibia bilaterally) Neurologic/Psychiatric: Alert, Oriented x3, No Motor/Sensory Deficits Results/Procedures Lab Patient resulted labs reviewed. Assessment/Plan Assessment and Plan Assess & Plan/Chief Complaint Admission Dx acute on chronic respiratory failure Assessment and Plan Acute on chronic hypoxic respiratory failure- with mucus plugging Dr. Buchanan consulted- continue mucinex sputum culture growing out pseudomonas- R to cefepime- switched to levofloxacin 04/10/18. Respiratory status significantly improved with minimal sputum production and diminishing shortness of breath. (J44.9) Acute exacerbation Chronic obstructive pulmonary disease - MAT protocol- steroids, Dr. Buchanan consulted - improved CT chest pulmonary edema J81.1 pulmonary edema- lasix (N18.3) Chronic kidney disease, stage 3 (moderate) - holding nephrotoxic agents, Creatinine at baseline (I10) Essential (primary) hypertension - beta laura, ARB (E11.40) Type 2 diabetes mellitus with diabetic neuropathy- achs blood sugar, SSI A, stop metformin (I25.10) Atherosclerotic heart disease of [place] coronary artery without angina pectoris- follows with Dr. Macdonald (G47.39) Other sleep apnea- home bipap with oxygen R10.11 Right upper quadrant pain- compatible with thoracic radiculopathy due to probable multiple myeloma with likely pathologic fracture D47.2 monoclonal gammopathy- [place] with diffuse lytic disease on yesterday's CT of the thoracic spine and lumbar spine without overt evidence for cord compression. Discussed with the family the likelihood of progression with expectation of more fractures more pain with the possibility of paralysis not to mention the likely rapid terminal prognosis without treatment. The family understandably wishes to speak with her primary care provider Dr. Larkin. I strongly advised of this conversation at least allow one of her oncologist to come up and talk with him about further diagnostic and ultimate treatment options for making in treating the definitive diagnosis. 45 minutes of care time spent. E83.42 hypomagnesemia- replacing. Right knee internal hardware infection- on home rocephin through PICC - follows with Dr. Mckay sacral decubitus ulcer stage ii- wound care- improving Pulmonary at vascular congestion and hypertension with previous preserved systolic function and coronary artery disease suggest acute on chronic diastolic heart failure. Patient will receive an IV dose of Lasix and will increase enalapril to 5 mg twice a day now. Tomorrow's morning dose of Lasix has been increased to 80 mg by mouth. Critical Care Critical Care: Critically Ill Patient Clinical Quality Measures DVT/VTE Risk/Contraindication: Risk Factor Score Per Nursin RFS Level Per Nursing on Admit: 4+=Very High CELI JIMENEZ MD Apr 13, 2018 11:33
[2018-04-13 12:22] VITALS: BP 162/76
[2018-04-13] MEDS: LEVOFLOXACIN 750 MG/150 ML IV 150 ML IV SCH (14:05)
[2018-04-13 16:12] VITALS: BP 158/78
[2018-04-13] MEDS: TAMSULOSIN 0.4 MG (FLOMAX) CAP PO SCH (21:37)
[2018-04-14 00:20] VITALS: BP 133/61
[2018-04-14] MEDS: RT-ALBUTEROL/IPRATROPIUM 3 ML (DUONEB) VIAL INH SCH ×6 (03:09→22:09)
[2018-04-14] MEDS: oxyCODONE/APAP 5/325MG (PERCOCET 5) TABLET PO PRN (04:32)
[2018-04-14 06:17] LABS: BASOPHILS % (AUTO) 0 % (0-10); EOSINOPHILS # (AUTO) 0.1 10^3/uL (0.0-0.3); EOSINOPHILS % (AUTO) 1 % (0-10); HEMATOCRIT 30 % (40-54); HEMOGLOBIN 9.3 G/DL (13.3-17.7); LYMPHOCYTES # (AUTO) 1.4 X 10^3 (1.0-4.0); LYMPHOCYTES % (AUTO) 25 % (12-44); MEAN CORPUSCULAR HEMOGLOBIN 30 PG (25-34); MEAN CORPUSCULAR HGB CONC 31 G/DL (32-36); MEAN CORPUSCULAR VOLUME 96 FL (80-99); MEAN PLATELET VOLUME 10.9 FL (7.4-10.4); MONOCYTES # (AUTO) 0.5 X 10^3 (0.0-1.0); MONOCYTES % (AUTO) 8 % (0-12); NEUTROPHILS # (AUTO) 3.6 X 10^3 (1.8-7.8); NEUTROPHILS % (AUTO) 65 % (42-75); PLATELET COUNT 216 10^3/uL (130-400); RED BLOOD COUNT 3.15 10^6/uL (4.35-5.85); RED CELL DISTRIBUTION WIDTH 17.9 % (10.0-14.5); WHITE BLOOD COUNT 5.5 10^3/uL (4.3-11.0)
[2018-04-14] MEDS: CATHETER FLUSH 10 ML SYR IV SCH ×3 (06:34→22:00)
[2018-04-14] MEDS: KCL 10 MEQ TAB (MICRO K) PO SCH (06:34)
[2018-04-14 06:37] LABS: ALANINE AMINOTRANSFERASE 29 U/L (0-55); ALBUMIN 2.5 GM/DL (3.2-4.5); ALKALINE PHOSPHATASE 94 U/L (40-136); BILIRUBIN,TOTAL 0.6 MG/DL (0.1-1.0); BUN/CREATININE RATIO 30; CALCIUM 8.7 MG/DL (8.5-10.1); CARBON DIOXIDE 27 MMOL/L (21-32); CHLORIDE 106 MMOL/L (98-107); CREATININE SERUM 1.09 MG/DL (0.60-1.30); GFR ESTIMATED > 60; GLUCOSE 112 MG/DL (70-105); POTASSIUM 4.1 MMOL/L (3.6-5.0); SODIUM 141 MMOL/L (135-145); TOTAL PROTEIN 6.8 GM/DL (6.4-8.2)
[2018-04-14] MEDS: aCETylcysteine 20% (MUCOMYST) 30ML SOLN VIAL INH SCH ×4 (06:37→22:09)
[2018-04-14] MEDS: inSUlin ASPART (NovoLOG) 1 UNIT/0.01 ML (CHARGE PER UNIT) SC SCH ×4 (06:38→20:39)
[2018-04-14] MEDS: RT-ADVAIR HFA 115/21 MCG PER PUFF IH SCH ×2 (06:45→19:00)
--- NOTE | 2018-04-14 07:22 | Pulmonary Progress Note ---
Subjective Time Seen by a Provider: 10:51 Subjective/Events-last exam PT wants to go home. He states his SOB is improved. Sepsis Event Evaluation Height, Weight, BMI Height: 5'9.00" Weight: 228lbs. 5.0oz. 103.031825xr; 33.7 BMI Method:Estimated Exam Exam Vital Signs Date Time Temp Pulse Resp B/P (MAP) Pulse Ox O2 Delivery O2 Flow Rate FiO2 04/14/18 06:38 98 Nasal Cannula 5.00 04/14/18 03:09 93 NIV CPAP 4.00 04/14/18 00:20 97.9 60 20 133/61 (85) 94 NIV CPAP 8.00 04/13/18 23:31 92 NIV CPAP 4.00 04/13/18 20:00 High Flow N/C 5.00 04/13/18 19:37 99 Nasal Cannula 5.00 04/13/18 19:30 98 Nasal Cannula 5.00 04/13/18 16:12 98.9 60 20 158/78 (104) 100 High Flow N/C 8.00 04/13/18 14:34 98 Nasal Cannula 5.00 04/13/18 12:22 98.9 60 20 162/76 (104) 96 High Flow N/C 8.00 04/13/18 09:42 94 Nasal Cannula 5.00 04/13/18 08:10 High Flow N/C 5.00 04/13/18 08:07 98.9 60 20 193/91 (125) 99 High Flow N/C 8.00 I & O 04/14/18 07:00 Intake Total 1640 ml Output Total 2500 ml Balance -860 ml Height & Weight Height: 5'9.00" Weight: 228lbs. 5.0oz. 103.920157xw; 33.7 BMI Method:Estimated General Appearance: No Apparent Distress HEENT: PERRL/EOMI, Normal ENT Inspection, Pharynx Normal; No Moist Mucous Membranes Neck: Full Range of Motion, Normal Inspection, Non Tender, Supple Respiratory: No Accessory Muscle Use, No Respiratory Distress, Other (Coarse breath sounds throughout a few basilar rales that clear with deep inspiration.) Cardiovascular: Regular Rate, Rhythm, No Edema, No Gallop, No JVD, No Murmur, Normal Peripheral Pulses Capillary Refill: Less Than 3 Seconds Extremity: Other (2+ pedal edema to the mid tibia bilaterally) Neurologic/Psychiatric: Alert, Oriented x3, No Motor/Sensory Deficits Skin: Normal Color, Warm/Dry Results Lab Laboratory Tests 04/14/18 06:05 Assessment/Plan Assessment/Plan Acute on chronic respiratory failure with hypoxia and mucous plugging -CXR Pulmonary edema -Hep lock IVF -repeat labs and BNP -lasix 40mg PO daily Severe COPD with AE -SVNS -Steroids pneumponia with atelectasis with mucous plugging -Pseudomonas has grown out of sputum -Continue Levaquin x 10-14 days - mucomyst to SVNs - mucinex -Increase activity and monitor CKD PARVIZ -Home BIPAP CORY BERGER DO Apr 14, 2018 07:22
[2018-04-14 07:25] VITALS: BP 146/67
[2018-04-14] MEDS: MAGNESIUM OXIDE (MAG-OX)400 MG TAB PO SCH ×2 (07:49→17:40)
[2018-04-14] MEDS: APIXABAN 5 MG (ELIQUIS) TABLET PO SCH ×2 (07:49→21:40)
[2018-04-14] MEDS: ENALAPRIL 5 MG (VASOTEC) TAB PO SCH ×2 (07:50→21:40)
[2018-04-14] MEDS: meTOprolol SUCCINATE 100 MG (TOPROL XL) TAB PO SCH (07:50)
[2018-04-14] MEDS: ALLOPURINOL 100 MG (ZYLOPRIM) TAB PO SCH (07:50)
[2018-04-14] MEDS: guaiFENesin (MUCINEX) 600 MG TAB PO SCH ×2 (07:50→21:39)
[2018-04-14] MEDS: cefTRIAXone FOR IV USE 2,000 MG in NS (IVPB) 50 ML IV SCH (07:52)
[2018-04-14] MEDS: FUROSEMIDE 40 MG (LASIX) TAB PO SCH (08:00)
--- NOTE | 2018-04-14 11:01 | Progress Note (SOAP) ---
Subjective Subjective Date Seen by Provider: Apr 14, 2018 Time Seen by Provider: 08:00 77 yo M continues to improve slowly overall. Breathing better. Still SOB with ambulating. No overnight events He did not get to move around much as staff did not walk him. Pt and upset with getting bad news over the weekend would like to have heard it from myself. Review of Systems General: No Chills, No Night Sweats HEENT: No Head Aches Pulmonary: Dyspnea (improved), Cough Cardiovascular: Paroxysmal Noc. Dyspnea, Lt Headedness; No: Chest Pain Gastrointestinal: No: Nausea, Vomiting, Abdominal Pain Genitourinary: No Dysuria, No Frequency Neurological: Weakness, Incoordination; No: Change in speech, Confusion Objective Exam Vital Signs Temp 97.8F pulse 60 RR 20 BP 128/66 Oxygen 94% on 8L BiPAP General Appearance: Mild Distress Eyes: Bilateral Eye Normal Inspection, Bilateral Eye PERRL, Bilateral Eye EOMI HEENT: PERRL/EOMI, Normal ENT Inspection, Pharynx Normal; No Moist Mucous Membranes Neck: Full Range of Motion, Normal Inspection, Non Tender, Supple Respiratory: Lungs Clear, No Accessory Muscle Use, No Respiratory Distress, Other (Coarse breath sounds throughout a few basilar rales that clear with deep inspiration.) Cardiovascular: Regular Rate, Rhythm, No Gallop, No JVD, No Murmur, Other (1+ pitting edema) Gastrointestinal: Normal Bowel Sounds, No Organomegaly, No Pulsatile Mass, Non Tender, Soft Back: No CVA Tenderness, No Vertebral Tenderness Extremity: Other (2+ pedal edema to the mid tibia bilaterally) Neurologic/Psychiatric: Alert, Oriented x3, No Motor/Sensory Deficits Skin: Normal Color, Warm/Dry Results Lab Laboratory Tests 04/13/18 16:53: Glucometer 144H 04/13/18 21:23: Glucometer 204H 04/14/18 05:35: Glucometer 122H 04/14/18 06:05: White Blood Count 5.5, Red Blood Count 3.15L, Hemoglobin 9.3L, Hematocrit 30L, Mean Corpuscular Volume 96, Mean Corpuscular Hemoglobin 30, Mean Corpuscular Hemoglobin Concent 31L, Red Cell Distribution Width 17.9H, Platelet Count 216, Mean Platelet Volume 10.9H, Neutrophils (%) (Auto) 65, Lymphocytes (%) (Auto) 25 , Monocytes (%) (Auto) 8, Eosinophils (%) (Auto) 1, Basophils (%) (Auto) 0, Neutrophils # (Auto) 3.6, Lymphocytes # (Auto) 1.4, Monocytes # (Auto) 0.5, Eosinophils # (Auto) 0.1, Basophils # (Auto) 0.0, Sodium Level 141, Potassium Level 4.1, Chloride Level 106, Carbon Dioxide Level 27, Anion Gap 8, Blood Urea Nitrogen 33H, Creatinine 1.09, Estimat Glomerular Filtration Rate > 60, BUN/ Creatinine Ratio 30, Glucose Level 112H, Calcium Level 8.7, Corrected Calcium 9.9, Total Bilirubin 0.6, Aspartate Amino Transf (AST/SGOT) 22, Alanine Aminotransferase (ALT/SGPT) 29, Alkaline Phosphatase 94, B-Type Natriuretic Peptide 617.7H, Total Protein 6.8, Albumin 2.5L Microbiology 04/07/18 Blood Culture - Final, Complete No growth 04/07/18 Influenza Types A,B Antigen (ABHINAV) - Final, Complete 04/07/18 Urine Culture - Final, Complete NO GROWTH Assessment/Plan Assessment/Plan Admission Dx acute on chronic respiratory failure Assessment and Plan Acute on chronic hypoxic respiratory failure- with mucus plugging Dr. Buchanan consulted- continue mucinex sputum culture growing out pseudomonas- R to cefepime- switched to levofloxacin 04/10/18 (J44.9) Acute exacerbation Chronic obstructive pulmonary disease - MAT protocol- steroids, Dr. Buchanan consulted - improved CT chest pulmonary edema J81.1 pulmonary edema- lasix (N18.3) Chronic kidney disease, stage 3 (moderate) - holding nephrotoxic agents, Creatinine at baseline (I10) Essential (primary) hypertension - beta laura, ARB (E11.40) Type 2 diabetes mellitus with diabetic neuropathy- achs blood sugar, SSI A, stop metformin (I25.10) Atherosclerotic heart disease of [place] coronary artery without angina pectoris- follows with Dr. Macdonald (G47.39) Other sleep apnea- home bipap with oxygen R10.11 Right upper quadrant pain- referred pain from lytic lesion of his thoracic spine. D47.2 monoclonal gammopathy- suspect multiple myeloma - pt and wanting to hold on heme/onc referral. E83.42 hypomagnesemia- replacing. Right knee internal hardware infection- on home rocephin through PICC - follows with Dr. Mckay sacral decubitus ulcer stage ii- wound care- improving -he is getting a hospital bed delivered 04/15/18 Dispo: plan to d/c to home tomorrow 04/15/18. Will order a nebulizer,oxycodone , bedside commode- to prevent falling at nighttime, humidifier for oxygen, rocephin 2 gram IV daily order. levofloxacin po daily for 10 more days. wound dressing for his ulcer- meredith barrier cream and border foam dressing- change daily per wound care recommendations. DVT ppx- on eliquis Prognosis : improved but guarded with all of his co-morbidities. Admission Dx acute on chronic respiratory failure Clinical Quality Measures Admission Status Admission Dx acute on chronic respiratory failure DVT/VTE Risk/Contraindication: Risk Factor Score Per Nursin RFS Level Per Nursing on Admit: 4+=Very High YURIY BRITTON MD Apr 14, 2018 11:01
--- NOTE | 2018-04-14 11:40 | Physical Therapy Daily Note ---
PT Daily Note-Current Subjective Pt reports he will be going home tomorrow, is disappointed that he cannot go today Pain Numeric Pain Scale: 3 Location: Right Location Body Site: Side Comment: Denies pain in knee, pain R side spasms during gait to 8/10 Appearance pt sitting EOB talking with family, on 5L O2/nc Mental Status Patient Orientation: Person, Place, Time, Eyes Open, Situation Attachments: Oxygen 5 L Transfers Functional [place] Measure 0=Not Assessed/NA 4=Minimal Assistance 1=Total Assistance 5=Supervision or Setup 2=Maximal Assistance 6=Modified [place] 3=Moderate Assistance 7=Complete IndependenceIRFPAI Quality Coding Scale 6 Independent with activity with or without an assistive device 5 Patient requires set up or clean up by helper. Patient completes activity by themselves 4 Supervision or touching assist (CGA). [place] provide cues , steadying assist 3 The helper provides less than half the effort to complete the activity 2 The helper provides more than half the effort to complete the activity 1 Dependent. The helper does all the effort to complete an activity 7 Patient refused to complete or attempt activity 9 The patient did not perform the activity before the current illness or injury 88 Not attempted due to Medical conditions or safety concerns Transfers (B, C, W/C) (FIM): 5 Sit to/from Stand: 5 sit to/from stand x3 reps during session, no inst or cues required for hand placement or safety this visit Weight Bearing Right Lower Extremity: Right Full Weight Bearing Left Lower Extremity: Left Full Weight Bearing Gait Training Gait (FIM): 5 Distance (FIM): 3=150 ft Distance: 300 Gait Level of Assist: 5 Gait Persons Needed: 1 Gait Assistive Device: FWW Gait with FWW, 5L O2/NC, SBA, several episodes requiring standing rest breaks with instruction for breathing techniques due to SOA Treatments Gait with FWW and Supplemental O2, reinforced breathing techniques. Returned to EOB with all needs met. Family in room upon return Assessment Pt tolerated treatment with min increase in pain, longer distance with gait, continues with increased SOA with activity PT Short Term Goals Short Term Goals Transfers (B,C,W/C) (FIM): 4 PT Cane Weigher Helper Goals Cane Weigher Helper Goals PT Cane Weigher Helper Goals Time Frame: Apr 15, 2018 Transfers (B,C,W/C) (FIM): 6 Gait (FIM): 6 Gait distance (FIM): 3=150 ft Distance: 150ft Gait Level of Assist: 6 Gait Assistive Device: FWW PT Plan Problem List Problem List: Activity Tolerance, Functional Strength, Gait, Bed Mobility Treatment/Plan Treatment Plan: Continue Plan of Care Treatment Plan: Bed Mobility, Education, Functional Activity [place], Functional Strength, Gait, Safety, Therapeutic Exercise, Transfers Pt states he will be discharging from the hospital to home tomorrow Treatment Duration: Apr 15, 2018 Frequency: 6 times per week Estimated Hrs Per Day: .25 hour per day Patient and/or Family Agrees t: Yes Safety Risks/Education reviewed safety and breathing techniques to continue with at home upon discharge Discharge Recommendations Plan Continue per POC to achieve goals Time/GCodes Time In: 1042 Time Out: 1102 Total Billed Treatment Time: 20 Total Billed Treatment 1 Visit FA JAE BRIONES PTA Apr 14, 2018 11:40
[2018-04-14] MEDS: LEVOFLOXACIN 750 MG TAB (LEVAQUIN) PO SCH (11:46)
--- NOTE | 2018-04-14 14:15 | Occupational Ther Daily Note ---
OT Current Status-Daily Note Subjective Pt sleeping in bed. Visitors present in room. BUTLER assisted nrsg with bed mobility. Mental Status/Objective Patient Orientation: Person, Place, Time, Situation Functional [place] Measure 0=Not Assessed/NA 4=Minimal Assistance 1=Total Assistance 5=Supervision or Setup 2=Maximal Assistance 6=Modified [place] 3=Moderate Assistance 7=Complete [place] Attachments: IV, Oxygen Other Treatment Nrsg stated that pt was sleeping due to pain meds. Nrsg need to turn pt due to wounds on buttocks. Pt dependent with rolling and moving up in bed. Family stated that pt would be discharging tomorrow to home. After therapy, pt lying in bed sleeping. Family present in room. All needs met. OT Short Term Goals Short Term Goals Time Frame: Apr 15, 2018 Eating(FIM): 6 Grooming(FIM): 5 Bathing(FIM): 4 Upper Body Dressing(FIM): 5 Lower Body Dressing(FIM): 4 Toileting(FIM): 5 Transfers (B,C,W/C) (FIM): 4 Toilet/Commode Transfer(FIM): 4 Additional Short Term Goals: 1-Demonstrate ADL Tasks, 2-Verbalize Understanding , 3-ImproveStrength/Anderson 1=Demonstrate adherence to instructed precautions during ADL tasks. 2=Patient will verbalize/demonstrate understanding of assistive devices/ modifications for ADL. 3=Patient will improve strength/tolerance for activity to enable patient to perform ADL's. OT Weed Thinner Goals Weed Thinner Goals Time Frame: Apr 22, 2018 Eating (FIM): 6 Grooming(FIM): 5 Bathing(FIM): 5 Upper Body Dressing(FIM): 5 Lower Body Dressing(FIM): 5 Toileting(FIM): 6 Transfers (B,C,W/C) (FIM): 6 Toilet/Commode Transfer(FIM): 6 Shower Transfer(FIM): 4 Additional Goals: 1-Demonstrate ADL Tasks, 2-Verbalize Understanding, 3- ImproveStrength/Anderson 1=Demonstrate adherence to instructed precautions during ADL tasks. 2=Patient will verbalize/demonstrate understanding of assistive devices/ modifications for ADL. 3=Patient will improve strength/tolerance for activity to enable patient to perform ADL's. OT Education/Plan Discharge Recommendations Plan/Recommendations: Continue POC Treatment Plan/Plan of Care Patient would benefit from OT for education, treatment and training to promote independence in ADL's, mobility, safety and/or upper extremity function for ADL' s. Plan of Care: ADL Retraining, Functional Mobility, UE Funct Exercise/Act Treatment Duration: Apr 22, 2018 Frequency: 5 times per week Estimated Hrs Per Day: .5 hour per day Agreement: Yes Rehab Potential: Fair Time/GCodes Start Time: 14:00 Stop Time: 14:08 Total Time Billed (hr/min): 8 Billed Treatment Time 1 visit-FA 1 (8 min) ANDER CORMIER Apr 14, 2018 14:15
[2018-04-14 15:25] VITALS: BP 146/67
[2018-04-14 15:35] VITALS: BP 132/66
[2018-04-14 20:47] LABS: CALCIUM 8.8 MG/DL (8.5-10.1); CREATININE SERUM 1.27 MG/DL (0.60-1.30); POTASSIUM 3.9 MMOL/L (3.6-5.0)
[2018-04-14] MEDS: TAMSULOSIN 0.4 MG (FLOMAX) CAP PO SCH (21:40)
[2018-04-15] VITALS: BP 128/66
[2018-04-15] MEDS: RT-ALBUTEROL/IPRATROPIUM 3 ML (DUONEB) VIAL INH SCH ×3 (02:22→10:39)
[2018-04-15] MEDS: inSUlin ASPART (NovoLOG) 1 UNIT/0.01 ML (CHARGE PER UNIT) SC SCH ×2 (06:12→11:58)
[2018-04-15] MEDS: RT-ADVAIR HFA 115/21 MCG PER PUFF IH SCH (06:20)
[2018-04-15] MEDS: aCETylcysteine 20% (MUCOMYST) 30ML SOLN VIAL INH SCH (06:20)
[2018-04-15] MEDS: KCL 10 MEQ TAB (MICRO K) PO SCH (06:35)
[2018-04-15] MEDS: CATHETER FLUSH 10 ML SYR IV SCH (06:35)
--- NOTE | 2018-04-15 07:18 | Pulmonary Progress Note ---
Subjective Time Seen by a Provider: 07:17 Sepsis Event Evaluation Height, Weight, BMI Height: 5'9.00" Weight: 231lbs. 5.0oz. 104.713669if; 33.7 BMI Method:Estimated Exam Exam Vital Signs Date Time Temp Pulse Resp B/P (MAP) Pulse Ox O2 Delivery O2 Flow Rate FiO2 04/15/18 06:17 97 Nasal Cannula 4.00 04/15/18 02:22 96 NIV CPAP 4.00 04/15/18 00:00 97.8 60 20 128/66 (86) 94 NIV CPAP 8.00 04/14/18 22:09 99 NIV CPAP 4.00 04/14/18 20:00 High Flow N/C 5.00 04/14/18 19:00 97 Nasal Cannula 5.00 04/14/18 15:35 97.7 60 20 132/66 (88) 97 High Flow N/C 8.00 04/14/18 15:25 60 97 40 04/14/18 15:17 97 Nasal Cannula 5.00 04/14/18 11:14 95 Nasal Cannula 5.00 04/14/18 08:00 High Flow N/C 5.00 04/14/18 07:25 97.8 60 20 146/67 (93) 93 NIV CPAP 8.00 I & O 04/15/18 07:00 Intake Total 890 ml Output Total 2900 ml Balance -2010 ml Height & Weight Height: 5'9.00" Weight: 231lbs. 5.0oz. 104.170124ac; 33.7 BMI Method:Estimated General Appearance: No Apparent Distress HEENT: PERRL/EOMI, Normal ENT Inspection, Pharynx Normal; No Moist Mucous Membranes Neck: Full Range of Motion, Normal Inspection, Non Tender, Supple Respiratory: No Accessory Muscle Use, No Respiratory Distress, Other (Coarse breath sounds throughout a few basilar rales that clear with deep inspiration.) Cardiovascular: Regular Rate, Rhythm, No Edema, No Gallop, No JVD, No Murmur, Normal Peripheral Pulses Capillary Refill: Less Than 3 Seconds Extremity: Other (2+ pedal edema to the mid tibia bilaterally) Neurologic/Psychiatric: Alert, Oriented x3, No Motor/Sensory Deficits Skin: Normal Color, Warm/Dry Results Lab Laboratory Tests 04/14/18 06:05 04/14/18 20:20 Assessment/Plan Assessment/Plan Acute on chronic respiratory failure with hypoxia and mucous plugging Pulmonary edema -lasix 40mg PO daily Severe COPD 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 CORY BERGER DO Apr 15, 2018 07:17
[2018-04-15 08:00] VITALS: BP 132/67
[2018-04-15] MEDS: cefTRIAXone FOR IV USE 2,000 MG in NS (IVPB) 50 ML IV SCH (08:08)
[2018-04-15] MEDS: ENALAPRIL 5 MG (VASOTEC) TAB PO SCH (08:08)
[2018-04-15] MEDS: MAGNESIUM OXIDE (MAG-OX)400 MG TAB PO SCH (08:08)
[2018-04-15] MEDS: FUROSEMIDE 40 MG (LASIX) TAB PO SCH (08:08)
[2018-04-15] MEDS: meTOprolol SUCCINATE 100 MG (TOPROL XL) TAB PO SCH (08:09)
[2018-04-15] MEDS: guaiFENesin (MUCINEX) 600 MG TAB PO SCH (08:09)
[2018-04-15] MEDS: ALLOPURINOL 100 MG (ZYLOPRIM) TAB PO SCH (08:09)
[2018-04-15] MEDS: APIXABAN 5 MG (ELIQUIS) TABLET PO SCH (08:09)
[2018-04-15] MEDS ORDERED: CEFT2VIA11 IV (09:03)
[2018-04-15] MEDS ORDERED: LEVO750T39 PO (09:03)
[2018-04-15] MEDS ORDERED: OXYC-529 PO (09:03)
[2018-04-15] MEDS ORDERED: MAGN400T6 PO (09:03)
--- NOTE | 2018-04-15 09:14 | Discharge Inst-Simple/Standard ---
Discharge Inst-Standard Discharge Medications New, Converted or Re-Newed RX: RX on Chart Patient Instructions/Follow Up Plan of Care/Instructions/FU: ---Resume Home Health ---Daily dressing change with barrier cream and Mepilex to decubitus ulcer ---Daily IV ceftriaxone 2gram via right PICC- last dose 04/29/18- further evaluation/treatment per Dr. Mckay orthopedics. ---Bedside commode to decrease fall risk overnight ---humidified oxygen --complete levofloxacin for pneumonia --follow up at [facility] [place] in 1-2 weeks. Activity as Tolerated: Yes Discharge Diet: Eat Small Frequent Meals Return to The Hospital For: worsening breathing issues. new concerns. Planned Outpatient Orders/Ref. ---Resume Home Health prior to admission ---Daily dressing change with barrier cream and Mepilex to decubitus ulcer ---Daily IV ceftriaxone 2gram via right PICC- last dose 04/29/18- further evaluation/treatment per Dr. Mckay orthopedics. ---Bedside commode to decrease fall risk overnight ---humidified oxygen YURIY BRITTON MD Apr 15, 2018 09:12
[2018-04-15] MEDS ORDERED: ENAL5TAB PO (09:19)
--- NOTE | 2018-04-15 09:21 | Discharge Summary ---
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) Other sleep apnea- R10.11 Right upper quadrant pain- monoclonal gammopathy- suspect multiple myeloma - Right knee internal hardware infection- Discharge Diagnosis Acute on chronic hypoxic respiratory failure- (J44.9) Acute exacerbation Chronic obstructive pulmonary disease - J81.1 pulmonary edema- (N18.3) Chronic kidney disease, stage 3 (moderate) - (I10) Essential (primary) hypertension - (E11.40) Type 2 diabetes mellitus with diabetic neuropathy- (I25.10) Atherosclerotic heart disease of [place] coronary artery without angina pectoris- (G47.39) Other sleep apnea R10.11 Right upper quadrant pain- D47.2 monoclonal gammopathy- suspect multiple myeloma - E83.42 hypomagnesemia- Right knee internal hardware infection- sacral decubitus ulcer stage ii- Reason Hospital Visit 77-year-old male admitted for acute on chronic hypoxic respiratory failure. 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 He is being followed by Dr. Mckay and is currently on Rocephin for his right knee. Over the past week his respiratory status has worsened he is at increased sputum production. Over the night 04/03/18 his oxygen saturation dropped down to the 70s and he had difficulty breathing, more of an apneic spell in which he finally coughed up a large amount of sputum. Over the weekend he was started on nebulized Mucomyst. Patient continues to have right upper quadrant pain less far has been worked up with ultrasound and lab work and rib x-rays all of which have been unfruitful. Of note on previous admission patient had acute on chronic renal failure anemia elevated protein and was worked up for further etiology and was found to have monoclonal gammopathy suspicious for multiple myeloma. Patient and wanting to hold off on hematology workup at this time as he has enough medical issues at this time. Patient presenting to the ER with worsening respiratory status and fever ( reports Tmax 102F). He was started on IV fluids and cefepime and admitted to fourth floor for further workup. Discharge Summary Hospital Course Hospital Course 77-year-old male admitted for pneumonia and acute on chronic hypoxic respiratory failure. Patient was found to have Pseudomonas pneumonia, he was switched from cefepime to levofloxacin. Patient was resumed on his ceftriaxone for his right knee infection. Patient continued to have the right sided rib right-sided chest pain so a CT of his thoracic and lumbar vertebrae was obtained demonstrating multiple lytic lesions concerning for multiple myeloma. Multiple myeloma was already suspected from the March 10 visit (given at that time he had acute on chronic kidney failure, anemia, elevated proteins and a lytic lesion of his right distal femur). Further evaluation on that visit showed an M spike- elevated monoclonal gammopathy. shared decision-making was utilized with patient and his and they chose to not proceed with further evaluation at that time. They will continue to consider hematology oncology consult. I did order a lactate dehydrogenase that was 235 with high normal 220 so this was a good sign that his monoclonal gammopathy is not currently in full force. Explained to patient his spine is weak with compression/pathologic fractures due to the lytic lesions. patient's respiratory status improved andhis right-sided rib side pain also improved some to. Decision was made to discharge back to home and let him recuperate there. He will continue to have home health work with him. ---Resume Home Health ---Daily dressing change with barrier cream and Mepilex to decubitus ulcer ---Daily IV ceftriaxone 2gram via right PICC- last dose 04/29/18- further evaluation/treatment per Dr. Mckay orthopedics. ---Bedside commode to decrease fall risk overnight ---humidified oxygen --complete levofloxacin for pneumonia [place] [facility] [place] Labs Laboratory Tests 04/13/18 16:53: Glucometer 144H 04/13/18 21:23: Glucometer 204H 04/14/18 05:35: Glucometer 122H 04/14/18 06:05: Red Blood Count 3.15L, Hemoglobin 9.3L, Hematocrit 30L, Mean Corpuscular Hemoglobin Concent 31L, Red Cell Distribution Width 17.9H, Mean Platelet Volume 10.9H, Blood Urea Nitrogen 33H, Glucose Level 112H, B-Type Natriuretic Peptide 617.7H, Albumin 2.5L 04/14/18 11:11: Glucometer 250H 04/14/18 15:39: Glucometer 194H 04/14/18 20:20: Blood Urea Nitrogen 31H, Glucose Level 166H, Lactate Dehydrogenase 235H 04/14/18 20:25: Glucometer 190H 04/15/18 05:57: Glucometer 123H 04/15/18 11:45: Glucometer 133H Procedures None. Consultations Dr. Chanel Blackman Discharge Physical Examination Allergies: Coded Allergies: No Known Drug Allergies (Unverified , 06/06/11) Vitals & I&Os Vital Signs Date Time Temp Pulse Resp B/P (MAP) Pulse Ox O2 Delivery O2 Flow Rate FiO2 04/15/18 12:17 60 18 132/67 98 Nasal Cannula 4.00 04/15/18 08:00 98.7 04/14/18 15:25 40 General Appearance: Alert, Oriented X3, Cooperative HEENT: Atraumatic Respiratory: Clear to Auscultation Cardiovascular: Regular Rate Abdominal: Normal Bowel Sounds, Soft Neuro: Normal Speech Psych/Mental Status: Mental Status NL Discharge Home Medications Reviewed and agree with Discharge Medication list on patient's Discharge Instruction sheet Condition at Discharge improved guarded prognosis due to likely having progressed COPD and multiple myeloma Instructions to Patient/Family Please see electronic discharge instructions given to patient. Clinical Quality Measures DVT/VTE Risk/Contraindication: Risk Factor Score Per Nursin RFS Level Per Nursing on Admit: 4+=Very High YURIY BRITTON MD Apr 15, 2018 09:21
[2018-04-15] MEDS ORDERED: LEVOFLOXACIN 750 MG TAB (LEVAQUIN) PO SCH (11:00)
[2018-04-15] MEDS: LEVOFLOXACIN 750 MG TAB (LEVAQUIN) PO SCH (11:57)
[2018-04-15 12:17] VITALS: BP 132/67
== END 2018-04-15 12:04 | disposition home health service (06) | DRG 177 ==
LOC: EDUNIT# 22:30 → ER 22:32 → 4TH 04-08 01:10
PROVIDERS: ADMIT Family Medicine; ATTEND Family Medicine
DX: J15.1 Pneumonia due to Pseudomonas (principal); J96.21 Acute and chronic respiratory failure with hypoxia; J44.1 Chronic obstructive pulmonary disease with (acute) exacerbation; J44.0 Chronic obstructive pulmonary disease with (acute) lower respiratory infection; D47.1 Chronic myeloproliferative disease; T84.53XA Infection and inflammatory reaction due to internal right knee prosthesis, initial encounter; J98.11 Atelectasis; J81.1 Chronic pulmonary edema; C90.00 Multiple myeloma not having achieved remission; M84.48XA Pathological fracture, other site, initial encounter for fracture; I12.9 Hypertensive chronic kidney disease with stage 1 through stage 4 chronic kidney disease, or unspecified chronic kidney disease; N18.3 Chronic kidney disease, stage 3 (moderate); E11.40 Type 2 diabetes mellitus with diabetic neuropathy, unspecified; I25.10 Atherosclerotic heart disease of native coronary artery without angina pectoris; I48.91 Unspecified atrial fibrillation; I49.5 Sick sinus syndrome; G47.33 Obstructive sleep apnea (adult) (pediatric); T17.900A Unspecified foreign body in respiratory tract, part unspecified causing asphyxiation, initial encounter; E66.9 Obesity, unspecified; L89.152 Pressure ulcer of sacral region, stage 2; N40.1 Benign prostatic hyperplasia with lower urinary tract symptoms; R32 Unspecified urinary incontinence; Z79.84 Long term (current) use of oral hypoglycemic drugs; M19.91 Primary osteoarthritis, unspecified site; Z95.0 Presence of cardiac pacemaker; Z68.33 Body mass index [BMI] 33.0-33.9, adult; Z87.891 Personal history of nicotine dependence; Z79.01 Long term (current) use of anticoagulants; Z95.1 Presence of aortocoronary bypass graft; Z96.653 Presence of artificial knee joint, bilateral
CPT/HCPCS: 36415; 71045; 71046; 71275; 72128; 72131; 80048; 80053; 80069; 81000; 82962; 83605; 83615; 83735; 83880; 84100; 84484; 85025; 85610; 85730; 87040; 87070; 87077; 87088; 87186; 87205; 87804; 93005; 94640; 94664; 94760; 96361; 96365

== ENCOUNTER → 2018-05-13 | Outpatient (CLI) | payer MEDICARE, OTHER ==
[~2018-05-13] MED LIST changes: +ALLO100T PO; +BACL5TAB PO; +CEFT2VIA11 IV; +FURO20TA4 PO; +GABA-488 PO; +GUAI600T43 PO; +LEVO750T39 PO; +MAGN400T6 PO; +OXYC-529 PO; +POTA20TA15 PO
== END ==
LOC: WOUNDCARE 10:04
PROVIDERS: ATTEND Nurse Practitioner
DX: E11.628 Type 2 diabetes mellitus with other skin complications (principal); I87.2 Venous insufficiency (chronic) (peripheral); I70.248 Atherosclerosis of native arteries of left leg with ulceration of other part of lower leg; L97.221 Non-pressure chronic ulcer of left calf limited to breakdown of skin; L89.153 Pressure ulcer of sacral region, stage 3; L89.621 Pressure ulcer of left heel, stage 1
CPT/HCPCS: 99214

== ENCOUNTER → 2018-05-14 | Outpatient (CLI) | payer MEDICARE, OTHER | LOC: LAB 11:18 | PROVIDERS: ATTEND Nurse Practitioner | DX: E11.628 Type 2 diabetes mellitus with other skin complications (principal); I87.2 Venous insufficiency (chronic) (peripheral); I70.248 Atherosclerosis of native arteries of left leg with ulceration of other part of lower leg; L97.221 Non-pressure chronic ulcer of left calf limited to breakdown of skin; L89.153 Pressure ulcer of sacral region, stage 3; L89.621 Pressure ulcer of left heel, stage 1 | CPT/HCPCS: 36415; 83036 ==

== ENCOUNTER → 2018-05-20 | Outpatient (CLI) | payer MEDICARE, OTHER | LOC: WOUNDCARE 11:05 | PROVIDERS: ATTEND Nurse Practitioner | DX: E11.628 Type 2 diabetes mellitus with other skin complications (principal); I87.2 Venous insufficiency (chronic) (peripheral); I70.248 Atherosclerosis of native arteries of left leg with ulceration of other part of lower leg; L97.221 Non-pressure chronic ulcer of left calf limited to breakdown of skin; L89.153 Pressure ulcer of sacral region, stage 3; L89.621 Pressure ulcer of left heel, stage 1 | CPT/HCPCS: 99213 ==

== ENCOUNTER 2018-05-28 11:56 | Outpatient (RCR) | payer MEDICARE, OTHER ==
[2018-04-24 13:33] LABS: ABSOLUTE RETIC # 21 10e9/L (24-90); BASOPHILS % (AUTO) 0 % (0-10); EOSINOPHILS # (AUTO) 0.1 10^3/uL (0.0-0.3); EOSINOPHILS % (AUTO) 1 % (0-10); HEMATOCRIT 32 % (40-54); HEMOGLOBIN 9.8 G/DL (13.3-17.7); LYMPHOCYTES # (AUTO) 2.4 X 10^3 (1.0-4.0); LYMPHOCYTES % (AUTO) 36 % (12-44); MEAN CORPUSCULAR HEMOGLOBIN 29 PG (25-34); MEAN CORPUSCULAR HGB CONC 31 G/DL (32-36); MEAN CORPUSCULAR VOLUME 95 FL (80-99); MEAN PLATELET VOLUME 10.8 FL (7.4-10.4); MONOCYTES # (AUTO) 0.8 X 10^3 (0.0-1.0); MONOCYTES % (AUTO) 12 % (0-12); NEUTROPHILS # (AUTO) 3.4 X 10^3 (1.8-7.8); NEUTROPHILS % (AUTO) 51 % (42-75); PLATELET COUNT 209 10^3/uL (130-400); RED CELL DISTRIBUTION WIDTH 17.2 % (10.0-14.5); RETICULOCYTE % 0.62 % (0.50-2.40); WHITE BLOOD COUNT 6.7 10^3/uL (4.3-11.0)
[2018-04-24 13:54] LABS: ALBUMIN 2.7 GM/DL (3.2-4.5); BILIRUBIN,TOTAL 0.3 MG/DL (0.1-1.0); CALCIUM 8.9 MG/DL (8.5-10.1); CREATININE SERUM 1.59 MG/DL (0.60-1.30); POTASSIUM 4.9 MMOL/L (3.6-5.0); TOTAL PROTEIN 7.6 GM/DL (6.4-8.2)
[2018-04-24 14:42] LABS: BAND NEUTROPHILS 4 %; BASOPHILS % (MANUAL) 0 %; EOSINOPHILS % (MANUAL) 0 %; LYMPHOCYTES % (MANUAL) 30 %; MONOCYTES % (MANUAL) 10 %; NEUTROPHILS % (MANUAL) 56 %
[2018-04-24 14:50] LABS: ANISOCYTOSIS MODERATE; ELLIPT/OVALOCYTES SLIGHT
--- NOTE | 2018-05-06 14:13 | Diagnostic Imaging Report ---
INDICATION: Multiple myeloma TECHNIQUE: Skeletal survey CORRELATION STUDY: None FINDINGS: CALVARIUM: Small 4-5 mm lytic lesion in the frontal bone. SPINE: Rather dense multilevel degenerative changes including disc space narrowing osteophyte formation as well some areas of loss of height throughout the cervical, thoracic and lumbar spine. Extensive bridging osteophytes of the lumbar spine. Definitive acute compression from bernie destructive changes does not appear to be suggested. THORAX: Very limited evaluation. Patient is post sternotomy. There is a left-sided pacemaker. Ribs not well evaluated. Right-sided central line tip over the SVC. SHOULDERS GIRDLES/UPPER EXTREMITIES: There is presence of multiple rounded lytic punched-out lesions involving the shoulder girdles as well as the bilateral humerus and right greater than left. There also appears to be a lesion involving the distal right ulna. PELVIS: Moderate amount of overlying bowel gas and stool is present. LOWER EXTREMITIES: There are several lytic lesions of the bilateral femurs, right greater than left. Postop changes of bilateral knee arthroplasty. Potentially this is a cortical defect about the right mid fibula. IMPRESSION: 1. Multiple punched-out lytic lesions are present. This predominantly involves the of the long bones of the extremities. Findings do appear to be slightly greater on the right compared to the left side. These findings are consistent with multiple myeloma. Dictated by: Dictated on workstation # [id number]
[2018-05-14 11:10] LABS: BASOPHILS % (AUTO) 0 % (0-10); EOSINOPHILS # (AUTO) 0.1 10^3/uL (0.0-0.3); EOSINOPHILS % (AUTO) 1 % (0-10); HEMATOCRIT 31 % (40-54); HEMOGLOBIN 9.2 G/DL (13.3-17.7); LYMPHOCYTES # (AUTO) 3.4 X 10^3 (1.0-4.0); LYMPHOCYTES % (AUTO) 47 % (12-44); MEAN CORPUSCULAR HEMOGLOBIN 28 PG (25-34); MEAN CORPUSCULAR HGB CONC 30 G/DL (32-36); MEAN CORPUSCULAR VOLUME 94 FL (80-99); MEAN PLATELET VOLUME 10.2 FL (7.4-10.4); MONOCYTES # (AUTO) 0.6 X 10^3 (0.0-1.0); MONOCYTES % (AUTO) 8 % (0-12); NEUTROPHILS # (AUTO) 3.1 X 10^3 (1.8-7.8); NEUTROPHILS % (AUTO) 43 % (42-75); PLATELET COUNT 248 10^3/uL (130-400); RED CELL DISTRIBUTION WIDTH 17.6 % (10.0-14.5); WHITE BLOOD COUNT 7.3 10^3/uL (4.3-11.0)
[2018-05-14 11:27] LABS: ALANINE AMINOTRANSFERASE 13 U/L (0-55); ALBUMIN 2.6 GM/DL (3.2-4.5); ALKALINE PHOSPHATASE 89 U/L (40-136); BILIRUBIN,TOTAL 0.4 MG/DL (0.1-1.0); BUN/CREATININE RATIO 20; CALCIUM 8.8 MG/DL (8.5-10.1); CARBON DIOXIDE 26 MMOL/L (21-32); CHLORIDE 111 MMOL/L (98-107); CREATININE SERUM 1.12 MG/DL (0.60-1.30); GFR ESTIMATED > 60; GLUCOSE 95 MG/DL (70-105); POTASSIUM 4.6 MMOL/L (3.6-5.0); SODIUM 142 MMOL/L (135-145); TOTAL PROTEIN 7.8 GM/DL (6.4-8.2)
[2018-05-21 13:59] LABS: BASOPHILS % (AUTO) 0 % (0-10); EOSINOPHILS % (AUTO) 0 % (0-10); HEMATOCRIT 29 % (40-54); LYMPHOCYTES # (AUTO) 1.3 X 10^3 (1.0-4.0); LYMPHOCYTES % (AUTO) 21 % (12-44); MEAN CORPUSCULAR HEMOGLOBIN 29 PG (25-34); MEAN CORPUSCULAR HGB CONC 31 G/DL (32-36); MEAN CORPUSCULAR VOLUME 93 FL (80-99); MEAN PLATELET VOLUME 11.9 FL (7.4-10.4); MONOCYTES # (AUTO) 0.2 X 10^3 (0.0-1.0); MONOCYTES % (AUTO) 2 % (0-12); NEUTROPHILS # (AUTO) 4.7 X 10^3 (1.8-7.8); NEUTROPHILS % (AUTO) 76 % (42-75); PLATELET COUNT 194 10^3/uL (130-400); RED CELL DISTRIBUTION WIDTH 18.4 % (10.0-14.5); WHITE BLOOD COUNT 6.2 10^3/uL (4.3-11.0)
[2018-05-21 14:24] LABS: CALCIUM 8.5 MG/DL (8.5-10.1); CREATININE SERUM 1.24 MG/DL (0.60-1.30)
[~2018-05-28] VITALS: Ht 175.3 cm; Wt 96.2 kg
[~2018-05-28 11:56] MED LIST changes: +BORTEZOMIB 3.5 MG VELCADE SC SCH
[2018-05-28 12:40] LABS: BASOPHILS % (AUTO) 0 % (0-10); EOSINOPHILS % (AUTO) 0 % (0-10); HEMATOCRIT 28 % (40-54); HEMOGLOBIN 8.7 G/DL (13.3-17.7); LYMPHOCYTES # (AUTO) 0.9 X 10^3 (1.0-4.0); LYMPHOCYTES % (AUTO) 14 % (12-44); MEAN CORPUSCULAR HEMOGLOBIN 28 PG (25-34); MEAN CORPUSCULAR HGB CONC 31 G/DL (32-36); MEAN CORPUSCULAR VOLUME 91 FL (80-99); MONOCYTES # (AUTO) 0.7 X 10^3 (0.0-1.0); MONOCYTES % (AUTO) 12 % (0-12); NEUTROPHILS # (AUTO) 4.6 X 10^3 (1.8-7.8); NEUTROPHILS % (AUTO) 74 % (42-75); PLATELET COUNT 157 10^3/uL (130-400); RED CELL DISTRIBUTION WIDTH 18.6 % (10.0-14.5); WHITE BLOOD COUNT 6.2 10^3/uL (4.3-11.0)
[2018-05-28 12:57] LABS: CALCIUM 8.6 MG/DL (8.5-10.1); CREATININE SERUM 1.23 MG/DL (0.60-1.30); POTASSIUM 4.2 MMOL/L (3.6-5.0)
== END 2018-07-23 | disposition home or self-care (01) ==
LOC: ONC 11:56
PROVIDERS: ATTEND Internal Medicine Hematology & Oncology
DX: D47.2 Monoclonal gammopathy (principal); M89.9 Disorder of bone, unspecified; D50.9 Iron deficiency anemia, unspecified; R30.0 Dysuria; I25.10 Atherosclerotic heart disease of native coronary artery without angina pectoris; I48.91 Unspecified atrial fibrillation; E11.9 Type 2 diabetes mellitus without complications; E78.5 Hyperlipidemia, unspecified; I10 Essential (primary) hypertension; N40.1 Benign prostatic hyperplasia with lower urinary tract symptoms; R39.11 Hesitancy of micturition; Z79.01 Long term (current) use of anticoagulants; Z79.899 Other long term (current) drug therapy
CPT/HCPCS: 36415; 38222; 77075; 80048; 80053; 82232; 82784; 83883; 84155; 84165; 84550; 85007; 85025; 85027; 85045; 88184; 88185; 88237; 88264; 88305; 88311; 88313; 88377; 96401; 99213

== ENCOUNTER → 2018-05-28 | Outpatient (CLI) | payer MEDICARE, OTHER ==
--- NOTE | 2018-05-28 13:45 | Diagnostic Imaging Report ---
INDICATION: Right arm pain and swelling. TECHNIQUE: Grayscale, color-flow and duplex Doppler evaluation of the right upper extremity deep venous system was performed. FINDINGS: Right internal jugular vein as well as the right subclavian, axillary and brachial veins are patent. The basilic and cephalic veins are patent. Radial and ulnar veins are patent. No thrombus is seen. There is some edema in the subcutaneous tissues. No fluid collections are seen. IMPRESSION: No evidence of right upper extremity DVT. Dictated by: Dictated on workstation # [id number]
== END ==
LOC: RAD 10:17
PROVIDERS: ATTEND Nurse Practitioner Adult Health
DX: C90.00 Multiple myeloma not having achieved remission (principal); M79.89 Other specified soft tissue disorders

== ENCOUNTER → 2018-05-28 | Outpatient (CLI) | payer MEDICARE, OTHER | LOC: WOUNDCARE 13:03 | PROVIDERS: ATTEND Orthopaedic Surgery Hand Surgery | DX: E11.622 Type 2 diabetes mellitus with other skin ulcer (principal); I70.248 Atherosclerosis of native arteries of left leg with ulceration of other part of lower leg; L97.228 Non-pressure chronic ulcer of left calf with other specified severity; L89.150 Pressure ulcer of sacral region, unstageable; L89.622 Pressure ulcer of left heel, stage 2; I87.2 Venous insufficiency (chronic) (peripheral) | CPT/HCPCS: 99213 ==